=== PATIENT | female | born 1960 | race Caucasian/White ===

== ENCOUNTER 2019-07-10 09:06 | Outpatient (RCR) | payer OTHER, SELFPAY | END 2019-07-15 00:01 | LOC: ONCMED 09:06 | PROVIDERS: Family Provider Family Medicine; Visit Provider Nurse Practitioner | DX: E86.0 Dehydration (principal); R11.0 Nausea; C50.412 Malignant neoplasm of upper-outer quadrant of left female breast; Z17.0 Estrogen receptor positive status [ER+] | CPT/HCPCS: 80053; 85025; 96360; 96361; 96365; J1100; J1642 ×2; J7050 ==

== ENCOUNTER 2019-07-17 06:17 | Outpatient (RCR) | payer OTHER, SELFPAY | END 2019-07-21 12:00 | disposition home or self-care (01) | LOC: ONCMED 06:17 | PROVIDERS: Family Provider Family Medicine; Visit Provider Nurse Practitioner | DX: E86.0 Dehydration (principal); C50.412 Malignant neoplasm of upper-outer quadrant of left female breast; T82.9XXA Unspecified complication of cardiac and vascular prosthetic device, implant and graft, initial encounter; Y82.8 Other medical devices associated with adverse incidents | CPT/HCPCS: 36593; 80053; 85025; 96361; 96374; J1642; J2997 ==

== ENCOUNTER 2019-07-17 15:25 | Outpatient (RCR) | payer OTHER, SELFPAY | END 2019-08-15 00:01 | LOC: SPT 15:25 | PROVIDERS: Family Provider Family Medicine; Visit Provider Nurse Practitioner | DX: R53.83 Other fatigue (principal); T45.1X5A Adverse effect of antineoplastic and immunosuppressive drugs, initial encounter; C50.412 Malignant neoplasm of upper-outer quadrant of left female breast; Z17.0 Estrogen receptor positive status [ER+] | CPT/HCPCS: 97161 ==

== ENCOUNTER 2019-08-14 05:32 | Outpatient (RCR) | payer OTHER, SELFPAY | END 2019-08-15 00:01 | LOC: ONCRAD 05:32 | PROVIDERS: Family Provider Family Medicine; Visit Provider Internal Medicine Medical Oncology | DX: Z51.12 Encounter for antineoplastic immunotherapy (principal); C50.412 Malignant neoplasm of upper-outer quadrant of left female breast; C77.3 Secondary and unspecified malignant neoplasm of axilla and upper limb lymph nodes; N60.19 Diffuse cystic mastopathy of unspecified breast; G43.709 Chronic migraine without aura, not intractable, without status migrainosus; K57.90 Diverticulosis of intestine, part unspecified, without perforation or abscess without bleeding; E55.9 Vitamin D deficiency, unspecified; Z17.0 Estrogen receptor positive status [ER+]; Z79.811 Long term (current) use of aromatase inhibitors; Z78.0 Asymptomatic menopausal state; Z90.13 Acquired absence of bilateral breasts and nipples | CPT/HCPCS: 36415; 80053 ×2; 82306; 85025 ×2; 96375; 96413 ×2; 99214 ×2; J1642 ×2; J2405; J7050 ×4; J9355 ×2 ==

== ENCOUNTER 2019-08-16 06:00 | Outpatient (RCR) | payer OTHER, SELFPAY | END 2019-09-15 23:59 | disposition home or self-care (01) | LOC: SPT 06:00 | PROVIDERS: Family Provider Family Medicine; Visit Provider Internal Medicine Medical Oncology | DX: C50.412 Malignant neoplasm of upper-outer quadrant of left female breast (principal) ==

== ENCOUNTER 2019-08-21 16:06 | Outpatient (CLI) | payer OTHER, SELFPAY ==
--- NOTE | 2019-08-21 16:16 | XR_ITS ---
WS: [id number] SCREENING DEXA SCAN [employer] CLINICAL INFORMATION: ASYMTOMATIC POSTMENOPAUSAL STATE COMPARISON: None. FINDINGS: The L1-L4 bone mineral density measures 1.11. This corresponds to a T score score of -0.6 and Z score of 0.6. Left femoral neck bone mineral density measures 0.873. This corresponds to a T score of -1.1 and Z sc ore of -0.1. Right femoral neck bone mineral density measures 0.862. This corresponds to a T score -1.2 and Z scor e of -0.2. Mean femoral neck bone mineral density measures 0.868. This corresponds to a T score of -1.1 and Z sc ore of -0.2. XR/XR DEXA axial skeleton* 20895 IMPRESSION: Osteopenia Patient's FRAX calculated 10 year probability for major osteoporotic fracture i s 25.0 % and osteoporotic hip fracture is 1.1%.
== END 2019-08-21 16:07 | disposition home or self-care (01) ==
LOC: WPI 16:10
PROVIDERS: Family Provider Family Medicine; PCP Family Medicine; Referring Provider Internal Medicine Medical Oncology; Visit Provider Internal Medicine Medical Oncology
DX: Z78.0 Asymptomatic menopausal state (principal); M85.80 Other specified disorders of bone density and structure, unspecified site
CPT/HCPCS: 77080

== ENCOUNTER 2019-09-05 10:52 | Outpatient (CLI) | payer OTHER, SELFPAY ==
--- NOTE | 2019-09-05 11:00 | USCV_ITS ---
Bertha Briceno Age: 58 Gender: F : 1960 Exam Date: 09/05/2019 11:21 Ordering Phys: Sidney Beltran MD Technologist: Fernanda Juarez Exam Location: [facility] [place] Indication: HIGH RISK MEDS BP: 114 / 58 HR: 65 Rhythm: Sinus Technical Quality: Adequate MEASUREMENTS (Male / Female) Normal Values 2D ECHO LV Diastolic Diameter PLAX 2.9 cm 4.2 - 5.9 / 3.9 - 5.3 cm LV Systolic Diameter PLAX 2.3 cm LV Chamber Size 3.0 cm IVS Diastolic Thickness 0.9 cm 0.6 - 1.0 / 0.6 - 0.9 cm IVS Systolic Thickness 1.3 cm LVPW Diastolic Thickness 1.5 cm 0.6 - 1.0 / 0.6 - 0.9 cm LVPW Systolic Thickness 1.6 cm RV Chamber Size 2.5 cm LVOT Diameter 2.1 cm LV Ejection Fraction 2D Teich 44.2 % LV Ejection Fraction MOD 2C 68.5 % LV Ejection Fraction 2C AL 67.7 % LA Diameter 4.0 cm LA Width 1.8 cm LA Height 3.2 cm RA Width 2.3 cm RA Height 1.8 cm Aorta at Sinotubular Diameter 3.0 cm M-MODE LV Diastolic Diameter MM 4.9 cm 4.2 - 5.9 / 3.9 - 5.3 cm LV Systolic Diameter MM 3.3 cm LV Ejection Fraction MM Teich 59.6 % IVS Diastolic Thickness MM 1.0 cm 0.6 - 1.0 / 0.6 - 0.9 cm IVS Systolic Thickness MM 1.3 cm LVPW Diastolic Thickness MM 1.0 cm 0.6 - 1.0 / 0.6 - 0.9 cm LVPW Systolic Thickness MM 1.1 cm Aortic Annulus Diameter 3.1 cm LA Ao Ratio MM 1.3 MV E Point Septal Separation 0.6 cm FINDINGS Left Ventricle Normal left ventricular size and systolic function, EF 69 %. No regional wall motion abnormalities. Right Ventricle Possibly of normal size and ejection fraction Right Atrium Normal right atrial size. Left Atrium Normal left atrial size. Mitral Valve No gross abnormalities noted Aortic Valve No gross abnormalities noted Tricuspid Valve No gross abnormalities Pulmonic Valve Pulmonic valve not well visualized. Pericardium No pericardial effusion. Aorta Normal aortic annulus size. CONCLUSIONS Normal left ventricular size and systolic function, EF 69 %. No regional wall motion abnormalities. Possibly normal chamber sizes. Technically difficult study because of the poor ultrasonic window. Comparison with the previous study is difficult because of the difference in the technical quality. Dr Charla Gonzalez MD [facility] (Electronically Signed) Final Date: 06 September 2019 09:27 S
== END 2019-09-05 10:53 | disposition home or self-care (01) ==
LOC: RAD 10:55
PROVIDERS: Family Provider Family Medicine; PCP Family Medicine; Visit Provider Internal Medicine Medical Oncology
DX: Z79.899 Other long term (current) drug therapy (principal)
CPT/HCPCS: 93308

== ENCOUNTER 2019-09-12 05:58 | Outpatient (RCR) | payer OTHER, SELFPAY ==
[2019-09-04 10:42] LABS: Basophils % 0.4 %; Eosinophils # 0.2 10^3/uL (0.0-0.8); Eosinophils % 2.2 %; Hematocrit 34.8 % (37.0-47.0); Hemoglobin 10.5 g/dL (11.5-15.3); Lymphocytes # 3.5 10^3/uL (0.8-4.8); Lymphocytes % 45.7 %; Mean Corpuscular HGB Conc 30.2 g/dL (30.0-36.0); Mean Corpuscular Hemoglobin 30.4 pg (28.0-34.0); Mean Corpuscular Volume 100.9 fL (81-99); Mean Platelet Volume 11.4 fL (7.4-10.4); Monocytes # 0.6 10^3/uL (0.2-0.9); Monocytes % 7.6 %; Neutrophils # 3.4 10^3/uL (1.8-7.7); Nucleated Red Blood Cells % 0 %; Platelet Count 352 10^3/cmm (130-400); Red Blood Count 3.45 10^6/uL (4.1-5.3); Red Cell Distribution Width 12.7 % (12.1-15.1); White Blood Count 7.7 10^3/uL (4.0-10.0)
[2019-09-04 10:54] LABS: Alanine Aminotransferase 11 U/L (0-33); Albumin Level 3.8 g/dL (3.5-5.2); Alkaline Phosphatase 105 IU/L (35-105); Anion Gap 15.7 (5-19); Aspartate Amino Transferase 18 U/L (0-32); Blood Urea Nitrogen 22 mg/dL (8-23); Calcium 9.9 mg/Dl (8.8-10.2); Carbon Dioxide 24 mmol/L (22-29); Chloride 101 mmol/L (98-107); Globulin 3.8 g/dL (1.3-4.6); Glomerular Filtration Rate 50.7 mL/min (90-130); Glucose 115 mg/dL (74-106); Potassium 3.7 mmol/L (3.5-5.1); Sodium 137 mmol/L (136-145); Total Bilirubin 0.2 mg/dL (0.15-1.2); Total Protein 7.6 g/dL (6.6-8.7)
[2019-09-07] MEDS: sodium chloride 0.9% 250 ML 75 ML IV (13:26)
--- NOTE | 2019-09-12 | CTR_ITS ---
Radation Therapy Planning CT images; total exam DLP: 407.19 mGy-cm MTDD
== END 2019-09-15 23:59 | disposition home or self-care (01) ==
LOC: ONCMED 05:58
PROVIDERS: Internal Medicine Medical Oncology; Family Provider Family Medicine; PCP Family Medicine; Visit Provider Radiology Radiation Oncology
DX: Z51.12 Encounter for antineoplastic immunotherapy (principal); C50.412 Malignant neoplasm of upper-outer quadrant of left female breast; C77.3 Secondary and unspecified malignant neoplasm of axilla and upper limb lymph nodes; Z17.0 Estrogen receptor positive status [ER+]; G43.709 Chronic migraine without aura, not intractable, without status migrainosus; K57.90 Diverticulosis of intestine, part unspecified, without perforation or abscess without bleeding; G47.00 Insomnia, unspecified; E55.9 Vitamin D deficiency, unspecified; Z79.811 Long term (current) use of aromatase inhibitors; Z79.899 Other long term (current) drug therapy; Z92.21 Personal history of antineoplastic chemotherapy; Z90.13 Acquired absence of bilateral breasts and nipples; Z80.3 Family history of malignant neoplasm of breast
CPT/HCPCS: 36591; 77290; 77334; 80053; 85025; 96413; 96415; 99205; 99214; J7050; J9354

== ENCOUNTER 2019-10-13 05:44 | Outpatient (RCR) | payer OTHER, SELFPAY ==
--- NOTE | 2019-09-27 11:12 | ONCRAD TMN_ITS ---
Radiation Oncology Weekly Treatment Management Patient: Bertha Briceno MR#: [id number] : 1960> Age: 58> Sex: Female Dictated by: Dr. Hubert Blancas Date of Service: 09/27/2019 Referring Physician(s) : Dr. 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 ID: LT ChestWall, Energy: 15X/6X, Dose/Fx (cGy): 200, #Fx: 25, Dose Correction (cGy): 0, Total Dose (cGy): 200, Start Date: 09/27/2019, Elapsed Days: 0 LT ChestWall, Treatment Site: SCLV PAB, Ref. ID: SCLV PAB, Energy: 15X/6X, Dose/Fx (cGy): 200, #Fx: , Dose Correction (cGy): 0, Total Dose (cGy): 200,Start Date: 09/27/2019, Elapsed Days: 0 Current Complaints/Interval History: Constitutional Complains of mild fatigue. Denies lack of appetite, fever and night sweats. Breasts Has tenderness to the left chest wall. Respiratory Complains of dyspnea associated with normal activity. Denies cough and wheezing. Current Medications: Amitriptyline HCl, anastrozole, anastrozole, dexamethasone, dexamethasone Sodium Phosphate, imodium A-D, kadcyla, levoFLOXacin, lORazepam, omeprazole, ondansetron HCl, ondansetron HCl, ondansetron HCl, prochlorperazine Maleate, prochlorperazine Maleate, propranolol HCl, sodium Chloride, vitamin D-[address] Allergies: Aleve and Flagyl. Vital Signs: Performed on 09/27/2019 10:18 AM BMI - 28.606 kg/m2 (high), Height - 62.00 in, Weight - 156.4 lbs, Temperature - 98.7 f, Pulse - 72, Respiration - 18, O2 Sat - 96 %, Pain - 0 and BP - 106/ 70 mm(hg). Physical Exam: Appears stable, no skin erythema or desquamation. Performance Status: 1 - No physically strenuous activity, but ambulatory and able to carry out light or sedentary work (e.g. office work, light house work). (ECOG) Lab: Test performed on 09/04/2019 9:52 AM RBC - 3.45 10^12/l (low), HGB - 10.5 g/dl (low), MCV - 100.9 fl (high), MPV - 11.4 fl (high) and Cr Clearance (Est) - 57.87 ml/min (low). Imaging: No new diagnostic imaging was performed since the last weekly treatment visit. All radiation therapy related imaging (including but not limited to kV generated images) was reviewed. Appropriate changes, if any, were made to assure accurate target localization. Impression/Plan: Started RT today. Continue treatment as planned. Apply aquaphor to treatment area. CPT: 61052 Signed by: Dr. Hubert Blancas>09/27/2019 11:10:49 AM <<Signature on File>>
[2019-09-28] MEDS: alteplase 1 mg/mL SDV 2 mL 2 MG IV (13:00)
[2019-09-28 13:26] LABS: Basophils % 0.4 %; Eosinophils # 0.2 10^3/uL (0.0-0.8); Hematocrit 33.8 % (37.0-47.0); Hemoglobin 10.3 g/dL (11.5-15.3); Lymphocytes # 3.4 10^3/uL (0.8-4.8); Mean Corpuscular HGB Conc 30.5 g/dL (30.0-36.0); Mean Corpuscular Hemoglobin 29.4 pg (28.0-34.0); Mean Corpuscular Volume 96.6 fL (81-99); Mean Platelet Volume 10.3 fL (7.4-10.4); Monocytes # 0.7 10^3/uL (0.2-0.9); Monocytes % 8.7 %; Neutrophils # 3.8 10^3/uL (1.8-7.7); Neutrophils % 46.7 %; Nucleated Red Blood Cells % 0 %; Platelet Count 417 10^3/cmm (130-400); Red Cell Distribution Width 13.1 % (12.1-15.1); White Blood Count 8.2 10^3/uL (4.0-10.0)
[2019-09-28 13:50] LABS: Alanine Aminotransferase 17 U/L (0-33); Albumin Level 3.5 g/dL (3.5-5.2); Alkaline Phosphatase 110 IU/L (35-105); Anion Gap 15.5 (5-19); Aspartate Amino Transferase 22 U/L (0-32); Blood Urea Nitrogen 26 mg/dL (8-23); Carbon Dioxide 26 mmol/L (22-29); Chloride 100 mmol/L (98-107); Globulin 4.1 g/dL (1.3-4.6); Glomerular Filtration Rate 50.7 mL/min (90-130); Glucose 107 mg/dL (65-115); Potassium 4.5 mmol/L (3.5-5.1); Sodium 137 mmol/L (136-145); Total Bilirubin 0.2 mg/dL (0.15-1.2); Total Protein 7.6 g/dL (6.6-8.7)
[2019-09-28] MEDS: sodium chloride 0.9% 250 ML 75 ML IV (14:45)
--- NOTE | 2019-09-28 15:02 | ONC FU_ITS ---
[facility] Patient Note Patient: Bertha Briceno < Unit #: [id number]: 1960 Dictated By: Jason SilvaDate of Visit: Sep 28, 2019 Onc MED Follow-Up/Prog Note Chief Complaint: Breast cancer. 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 She was found to have an abnormal screening mammogram on 12/27/2018. It was BI-RADS 0, incomplete, with findings of increasing spiculated focal asymmetric density in the upper outer quadrant of the left breast. Diagnostic mammogram/ultrasound on 01/11/2019 was BI-RADS 5, highly suggestive of malignancy. The mammogram showed spiculated mass in the upper-outer left breast measuring 3.5 x 1.8 cm. Ultrasound showed a large hypoechoic solid irregular lesion at the 2:00 position measuring 2.8 x 1.6 x 3.1 cm. Also noted were hypoechoic cysts at the 12:00 and 3:00 positions measuring 5 mm and 12 mm respectively. She underwent ultrasound-guided needle biopsy of the left breast mass on 01/20/2019. Pathology showed grade 2 infiltrating ductal carcinoma. The tumor was noted to be ER positive at 94% and [place] positive at 81%, both with strong intensity. HER-2/castro was positive, 3+ by IHC and amplification ratio by FISH of 1.7 with 4.0 HER-2 copies/cell. Staging PET/CT on 02/04/2019 showed an FDG avid lesion in the left breast measuring 1.3 x 1.8 cm, SUV 8.8. A solitary left axillary lymph node measuring 1.3 cm is also FDG avid with SUV 3.8, consistent with local metastatic disease. There were no findings to indicate any distant metastatic disease. Further evaluation with ultrasound of the left breast/axilla on 02/06/2019 showed a superior left axillary lymph node measuring 1.1 x 1.5 x 1.1 cm which appeared to have an intraparenchymal intermediate hyperechoic soft tissue focus, suspicious for metastasis. The remainder of the axillary lymph nodes appeared grossly unremarkable by ultrasound. Ultrasound-guided biopsy of the lymph node on 02/20/2019 showed metastatic adenocarcinoma consistent with the previously diagnosed breast primary. Given those findings, she was recommended to undergo neoadjuvant chemotherapy with TCH-P. She began cycle 1 of TCH-P on 03/06/2019. She experienced very severe GI toxicity, including nausea/vomiting and diarrhea. She required IV hydration, and she also required growth factor support with Neupogen, as she became severely neutropenia at day 8. She recovered uneventfully, and she was able to continue cycle 2 on 03/27/2019 with a reduced dosage of Perjeta. She also was given Neulasta prophylactically, and she was given scheduled IV hydration. She tolerated the treatment well, and she was then able to continue with cycle 3 on 04/18/2019, with cycle 4 on 05/08/2019, and with cycle 5 on 05/29/2019. On 06/03/2019 she was admitted to the hospital with severe nausea/vomiting and diarrhea. Some of this was clearly chemotherapy related, but she also was found to have Clostridium difficile colitis. Her clinical course also was complicated by severe neutropenia and anemia, but she had gradual recovery with appropriate antibiotic therapy. She was then able to continue with cycle 6 of TCH-P on 07/03/2019. On 07/20/2019 she underwent left modified radical mastectomy and right simple prophylactic mastectomy. She tolerated the surgery very well. Pathology on the left breast showed a focus of residual grade 2 invasive ductal carcinoma measuring 1.1 cm in greatest dimension. There was involvement in 1/12 lymph nodes with the metastatic focus measuring 0.5 cm. There was no extranodal extension identified. Final staging was ypT1c, ypN1a. Her medical history includes fibrocystic breast disease, chronic migraine, and diverticulosis. She underwent natural menopause at age 48. She is a nonsmoker. INTERIM HISTORY: She returned on 07/24/2019 and at that time she continued systemic adjuvant therapy with single agent Herceptin at the 3-week dosing interval. As she did have residual disease on the left breast and involvement in 1/12 lymph nodes, it was recommended that her treatment plan change from Herceptin to Kadcyla. She began her first treatment on . She has tolerated it well. She began radiation therapy on 09/27/2019. Ms Briceno is here today for followup. She is doing well. She states she is working 2 nights a week-not consecutive. She is tolerating this well. She remains active around the house. She denies any worsening of her fatigue and states actually is getting better. She denies any nausea or vomiting. She states she is tolerating the Kadcyla much better than her original chemotherapy. She denies any new pain. She has had no diarrhea or constipation. She denies any peripheral neuropathy. She states overall she is eating good and feels good in general. She is little concerned about having increased fatigue with the radiation but so far she says she has done well. Her ECOG is 0. Past Medical History: Chronic migraine Diverticulosis Fibrocystic breast disease Past Surgical History: Bilateral salpingectomy Closed reduction of left wrist fracture Bilateral mastecomy in [address] john in 2018 Ultrasound directed needle biopsy of the left breast in 2018 Breast biopsy for benign disease in 2010 Tubal ligation and D&C in 1983 Appendectomy, adhesion lysis, and D&C in 1981 Allergies: Aleve and Flagyl. Medications: Amitriptyline HCl 2 Tablet (of 25 mg) Oral daily Anastrozole 1 Tablet (of 1 mg) Oral daily Imodium A-D 1 Tablet (of 2 mg) Oral PRN LORazepam 0.5 - 1 Tablet (of 1 mg) Oral t.i.d. PRN Omeprazole 1 Tablet (of 20 mg) Tablet, enteric coated Oral daily Ondansetron HCl 1 Tablet (of 8 mg) Oral t.i.d. PRN Prochlorperazine Maleate 1 Tablet (of 10 mg) Oral q 4 hours PRN Propranolol HCl 1 Tablet (of 40 mg) Oral daily Vitamin D-[address] 1 Tablet (of 5000 Units) Oral daily Family History: Ms. Briceno's mother is alive: breast cancer, and myocardial infarction, and lupus. Ms. Briceno's father at age 54: lung cancer. Ms. Briceno's maternal grandmother is : pancreatic cancer. Her maternal grandfather is : type II diabetes. Ms. Briceno has 2 sisters: 2 alive. Father of lung cancer at age 54. Mother is still living at age 79. She has SLE and coronary artery disease. She has been treated for breast cancer and uterine cancer. A first cousin on her mother's side of breast cancer. Her maternal grandmother had pancreatic cancer. Two sisters are in good health. Her maternal grandfather had diabetes. 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 Ms. Briceno has never smoked. She has no history of drinking. Her diet consists of regular meals. She indicates her activity level as: regular exercise. She is employed as an [employer]. She is a nonsmoker. She does not drink alcohol. Review Of Symptoms: Constitutional Denies fevers, chills, night sweats, excessive fatigue or weight loss. Allergic/Immunologic No reactions. Eyes Denies significant visual changes. No diplopia. No amaurosis. ENMT Denies changes in hearing, sore throat, mouth sores, difficulty or changes in swallowing ability, and/or sinus drainage. Endocrine No diabetes, thyroid disease or hormone replacement. Denies hot flashes or night sweats. Hematologic/Lymphatic Denies easy bruising or bleeding. The patient denies any tender or palpable lymph nodes. Respiratory Denies severe dyspnea on exertion, denies any chest pain, cough or hemoptysis. Denies orthopnea. Cardiovascular Denies anginal chest pain, palpitations or orthopnea. Gastrointestinal Denies any current nausea, vomiting, diarrhea, GI bleeding, or constipation. Genitourinary (F) No hematuria, hesitancy, incontinence, vaginal bleeding, discharge or other problems with urination. Musculoskeletal Denies joint pain, swelling or redness. No decreased range of motion. Integumentary Denies chronic rashes, inflammation, ulcerations or skin changes. Neurologic Denies headache, blurred vision, and no areas of focal weakness or numbness. Normal gait. No sensory problems. Psychiatric Denies insomnia, depression, maribel or mood swings. Vital Signs: Performed on Sep 28, 2019 14:18 Height - 62.00 in Weight - 155.4 lbs (LOW) BSA - 1.72 sq.m BMI - 28.42 Temperature - 97.3 F (LOW) Pulse - 64 /min Respiration - 18 /min BP - 117/65 mm(hg) O2 Sat - 100 % Pain - 0,0 - Fully active, able to carry on all predisease activities without restrictions. (ECOG) Physical Examination: Constitutional Alert, oriented, no acute distress. Skin pink, warm and dry. Head Normocephalic; atraumatic. Eyes Conjunctivae and sclerae are clear and without icterus. Pupils are reactive and equal. Neck Supple without masses or thyromegaly. No jugular venous distension. Hematologic/Lymphatic No petechiae or purpura. Respiratory Lungs are clear to auscultation without rhonchi or wheezing. Cardiovascular Regular rate and rhythm of heart without murmurs,clicks, gallops or rubs. Chest Chest is symmetric without chest wall deformities. Right subclavian venous access device insertion site has healed well. Back/Spine Non-tender to palpation. Extremities No visible deformities, no cyanosis, clubbing or edema. Musculoskeletal No tenderness or swelling, normal range of motion without obvious weakness. Integumentary No rashes or lesions. Neurologic No sensory or motor deficits, normal cerebellar function, normal gait. Psychiatric Alert and oriented times three. Coherent speech. Verbalizes understanding of our discussions today. Laboratory:Test performed on Sep 28, 2019 13:12 Sodium 137 mmol/L Potassium 4.5 mmol/L Chloride 100 mmol/L CO2 26 mmol/L Anion Gap 15.5 BUN 26 mg/dL Creatinine 1.1 mg/dL Cr Clearance (Est) 57.8700 mL/min eGFR 50.7 mL/min Glucose 107 mg/dL Calcium 10.0 mg/dL Protein, Total 7.6 g/dL Albumin 3.5 g/dL Globulin 4.1 g/dL Bilirubin, Total 0.2 mg/dL ALT (SGPT) 17 U/L AST (SGOT) 22 U/L Alkaline Phosphatase 110 IU/L WBC 8.2 10 3/uL RBC 3.50 10 6/uL HGB 10.3 g/dL HCT 33.8 % MCV 96.6 fL MCH 29.4 pg MCHC 30.5 g/dL RDW 13.1 % Platelet Count 417 10 3/cmm MPV 10.3 fL Neutrophils 3.8 10 3/uL Lymphocytes 3.4 10 3/uL Monocytes 0.7 10 3/uL Eosinophils 0.2 10 3/uL Basophils 0.0 10 3/uL Neutrophil % 46.7 % Lymphocyte % 42.0 % Monocyte % 8.7 % Eosinophil % 2.0 % Basophils % 0.4 % Test performed on Sep 04, 2019 09:52 Manual Lymphocytes 45.7 % Manual Monocytes 7.6 % Manual Eosinophils 2.2 % Manual Basophils 0.4 % NRBCs 0.0 /100 WBC Test performed on Aug 14, 2019 12:55 Vitamin D (25-Hydroxy), Total 16 ng/mL Test performed on Jun 22, 2019 13:45 Vitamin B12 1648 pg/mL Test performed on Jun 19, 2019 08:30 Magnesium 1.3 mg/dL Impression: 1. Patient with grade 2 infiltrating ductal carcinoma of the left breast, stage IIB (T2, N1, M0), ER/[place] positive and HER-2/castro positive. 2. She underwent ultrasound-guided biopsy of the left breast on 01/20/2019, and she underwent ultrasound-guided biopsy of a left axillary lymph node on 02/20/2019. 3. She was given neoadjuvant chemotherapy with TCH-P, cycle 1 beginning on 03/06/2019 through 07/03/2019. Her cycle 5 was complicated by severe nausea/vomiting and diarrhea and by C. difficile colitis, but she did recover, and she was able to continue with cycle 6 on 07/03/2019. 4. On 07/20/2019 she underwent left modified radical mastectomy and right simple prophylactic mastectomy. Pathology on the left breast showed a focus of residual grade 2 invasive ductal carcinoma measuring 1.1 cm in greatest dimension. There was involvement in 1/12 lymph nodes with the metastatic focus measuring 0.5 Final staging was ypT1c, ypN1a. Her other medical illnesses include: 5. Chronic migraine. 6. Diverticulosis. 7. She has a significant family history for breast cancer. 8. She has evidence of vitamin D deficiency. As of 07/24/2019 she continued her systemic adjuvant therapy with single agent Herceptin at the 3-week dosing schedule. She continued with cycle 2 of single agent Herceptin on 08/14/2019. At that time she also began adjuvant hormonal therapy with anastrozole 1 mg daily. She tolerated her treatment well, and during this time she has been showing gradual improvement in her performance status. Her treatment plan was changed due to the residual axillary lymph node involvement following neoadjuvant TCH-P. She was eligible to include Kadcyla with her postoperative adjuvant therapy. Her treatment was changed from single agent Herceptin to Kadcyla 3.6 mg/kg by IV infusion every 3 weeks for total of 14 cycles. She began cycle 1 Kadcyla on 09/07/2019. She is tolerating it well thus far and has increase in her performance status. She bgan radiation therapy on 09/27/2019. Plan: 1. Proceed with cycle 214 Kadcyla. 2. Continue anastrozole 1 mg daily. 3. Echocardiogram from 09/05/2019 was reviewed and discussed with ms Briceno and a copy was given to her. Her EF was reported as 69% and no wall motion abnormalities. It is unchanged from previous echo. Plan for repeat in 3-4 months unless otherwise indicated. 4. Bone density dro 08/21/2019 was reviewed and discussed with Ms Briceno and a copy was given to her. The mean BMD of the femoral neck was reported as T score of -1.1. She has osteopenia. She is currently on vitamin D replacement for vitamin D deficiency and she does consume milk products reguarly. Her serum calcium level today was 10.0. She is anastrozole 1 mg daily and will need recheck of the bone density in two years. 5. Today's labs were reivewed in detail and discussed with Ms Briceno and a copy was given to her. WBC 8.2, Hgb 10.3, platelets 417,000. ANC = 3800. CMP unremarkable. 6. She started radiation therapy on 09/27/2019. 7. Plan for followup in 3 weeks with CBC, CMP and cycle 314 Kadcyla. 8. Ms Briceno was instructed to call us in the interim if questions or problems arise. Signed By: Jason Silva-LEONILA HENAO <<Signature on File>>
--- NOTE | 2019-10-03 16:52 | ONCRAD TMN_ITS ---
Radiation Oncology Weekly Treatment Management Patient: Bertha Briceno MR#: [id number] : 1960> Age: 58> Sex: Female Dictated by: Dr. Hubert Blancas Date of Service: 10/03/2019 Referring Physician(s) : Dr. 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 ID: LT ChestWall, Energy: 15X/6X, Dose/Fx (cGy): 200, #Fx: 4 / 25, Dose Correction (cGy): 0, Total Dose (cGy): 800, Start Date: 09/27/2019, Elapsed Days: 6 Treatment Site: SCLV PAB, Ref. ID: SCLV PAB, Energy: 15X/6X, Dose/Fx (cGy): 200, #Fx: 4 / 25, Dose Correction (cGy): 0, Total Dose (cGy): 800, Start Date: 09/27/2019, Elapsed Days: 6 Current Complaints/Interval History: Constitutional Complains of mild fatigue. Denies lack of appetite, fever and night sweats. ENMT Denies sore throat. Integumentary Has no redness to the left chest wall Breasts Has left chest wall tenderness Respiratory Denies cough, dyspnea and wheezing. Current Medications: Amitriptyline HCl, anastrozole, anastrozole, dexamethasone, dexamethasone Sodium Phosphate, imodium A-D, kadcyla, levoFLOXacin, lORazepam, omeprazole, ondansetron HCl, ondansetron HCl, ondansetron HCl, prochlorperazine Maleate, prochlorperazine Maleate, propranolol HCl, sodium Chloride, vitamin D-[address] Allergies: Aleve and Flagyl. Vital Signs: Performed on 10/03/2019 2:36 PM BMI - 28.277 kg/m2 (high), Height - 62.00 in, Weight - 154.6 lbs, Temperature - 97.1 f, Pulse - 74, Respiration - 18, O2 Sat - 97 %, Pain - 0 and BP - 135/ 81 mm(hg). Physical Exam: Appears stable, no skin erythema or desquamation. Performance Status: 1 - No physically strenuous activity, but ambulatory and able to carry out light or sedentary work (e.g. office work, light house work). (ECOG) Lab: Test performed on 09/28/2019 1:12 PM RBC - 3.50 10 6/ul (low), HGB - 10.3 g/dl (low), HCT - 33.8 % (low), Platelet Count - 417 10 3/cmm (high), BUN - 26 mg/dl (high), Creatinine - 1.1 mg/dl (high), Cr Clearance (Est) - 57.8700 ml/min (low), eGFR - 50.7 ml/min (low) and Alkaline Phosphatase - 110 iu/l (high). Imaging: No new diagnostic imaging was performed since the last weekly treatment visit. All radiation therapy related imaging (including but not limited to CBCT generated images) was reviewed. Appropriate changes, if any, were made to assure accurate target localization. Impression/Plan: Tolerating treatment well. Continue treatment as planned. Continue aquaphor CPT: 12979 Signed by: Dr. Hubert Blancas>10/03/2019 4:51:17 PM <<Signature on File>>
--- NOTE | 2019-10-11 14:16 | ONCRAD TMN_ITS ---
Radiation Oncology Weekly Treatment Management Patient: Bertha Briceno MR#: [id number] : 1960> Age: 58> Sex: Female Dictated by: Dr. Hubert Blancas Date of Service: 10/11/2019 Referring Physician(s) : Dr. 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 ID: LT ChestWall, Energy: 15X/6X, Dose/Fx (cGy): 200, #Fx: 10 / 25, Dose Correction (cGy): 0, Total Dose (cGy): 2,000, Start Date: 09/27/2019, Elapsed Days: 14 LT ChestWall, Treatment Site: SCLV PAB, Ref. ID: SCLV PAB, Energy: 15X/6X, Dose/Fx (cGy): 200, #Fx: 10 / 25, Dose Correction (cGy): 0, Total Dose (cGy): 2,000, Start Date: 09/27/2019, Elapsed Days: 14 Current Complaints/Interval History: Constitutional Complains of mild fatigue. Denies lack of appetite, fever and night sweats. ENMT Denies sore throat or dysphagia. Integumentary Slight redness to the left upper chest wall and supraclavicular area Breasts Has tenderness to the upper left chest wall and axilla Respiratory Denies cough, dyspnea and wheezing. Current Medications: Amitriptyline HCl, anastrozole, anastrozole, dexamethasone, dexamethasone Sodium Phosphate, imodium A-D, kadcyla, levoFLOXacin, lORazepam, omeprazole, ondansetron HCl, ondansetron HCl, ondansetron HCl, prochlorperazine Maleate, prochlorperazine Maleate, propranolol HCl, sodium Chloride, vitamin D-[address] Allergies: Aleve and Flagyl. Vital Signs: Performed on 10/11/2019 1:20 PM BMI - 28.716 kg/m2 (high), Height - 62.00 in, Weight - 157.0 lbs, Temperature - 98.2 f, Pulse - 74, Respiration - 18, O2 Sat - 99 % and BP - 137/ 84 mm(hg). Physical Exam: Appears stable, skin erythema w/o desquamation. Performance Status: 1 - No physically strenuous activity, but ambulatory and able to carry out light or sedentary work (e.g. office work, light house work). (ECOG) Lab: Test performed on 09/28/2019 1:12 PM RBC - 3.50 10 6/ul (low), HGB - 10.3 g/dl (low), HCT - 33.8 % (low), Platelet Count - 417 10 3/cmm (high), BUN - 26 mg/dl (high), Creatinine - 1.1 mg/dl (high), Cr Clearance (Est) - 57.8700 ml/min (low), eGFR - 50.7 ml/min (low) and Alkaline Phosphatase - 110 iu/l (high). Imaging: No new diagnostic imaging was performed since the last weekly treatment visit. All radiation therapy related imaging (including but not limited to kV generated images) was reviewed. Appropriate changes, if any, were made to assure accurate target localization. Impression/Plan: Tolerating treatment well with expected side effects. Continue treatment as planned. Apply aquaphor cream to affected skin. CPT: 11751 Signed by: Dr. Hubert Blancas>10/11/2019 2:15:03 PM <<Signature on File>>
== END 2019-10-14 23:59 | disposition home or self-care (01) ==
LOC: ONCMED 05:44
PROVIDERS: Nurse Practitioner; Family Provider Family Medicine; PCP Family Medicine; Visit Provider Radiology Radiation Oncology
DX: Z51.0 Encounter for antineoplastic radiation therapy (principal); Z51.12 Encounter for antineoplastic immunotherapy; C50.412 Malignant neoplasm of upper-outer quadrant of left female breast; C77.3 Secondary and unspecified malignant neoplasm of axilla and upper limb lymph nodes; Z17.0 Estrogen receptor positive status [ER+]; T82.594A Other mechanical complication of infusion catheter, initial encounter; Y80.1 Therapeutic (nonsurgical) and rehabilitative physical medicine devices associated with adverse incidents; E55.9 Vitamin D deficiency, unspecified; G43.709 Chronic migraine without aura, not intractable, without status migrainosus; K57.90 Diverticulosis of intestine, part unspecified, without perforation or abscess without bleeding; Z79.811 Long term (current) use of aromatase inhibitors; Z90.13 Acquired absence of bilateral breasts and nipples
CPT/HCPCS: 36593; 77280; 77295; 77300; 77307; 77334; 77336; 77387; 77412; 77427; 80053; 85025; 96375; 96413; 99214; G6002; J2997; J7050; J9354

== ENCOUNTER 2019-11-09 05:51 | Outpatient (RCR) | payer OTHER, SELFPAY ==
[2019-10-19 12:52] LABS: Basophils % 0.2 %; Eosinophils # 0.2 10^3/uL (0.0-0.8); Eosinophils % 1.9 %; Hematocrit 31.9 % (37.0-47.0); Hemoglobin 9.6 g/dL (11.5-15.3); Lymphocytes % 25.1 %; Mean Corpuscular HGB Conc 30.1 g/dL (30.0-36.0); Mean Corpuscular Hemoglobin 27.6 pg (28.0-34.0); Mean Corpuscular Volume 91.7 fL (81-99); Mean Platelet Volume 10.7 fL (7.4-10.4); Monocytes # 0.9 10^3/uL (0.2-0.9); Monocytes % 10.5 %; Neutrophils % 62.1 %; Nucleated Red Blood Cells % 0 %; Platelet Count 369 10^3/cmm (130-400); Red Blood Count 3.48 10^6/uL (4.1-5.3); Red Cell Distribution Width 14.1 % (12.1-15.1); White Blood Count 8.1 10^3/uL (4.0-10.0)
[2019-10-19 13:15] LABS: Alanine Aminotransferase 18 U/L (0-33); Albumin Level 3.6 g/dL (3.5-5.2); Alkaline Phosphatase 118 IU/L (35-105); Anion Gap 17.8 (5-19); Aspartate Amino Transferase 21 U/L (0-32); Blood Urea Nitrogen 35 mg/dL (8-23); Carbon Dioxide 24 mmol/L (22-29); Chloride 101 mmol/L (98-107); Globulin 4.6 g/dL (1.3-4.6); Glomerular Filtration Rate 41.8 mL/min (90-130); Glucose 119 mg/dL (65-115); Potassium 3.8 mmol/L (3.5-5.1); Sodium 139 mmol/L (136-145); Total Bilirubin 0.2 mg/dL (0.15-1.2); Total Protein 8.2 g/dL (6.6-8.7)
[2019-10-19] MEDS: sodium chloride 0.9% 250 ML 75 ML IV (14:30)
[2019-10-20 07:32] LABS: Ferritin 17 ng/mL (15-150); Iron 33 ug/dL (37-145); Percent Saturation 7.4 % (20-50); Total Iron Binding Capacity 441 mcg/dl; Unsaturated Iron Binding 408 ug/dL (112-347)
--- NOTE | 2019-10-23 20:04 | ONC FU_ITS ---
[facility] Patient Note Patient: Bertha Briceno Unit #: [id number]: 1960 Dictated By: Jason SilvaDate of Visit: Oct 19, 2019 Onc MED Follow-Up/Prog Note Chief Complaint: Breast cancer. 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 She was found to have an abnormal screening mammogram on 12/27/2018. It was BI-RADS 0, incomplete, with findings of increasing spiculated focal asymmetric density in the upper outer quadrant of the left breast. Diagnostic mammogram/ultrasound on 01/11/2019 was BI-RADS 5, highly suggestive of malignancy. The mammogram showed spiculated mass in the upper-outer left breast measuring 3.5 x 1.8 cm. Ultrasound showed a large hypoechoic solid irregular lesion at the 2:00 position measuring 2.8 x 1.6 x 3.1 cm. Also noted were hypoechoic cysts at the 12:00 and 3:00 positions measuring 5 mm and 12 mm respectively. She underwent ultrasound-guided needle biopsy of the left breast mass on 01/20/2019. Pathology showed grade 2 infiltrating ductal carcinoma. The tumor was noted to be ER positive at 94% and PA positive at 81%, both with strong intensity. HER-2/castro was positive, 3+ by IHC and amplification ratio by FISH of 1.7 with 4.0 HER-2 copies/cell. Staging PET/CT on 02/04/2019 showed an FDG avid lesion in the left breast measuring 1.3 x 1.8 cm, SUV 8.8. A solitary left axillary lymph node measuring 1.3 cm is also FDG avid with SUV 3.8, consistent with local metastatic disease. There were no findings to indicate any distant metastatic disease. Further evaluation with ultrasound of the left breast/axilla on 02/06/2019 showed a superior left axillary lymph node measuring 1.1 x 1.5 x 1.1 cm which appeared to have an intraparenchymal intermediate hyperechoic soft tissue focus, suspicious for metastasis. The remainder of the axillary lymph nodes appeared grossly unremarkable by ultrasound. Ultrasound-guided biopsy of the lymph node on 02/20/2019 showed metastatic adenocarcinoma consistent with the previously diagnosed breast primary. Given those findings, she was recommended to undergo neoadjuvant chemotherapy with TCH-P. She began cycle 1 of TCH-P on 03/06/2019. She experienced very severe GI toxicity, including nausea/vomiting and diarrhea. She required IV hydration, and she also required growth factor support with Neupogen, as she became severely neutropenia at day 8. She recovered uneventfully, and she was able to continue cycle 2 on 03/27/2019 with a reduced dosage of Perjeta. She also was given Neulasta prophylactically, and she was given scheduled IV hydration. She tolerated the treatment well, and she was then able to continue with cycle 3 on 04/18/2019, with cycle 4 on 05/08/2019, and with cycle 5 on 05/29/2019. On 06/03/2019 she was admitted to the hospital with severe nausea/vomiting and diarrhea. Some of this was clearly chemotherapy related, but she also was found to have Clostridium difficile colitis. Her clinical course also was complicated by severe neutropenia and anemia, but she had gradual recovery with appropriate antibiotic therapy. She was then able to continue with cycle 6 of TCH-P on 07/03/2019. On 07/20/2019 she underwent left modified radical mastectomy and right simple prophylactic mastectomy. She tolerated the surgery very well. Pathology on the left breast showed a focus of residual grade 2 invasive ductal carcinoma measuring 1.1 cm in greatest dimension. There was involvement in 1/12 lymph nodes with the metastatic focus measuring 0.5 cm. There was no extranodal extension identified. Final staging was ypT1c, ypN1a. Her medical history includes fibrocystic breast disease, chronic migraine, and diverticulosis. She underwent natural menopause at age 48. She is a nonsmoker. INTERIM HISTORY: She returned on 07/24/2019 and at that time she continued systemic adjuvant therapy with single agent Herceptin at the 3-week dosing interval. As she did have residual disease on the left breast and involvement in 1/12 lymph nodes, it was recommended that her treatment plan change from Herceptin to Kadcyla. She began her first treatment on . She has tolerated it well. She began radiation therapy on 09/27/2019. Ms Briceno is here today for followup. She is doing well. She states she is working 2 nights a week-not consecutive. She is tolerating this well. She remains active around the house. She denies any worsening of her fatigue and states actually is getting better. She denies any nausea or vomiting. She states she is tolerating the Kadcyla much better than her original chemotherapy. She denies any new pain. She has had no diarrhea or constipation. She denies any peripheral neuropathy. She states overall she is eating good and feels good in general. She is little concerned about having increased fatigue with the radiation but so far she says she has done well. Her ECOG is 0. Past Medical History: Chronic migraine Diverticulosis Fibrocystic breast disease Past Surgical History: Bilateral salpingectomy Closed reduction of left wrist fracture Bilateral mastecomy in [address] john in 2018 Ultrasound directed needle biopsy of the left breast in 2018 Breast biopsy for benign disease in 2010 Tubal ligation and D&C in 1983 Appendectomy, adhesion lysis, and D&C in 1981 Allergies: Aleve and Flagyl. Medications: Amitriptyline HCl 2 Tablet (of 25 mg) Oral daily Anastrozole 1 Tablet (of 1 mg) Oral daily Imodium A-D 1 Tablet (of 2 mg) Oral PRN LORazepam 0.5 - 1 Tablet (of 1 mg) Oral t.i.d. PRN Omeprazole 1 Tablet (of 20 mg) Tablet, enteric coated Oral daily Ondansetron HCl 1 Tablet (of 8 mg) Oral t.i.d. PRN Prochlorperazine Maleate 1 Tablet (of 10 mg) Oral q 4 hours PRN Propranolol HCl 1 Tablet (of 40 mg) Oral daily Vitamin D-[address] 1 Tablet (of 5000 Units) Oral daily Family History: Ms. Briceno's mother is alive: breast cancer, and myocardial infarction, and lupus. Ms. Briceno's father at age 54: lung cancer. Ms. Briceno's maternal grandmother is : pancreatic cancer. Her maternal grandfather is : type II diabetes. Ms. Briceno has 2 sisters: 2 alive. Father of lung cancer at age 54. Mother is still living at age 79. She has SLE and coronary artery disease. She has been treated for breast cancer and uterine cancer. A first cousin on her mother's side of breast cancer. Her maternal grandmother had pancreatic cancer. Two sisters are in good health. Her maternal grandfather had diabetes. 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 Ms. Brcieno has never smoked. She has no history of drinking. Her diet consists of regular meals. She indicates her activity level as: regular exercise. She is employed as an [employer]. She is a nonsmoker. She does not drink alcohol. Review Of Symptoms: Constitutional Denies fevers, chills, night sweats, excessive fatigue or weight loss. 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 Allergic/Immunologic No reactions. Eyes Denies significant visual changes. No diplopia. No amaurosis. ENMT Denies changes in hearing, sore throat, mouth sores, difficulty or changes in swallowing ability, and/or sinus drainage. Endocrine No diabetes, thyroid disease or hormone replacement. Denies hot flashes or night sweats. Hematologic/Lymphatic Denies easy bruising or bleeding. The patient denies any tender or palpable lymph nodes. Breasts no changes or new concerns. Respiratory Denies severe dyspnea on exertion, denies any chest pain, cough or hemoptysis. Denies orthopnea. Cardiovascular Denies anginal chest pain, palpitations or orthopnea. Gastrointestinal Denies any current nausea, vomiting, diarrhea, GI bleeding, or constipation. Genitourinary (F) No hematuria, hesitancy, incontinence, vaginal bleeding, discharge or other problems with urination. Musculoskeletal Denies joint pain, swelling or redness. No decreased range of motion. Integumentary Denies chronic rashes, inflammation, ulcerations or skin changes. Neurologic Denies headache, blurred vision, and no areas of focal weakness or numbness. Normal gait. No sensory problems. Psychiatric Denies insomnia, depression, maribel or mood swings. Vital Signs: Performed on Oct 19, 2019 15:35 Height - 62.00 in Temperature - 98 F (LOW) Pulse - 77 /min Respiration - 18 /min BP - 121/73 mm(hg) O2 Sat - 99 % Pain - 0 Fatigue - 0 Performed on Oct 19, 2019 13:52 Height - 62.00 in Weight - 154.0 lbs (HIGH) BSA - 1.71 sq.m BMI - 28.17 Temperature - 98.0 F (LOW) Pulse - 74 /min Respiration - 14 /min BP - 127/69 mm(hg) O2 Sat - 100 % Pain - 0 Fatigue - 1,0 - Fully active, able to carry on all predisease activities without restrictions. (ECOG) Physical Examination: Constitutional Alert, oriented, no acute distress. Skin pink, warm and dry. Head Normocephalic; atraumatic. Eyes Conjunctivae and sclerae are clear and without icterus. Pupils are reactive and equal. Neck Supple without masses or thyromegaly. No jugular venous distension. Hematologic/Lymphatic No petechiae or purpura. Respiratory Lungs are clear to auscultation without rhonchi or wheezing. Cardiovascular Regular rate and rhythm of heart without murmurs,clicks, gallops or rubs. Chest Right subclavian venous access device insertion site is unremarkable. Back/Spine Non-tender to palpation. Extremities No visible deformities, no cyanosis, clubbing or edema. Musculoskeletal No tenderness or swelling, normal range of motion without obvious weakness. Integumentary No rashes or lesions. Neurologic No sensory or motor deficits, normal cerebellar function, normal gait. Psychiatric Alert and oriented times three. Coherent speech. Verbalizes understanding of our discussions today. Laboratory:Test performed on Oct 19, 2019 12:30 Ferritin 17 ng/mL Iron 33 ug/dL Sodium 139 mmol/L Iron Binding Capacity (TIBC) 441 mcg/dl Potassium 3.8 mmol/L % Iron Saturation 7.4 % Chloride 101 mmol/L CO2 24 mmol/L UIBC 408 ug/dL Anion Gap 17.8 BUN 35 mg/dL Creatinine 1.3 mg/dL Cr Clearance (Est) 48.9700 mL/min eGFR 41.8 mL/min Glucose 119 mg/dL Calcium 10.0 mg/dL Protein, Total 8.2 g/dL Albumin 3.6 g/dL Globulin 4.6 g/dL Bilirubin, Total 0.2 mg/dL ALT (SGPT) 18 U/L AST (SGOT) 21 U/L Alkaline Phosphatase 118 IU/L WBC 8.1 10 3/uL RBC 3.48 10 6/uL HGB 9.6 g/dL HCT 31.9 % MCV 91.7 fL MCH 27.6 pg MCHC 30.1 g/dL RDW 14.1 % Platelet Count 369 10 3/cmm MPV 10.7 fL Neutrophils 5.0 10 3/uL Lymphocytes 2.0 10 3/uL Monocytes 0.9 10 3/uL Eosinophils 0.2 10 3/uL Basophils 0.0 10 3/uL Neutrophil % 62.1 % Lymphocyte % 25.1 % Monocyte % 10.5 % Eosinophil % 1.9 % Basophils % 0.2 % Test performed on Sep 04, 2019 09:52 Manual Lymphocytes 45.7 % Manual Monocytes 7.6 % Manual Eosinophils 2.2 % Manual Basophils 0.4 % NRBCs 0.0 /100 WBC Test performed on Aug 14, 2019 12:55 Vitamin D (25-Hydroxy), Total 16 ng/mL Test performed on Jun 22, 2019 13:45 Vitamin B12 1648 pg/mL Test performed on Jun 19, 2019 08:30 Magnesium 1.3 mg/dL Impression: 1. Patient with grade 2 infiltrating ductal carcinoma of the left breast, stage IIB (T2, N1, M0), ER/PA positive and HER-2/castro positive. 2. She underwent ultrasound-guided biopsy of the left breast on 01/20/2019, and she underwent ultrasound-guided biopsy of a left axillary lymph node on 02/20/2019. 3. She was given neoadjuvant chemotherapy with TCH-P, cycle 1 beginning on 03/06/2019 through 07/03/2019. Her cycle 5 was complicated by severe nausea/vomiting and diarrhea and by C. difficile colitis, but she did recover, and she was able to continue with cycle 6 on 07/03/2019. 4. On 07/20/2019 she underwent left modified radical mastectomy and right simple prophylactic mastectomy. Pathology on the left breast showed a focus of residual grade 2 invasive ductal carcinoma measuring 1.1 cm in greatest dimension. There was involvement in 1/12 lymph nodes with the metastatic focus measuring 0.5 Final staging was ypT1c, ypN1a. Her other medical illnesses include: 5. Chronic migraine. 6. Diverticulosis. 7. She has a significant family history for breast cancer. 8. She has evidence of vitamin D deficiency. As of 07/24/2019 she continued her systemic adjuvant therapy with single agent Herceptin at the 3-week dosing schedule. She continued with cycle 2 of single agent Herceptin on 08/14/2019. At that time she also began adjuvant hormonal therapy with anastrozole 1 mg daily. She tolerated her treatment well, and during this time she has been showing gradual improvement in her performance status. Her treatment plan was changed due to the residual axillary lymph node involvement following neoadjuvant TCH-P. She was eligible to include Kadcyla with her postoperative adjuvant therapy. Her treatment was changed from single agent Herceptin to Kadcyla 3.6 mg/kg by IV infusion every 3 weeks for total of 14 cycles. She began cycle 1 Kadcyla on 09/07/2019. She is tolerating it well thus far and has increase in her performance status. She bgan radiation therapy on 09/27/2019. Plan: 1. Proceed with cycle 3/14 Kadcyla. She started radiation therapy on 09/27/2019. 2. Continue anastrozole 1 mg daily. 3. Echocardiogram from 09/05/2019 was reviewed and discussed with ms Briceno and a copy was given to her. Her EF was reported as 69% and no wall motion abnormalities. It is unchanged from previous echo. 4. Bone density drom 08/21/2019 was reviewed and discussed with Ms Briceno and a copy was given to her. The mean BMD of the femoral neck was reported as T score of -1.1. She has osteopenia. She is currently on vitamin D replacement for vitamin D deficiency and she does consume milk products reguarly. Her serum calcium level today was 10.0. She is anastrozole 1 mg daily and will need recheck of the bone density in two years. 5. Today's labs were reivewed in detail and discussed with Ms Briceno and a copy was given to her. WBC 8.1, Hgb 9.6, platelets 369,000. ANC = 5000. CMP unremarkable-except creatinine 1.3. She states she worked last night and did not drink alot of fluids and attributes the elevated creatinine to mild dehydration. 6. I did request iron studies to evaluate her anemia. 7. Plan for followup in 3 weeks with CBC, CMP and cycle 11/27 Kadcyla. 8. Ms Briceno was instructed to call us in the interim if questions or problems arise. Signed By: Jason Silva-, [facility] Sidney Beltran MD <<Signature on File>>
--- NOTE | 2019-10-25 14:46 | ONCRAD TMN_ITS ---
Radiation Oncology Weekly Treatment Management Patient: Bertha Briceno MR#: [id number] : 1960> Age: 58> Sex: Female Dictated by: Dr. Forest Baer Date of Service: 10/25/2019 Referring Physician(s) : Dr. 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 ID: LT ChestWall, Energy: 15X/6X, Dose/Fx (cGy): 200, #Fx: 20 / 25, Dose Correction (cGy): 0, Total Dose (cGy): 4,000, Start Date: 09/27/2019, Elapsed Days: 28 Treatment Site: SCLV PAB, Ref. ID: SCLV PAB, Energy: 15X/6X, Dose/Fx (cGy): 200, #Fx: 20 / 25, Dose Correction (cGy): 0, Total Dose (cGy): 4,000, Start Date: 09/27/2019, Elapsed Days: 28 Current Complaints/Interval History: Current Medications: Amitriptyline HCl, anastrozole, anastrozole, dexamethasone, dexamethasone Sodium Phosphate, imodium A-D, kadcyla, levoFLOXacin, lORazepam, omeprazole, ondansetron HCl, ondansetron HCl, ondansetron HCl, prochlorperazine Maleate, prochlorperazine Maleate, propranolol HCl, sodium Chloride, vitamin D-[address] Allergies: Aleve and Flagyl. Vital Signs: Performed on 10/25/2019 1:52 PM Weight - 156.2 lbs, Temperature - 97.8 f, Pulse - 74, Respiration - 16, O2 Sat - 99 %, Pain - 0 and BP - 118/ 77 mm(hg). Physical Exam: Appears stable, no significant skin erythema or desquamation. Performance Status: 0 - Fully active, able to carry on all activities without restrictions. (ECOG) Lab: None pending in Radiation Oncology. Test performed on 06/19/2019 8:30 AM Magnesium - 1.3 mg/dl (low), Test performed on 06/22/2019 1:45 PM Vitamin B12 - 1648 pg/ml (high), Test performed on 08/14/2019 12:55 PM Vitamin D (25-Hydroxy), Total - 16 ng/ml (low), Test performed on 10/19/2019 12:30 PM RBC - 3.48 10 6/ul (low), HGB - 9.6 g/dl (low), HCT - 31.9 % (low), MCH - 27.6 pg (low), MPV - 10.7 fl (high), BUN - 35 mg/dl (high), Creatinine - 1.3 mg/dl (high), Cr Clearance (Est) - 48.9700 ml/min (low), eGFR - 41.8 ml/min (low), Glucose - 119 mg/dl (high), Alkaline Phosphatase - 118 iu/l (high), Iron - 33 ug/dl (low), % Iron Saturation - 7.4 % (low) and UIBC - 408 ug/dl (high). Imaging: No new diagnostic imaging was performed since the last weekly treatment visit. All radiation therapy related imaging (including but not limited to kV, MV, and CBCT generated images) was reviewed. Appropriate changes, if any, were made to assure accurate target localization. Impression/Plan: Tolerating treatment well with expected side effects. Continue treatment as planned. CPT: 06561 Signed by: Dr. Forest Baer>10/25/2019 2:45:13 PM <<Signature on File>>
--- NOTE | 2019-11-01 13:51 | ONCRAD TMN_ITS ---
Radiation Oncology Weekly Treatment Management Patient: Bertha Briceno MR#: [id number] : 1960> Age: 59> Sex: Female Dictated by: Dr. Harsha Sandra Date of Service: 11/01/2019 Referring Physician(s) : Dr. 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 ID: LT ChestWall, Energy: 15X/6X, Dose/Fx (cGy): 200, #Fx: 25 / 25, Dose Correction (cGy): 0, Total Dose (cGy): 5,000, Start Date: 09/27/2019, End Date: 11/01/2019, Elapsed Days: 35 Treatment Site: SCLV PAB, Ref. ID: SCLV PAB, Energy: 15X/6X, Dose/Fx (cGy): 200, #Fx: 25 / 25, Dose Correction (cGy): 0, Total Dose (cGy): 5,000, Start Date: 09/27/2019, End Date: 11/01/2019, Elapsed Days: 35 Current Complaints/Interval History: She completes chest wall radiation today. She has tolerated treatment extremely well thus far. She has moderate soreness of the left chest wall. The skin is in excellent shape. There is mild erythema throughout the treatment area. 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 No problems with her appetite. Her chest wall boost was marked today. The treatment will be delivered with 6 MV electrons with 5 mm bolus pretreatment. She will receive 5 treatments. No questions about the treatment process. Continue as planned. Current Medications: Amitriptyline HCl, anastrozole, anastrozole, dexamethasone, dexamethasone Sodium Phosphate, imodium A-D, kadcyla, levoFLOXacin, lORazepam, omeprazole, ondansetron HCl, ondansetron HCl, ondansetron HCl, prochlorperazine Maleate, prochlorperazine Maleate, propranolol HCl, sodium Chloride, vitamin D-[address] Allergies: Aleve and Flagyl. Vital Signs: Physical Exam: Appears stable, no skin erythema or desquamation. Performance Status: 0 - Fully active, able to carry on all predisease activities without restrictions. (ECOG) Lab: None pending in Radiation Oncology. Test performed on 06/19/2019 8:30 AM Magnesium - 1.3 mg/dl (low), Test performed on 06/22/2019 1:45 PM Vitamin B12 - 1648 pg/ml (high), Test performed on 08/14/2019 12:55 PM Vitamin D (25-Hydroxy), Total - 16 ng/ml (low), Test performed on 10/19/2019 12:30 PM RBC - 3.48 10 6/ul (low), HGB - 9.6 g/dl (low), HCT - 31.9 % (low), MCH - 27.6 pg (low), MPV - 10.7 fl (high), BUN - 35 mg/dl (high), Creatinine - 1.3 mg/dl (high), Cr Clearance (Est) - 48.9700 ml/min (low), eGFR - 41.8 ml/min (low), Glucose - 119 mg/dl (high), Alkaline Phosphatase - 118 iu/l (high), Iron - 33 ug/dl (low), % Iron Saturation - 7.4 % (low) and UIBC - 408 ug/dl (high). Imaging: No new diagnostic imaging was performed since the last weekly treatment visit. All radiation therapy related imaging (including but not limited to kV, MV, and CBCT generated images) was reviewed. Appropriate changes, if any, were made to assure accurate target localization. Impression/Plan: Tolerating treatment well with expected side effects. Continue treatment as planned. CPT: 77562 Signed by: Dr. Harsha Sandra>11/01/2019 1:50:33 PM <<Signature on File>>
[2019-11-09 09:08] LABS: Basophils % 0.5 %; Eosinophils # 0.3 10^3/uL (0.0-0.8); Eosinophils % 4.6 %; Hematocrit 37.6 % (37.0-47.0); Hemoglobin 11.1 g/dL (11.5-15.3); Lymphocytes # 1.7 10^3/uL (0.8-4.8); Lymphocytes % 25.8 %; Mean Corpuscular HGB Conc 29.5 g/dL (30.0-36.0); Mean Corpuscular Hemoglobin 28.2 pg (28.0-34.0); Mean Corpuscular Volume 95.4 fL (81-99); Monocytes # 0.8 10^3/uL (0.2-0.9); Monocytes % 11.8 %; Neutrophils # 3.7 10^3/uL (1.8-7.7); Nucleated Red Blood Cells % 0 %; Platelet Count 343 10^3/cmm (130-400); Red Blood Count 3.94 10^6/uL (4.1-5.3); White Blood Count 6.5 10^3/uL (4.0-10.0)
[2019-11-09 09:17] LABS: Alanine Aminotransferase 20 U/L (0-33); Albumin Level 3.9 g/dL (3.5-5.2); Alkaline Phosphatase 110 IU/L (35-105); Anion Gap 16.9 (5-19); Aspartate Amino Transferase 26 U/L (0-32); Blood Urea Nitrogen 27 mg/dL (8-23); Calcium 10.2 mg/dL (8.5-10.5); Carbon Dioxide 26 mmol/L (22-29); Chloride 100 mmol/L (98-107); Globulin 4.1 g/dL (1.3-4.6); Glomerular Filtration Rate 50.5 mL/min (90-130); Glucose 96 mg/dL (65-115); Osmolality Calculated 285 mOsm/kg (285-295); Potassium 3.9 mmol/L (3.5-5.1); Sodium 139 mmol/L (136-145); Total Bilirubin 0.2 mg/dL (0.15-1.2)
[2019-11-09] MEDS: alteplase 1 mg/mL SDV 2 mL 2 MG INTRACATH (09:40)
[2019-11-09] MEDS: sodium chloride 0.9% 250 ML 75 ML IV (11:50)
--- NOTE | 2019-11-09 18:13 | ONC FU_ITS ---
Dr. Beltran Patient Follow-Up Note Patient: Bertha Briceno < Unit #: [id number]: 1960 Dicatated By: Sidney Beltran M.D.Date of Visit:Nov 09, 2019 Onc Med Follow-up/Prog Note Chief Complaint: Breast cancer. History of Present Illness: This is a 58-year-old woman with grade 2 infiltrating ductal carcinoma of the left breast, stage IIB (T2, N1, M0), ER/[place] positive and HER-2/castro positive. She was found to have an abnormal screening mammogram on 12/27/2018. It was BI-RADS 0, incomplete, with findings of increasing spiculated focal asymmetric density in the upper outer quadrant of the left breast. Diagnostic mammogram/ultrasound on 01/11/2019 was BI-RADS 5, highly suggestive of malignancy. The mammogram showed spiculated mass in the upper-outer left breast measuring 3.5 x 1.8 cm. Ultrasound showed a large hypoechoic solid irregular lesion at the 2:00 position measuring 2.8 x 1.6 x 3.1 cm. Also noted were hypoechoic cysts at the 12:00 and 3:00 positions measuring 5 mm and 12 mm respectively. She underwent ultrasound-guided needle biopsy of the left breast mass on 01/20/2019. Pathology showed grade 2 infiltrating ductal carcinoma. The tumor was noted to be ER positive at 94% and [place] positive at 81%, both with strong intensity. HER-2/castro was positive, 3+ by IHC and amplification ratio by FISH of 1.7 with 4.0 HER-2 copies/cell. Staging PET/CT on 02/04/2019 showed an FDG avid lesion in the left breast measuring 1.3 x 1.8 cm, SUV 8.8. A solitary left axillary lymph node measuring 1.3 cm is also FDG avid with SUV 3.8, consistent with local metastatic disease. There were no findings to indicate any distant metastatic disease. Further evaluation with ultrasound of the left breast/axilla on 02/06/2019 showed a superior left axillary lymph node measuring 1.1 x 1.5 x 1.1 cm which appeared to have an intraparenchymal intermediate hyperechoic soft tissue focus, suspicious for metastasis. The remainder of the axillary lymph nodes appeared grossly unremarkable by ultrasound. Ultrasound-guided biopsy of the lymph node on 02/20/2019 showed metastatic adenocarcinoma consistent with the previously diagnosed breast primary. Given those findings, she was recommended to undergo neoadjuvant chemotherapy with TCH-P. She began cycle 1 of TCH-P on 03/06/2019. She experienced very severe GI toxicity, including nausea/vomiting and diarrhea. She required IV hydration, and she also required growth factor support with Neupogen, as she became severely neutropenia at day 8. She recovered uneventfully, and she was able to continue cycle 2 on 03/27/2019 with a reduced dosage of Perjeta. She also was given Neulasta prophylactically, and she was given scheduled IV hydration. She tolerated the treatment well, and she was then able to continue with cycle 3 on 04/18/2019, with cycle 4 on 05/08/2019, and with cycle 5 on 05/29/2019. On 06/03/2019 she was admitted to the hospital with severe nausea/vomiting and diarrhea. Some of this was clearly chemotherapy related, but she also was found to have Clostridium difficile colitis. Her clinical course also was complicated by severe neutropenia and anemia, but she had gradual recovery with appropriate antibiotic therapy. She was then able to continue with cycle 6 of TCH-P on 07/03/2019. On 07/20/2019 she underwent left modified radical mastectomy and right simple prophylactic mastectomy. She tolerated the surgery very well. Pathology on the left breast showed a focus of residual grade 2 invasive ductal carcinoma measuring 1.1 cm in greatest dimension. There was involvement in 1/12 lymph nodes with the metastatic focus measuring 0.5 cm. There was no extranodal extension identified. Final staging was ypT1c, ypN1a. Her medical history includes fibrocystic breast disease, chronic migraine, and diverticulosis. She underwent natural menopause at age 48. She is a nonsmoker. INTERIM HISTORY: She then continued systemic adjuvant therapy with single agent Herceptin at the 3-week dosing interval, cycle 1 on 07/24/2019 and cycle 2 on 08/14/2019. At that point she also began adjuvant hormonal therapy with anastrozole 1 mg daily. Due to the residual axillary lymph node involvement, her treatment was then changed to Kadcyla 3.6 mg/kg by IV infusion every 21 days. She began cycle 1 on 09/07/2019. She tolerated it well and she continued with cycle 2 on 09/28/2019 and with cycle 3 on 10/19/2019. On 09/27/2019 she began radiation to the left chest wall and supraclavicular region. She completed treatment to the supraclavicular area on 11/01/2019 to a total dose of 5000 cGy. She completed treatment to the left chest wall on 11/08/2019 to a total dose of 6000 cGy. She is seen for a follow-up visit. She has been feeling good generally. She has had some skin reaction with the radiation, but tolerable. Her energy is good now. She is working and she has normal activity. ECOG score is 0. She says her taste has been off a little, but she still has good appetite. She has not had fever or night sweats. She occasionally has hot flashes. She has had no mouth sores. She has no shortness of breath, cough, or chest pain. She has had some nausea and constipation, at least some complement of that she thinks may be related to the iron supplement. She has no complaints. She has no significant joint or bone pain. She does not complain of headache or dizziness. She has had burning and tingling in her feet, mainly at night. It has worsened since her last treatment. Medications: Amitriptyline HCl 2 Tablet (of 25 mg) Tablet Oral daily, Anastrozole 1 Tablet (of 1 mg) Oral daily, Imodium A-D 1 Tablet (of 2 mg) Oral PRN, Iron 1 (325 (65 Fe) mg) Tablet Oral b.i.d., LORazepam 0.5 - 1 Tablet (of 1 mg) Oral t.i.d. PRN, Omeprazole 1 Tablet (of 20 mg) Tablet, enteric coated Oral daily, Ondansetron HCl 1 Tablet (of 8 mg) Oral t.i.d. PRN, Prochlorperazine Maleate 1 Tablet (of 10 mg) Oral q 4 hours PRN, Propranolol HCl 1 Tablet (of 40 mg) Oral daily, Vitamin D-[address] 1 Tablet (of 5000 Units) Oral daily Allergies: Aleve and Flagyl. Review of Systems: Constitutional - Her energy level is good. She has been able to continue working and do all her normal activities. Her appetite is good and weight is stable. No fever or chills. She has occasional hot flashes. No night sweats. ECOG score is 0, ENMT - No sinus congestion/drainage. No mouth sores. No sore throat or difficulty swallowing, Hematologic/Lymphatic - No abnormal bruising or bleeding, Respiratory - No shortness of breath. No cough. No pleuritic pain or hemoptysis, Cardiovascular - No angina pain. No palpitations, Gastrointestinal - She has been having some nausea, but no vomiting. She has occasional heartburn that is adequately controlled with Prilosec. No diarrhea. She is having constipation for which she is taking Senna-Lax. No blood in the stool or black stools, Genitourinary (F) - No dysuria or hematuria. No urinary frequency. No urgency or incontinence, Musculoskeletal - No joint or bone pain, Integumentary - No skin complications, Neurologic - No headache or dizziness. She is having numbness and tingling to the bottoms of her feet, mostly at night. It has worsened with last treatment, Psychiatric - No anxiety or depression. No insomnia. Vital Signs: Performed on Nov 09, 2019 12:00 Height - 68.00 in Temperature - 97 F (LOW) Pulse - 70 /min Respiration - 18 /min BP - 135/84 mm(hg) O2 Sat - 100 % Pain - 0 Fatigue - 0 Performed on Nov 09, 2019 10:06 Height - 68.00 in Weight - 156.2 lbs (HIGH) BSA - 1.84 sq.m BMI - 23.75 Temperature - 97.5 F (LOW) Pulse - 72 /min Respiration - 18 /min BP - 99/69 mm(hg) O2 Sat - 99 % Pain - 0 Physical Examination: Constitutional - She looks good generally, Eyes - Sclerae nonicteric. Conjunctivae clear, ENMT - No lesions noted in the oral cavity, Hematologic/Lymphatic - No cervical or clavicular, Respiratory - Lungs are clear with good air movement bilaterally, Cardiovascular - Heart rhythm is regular. There is no murmur, gallop, or rub noted, Breasts - There is erythema over the left chest wall. There is no skin ulceration. There is tenderness in the left axilla. There is no axillary adenopathy, Abdomen - Soft. Liver and spleen are not enlarged. There is no abdominal mass or ascites noted and there is no inguinal adenopathy, Extremities - No edema, Neurologic - No focal neurologic deficits noted. Lab/Imaging: Test performed on Nov 09, 2019 08:38 Sodium 139 mmol/L Potassium 3.9 mmol/L Chloride 100 mmol/L CO2 26 mmol/L Anion Gap 16.9 BUN 27 mg/dL Creatinine 1.1 mg/dL Cr Clearance (Est) 60.07 mL/min eGFR 50.5 mL/min Glucose 96 mg/dL Calcium 10.2 mg/dL Protein, Total 8.0 g/dL Albumin 3.9 g/dL Globulin 4.1 g/dL Bilirubin, Total 0.2 mg/dL ALT (SGPT) 20 U/L AST (SGOT) 26 U/L Alkaline Phosphatase 110 IU/L WBC 6.5 10 3/uL RBC 3.94 10 6/uL HGB 11.1 g/dL HCT 37.6 % MCV 95.4 fL MCH 28.2 pg MCHC 29.5 g/dL RDW 16.0 % Platelet Count 343 10 3/cmm MPV 11.0 fL Neutrophils 3.7 10 3/uL Lymphocytes 1.7 10 3/uL Monocytes 0.8 10 3/uL Eosinophils 0.3 10 3/uL Basophils 0.0 10 3/uL Neutrophil % 57.0 % Lymphocyte % 25.8 % Monocyte % 11.8 % Eosinophil % 4.6 % Basophils % 0.5 % Impression: 1. Patient with grade 2 infiltrating ductal carcinoma of the left breast, stage IIB (T2, N1, M0), ER/TX positive and HER-2/castro positive. 2. She underwent ultrasound-guided biopsy of the left breast on 01/20/2019, and she underwent ultrasound-guided biopsy of a left axillary lymph node on 02/20/2019. 3. She was given neoadjuvant chemotherapy with TCH-P, cycle 1 beginning on 03/06/2019 through 07/03/2019. Her cycle 5 was complicated by severe nausea/vomiting and diarrhea and by C. difficile colitis, but she did recover, and she was able to continue with cycle 6 on 07/03/2019. 4. On 07/20/2019 she underwent left modified radical mastectomy and right simple prophylactic mastectomy. Pathology on the left breast showed a focus of residual grade 2 invasive ductal carcinoma measuring 1.1 cm in greatest dimension. There was involvement in 1/12 lymph nodes with the metastatic focus measuring 0.5 Final staging was ypT1c, ypN1a. 5. She continued systemic adjuvant therapy with single agent Herceptin, cycle 1 on 07/24/2019 and cycle 2 on 08/14/2019. Her treatment was then changed to Kadcyla. 6. She began adjuvant hormonal therapy with anastrozole 1 mg daily on 08/14/2019. 7. On 09/27/2019 she began radiation to the left chest wall and supraclavicular region. She completed treatment to the supraclavicular area on 11/01/2019 to a total dose of 5000 cGy. She completed treatment to the left chest wall on 11/08/2019 to a total dose of 6000 cGy. Her other medical illnesses include: 8. Chronic migraine. 9. Diverticulosis. 10. She has a significant family history for breast cancer. 11. She had evidence of vitamin D deficiency. Due to the residual axillary lymph node involvement following neoadjuvant TCH-P her treatment was changed from single agent Herceptin to Kadcyla 3.6 mg/kg by IV infusion every 3 weeks for total of 14 cycles. She began cycle 1 Kadcyla on 09/07/2019. She tolerated it well. She continued with cycle 2 on 09/28/2019 and with cycle 3 on 10/19/2019. Overall she has been tolerating treatment well. She has been having some nausea and constipation, which may be due to the iron supplement. She has been having more neuropathy in her feet, which is a significant concern. Plan: She will proceed with cycle 4 of Kadcyla at 3.6 mg/kg by IV infusion. She returns in 3 weeks. If her neuropathy continues to worsen, her treatment will need to be adjusted. In the meantime, she will stop her iron supplement. Signed By: Sidney Beltran M.D. <<Signature on File>>
== END 2019-11-14 23:59 | disposition home or self-care (01) ==
LOC: ONCMED 05:51
PROVIDERS: Nurse Practitioner; Family Provider Family Medicine; PCP Family Medicine; Visit Provider Internal Medicine Medical Oncology
DX: Z51.12 Encounter for antineoplastic immunotherapy (principal); Z51.0 Encounter for antineoplastic radiation therapy; C50.412 Malignant neoplasm of upper-outer quadrant of left female breast; C77.3 Secondary and unspecified malignant neoplasm of axilla and upper limb lymph nodes; Z17.0 Estrogen receptor positive status [ER+]; T82.594A Other mechanical complication of infusion catheter, initial encounter; Y80.1 Therapeutic (nonsurgical) and rehabilitative physical medicine devices associated with adverse incidents; K59.00 Constipation, unspecified; G43.709 Chronic migraine without aura, not intractable, without status migrainosus; K57.90 Diverticulosis of intestine, part unspecified, without perforation or abscess without bleeding; E55.9 Vitamin D deficiency, unspecified; M85.869 Other specified disorders of bone density and structure, unspecified lower leg; D64.9 Anemia, unspecified; G62.0 Drug-induced polyneuropathy; T45.1X5A Adverse effect of antineoplastic and immunosuppressive drugs, initial encounter; Z78.0 Asymptomatic menopausal state; Z79.899 Other long term (current) drug therapy; Z79.811 Long term (current) use of aromatase inhibitors; Z92.21 Personal history of antineoplastic chemotherapy; Z90.13 Acquired absence of bilateral breasts and nipples; Z80.3 Family history of malignant neoplasm of breast
CPT/HCPCS: 36593; 77280; 77290; 77300; 77321; 77331; 77334; 77336; 77387; 77412; 77427; 80053; 82728; 83540; 83550; 85025; 96375; 96413; 99214; G6002; J2997; J7050; J9354

== ENCOUNTER 2019-11-28 11:59 | Outpatient (CLI) | payer OTHER, SELFPAY ==
[2019-11-28 12:22] LABS: Basophils % 0.5 %; Eosinophils # 0.2 10^3/uL (0.0-0.8); Eosinophils % 4.3 %; Hematocrit 36.8 % (37.0-47.0); Hemoglobin 11.1 g/dL (11.5-15.3); Lymphocytes # 1.7 10^3/uL (0.8-4.8); Lymphocytes % 30.1 %; Mean Corpuscular HGB Conc 30.2 g/dL (30.0-36.0); Mean Corpuscular Hemoglobin 27.9 pg (28.0-34.0); Mean Corpuscular Volume 92.5 fL (81-99); Monocytes # 0.5 10^3/uL (0.2-0.9); Monocytes % 9.6 %; Neutrophils # 3.1 10^3/uL (1.8-7.7); Neutrophils % 55.1 %; Nucleated Red Blood Cells % 0 %; Platelet Count 346 10^3/cmm (130-400); Red Blood Count 3.98 10^6/uL (4.1-5.3); Red Cell Distribution Width 16.4 % (12.1-15.1); White Blood Count 5.6 10^3/uL (4.0-10.0)
[2019-11-28 12:50] LABS: Alanine Aminotransferase 25 U/L (0-33); Albumin Level 4.1 g/dL (3.5-5.2); Alkaline Phosphatase 141 IU/L (35-105); Anion Gap 17.6 (5-19); Aspartate Amino Transferase 25 U/L (0-32); Blood Urea Nitrogen 31 mg/dL (8-23); Calcium 10.5 mg/dL (8.5-10.5); Carbon Dioxide 24 mmol/L (22-29); Chloride 99 mmol/L (98-107); Globulin 4.4 g/dL (1.3-4.6); Glomerular Filtration Rate 50.5 mL/min (90-130); Glucose 108 mg/dL (65-115); Iron 75 ug/dL (37-145); Osmolality Calculated 282 mOsm/kg (285-295); Percent Saturation 17.9 % (20-50); Potassium 3.6 mmol/L (3.5-5.1); Sodium 137 mmol/L (136-145); Total Bilirubin 0.2 mg/dL (0.15-1.2); Total Iron Binding Capacity 418 mcg/dl; Total Protein 8.5 g/dL (6.6-8.7); Unsaturated Iron Binding 343 ug/dL (112-347)
[2019-11-28] MEDS: sodium chloride 0.9% 250 ML 75 ML IV (13:55)
--- NOTE | 2019-11-29 12:22 | ONC FU_ITS ---
Dr. Beltran Patient Follow-Up Note Patient: Bertha Briceno Unit #: [id number]: [id number] Dicatated By: Sidney Beltran M.D.Date of Visit:Nov 28, 2019 Onc Med Follow-up/Prog Note Chief Complaint: Breast cancer. History of Present Illness: This is a 59 year-old woman with grade 2 infiltrating ductal carcinoma of the left breast, stage IIB (T2, N1, M0), ER/[place] positive and HER-2/castro positive. She was found to have an abnormal screening mammogram on 12/27/2018. It was BI-RADS 0, incomplete, with findings of increasing spiculated focal asymmetric density in the upper outer quadrant of the left breast. Diagnostic mammogram/ultrasound on 01/11/2019 was BI-RADS 5, highly suggestive of malignancy. The mammogram showed spiculated mass in the upper-outer left breast measuring 3.5 x 1.8 cm. Ultrasound showed a large hypoechoic solid irregular lesion at the 2:00 position measuring 2.8 x 1.6 x 3.1 cm. Also noted were hypoechoic cysts at the 12:00 and 3:00 positions measuring 5 mm and 12 mm respectively. She underwent ultrasound-guided needle biopsy of the left breast mass on 01/20/2019. Pathology showed grade 2 infiltrating ductal carcinoma. The tumor was noted to be ER positive at 94% and [place] positive at 81%, both with strong intensity. HER-2/castro was positive, 3+ by IHC and amplification ratio by FISH of 1.7 with 4.0 HER-2 copies/cell. Staging PET/CT on 02/04/2019 showed an FDG avid lesion in the left breast measuring 1.3 x 1.8 cm, SUV 8.8. A solitary left axillary lymph node measuring 1.3 cm is also FDG avid with SUV 3.8, consistent with local metastatic disease. There were no findings to indicate any distant metastatic disease. Further evaluation with ultrasound of the left breast/axilla on 02/06/2019 showed a superior left axillary lymph node measuring 1.1 x 1.5 x 1.1 cm which appeared to have an intraparenchymal intermediate hyperechoic soft tissue focus, suspicious for metastasis. The remainder of the axillary lymph nodes appeared grossly unremarkable by ultrasound. Ultrasound-guided biopsy of the lymph node on 02/20/2019 showed metastatic adenocarcinoma consistent with the previously diagnosed breast primary. Given those findings, she was recommended to undergo neoadjuvant chemotherapy with TCH-P. She began cycle 1 of TCH-P on 03/06/2019. She experienced very severe GI toxicity, including nausea/vomiting and diarrhea. She required IV hydration, and she also required growth factor support with Neupogen, as she became severely neutropenia at day 8. She recovered uneventfully, and she was able to continue cycle 2 on 03/27/2019 with a reduced dosage of Perjeta. She also was given Neulasta prophylactically, and she was given scheduled IV hydration. She tolerated the treatment well, and she was then able to continue with cycle 3 on 04/18/2019, with cycle 4 on 05/08/2019, and with cycle 5 on 05/29/2019. On 06/03/2019 she was admitted to the hospital with severe nausea/vomiting and diarrhea. Some of this was clearly chemotherapy related, but she also was found to have Clostridium difficile colitis. Her clinical course also was complicated by severe neutropenia and anemia, but she had gradual recovery with appropriate antibiotic therapy. She was then able to continue with cycle 6 of TCH-P on 07/03/2019. On 07/20/2019 she underwent left modified radical mastectomy and right simple prophylactic mastectomy. She tolerated the surgery very well. Pathology on the left breast showed a focus of residual grade 2 invasive ductal carcinoma measuring 1.1 cm in greatest dimension. There was involvement in 1/12 lymph nodes with the metastatic focus measuring 0.5 cm. There was no extranodal extension identified. Final staging was ypT1c, ypN1a. Her medical history includes fibrocystic breast disease, chronic migraine, and diverticulosis. She underwent natural menopause at age 48. She is a nonsmoker. INTERIM HISTORY: She then continued systemic adjuvant therapy with single agent Herceptin at the 3-week dosing interval, cycle 1 on 07/24/2019 and cycle 2 on 08/14/2019. At that point she also began adjuvant hormonal therapy with anastrozole 1 mg daily. Due to the residual axillary lymph node involvement, her treatment was then changed to Kadcyla 3.6 mg/kg by IV infusion every 21 days. She began cycle 1 on 09/07/2019. She tolerated it well and she continued with cycle 2 on 09/28/2019, with cycle 3 on 10/19/2019, and with cycle 4 on 11/09/2019. On 09/27/2019 she had started on radiation to the left chest wall and supraclavicular region. She completed treatment to the supraclavicular area on 11/01/2019 to a total dose of 5000 cGy. She completed treatment to the left chest wall on 11/08/2019 to a total dose of 6000 cGy. She is seen for a follow-up visit. She has been feeling good generally. She has good energy and activity tolerance. Her ECOG score is 0. Her appetite is good. She has not had fever. She now has just occasional hot flashes. She has no shortness of breath, cough, or chest pain. She has not been having nausea since she stopped her oral iron supplement. Bowel function has been adequate with a stool softener. She has no complaints. She still has some soreness and tenderness in the left chest wall/axillary area. She has no other joint or bone pain. She has just occasional headache. She has a little bit of residual numbness/tingling in her feet, mainly at night. Medications: Amitriptyline HCl 2 Tablet (of 25 mg) Tablet Oral daily, Anastrozole 1 Tablet (of 1 mg) Oral daily, Imodium A-D 1 Tablet (of 2 mg) Oral PRN, LORazepam 0.5 - 1 Tablet (of 1 mg) Oral t.i.d. PRN, Omeprazole 1 Tablet (of 20 mg) Tablet, enteric coated Oral daily, Ondansetron HCl 1 Tablet (of 8 mg) Oral t.i.d. PRN, Prochlorperazine Maleate 1 Tablet (of 10 mg) Oral q 4 hours PRN, Propranolol HCl 1 Tablet (of 40 mg) Oral daily, Vitamin D-[address] 1 Tablet (of 5000 Units) Oral daily Allergies: Aleve and Flagyl. Review of Systems: Constitutional - She has been feeling good generally. She has good energy and activity tolerance. Appetite also is good. She has not had fever. She now has just occasional hot flashes. ECOG score 0, ENMT - No sinus congestion/drainage. No mouth sores. No sore throat or difficulty swallowing, Hematologic/Lymphatic - No abnormal bruising or bleeding, Respiratory - No shortness of breath. No cough. No pleuritic pain or hemoptysis, Cardiovascular - No angina pain. No palpitations, Gastrointestinal - She has not been having nausea since he stopped the iron supplement. No heartburn or acid reflux. Her constipation is managed adequately with a stool softener. No blood in the stool or black stools, Genitourinary (F) - No dysuria or hematuria. No urinary frequency. No urgency or incontinence, Musculoskeletal - Since the radiation she has been having some tenderness in the left chest wall/axillary area. She has no other joint or bone pain, Integumentary - No skin complications, Neurologic - No headache or dizziness. She continues to have the numbness and tingling in her feet at night, Psychiatric - No anxiety or depression. No insomnia. Vital Signs: Performed on Nov 28, 2019 14:30 Height - 68.00 in Temperature - 98.2 F (LOW) Pulse - 67 /min Respiration - 18 /min BP - 119/71 mm(hg) O2 Sat - 99 % Pain - 0 Fatigue - 0 Performed on Nov 28, 2019 12:54 Height - 68.00 in Weight - 157.4 lbs (HIGH) BSA - 1.85 sq.m BMI - 23.93 Temperature - 98.3 F (LOW) Pulse - 73 /min Respiration - 18 /min BP - 116/71 mm(hg) O2 Sat - 100 % Pain - 0 Physical Examination: Constitutional - She looks good generally, Eyes - Sclerae nonicteric. Conjunctivae clear, ENMT - No lesions noted in the oral cavity, Hematologic/Lymphatic - No cervical or clavicular adenopathy, Respiratory - Lungs are clear with good air movement bilaterally, Cardiovascular - Heart rhythm is regular. There is no murmur, gallop, or rub noted, Breasts - There is some residual hyperpigmentation over the left chest wall. There is no skin ulceration. There is tenderness in the lateral chest wall and in the left axillary area. There are no chest wall lesions noted and there is no axillary adenopathy, Abdomen - Soft. Liver and spleen are not enlarged. There is no abdominal mass or ascites noted and there is no inguinal adenopathy, Extremities - Trace pedal edema. Dorsalis pedis pulses are palpable bilaterally, Neurologic - No focal neurologic deficits noted. Lab/Imaging: Test performed on Nov 28, 2019 12:10 Iron 75 mcg/dL Sodium 137 mmol/L Iron Binding Capacity (TIBC) 418 mcg/dl Potassium 3.6 mmol/L % Iron Saturation 17.9 % Chloride 99 mmol/L CO2 24 mmol/L UIBC 343 mcg/dL Anion Gap 17.6 BUN 31 mg/dL Creatinine 1.1 mg/dL Cr Clearance (Est) 60.0700 mL/min eGFR 50.5 mL/min Glucose 108 mg/dL Calcium 10.5 mg/dL Protein, Total 8.5 g/dL Albumin 4.1 g/dL Globulin 4.4 g/dL Bilirubin, Total 0.2 mg/dL ALT (SGPT) 25 U/L AST (SGOT) 25 U/L Alkaline Phosphatase 141 IU/L WBC 5.6 10 3/uL RBC 3.98 10 6/uL HGB 11.1 g/dL HCT 36.8 % MCV 92.5 fL MCH 27.9 pg MCHC 30.2 g/dL RDW 16.4 % Platelet Count 346 10 3/cmm MPV 11.0 fL Neutrophils 3.1 10 3/uL Lymphocytes 1.7 10 3/uL Monocytes 0.5 10 3/uL Eosinophils 0.2 10 3/uL Basophils 0.0 10 3/uL Neutrophil % 55.1 % Lymphocyte % 30.1 % Monocyte % 9.6 % Eosinophil % 4.3 % Basophils % 0.5 % Impression: 1. Patient with grade 2 infiltrating ductal carcinoma of the left breast, stage IIB (T2, N1, M0), ER/[place] positive and HER-2/castro positive. 2. She underwent ultrasound-guided biopsy of the left breast on 01/20/2019, and she underwent ultrasound-guided biopsy of a left axillary lymph node on 02/20/2019. 3. She was given neoadjuvant chemotherapy with TCH-P, cycle 1 beginning on 03/06/2019 through 07/03/2019. Her cycle 5 was complicated by severe nausea/vomiting and diarrhea and by C. difficile colitis, but she did recover, and she was able to continue with cycle 6 on 07/03/2019. 4. On 07/20/2019 she underwent left modified radical mastectomy and right simple prophylactic mastectomy. Pathology on the left breast showed a focus of residual grade 2 invasive ductal carcinoma measuring 1.1 cm in greatest dimension. There was involvement in 1/12 lymph nodes with the metastatic focus measuring 0.5 Final staging was ypT1c, ypN1a. 5. She continued systemic adjuvant therapy with single agent Herceptin, cycle 1 on 07/24/2019 and cycle 2 on 08/14/2019. Her treatment was then changed to Kadcyla. 6. She began adjuvant hormonal therapy with anastrozole 1 mg daily on 08/14/2019. 7. On 09/27/2019 she began radiation to the left chest wall and supraclavicular region. She completed treatment to the supraclavicular area on 11/01/2019 to a total dose of 5000 cGy. She completed treatment to the left chest wall on 11/08/2019 to a total dose of 6000 cGy. Her other medical illnesses include: 8. Chronic migraine. 9. Diverticulosis. 10. She has a significant family history for breast cancer. 11. She had evidence of vitamin D deficiency. Due to the residual axillary lymph node involvement following neoadjuvant TCH-P her treatment was changed from single agent Herceptin to Kadcyla 3.6 mg/kg by IV infusion every 3 weeks for total of 14 cycles. She began cycle 1 Kadcyla on 09/07/2019. She tolerated it with no adverse effects. She has since then continued the Kadcyla at 3-week intervals. She has now completed 4 cycles treatment with Kadcyla. She has continued to tolerate it well. She also appears to be having no adverse effects with the anastrozole. She is having some soreness/tenderness in the left chest wall, but that is most likely due secondary to the radiation. The only concern is that her alkaline phosphatase is now slightly elevated. Plan: She will proceed with cycle 5 of Kadcyla at 3.6 mg/kg by IV infusion. She returns for treatment in 3 weeks and for a followup visit in 6 weeks. Signed By: Sidney Beltran M.D. <<Signature on File>>
== END 2019-11-28 12:00 | disposition home or self-care (01) ==
LOC: ONCMED 11:59
PROVIDERS: Family Provider Family Medicine; PCP Family Medicine; Visit Provider Internal Medicine Medical Oncology
DX: Z51.12 Encounter for antineoplastic immunotherapy (principal); C50.412 Malignant neoplasm of upper-outer quadrant of left female breast; C77.3 Secondary and unspecified malignant neoplasm of axilla and upper limb lymph nodes; Z17.0 Estrogen receptor positive status [ER+]; Z90.13 Acquired absence of bilateral breasts and nipples; G43.709 Chronic migraine without aura, not intractable, without status migrainosus; K57.90 Diverticulosis of intestine, part unspecified, without perforation or abscess without bleeding; E55.9 Vitamin D deficiency, unspecified; Z80.3 Family history of malignant neoplasm of breast; Z79.899 Other long term (current) drug therapy; Z92.3 Personal history of irradiation
CPT/HCPCS: 80053; 83540; 83550; 85025; 96413; 99214; J7050; J9354

== ENCOUNTER 2019-12-19 12:43 | Outpatient (CLI) | payer OTHER, SELFPAY ==
[2019-12-19] MEDS: alteplase 1 mg/mL SDV 2 mL 2 MG IV (12:50)
[2019-12-19 13:11] LABS: Basophils % 0.3 %; Eosinophils # 0.2 10^3/uL (0.0-0.8); Eosinophils % 3.5 %; Hematocrit 37.7 % (37.0-47.0); Hemoglobin 11.5 g/dL (11.5-15.3); Lymphocytes # 1.5 10^3/uL (0.8-4.8); Lymphocytes % 22.5 %; Mean Corpuscular HGB Conc 30.5 g/dL (30.0-36.0); Mean Corpuscular Hemoglobin 28.6 pg (28.0-34.0); Mean Corpuscular Volume 93.8 fL (81-99); Mean Platelet Volume 10.6 fL (7.4-10.4); Monocytes # 0.6 10^3/uL (0.2-0.9); Monocytes % 8.9 %; Neutrophils # 4.3 10^3/uL (1.8-7.7); Neutrophils % 64.5 %; Nucleated Red Blood Cells % 0 %; Platelet Count 386 10^3/cmm (130-400); Red Blood Count 4.02 10^6/uL (4.1-5.3); Red Cell Distribution Width 17.3 % (12.1-15.1); White Blood Count 6.6 10^3/uL (4.0-10.0)
[2019-12-19 13:22] LABS: Alanine Aminotransferase 19 U/L (0-33); Albumin Level 4.1 g/dL (3.5-5.2); Alkaline Phosphatase 135 IU/L (35-105); Anion Gap 15.9 (5-19); Aspartate Amino Transferase 26 U/L (0-32); Blood Urea Nitrogen 27 mg/dL (8-23); Calcium 9.7 mg/dL (8.5-10.5); Carbon Dioxide 26 mmol/L (22-29); Chloride 99 mmol/L (98-107); Globulin 4.6 g/dL (1.3-4.6); Glomerular Filtration Rate 50.5 mL/min (90-130); Glucose 110 mg/dL (65-115); Osmolality Calculated 282 mOsm/kg (285-295); Potassium 3.9 mmol/L (3.5-5.1); Sodium 137 mmol/L (136-145); Total Bilirubin 0.2 mg/dL (0.15-1.2); Total Protein 8.7 g/dL (6.6-8.7)
[2019-12-19] MEDS: sodium chloride 0.9% (100 ml) 100 ML 35 ML (14:20)
== END 2019-12-19 12:44 | disposition home or self-care (01) ==
LOC: ONCMED 12:44
PROVIDERS: Family Provider Family Medicine; PCP Family Medicine; Visit Provider Internal Medicine Medical Oncology
DX: Z51.11 Encounter for antineoplastic chemotherapy (principal); C50.412 Malignant neoplasm of upper-outer quadrant of left female breast; Z17.0 Estrogen receptor positive status [ER+]; D70.1 Agranulocytosis secondary to cancer chemotherapy
CPT/HCPCS: 36415; 36593; 80053; 85025; 96375; 96413; J2997; J7050; J9354

== ENCOUNTER 2020-01-09 12:28 | Outpatient (CLI) | payer OTHER, SELFPAY ==
[2020-01-09 13:25] LABS: Alanine Aminotransferase 20 U/L (0-33); Albumin Level 3.9 g/dL (3.5-5.2); Alkaline Phosphatase 154 IU/L (35-105); Anion Gap 15.8 (5-19); Aspartate Amino Transferase 24 U/L (0-32); Blood Urea Nitrogen 27 mg/dL (8-23); Calcium 10.3 mg/dL (8.5-10.5); Carbon Dioxide 24 mmol/L (22-29); Chloride 101 mmol/L (98-107); Globulin 4.3 g/dL (1.3-4.6); Glomerular Filtration Rate 56.4 mL/min (90-130); Glucose 125 mg/dL (65-115); Osmolality Calculated 282 mOsm/kg (285-295); Potassium 3.8 mmol/L (3.5-5.1); Sodium 137 mmol/L (136-145); Total Bilirubin 0.2 mg/dL (0.15-1.2); Total Protein 8.2 g/dL (6.6-8.7)
[2020-01-09 13:36] LABS: Basophils % 0.6 %; Eosinophils # 0.3 10^3/uL (0.0-0.8); Eosinophils % 3.8 %; Hematocrit 33.8 % (37.0-47.0); Hemoglobin 10.2 g/dL (11.5-15.3); Lymphocytes # 2.1 10^3/uL (0.8-4.8); Mean Corpuscular HGB Conc 30.2 g/dL (30.0-36.0); Mean Corpuscular Hemoglobin 27.9 pg (28.0-34.0); Mean Corpuscular Volume 92.3 fL (81-99); Mean Platelet Volume 11.3 fL (7.4-10.4); Monocytes # 0.7 10^3/uL (0.2-0.9); Monocytes % 10.6 %; Neutrophils # 3.7 10^3/uL (1.8-7.7); Neutrophils % 53.7 %; Nucleated Red Blood Cells % 0 %; Platelet Count 346 10^3/cmm (130-400); Red Blood Count 3.66 10^6/uL (4.1-5.3); White Blood Count 6.9 10^3/uL (4.0-10.0)
[2020-01-09] MEDS: sodium chloride 0.9% 250 ML 75 ML IV (14:30)
--- NOTE | 2020-01-14 19:09 | ONC FU_ITS ---
[facility] Patient Note Patient: Bertha Briceno Unit #: [id number]: 1960 Dictated By: Jason SilvaDate of Visit: January 09, 2020 Onc MED Follow-Up/Prog Note Chief Complaint: Breast cancer. History of Present Illness: Ms Briceno is a 59 year-old woman with grade 2 infiltrating ductal carcinoma of the left breast, stage IIB (T2, N1, M0), ER/CA positive and HER-2/castro positive. She was found to have an abnormal screening mammogram on 12/27/2018. It was BI-RADS 0, incomplete, with findings of increasing spiculated focal asymmetric density in the upper outer quadrant of the left breast. Diagnostic mammogram/ultrasound on 01/11/2019 was BI-RADS 5, highly suggestive of malignancy. The mammogram showed spiculated mass in the upper-outer left breast measuring 3.5 x 1.8 cm. Ultrasound showed a large hypoechoic solid irregular lesion at the 2:00 position measuring 2.8 x 1.6 x 3.1 cm. Also noted were hypoechoic cysts at the 12:00 and 3:00 positions measuring 5 mm and 12 mm respectively. She underwent ultrasound-guided needle biopsy of the left breast mass on 01/20/2019. Pathology showed grade 2 infiltrating ductal carcinoma. The tumor was noted to be ER positive at 94% and CA positive at 81%, both with strong intensity. HER-2/castro was positive, 3+ by IHC and amplification ratio by FISH of 1.7 with 4.0 HER-2 copies/cell. Staging PET/CT on 02/04/2019 showed an FDG avid lesion in the left breast measuring 1.3 x 1.8 cm, SUV 8.8. A solitary left axillary lymph node measuring 1.3 cm is also FDG avid with SUV 3.8, consistent with local metastatic disease. There were no findings to indicate any distant metastatic disease. Further evaluation with ultrasound of the left breast/axilla on 02/06/2019 showed a superior left axillary lymph node measuring 1.1 x 1.5 x 1.1 cm which appeared to have an intraparenchymal intermediate hyperechoic soft tissue focus, suspicious for metastasis. The remainder of the axillary lymph nodes appeared grossly unremarkable by ultrasound. Ultrasound-guided biopsy of the lymph node on 02/20/2019 showed metastatic adenocarcinoma consistent with the previously diagnosed breast primary. Given those findings, she was recommended to undergo neoadjuvant chemotherapy with TCH-P. She began cycle 1 of TCH-P on 03/06/2019. She experienced very severe GI toxicity, including nausea/vomiting and diarrhea. She required IV hydration, and she also required growth factor support with Neupogen, as she became severely neutropenia at day 8. She recovered uneventfully, and she was able to continue cycle 2 on 03/27/2019 with a reduced dosage of Perjeta. She also was given Neulasta prophylactically, and she was given scheduled IV hydration. She tolerated the treatment well, and she was then able to continue with cycle 3 on 04/18/2019, with cycle 4 on 05/08/2019, and with cycle 5 on 05/29/2019. On 06/03/2019 she was admitted to the hospital with severe nausea/vomiting and diarrhea. Some of this was clearly chemotherapy related, but she also was found to have Clostridium difficile colitis. Her clinical course also was complicated by severe neutropenia and anemia, but she had gradual recovery with appropriate antibiotic therapy. She was then able to continue with cycle 6 of TCH-P on 07/03/2019. On 07/20/2019 she underwent left modified radical mastectomy and right simple prophylactic mastectomy. She tolerated the surgery very well. Pathology on the left breast showed a focus of residual grade 2 invasive ductal carcinoma measuring 1.1 cm in greatest dimension. There was involvement in 1/12 lymph nodes with the metastatic focus measuring 0.5 cm. There was no extranodal extension identified. Final staging was ypT1c, ypN1a. Her medical history includes fibrocystic breast disease, chronic migraine, and diverticulosis. She underwent natural menopause at age 48. She is a nonsmoker. INTERIM HISTORY: She then continued systemic adjuvant therapy with single agent Herceptin at the 3-week dosing interval, cycle 1 on 07/24/2019 and cycle 2 on 08/14/2019. At that point she also began adjuvant hormonal therapy with anastrozole 1 mg daily. Due to the residual axillary lymph node involvement, her treatment was then changed to Kadcyla 3.6 mg/kg by IV infusion every 21 days. She began cycle 1 on 09/07/2019. She tolerated it well and she continued with cycle 2 on 09/28/2019, with cycle 3 on 10/19/2019, and with cycle 4 on 11/09/2019. On 09/27/2019 she had started on radiation to the left chest wall and supraclavicular region. She completed treatment to the supraclavicular area on 11/01/2019 to a total dose of 5000 cGy. She completed treatment to the left chest wall on 11/08/2019 to a total dose of 6000 cGy. Ms. Cedeño is here today for follow-up. She is due for cycle 7 Kadcyla. She states overall she is doing well. She states she has been out mowing yard. She is been doing some hiking with her son and tolerated that well. She states she has no short short of breath. 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 She denies any orthopnea. She is had no lower extremity edema. She denies any nausea or vomiting. She states her bowels are normal for her. She states she is had some intermittent joint and muscle aches but no worse than what is normal for her. She states that she is eating good for her. She has no new concerns today. Her ECOG is 0. Past Medical History: Chronic migraine Diverticulosis Fibrocystic breast disease Past Surgical History: Bilateral salpingectomy Closed reduction of left wrist fracture Bilateral mastecomy in [address] john in 2018 Ultrasound directed needle biopsy of the left breast in 2018 Breast biopsy for benign disease in 2010 Tubal ligation and D&C in 1983 Appendectomy, adhesion lysis, and D&C in 1981 Allergies: Aleve and Flagyl. Medications: Amitriptyline HCl 2 Tablet (of 25 mg) Tablet Oral daily Anastrozole 1 Tablet (of 1 mg) Oral daily Imodium A-D 1 Tablet (of 2 mg) Oral PRN LORazepam 0.5 - 1 Tablet (of 1 mg) Oral t.i.d. PRN Omeprazole 1 Tablet (of 20 mg) Tablet, enteric coated Oral daily Ondansetron HCl 1 Tablet (of 8 mg) Oral t.i.d. PRN Prochlorperazine Maleate 1 Tablet (of 10 mg) Oral q 4 hours PRN Propranolol HCl 1 Tablet (of 40 mg) Oral daily Vitamin D-[address] 1 Tablet (of 5000 Units) Oral daily Family History: Ms. Briceno's mother is alive: breast cancer, and myocardial infarction, and lupus. Ms. Briceno's father at age 54: lung cancer. Ms. Briceno's maternal grandmother is : pancreatic cancer. Her maternal grandfather is : type II diabetes. Ms. Briceno has 2 sisters: 2 alive. Father of lung cancer at age 54. Mother is still living at age 79. She has SLE and coronary artery disease. She has been treated for breast cancer and uterine cancer. A first cousin on her mother's side of breast cancer. Her maternal grandmother had pancreatic cancer. Two sisters are in good health. Her maternal grandfather had diabetes. 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 Ms. Briceno has never smoked. She has no history of drinking. Her diet consists of regular meals. She indicates her activity level as: regular exercise. She is employed as an [employer]. She is a nonsmoker. She does not drink alcohol. Review Of Symptoms: Constitutional Denies fevers, chills, night sweats, excessive fatigue or weight loss. Some fatigue overall feels pretty good . Allergic/Immunologic No reactions. Eyes Denies significant visual changes. No diplopia. No amaurosis. ENMT Denies changes in hearing, sore throat, mouth sores, difficulty or changes in swallowing ability, and/or sinus drainage. Hematologic/Lymphatic Denies easy bruising or bleeding. The patient denies any tender or palpable lymph nodes. Breasts no changes or new concerns. Respiratory Denies severe dyspnea on exertion, denies any chest pain, cough or hemoptysis. Denies orthopnea. Cardiovascular Denies anginal chest pain, palpitations or orthopnea. Gastrointestinal Denies any current nausea, vomiting, diarrhea, GI bleeding, or constipation. Genitourinary (F) No hematuria, hesitancy, incontinence, vaginal bleeding, discharge or other problems with urination. Musculoskeletal Denies severe joint pain, swelling or redness. No decreased range of motion. Integumentary Denies chronic rashes, inflammation, ulcerations or skin changes. Neurologic Denies headache, blurred vision, and no areas of focal weakness or numbness. Normal gait. No sensory problems. Psychiatric Denies insomnia, depression, maribel or mood swings. Vital Signs: Performed on January 09, 2020 13:43 Height - 62.00 in Weight - 161.0 lbs (HIGH) BSA - 1.74 sq.m BMI - 29.45 Temperature - 97.0 F (LOW) Pulse - 74 /min Respiration - 20 /min BP - 116/73 mm(hg) O2 Sat - 100 % Pain - 0,0 - Fully active, able to carry on all predisease activities without restrictions. (ECOG) Physical Examination: Constitutional Alert, oriented, no acute distress. Skin pink, warm and dry. Head Normocephalic; atraumatic. Eyes Conjunctivae and sclerae are clear and without icterus. Pupils are reactive and equal. ENMT No oral exudates, ulcers, masses, thrush or mucositis. Oropharynx clear. Tongue normal. Neck Supple without masses or thyromegaly. No jugular venous distension. Hematologic/Lymphatic No petechiae or purpura. No tender or palpable lymph nodes in the cervical or supraclavicular areas. Respiratory Lungs are clear to auscultation without rhonchi or wheezing. Cardiovascular Regular rate and rhythm of heart without murmurs,clicks, gallops or rubs. Chest Right subclavian venous access device unremarkable. Abdomen Non-tender, non-distended, no masses or ascites. No guarding or rebound tenderness. No pulsatile masses. Back/Spine Non-tender to palpation. Extremities No visible deformities, no cyanosis, clubbing or edema. Musculoskeletal No tenderness or swelling, normal range of motion without obvious weakness. Integumentary No rashes or lesions. Neurologic No sensory or motor deficits, normal cerebellar function, normal gait. Psychiatric Alert and oriented times three. Coherent speech. Verbalizes understanding of our discussions today. Laboratory:Test performed on January 09, 2020 12:38 Sodium 137 mmol/L Potassium 3.8 mmol/L Chloride 101 mmol/L CO2 24 mmol/L Anion Gap 15.8 BUN 27 mg/dL Creatinine 1.0 mg/dL Cr Clearance (Est) 67.1000 mL/min eGFR 56.4 mL/min Glucose 125 mg/dL Calcium 10.3 mg/dL Protein, Total 8.2 g/dL Albumin 3.9 g/dL Globulin 4.3 g/dL Bilirubin, Total 0.2 mg/dL ALT (SGPT) 20 U/L AST (SGOT) 24 U/L Alkaline Phosphatase 154 IU/L WBC 6.9 10 3/uL RBC 3.66 10 6/uL HGB 10.2 g/dL HCT 33.8 % MCV 92.3 fL MCH 27.9 pg MCHC 30.2 g/dL RDW 17.0 % Platelet Count 346 10 3/cmm MPV 11.3 fL Neutrophils 3.7 10 3/uL Lymphocytes 2.1 10 3/uL Monocytes 0.7 10 3/uL Eosinophils 0.3 10 3/uL Basophils 0.0 10 3/uL Neutrophil % 53.7 % Lymphocyte % 31.0 % Monocyte % 10.6 % Eosinophil % 3.8 % Basophils % 0.6 % Impression: 1. Patient with grade 2 infiltrating ductal carcinoma of the left breast, stage IIB (T2, N1, M0), ER/CA positive and HER-2/castro positive. 2. She underwent ultrasound-guided biopsy of the left breast on 01/20/2019, and she underwent ultrasound-guided biopsy of a left axillary lymph node on 02/20/2019. 3. She was given neoadjuvant chemotherapy with TCH-P, cycle 1 beginning on 03/06/2019 through 07/03/2019. Her cycle 5 was complicated by severe nausea/vomiting and diarrhea and by C. difficile colitis, but she did recover, and she was able to continue with cycle 6 on 07/03/2019. 4. On 07/20/2019 she underwent left modified radical mastectomy and right simple prophylactic mastectomy. Pathology on the left breast showed a focus of residual grade 2 invasive ductal carcinoma measuring 1.1 cm in greatest dimension. There was involvement in 1/12 lymph nodes with the metastatic focus measuring 0.5 Final staging was ypT1c, ypN1a. 5. She continued systemic adjuvant therapy with single agent Herceptin, cycle 1 on 07/24/2019 and cycle 2 on 08/14/2019. Her treatment was then changed to Kadcyla. 6. She began adjuvant hormonal therapy with anastrozole 1 mg daily on 08/14/2019. 7. On 09/27/2019 she began radiation to the left chest wall and supraclavicular region. She completed treatment to the supraclavicular area on 11/01/2019 to a total dose of 5000 cGy. She completed treatment to the left chest wall on 11/08/2019 to a total dose of 6000 cGy. Her other medical illnesses include: 8. Chronic migraine. 9. Diverticulosis. 10. She has a significant family history for breast cancer. 11. She had evidence of vitamin D deficiency. Due to the residual axillary lymph node involvement following neoadjuvant TCH-P her treatment was changed from single agent Herceptin to Kadcyla 3.6 mg/kg by IV infusion every 3 weeks for total of 14 cycles. She began cycle 1 Kadcyla on 09/07/2019. She tolerated it with no adverse effects. She has since then continued the Kadcyla at 3-week intervals. She has now completed 6 cycles treatment with Kadcyla. She has continued to tolerate it well. She also appears to be having no adverse effects with the anastrozole. She is having some soreness/tenderness in the left chest wall, but that is most likely due secondary to the radiation. Plan: 1. Proceed with cycle 7 of Kadcyla at 3.6 mg/kg by IV infusion. 2. She continues anastrozole as well. She has had some myalgias/joint/muscle pain/aches. She states it is nothing co severe at this time. 3. Today's labs reviewed in detail and discussed with Ms. Briceno and a copy was given to her. WBC 6.9, hemoglobin 10.2, platelets 3 and 46,000 ANC is 3700. Calcium 3.8 creatinine 1.0 LFTs are normal and her alk phos is 154. 4. We will plan to see her back in 3 weeks with CBC, CMP and vitamin D for myalgia/hx of vitamin D deficiency. She will be due for cycle 8 Kadcyla at that time. 5. Mrs. Briceno was instructed to contact us in the interim should questions or problems arise. 6. Her last echocardiogram in our chart was from September 05, 2019 and reported a normal LVEF, with an EF of 69% and no regional wall motion abnormalities. Signed By: Jason Silva-, [facility] Sidney Beltran MD <<Signature on File>>
== END 2020-01-09 12:29 | disposition home or self-care (01) ==
LOC: ONCMED 12:31
PROVIDERS: PCP Family Medicine; Visit Provider Nurse Practitioner
DX: Z51.11 Encounter for antineoplastic chemotherapy (principal); C50.412 Malignant neoplasm of upper-outer quadrant of left female breast; Z17.0 Estrogen receptor positive status [ER+]; D70.1 Agranulocytosis secondary to cancer chemotherapy; T45.1X5A Adverse effect of antineoplastic and immunosuppressive drugs, initial encounter; K57.90 Diverticulosis of intestine, part unspecified, without perforation or abscess without bleeding; G43.919 Migraine, unspecified, intractable, without status migrainosus; Z79.899 Other long term (current) drug therapy
CPT/HCPCS: 80053; 85025; 96413; 99214; J7050; J9354

== ENCOUNTER 2020-01-31 13:20 | Outpatient (CLI) | payer OTHER, SELFPAY ==
[2020-01-31] MEDS: sodium chloride 0.9% 250 ML 75 ML IV (13:50)
== END 2020-01-31 13:21 | disposition home or self-care (01) ==
LOC: ONCMED 13:22
PROVIDERS: PCP Family Medicine; Visit Provider Nurse Practitioner
DX: C50.412 Malignant neoplasm of upper-outer quadrant of left female breast (principal); Z17.0 Estrogen receptor positive status [ER+]; D70.1 Agranulocytosis secondary to cancer chemotherapy; G43.909 Migraine, unspecified, not intractable, without status migrainosus; K57.90 Diverticulosis of intestine, part unspecified, without perforation or abscess without bleeding
CPT/HCPCS: 96413; J7050; J9354

== ENCOUNTER 2020-02-20 12:23 | Outpatient (CLI) | payer OTHER, SELFPAY ==
[2020-02-20 13:14] LABS: Basophils % 0.4 %; Eosinophils # 0.2 10^3/uL (0.0-0.8); Eosinophils % 2.5 %; Hematocrit 33.1 % (37.0-47.0); Hemoglobin 9.8 g/dL (11.5-15.3); Lymphocytes % 28.3 %; Mean Corpuscular HGB Conc 29.6 g/dL (30.0-36.0); Mean Corpuscular Hemoglobin 27.8 pg (28.0-34.0); Mean Platelet Volume 10.6 fL (7.4-10.4); Monocytes # 0.7 10^3/uL (0.2-0.9); Monocytes % 9.3 %; Neutrophils # 4.2 10^3/uL (1.8-7.7); Neutrophils % 59.2 %; Nucleated Red Blood Cells % 0 %; Platelet Count 320 10^3/cmm (130-400); Red Blood Count 3.52 10^6/uL (4.1-5.3); Red Cell Distribution Width 15.4 % (12.1-15.1); White Blood Count 7.1 10^3/uL (4.0-10.0)
[2020-02-20 13:46] LABS: 25 Hydroxy Vitamin D 58 ng/mL (30-100); Alanine Aminotransferase 20 U/L (0-33); Albumin Level 3.6 g/dL (3.5-5.2); Alkaline Phosphatase 137 IU/L (35-105); Anion Gap 14.9 (5-19); Aspartate Amino Transferase 27 U/L (0-32); Blood Urea Nitrogen 24 mg/dL (8-23); Calcium 9.7 mg/dL (8.5-10.5); Carbon Dioxide 24 mmol/L (22-29); Chloride 102 mmol/L (98-107); Globulin 4.4 g/dL (1.3-4.6); Glomerular Filtration Rate 63.7 mL/min (90-130); Glucose 105 mg/dL (65-115); Osmolality Calculated 281 mOsm/kg (285-295); Potassium 3.9 mmol/L (3.5-5.1); Sodium 137 mmol/L (136-145); Total Bilirubin 0.2 mg/dL (0.15-1.2)
[2020-02-20] MEDS: sodium chloride 0.9% 250 ML 75 ML IV (15:00)
[2020-02-20] MEDS: diphenhydrAMINE 25 mg Capsule PO (15:00)
[2020-02-20] MEDS: acetaminophen 325 mg Tablet 650 MG PO (15:00)
[2020-02-20 17:07] LABS: Ferritin 24 ng/mL (15-150); Iron 56 ug/dL (37-145); Percent Saturation 13.1 % (20-50); Total Iron Binding Capacity 425 mcg/dl; Unsaturated Iron Binding 369 ug/dL (112-347)
--- NOTE | 2020-02-27 08:44 | ONC FU_ITS ---
[facility] Patient Note Patient: Bertha Briceno Unit #: [id number]: 1960 Dictated By: Jason SilvaDate of Visit: Feb 20, 2020 Onc MED Follow-Up/Prog Note Chief Complaint: Breast cancer. History of Present Illness: Ms Briceno is a 59 year-old woman with grade 2 infiltrating ductal carcinoma of the left breast, stage IIB (T2, N1, M0), ER/CO positive and HER-2/castro positive. She was found to have an abnormal screening mammogram on 12/27/2018. It was BI-RADS 0, incomplete, with findings of increasing spiculated focal asymmetric density in the upper outer quadrant of the left breast. Diagnostic mammogram/ultrasound on 01/11/2019 was BI-RADS 5, highly suggestive of malignancy. The mammogram showed spiculated mass in the upper-outer left breast measuring 3.5 x 1.8 cm. Ultrasound showed a large hypoechoic solid irregular lesion at the 2:00 position measuring 2.8 x 1.6 x 3.1 cm. Also noted were hypoechoic cysts at the 12:00 and 3:00 positions measuring 5 mm and 12 mm respectively. She underwent ultrasound-guided needle biopsy of the left breast mass on 01/20/2019. Pathology showed grade 2 infiltrating ductal carcinoma. The tumor was noted to be ER positive at 94% and CO positive at 81%, both with strong intensity. HER-2/castro was positive, 3+ by IHC and amplification ratio by FISH of 1.7 with 4.0 HER-2 copies/cell. Staging PET/CT on 02/04/2019 showed an FDG avid lesion in the left breast measuring 1.3 x 1.8 cm, SUV 8.8. A solitary left axillary lymph node measuring 1.3 cm is also FDG avid with SUV 3.8, consistent with local metastatic disease. There were no findings to indicate any distant metastatic disease. Further evaluation with ultrasound of the left breast/axilla on 02/06/2019 showed a superior left axillary lymph node measuring 1.1 x 1.5 x 1.1 cm which appeared to have an intraparenchymal intermediate hyperechoic soft tissue focus, suspicious for metastasis. The remainder of the axillary lymph nodes appeared grossly unremarkable by ultrasound. Ultrasound-guided biopsy of the lymph node on 02/20/2019 showed metastatic adenocarcinoma consistent with the previously diagnosed breast primary. Given those findings, she was recommended to undergo neoadjuvant chemotherapy with TCH-P. She began cycle 1 of TCH-P on 03/06/2019. She experienced very severe GI toxicity, including nausea/vomiting and diarrhea. She required IV hydration, and she also required growth factor support with Neupogen, as she became severely neutropenia at day 8. She recovered uneventfully, and she was able to continue cycle 2 on 03/27/2019 with a reduced dosage of Perjeta. She also was given Neulasta prophylactically, and she was given scheduled IV hydration. She tolerated the treatment well, and she was then able to continue with cycle 3 on 04/18/2019, with cycle 4 on 05/08/2019, and with cycle 5 on 05/29/2019. On 06/03/2019 she was admitted to the hospital with severe nausea/vomiting and diarrhea. Some of this was clearly chemotherapy related, but she also was found to have Clostridium difficile colitis. Her clinical course also was complicated by severe neutropenia and anemia, but she had gradual recovery with appropriate antibiotic therapy. She was then able to continue with cycle 6 of TCH-P on 07/03/2019. On 07/20/2019 she underwent left modified radical mastectomy and right simple prophylactic mastectomy. She tolerated the surgery very well. Pathology on the left breast showed a focus of residual grade 2 invasive ductal carcinoma measuring 1.1 cm in greatest dimension. There was involvement in 1/12 lymph nodes with the metastatic focus measuring 0.5 cm. There was no extranodal extension identified. Final staging was ypT1c, ypN1a. Her medical history includes fibrocystic breast disease, chronic migraine, and diverticulosis. She underwent natural menopause at age 48. She is a nonsmoker. INTERIM HISTORY: She then continued systemic adjuvant therapy with single agent Herceptin at the 3-week dosing interval, cycle 1 on 07/24/2019 and cycle 2 on 08/14/2019. At that point she also began adjuvant hormonal therapy with anastrozole 1 mg daily. Due to the residual axillary lymph node involvement, her treatment was then changed to Kadcyla 3.6 mg/kg by IV infusion every 21 days. She began cycle 1 on 09/07/2019. She tolerated it well and she continued with cycle 2 on 09/28/2019, with cycle 3 on 10/19/2019, and with cycle 4 on 11/09/2019. On 09/27/2019 she had started on radiation to the left chest wall and supraclavicular region. She completed treatment to the supraclavicular area on 11/01/2019 to a total dose of 5000 cGy. She completed treatment to the left chest wall on 11/08/2019 to a total dose of 6000 cGy. Ms. Cedeño is here today for follow-up. She is due for cycle 9 Kadcyla.She states overall she feels pretty good but states she is been a bit more draggy than normal. She has had a little bit more shortness of breath. She continues to work full-time and has been very active. She denies any fever or chills. She is had no new pain. She denies any nausea or vomiting. She denies any orthopnea. She denies chest pain or lower extremity edema. Her bowels have been normal for her. She has no bladder complaints. She denies any new neuropathy symptoms and states that what she has had has seem to be better overall. She denies any lymphedema. Her ECOG is 0. Past Medical History: Chronic migraine Diverticulosis Fibrocystic breast disease Past Surgical History: Bilateral salpingectomy Closed reduction of left wrist fracture Bilateral mastecomy in [address] john in 2019 Ultrasound directed needle biopsy of the left breast in 2018 Breast biopsy for benign disease in 2010 Tubal ligation and D&C in 1983 Appendectomy, adhesion lysis, and D&C in 1981 Allergies: Aleve and Flagyl. Medications: Amitriptyline HCl 2 Tablet (of 25 mg) Tablet Oral daily Anastrozole 1 Tablet (of 1 mg) Oral daily Imodium A-D 1 Tablet (of 2 mg) Oral PRN LORazepam 0.5 - 1 Tablet (of 1 mg) Oral t.i.d. PRN Omeprazole 1 Tablet (of 20 mg) Tablet, enteric coated Oral daily Ondansetron HCl 1 Tablet (of 8 mg) Oral t.i.d. PRN Prochlorperazine Maleate 1 Tablet (of 10 mg) Oral q 4 hours PRN Propranolol HCl 1 Tablet (of 40 mg) Oral daily Vitamin D-[address] 1 Tablet (of 5000 Units) Oral daily Family History: Ms. Briceno's mother is alive: breast cancer, and myocardial infarction, and lupus. Ms. Briceno's father at age 54: lung cancer. Ms. Briceno's maternal grandmother is : pancreatic cancer. Her maternal grandfather is : type II diabetes. Ms. Briceno has 2 sisters: 2 alive. Father of lung cancer at age 54. Mother is still living at age 79. She has SLE and coronary artery disease. She has been treated for breast cancer and uterine cancer. A first cousin on her mother's side of breast cancer. Her maternal grandmother had pancreatic cancer. Two sisters are in good health. Her maternal grandfather had diabetes. 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 Ms. Briceno has never smoked. She has no history of drinking. Her diet consists of regular meals. She indicates her activity level as: regular exercise. She is employed as an [employer]. She is a nonsmoker. She does not drink alcohol. Review Of Symptoms: Constitutional Denies fevers, chills, night sweats, excessive fatigue or weight loss. Some fatigue overall feels pretty good . Allergic/Immunologic No reactions. Eyes Denies significant visual changes. No diplopia. No amaurosis. ENMT Denies changes in hearing, sore throat, mouth sores, difficulty or changes in swallowing ability, and/or sinus drainage. Endocrine No diabetes, thyroid disease or hormone replacement. Denies hot flashes or night sweats. Hematologic/Lymphatic Denies easy bruising or bleeding. The patient denies any tender or palpable lymph nodes. Breasts no changes or new concerns. Respiratory Denies severe dyspnea on exertion, denies any chest pain, cough or hemoptysis. Denies orthopnea. Cardiovascular Denies anginal chest pain, palpitations or orthopnea. Gastrointestinal Denies any current nausea, vomiting, diarrhea, GI bleeding, or constipation. Genitourinary (F) No hematuria, hesitancy, incontinence, vaginal bleeding, discharge or other problems with urination. Musculoskeletal Denies joint pain, swelling or redness. No decreased range of motion. Integumentary Denies chronic rashes, inflammation, ulcerations or skin changes. Neurologic Denies headache, blurred vision, and no areas of focal weakness or numbness. Normal gait. No sensory problems. Psychiatric Denies insomnia, depression, maribel or mood swings. Vital Signs: Performed on Feb 20, 2020 14:08 Height - 62.00 in Weight - 160.2 lbs (LOW) BSA - 1.74 sq.m BMI - 29.30 Temperature - 98.0 F (LOW) Pulse - 63 /min Respiration - 20 /min BP - 140/75 mm(hg) O2 Sat - 99 % Pain - 0,0 - Fully active, able to carry on all predisease activities without restrictions. (ECOG) Physical Examination: Constitutional Alert, oriented, no acute distress. Skin pink, warm and dry. Head Normocephalic; atraumatic. Eyes Conjunctivae and sclerae are clear and without icterus. Pupils are reactive and equal. ENMT No oral exudates, ulcers, masses, thrush or mucositis. Oropharynx clear. Tongue normal. Neck Supple without masses or thyromegaly. No jugular venous distension. Hematologic/Lymphatic No petechiae or purpura. No tender or palpable lymph nodes in the cervical or supraclavicular areas. Respiratory Lungs are clear to auscultation without rhonchi or wheezing. Cardiovascular Regular rate and rhythm of heart without murmurs,clicks, gallops or rubs. Chest Right subclavian venous access device unremarkable. Abdomen Non-tender, non-distended, no masses or ascites. No guarding or rebound tenderness. No pulsatile masses. Back/Spine Non-tender to palpation. Extremities No visible deformities, no cyanosis, clubbing or edema. Musculoskeletal No tenderness or swelling, normal range of motion without obvious weakness. Integumentary No rashes or lesions. Neurologic No sensory or motor deficits, normal cerebellar function, normal gait. Psychiatric Alert and oriented times three. Coherent speech. Verbalizes understanding of our discussions today. Laboratory:Test performed on Feb 20, 2020 12:53 Ferritin 24 ng/mL Iron 56 mcg/dL Sodium 137 mmol/L Vitamin D (25-Hydroxy), Total 58 ng/mL Iron Binding Capacity (TIBC) 425 mcg/dl Potassium 3.9 mmol/L % Iron Saturation 13.1 % Chloride 102 mmol/L CO2 24 mmol/L UIBC 369 mcg/dL Anion Gap 14.9 BUN 24 mg/dL Creatinine 0.9 mg/dL Cr Clearance (Est) 75.30 mL/min eGFR 63.7 mL/min Glucose 105 mg/dL Calcium 9.7 mg/dL Protein, Total 8.0 g/dL Albumin 3.6 g/dL Globulin 4.4 g/dL Bilirubin, Total 0.2 mg/dL ALT (SGPT) 20 U/L AST (SGOT) 27 U/L Alkaline Phosphatase 137 IU/L WBC 7.1 10 3/uL RBC 3.52 10 6/uL HGB 9.8 g/dL HCT 33.1 % MCV 94.0 fL MCH 27.8 pg MCHC 29.6 g/dL RDW 15.4 % Platelet Count 320 10 3/cmm MPV 10.6 fL Neutrophils 4.2 10 3/uL Lymphocytes 2.0 10 3/uL Monocytes 0.7 10 3/uL Eosinophils 0.2 10 3/uL Basophils 0.0 10 3/uL Neutrophil % 59.2 % Lymphocyte % 28.3 % Monocyte % 9.3 % Eosinophil % 2.5 % Basophils % 0.4 % NRBC % 0 % Test performed on Sep 04, 2019 09:52 Manual Lymphocytes 45.7 % Manual Monocytes 7.6 % Manual Eosinophils 2.2 % Manual Basophils 0.4 % NRBCs 0.0 /100 WBC Impression: . Patient with grade 2 infiltrating ductal carcinoma of the left breast, stage IIB (T2, N1, M0), ER/CO positive and HER-2/castro positive. 2. She underwent ultrasound-guided biopsy of the left breast on 01/20/2019, and she underwent ultrasound-guided biopsy of a left axillary lymph node on 02/20/2019. 3. She was given neoadjuvant chemotherapy with TCH-P, cycle 1 beginning on 03/06/2019 through 07/03/2019. Her cycle 5 was complicated by severe nausea/vomiting and diarrhea and by C. difficile colitis, but she did recover, and she was able to continue with cycle 6 on 07/03/2019. 4. On 07/20/2019 she underwent left modified radical mastectomy and right simple prophylactic mastectomy. Pathology on the left breast showed a focus of residual grade 2 invasive ductal carcinoma measuring 1.1 cm in greatest dimension. There was involvement in 1/12 lymph nodes with the metastatic focus measuring 0.5 Final staging was ypT1c, ypN1a. 5. She continued systemic adjuvant therapy with single agent Herceptin, cycle 1 on 07/24/2019 and cycle 2 on 08/14/2019. Her treatment was then changed to Kadcyla. 6. She began adjuvant hormonal therapy with anastrozole 1 mg daily on 08/14/2019. 7. On 09/27/2019 she began radiation to the left chest wall and supraclavicular region. She completed treatment to the supraclavicular area on 11/01/2019 to a total dose of 5000 cGy. She completed treatment to the left chest wall on 11/08/2019 to a total dose of 6000 cGy. Her other medical illnesses include: 8. Chronic migraine. 9. Diverticulosis. 10. She has a significant family history for breast cancer. 11. She had evidence of vitamin D deficiency. Due to the residual axillary lymph node involvement following neoadjuvant TCH-P her treatment was changed from single agent Herceptin to Kadcyla 3.6 mg/kg by IV infusion every 3 weeks for total of 14 cycles. She began cycle 1 Kadcyla on 09/07/2019. She tolerated it with no adverse effects. She has since then continued the Kadcyla at 3-week intervals. She has now completed 6 cycles treatment with Kadcyla. She has continued to tolerate it well. She also appears to be having no adverse effects with the anastrozole. She is having some soreness/tenderness in the left chest wall, but that is most likely due secondary to the radiation. Plan: 1. Proceed with cycle 9 of Kadcyla at 3.6 mg/kg by IV infusion. 2. She continues anastrozole as well. 3. Today's labs reviewed in detail and discussed with Ms. Briceno and a copy was given to her. WBC 7.1 , hemoglobin 9.8, platelets 320,000 ANC is 4200. creatinine 0.9 LFTs are normal and her alk phos is 137. Vitamin D level was 58. I did request iron studies given that she is anemic and her MCH was slightly low. She has had trouble with iron in the past she states. We will call her with results of that and any medication adjustments if needed. 4. We will plan to see her back in 3 weeks with CBC, CMP. She will be due for cycle 10 Kadcyla at that time. 5. Mrs. Briceno was instructed to contact us in the interim should questions or problems arise. Signed By: Jason Silva-, [facility] Sidney Beltran MD <<Signature on File>>
== END 2020-02-20 12:24 | disposition home or self-care (01) ==
PROVIDERS: PCP Family Medicine; Visit Provider Nurse Practitioner
DX: Z51.12 Encounter for antineoplastic immunotherapy (principal); C50.412 Malignant neoplasm of upper-outer quadrant of left female breast; C77.3 Secondary and unspecified malignant neoplasm of axilla and upper limb lymph nodes; Z17.0 Estrogen receptor positive status [ER+]; G43.709 Chronic migraine without aura, not intractable, without status migrainosus; K57.90 Diverticulosis of intestine, part unspecified, without perforation or abscess without bleeding; E55.9 Vitamin D deficiency, unspecified; Z79.811 Long term (current) use of aromatase inhibitors; Z92.3 Personal history of irradiation; Z92.21 Personal history of antineoplastic chemotherapy; Z90.13 Acquired absence of bilateral breasts and nipples; Z80.3 Family history of malignant neoplasm of breast
CPT/HCPCS: 36415; 80053; 82306; 82728; 83540; 83550; 85025; 96413; 99214; J7050; J9354

== ENCOUNTER 2020-03-08 08:04 | Outpatient (CLI) | payer OTHER, SELFPAY ==
[2020-03-08] MEDS: ferric carboxy (PYXIS) 750 mg/15 mL INJ (08:30)
[2020-03-08] MEDS: sodium chloride 0.9% (100 ml) 100 ML 400 ML ×2 (08:30)
== END 2020-03-08 08:05 | disposition home or self-care (01) ==
LOC: ONCMED 08:06
PROVIDERS: PCP Family Medicine; Visit Provider Nurse Practitioner
DX: D50.9 Iron deficiency anemia, unspecified (principal)
CPT/HCPCS: 96365; J1439

== ENCOUNTER 2020-03-12 12:17 | Outpatient (CLI) | payer OTHER, SELFPAY ==
[2020-03-12 13:08] LABS: Alanine Aminotransferase 23 U/L (0-33); Alkaline Phosphatase 143 IU/L (35-105); Aspartate Amino Transferase 33 U/L (0-32); Blood Urea Nitrogen 27 mg/dL (8-23); Carbon Dioxide 27 mmol/L (22-29); Chloride 101 mmol/L (98-107); Globulin 4.3 g/dL (1.3-4.6); Glomerular Filtration Rate 56.4 mL/min (90-130); Glucose 108 mg/dL (65-115); Osmolality Calculated 282 mOsm/kg (285-295); Sodium 137 mmol/L (136-145); Total Bilirubin 0.2 mg/dL (0.15-1.2); Total Protein 8.3 g/dL (6.6-8.7)
[2020-03-12 13:13] LABS: Basophils % 0.6 %; Eosinophils # 0.2 10^3/uL (0.0-0.8); Eosinophils % 3.1 %; Hematocrit 35.7 % (37.0-47.0); Hemoglobin 10.4 g/dL (11.5-15.3); Lymphocytes # 2.3 10^3/uL (0.8-4.8); Lymphocytes % 34.9 %; Mean Corpuscular HGB Conc 29.1 g/dL (30.0-36.0); Mean Corpuscular Hemoglobin 26.8 pg (28.0-34.0); Mean Platelet Volume 11.5 fL (7.4-10.4); Monocytes # 0.7 10^3/uL (0.2-0.9); Neutrophils # 3.41 10^3/uL (1.8-7.7); Neutrophils % 51.1 %; Nucleated Red Blood Cells % 0 %; Platelet Count 282 10^3/cmm (130-400); Red Blood Count 3.88 10^6/uL (4.1-5.3); Red Cell Distribution Width 15.9 % (12.1-15.1); White Blood Count 6.7 10^3/uL (4.0-10.0)
[2020-03-12] MEDS: sodium chloride 0.9% 250 ML 75 ML IV (15:40)
[2020-03-12] MEDS: diphenhydrAMINE 25 mg Capsule PO (15:40)
[2020-03-12] MEDS: acetaminophen 325 mg Tablet 650 MG PO (15:40)
--- NOTE | 2020-03-16 16:26 | ONC FU_ITS ---
[facility] Patient Note Patient: Bertha Briceno Unit #: [id number]: [id number] Dictated By: Jason SilvaDate of Visit: Mar 12, 2020 Onc MED Follow-Up/Prog Note Chief Complaint: Breast cancer. History of Present Illness: Ms Briceno is a 59 year-old woman with grade 2 infiltrating ductal carcinoma of the left breast, stage IIB (T2, N1, M0), ER/OR positive and HER-2/castro positive. She was found to have an abnormal screening mammogram on 12/27/2018. It was BI-RADS 0, incomplete, with findings of increasing spiculated focal asymmetric density in the upper outer quadrant of the left breast. Diagnostic mammogram/ultrasound on 01/11/2019 was BI-RADS 5, highly suggestive of malignancy. The mammogram showed spiculated mass in the upper-outer left breast measuring 3.5 x 1.8 cm. Ultrasound showed a large hypoechoic solid irregular lesion at the 2:00 position measuring 2.8 x 1.6 x 3.1 cm. Also noted were hypoechoic cysts at the 12:00 and 3:00 positions measuring 5 mm and 12 mm respectively. She underwent ultrasound-guided needle biopsy of the left breast mass on 01/20/2019. Pathology showed grade 2 infiltrating ductal carcinoma. The tumor was noted to be ER positive at 94% and OR positive at 81%, both with strong intensity. HER-2/castro was positive, 3+ by IHC and amplification ratio by FISH of 1.7 with 4.0 HER-2 copies/cell. Staging PET/CT on 02/04/2019 showed an FDG avid lesion in the left breast measuring 1.3 x 1.8 cm, SUV 8.8. A solitary left axillary lymph node measuring 1.3 cm is also FDG avid with SUV 3.8, consistent with local metastatic disease. There were no findings to indicate any distant metastatic disease. Further evaluation with ultrasound of the left breast/axilla on 02/06/2019 showed a superior left axillary lymph node measuring 1.1 x 1.5 x 1.1 cm which appeared to have an intraparenchymal intermediate hyperechoic soft tissue focus, suspicious for metastasis. The remainder of the axillary lymph nodes appeared grossly unremarkable by ultrasound. Ultrasound-guided biopsy of the lymph node on 02/20/2019 showed metastatic adenocarcinoma consistent with the previously diagnosed breast primary. Given those findings, she was recommended to undergo neoadjuvant chemotherapy with TCH-P. She began cycle 1 of TCH-P on 03/06/2019. She experienced very severe GI toxicity, including nausea/vomiting and diarrhea. She required IV hydration, and she also required growth factor support with Neupogen, as she became severely neutropenia at day 8. She recovered uneventfully, and she was able to continue cycle 2 on 03/27/2019 with a reduced dosage of Perjeta. She also was given Neulasta prophylactically, and she was given scheduled IV hydration. She tolerated the treatment well, and she was then able to continue with cycle 3 on 04/18/2019, with cycle 4 on 05/08/2019, and with cycle 5 on 05/29/2019. On 06/03/2019 she was admitted to the hospital with severe nausea/vomiting and diarrhea. Some of this was clearly chemotherapy related, but she also was found to have Clostridium difficile colitis. Her clinical course also was complicated by severe neutropenia and anemia, but she had gradual recovery with appropriate antibiotic therapy. She was then able to continue with cycle 6 of TCH-P on 07/03/2019. On 07/20/2019 she underwent left modified radical mastectomy and right simple prophylactic mastectomy. She tolerated the surgery very well. Pathology on the left breast showed a focus of residual grade 2 invasive ductal carcinoma measuring 1.1 cm in greatest dimension. There was involvement in 1/12 lymph nodes with the metastatic focus measuring 0.5 cm. There was no extranodal extension identified. Final staging was ypT1c, ypN1a. Her medical history includes fibrocystic breast disease, chronic migraine, and diverticulosis. She underwent natural menopause at age 48. She is a nonsmoker. INTERIM HISTORY: She then continued systemic adjuvant therapy with single agent Herceptin at the 3-week dosing interval, cycle 1 on 07/24/2019 and cycle 2 on 08/14/2019. At that point she also began adjuvant hormonal therapy with anastrozole 1 mg daily. Due to the residual axillary lymph node involvement, her treatment was then changed to Kadcyla 3.6 mg/kg by IV infusion every 21 days. She began cycle 1 on 09/07/2019. She tolerated it well and she continued with cycle 2 on 09/28/2019, with cycle 3 on 10/19/2019, and with cycle 4 on 11/09/2019. On 09/27/2019 she had started on radiation to the left chest wall and supraclavicular region. She completed treatment to the supraclavicular area on 11/01/2019 to a total dose of 5000 cGy. She completed treatment to the left chest wall on 11/08/2019 to a total dose of 6000 cGy. Ms. Cedeño is here today for follow-up. She is due for cycle 10 Kadcyla.She states overall she feels pretty good. She continues to work full-time and has been very active. She states she tires with a lot of exertion. She has shortness of breath with exertion she states is not new and it is no worse than what it has been. She states overall she thinks she is doing well. She denies any fever or chills. She denies any new pain. She denies any nausea or vomiting. She denies any orthopnea. She denies chest pain or lower extremity edema. Her bowels have been normal for her. She has no bladder complaints. She denies any new neuropathy symptoms and states that what she has had has seem to be better overall. She denies any lymphedema. Her ECOG is 0. Past Medical History: Chronic migraine Diverticulosis Fibrocystic breast disease Past Surgical History: Bilateral salpingectomy Closed reduction of left wrist fracture Bilateral mastecomy in [address] john in 2018 Ultrasound directed needle biopsy of the left breast in 2018 Breast biopsy for benign disease in 2010 Tubal ligation and D&C in 1983 Appendectomy, adhesion lysis, and D&C in 1981 Allergies: Aleve and Flagyl. Medications: Amitriptyline HCl 2 Tablet (of 25 mg) Tablet Oral daily Anastrozole 1 Tablet (of 1 mg) Oral daily Imodium A-D 1 Tablet (of 2 mg) Oral PRN LORazepam 0.5 - 1 Tablet (of 1 mg) Oral t.i.d. PRN Omeprazole 1 Tablet (of 20 mg) Tablet, enteric coated Oral daily Ondansetron HCl 1 Tablet (of 8 mg) Oral t.i.d. PRN Prochlorperazine Maleate 1 Tablet (of 10 mg) Oral q 4 hours PRN Propranolol HCl 1 Tablet (of 40 mg) Oral daily Vitamin D-[address] 1 Tablet (of 5000 Units) Oral daily Family History: Ms. Briceno's mother is alive: breast cancer, and myocardial infarction, and lupus. Ms. Briceno's father at age 54: lung cancer. Ms. Briceno's maternal grandmother is : pancreatic cancer. Her maternal grandfather is : type II diabetes. Ms. Briceno has 2 sisters: 2 alive. Father of lung cancer at age 54. Mother is still living at age 79. She has SLE and coronary artery disease. She has been treated for breast cancer and uterine cancer. A first cousin on her mother's side of breast cancer. Her maternal grandmother had pancreatic cancer. Two sisters are in good health. Her maternal grandfather had diabetes. 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 Ms. Briceno has never smoked. She has no history of drinking. Her diet consists of regular meals. She indicates her activity level as: regular exercise. Review Of Symptoms: Constitutional Denies fevers, chills, night sweats, excessive fatigue or weight loss. Some fatigue overall feels pretty good . Allergic/Immunologic No reactions. Eyes Denies significant visual changes. No diplopia. No amaurosis. ENMT Denies changes in hearing, sore throat, mouth sores, difficulty or changes in swallowing ability, and/or sinus drainage. Hematologic/Lymphatic Denies easy bruising or bleeding. The patient denies any tender or palpable lymph nodes. Breasts no changes or new concerns. Respiratory Denies severe dyspnea on exertion, denies any chest pain, cough or hemoptysis. Denies orthopnea. Cardiovascular Denies anginal chest pain, palpitations or orthopnea. Gastrointestinal Denies any current nausea, vomiting, diarrhea, GI bleeding, or constipation. Genitourinary (F) No hematuria, hesitancy, incontinence, vaginal bleeding, discharge or other problems with urination. Musculoskeletal Denies joint pain, swelling or redness. No decreased range of motion. Integumentary Denies chronic rashes, inflammation, ulcerations or skin changes. Neurologic Denies headache, blurred vision, and no areas of focal weakness or numbness. Normal gait. No sensory problems. Psychiatric Denies insomnia, depression, maribel or mood swings. Vital Signs: Performed on Mar 12, 2020 14:43 Height - 62.00 in Weight - 157.8 lbs (LOW) BSA - 1.73 sq.m BMI - 28.86 Temperature - 96.5 F (LOW) Pulse - 74 /min Respiration - 18 /min BP - 121/70 mm(hg) O2 Sat - 97 % Pain - 0,0 - Fully active, able to carry on all predisease activities without restrictions. (ECOG) Physical Examination: Constitutional Alert, oriented, no acute distress. Skin pink, warm and dry. Head Normocephalic; atraumatic. Eyes Conjunctivae and sclerae are clear and without icterus. Pupils are reactive and equal. Neck Supple without masses or thyromegaly. No jugular venous distension. Hematologic/Lymphatic No petechiae or purpura. No tender or palpable lymph nodes in the cervical or supraclavicular areas. Respiratory Lungs are clear to auscultation without rhonchi or wheezing. Cardiovascular Regular rate and rhythm of heart without murmurs,clicks, gallops or rubs. Chest Right subclavian venous access device unremarkable. Abdomen Non-tender, non-distended, no masses or ascites. No guarding or rebound tenderness. No pulsatile masses. Back/Spine Non-tender to palpation. Extremities No visible deformities, no cyanosis, clubbing or edema. Musculoskeletal No tenderness or swelling, normal range of motion without obvious weakness. Integumentary No rashes or lesions. Neurologic No sensory or motor deficits, normal cerebellar function, normal gait. Psychiatric Alert and oriented times three. Coherent speech. Verbalizes understanding of our discussions today. Laboratory:Test performed on Mar 12, 2020 12:30 Sodium 137 mmol/L Potassium 4.0 mmol/L Chloride 101 mmol/L CO2 27 mmol/L Anion Gap 13.0 BUN 27 mg/dL Creatinine 1.0 mg/dL Cr Clearance (Est) 67.7700 mL/min eGFR 56.4 mL/min Glucose 108 mg/dL Calcium 10.0 mg/dL Protein, Total 8.3 g/dL Albumin 4.0 g/dL Globulin 4.3 g/dL Bilirubin, Total 0.2 mg/dL ALT (SGPT) 23 U/L AST (SGOT) 33 U/L Alkaline Phosphatase 143 IU/L WBC 6.7 10 3/uL RBC 3.88 10 6/uL HGB 10.4 g/dL HCT 35.7 % MCV 92.0 fL MCH 26.8 pg MCHC 29.1 g/dL RDW 15.9 % Platelet Count 282 10 3/cmm MPV 11.5 fL Neutrophils 3.41 10 3/uL Lymphocytes 2.3 10 3/uL Monocytes 0.7 10 3/uL Eosinophils 0.2 10 3/uL Basophils 0.0 10 3/uL Neutrophil % 51.1 % Lymphocyte % 34.9 % Monocyte % 10.0 % Eosinophil % 3.1 % Basophils % 0.6 % NRBC % 0 % Test performed on Feb 20, 2020 12:53 Ferritin 24 ng/mL Iron 56 mcg/dL Vitamin D (25-Hydroxy), Total 58 ng/mL Iron Binding Capacity (TIBC) 425 mcg/dl % Iron Saturation 13.1 % UIBC 369 mcg/dL Impression: . Patient with grade 2 infiltrating ductal carcinoma of the left breast, stage IIB (T2, N1, M0), ER/OR positive and HER-2/castro positive. 2. She underwent ultrasound-guided biopsy of the left breast on 01/20/2019, and she underwent ultrasound-guided biopsy of a left axillary lymph node on 02/20/2019. 3. She was given neoadjuvant chemotherapy with TCH-P, cycle 1 beginning on 03/06/2019 through 07/03/2019. Her cycle 5 was complicated by severe nausea/vomiting and diarrhea and by C. difficile colitis, but she did recover, and she was able to continue with cycle 6 on 07/03/2019. 4. On 07/20/2019 she underwent left modified radical mastectomy and right simple prophylactic mastectomy. Pathology on the left breast showed a focus of residual grade 2 invasive ductal carcinoma measuring 1.1 cm in greatest dimension. There was involvement in 1/12 lymph nodes with the metastatic focus measuring 0.5 Final staging was ypT1c, ypN1a. 5. She continued systemic adjuvant therapy with single agent Herceptin, cycle 1 on 07/24/2019 and cycle 2 on 08/14/2019. Her treatment was then changed to Kadcyla. 6. She began adjuvant hormonal therapy with anastrozole 1 mg daily on 08/14/2019. 7. On 09/27/2019 she began radiation to the left chest wall and supraclavicular region. She completed treatment to the supraclavicular area on 11/01/2019 to a total dose of 5000 cGy. She completed treatment to the left chest wall on 11/08/2019 to a total dose of 6000 cGy. Her other medical illnesses include: 8. Chronic migraine. 9. Diverticulosis. 10. She has a significant family history for breast cancer. 11. She had evidence of vitamin D deficiency. Due to the residual axillary lymph node involvement following neoadjuvant TCH-P her treatment was changed from single agent Herceptin to Kadcyla 3.6 mg/kg by IV infusion every 3 weeks for total of 14 cycles. She began cycle 1 Kadcyla on 09/07/2019. She tolerated it with no adverse effects. She has since then continued the Kadcyla at 3-week intervals. She has now completed 9 cycles treatment with Kadcyla. She has continued to tolerate it well. She also appears to be having no adverse effects with the anastrozole. She is having some intermittent soreness/tenderness in the left chest wall, but that is most likely due secondary to the radiation. Plan: 1. Proceed with cycle 10 of Kadcyla at 3.6 mg/kg by IV infusion. 2. She continues anastrozole as well. 3. Today's labs reviewed in detail and discussed with Ms. Briceno and a copy was given to her. WBC 6.7 , hemoglobin 10.4, platelets 282,000 ANC is 3400. creatinine 1.0 LFTs are normal and her alk phos is 143. Vitamin D level was 58. iron from 02/20/2020 was 56 and sat was 13.1%. She states she will take her iron more consistently. 4. We will plan to see her back in 3 weeks with CBC, CMP. She will be due for cycle 11 Kadcyla at that time. 5. Mrs. Briceno was instructed to contact us in the interim should questions or problems arise. 6. She states she is scheduled for her echocardiogram later this week. She had moved at a time or 2 due to her work schedule. She states she will be able to make this appointment with no problem as far she knows at this point. This is just to compare with September 05, 2019 echocardiogram for Kadcyla monitoring. Signed By: Jason Silva-, AOCNP Sidney Beltran MD <<Signature on File>>
== END 2020-03-12 12:18 | disposition home or self-care (01) ==
LOC: ONCMED 12:19
PROVIDERS: PCP Family Medicine; Visit Provider Nurse Practitioner
DX: Z51.12 Encounter for antineoplastic immunotherapy (principal); C50.412 Malignant neoplasm of upper-outer quadrant of left female breast; C77.3 Secondary and unspecified malignant neoplasm of axilla and upper limb lymph nodes; Z17.0 Estrogen receptor positive status [ER+]; G43.709 Chronic migraine without aura, not intractable, without status migrainosus; E55.9 Vitamin D deficiency, unspecified; Z79.899 Other long term (current) drug therapy; K57.90 Diverticulosis of intestine, part unspecified, without perforation or abscess without bleeding; Z80.3 Family history of malignant neoplasm of breast; Z79.811 Long term (current) use of aromatase inhibitors
CPT/HCPCS: 80053; 85025; 96413; 99214; J7050; J9354

== ENCOUNTER 2020-03-13 14:28 | Outpatient (CLI) | payer OTHER, SELFPAY ==
--- NOTE | 2020-03-13 14:33 | USCV_ITS ---
Bertha Briceno Age: 59 Gender: F : 1960 Exam Date: 03/13/2020 14:47 Ordering Phys: Suzie Jackson NP Technologist: Bella Machuca Exam Location: [facility] – [place] Indication: HIGH RISK MEDICATION AND NOW VERY SOB BP: 124 / 70 HR: 70 Rhythm: Sinus Technical Quality: Adequate MEASUREMENTS (Male / Female) Normal Values 2D ECHO LV Diastolic Diameter PLAX 3.5 cm 4.2 - 5.9 / 3.9 - 5.3 cm LV Systolic Diameter PLAX 3.0 cm LV Chamber Size 3.9 cm IVS Diastolic Thickness 1.2 cm 0.6 - 1.0 / 0.6 - 0.9 cm IVS Systolic Thickness 1.6 cm LVPW Diastolic Thickness 1.2 cm 0.6 - 1.0 / 0.6 - 0.9 cm LVPW Systolic Thickness 1.3 cm RV Chamber Size 3.7 cm LVOT Diameter 2.0 cm LV Ejection Fraction 2D Teich 30.4 % LV Ejection Fraction MOD 2C 74.1 % LV Ejection Fraction 2C AL 75.1 % LA Diameter 2.3 cm LA Width 2.2 cm LA Height 3.1 cm RA Width 3.4 cm RA Height 3.3 cm M-MODE LV Diastolic Diameter MM 4.9 cm 4.2 - 5.9 / 3.9 - 5.3 cm LV Systolic Diameter MM 3.4 cm LV Ejection Fraction MM Teich 57.2 % IVS Diastolic Thickness MM 0.9 cm 0.6 - 1.0 / 0.6 - 0.9 cm IVS Systolic Thickness MM 1.0 cm LVPW Diastolic Thickness MM 1.1 cm 0.6 - 1.0 / 0.6 - 0.9 cm LVPW Systolic Thickness MM 1.6 cm RV Diastolic Diameter MM 1.0 cm Aortic Annulus Diameter 2.9 cm LA Ao Ratio MM 0.8 MV E Point Septal Separation 0.2 cm DOPPLER TR Peak Velocity 197.4 cm/s TR Peak Gradient 15.6 mmHg TR Mean Velocity 147.0 cm/s TR Mean Gradient 9.4 mmHg TR Velocity Time Integral 64.3 cm PV Peak Velocity 44.0 cm/s RV Acceleration Time 0.1 s RV Ejection Time 0.3 s RV AcT/ET 0.4 FINDINGS Left Ventricle This is a limited two-dimensional exam. Normal left ventricular size and function. Ejection fraction 60 to 65%. No wall motion disturbances. Right Ventricle Normal right ventricular size and systolic function. Right Atrium The right atrium is normal in size. Left Atrium The left atrium is normal in size. Mitral Valve Structurally normal mitral valve. Aortic Valve Structurally normal trileaflet aortic valve. Tricuspid Valve Structurally normal tricuspid valve. Pulmonic Valve Pulmonic valve not well visualized. Pericardium Normal pericardium without effusion. Aorta Normal ascending aorta dimension. CONCLUSIONS This is a limited two-dimensional exam. Normal left ventricular size and function. Ejection fraction 60 to 65%. No wall motion disturbances. No change from 09/05/2019 Dr. Jaleel García MD (Electronically Signed) Final Date: 13 March 2020 17:59 S
== END 2020-03-13 14:29 | disposition home or self-care (01) ==
LOC: US 14:31
PROVIDERS: PCP Family Medicine; Visit Provider Internal Medicine Medical Oncology
DX: Z79.899 Other long term (current) drug therapy (principal); R06.02 Shortness of breath
CPT/HCPCS: 93308

== ENCOUNTER 2020-04-01 15:04 | Outpatient (CLI) | payer OTHER, SELFPAY ==
[2020-04-01 15:50] LABS: Basophils # 0.1 10^3/uL (0.0-0.1); Basophils % 0.7 %; Eosinophils # 0.2 10^3/uL (0.0-0.8); Eosinophils % 2.8 %; Hematocrit 37.8 % (37.0-47.0); Hemoglobin 11.4 g/dL (11.5-15.3); Lymphocytes # 2.5 10^3/uL (0.8-4.8); Lymphocytes % 37.9 %; Mean Corpuscular HGB Conc 30.2 g/dL (30.0-36.0); Mean Corpuscular Hemoglobin 28.9 pg (28.0-34.0); Mean Corpuscular Volume 95.7 fL (81-99); Mean Platelet Volume 11.8 fL (7.4-10.4); Monocytes # 0.9 10^3/uL (0.2-0.9); Monocytes % 13.4 %; Neutrophils # 3.01 10^3/uL (1.8-7.7); Neutrophils % 45.1 %; Nucleated Red Blood Cells % 0 %; Platelet Count 229 10^3/cmm (130-400); Red Blood Count 3.95 10^6/uL (4.1-5.3); Red Cell Distribution Width 20.5 % (12.1-15.1); White Blood Count 6.7 10^3/uL (4.0-10.0)
[2020-04-01 16:09] LABS: Alanine Aminotransferase 30 U/L (0-33); Alkaline Phosphatase 180 IU/L (35-105); Anion Gap 15.9 (5-19); Aspartate Amino Transferase 44 U/L (0-32); Blood Urea Nitrogen 42 mg/dL (8-23); Calcium 9.8 mg/dL (8.5-10.5); Carbon Dioxide 23 mmol/L (22-29); Chloride 103 mmol/L (98-107); Globulin 4.5 g/dL (1.3-4.6); Glomerular Filtration Rate 50.5 mL/min (90-130); Glucose 105 mg/dL (65-115); Osmolality Calculated 284 mOsm/kg (285-295); Potassium 3.9 mmol/L (3.5-5.1); Sodium 138 mmol/L (136-145); Total Bilirubin 0.2 mg/dL (0.15-1.2); Total Protein 8.5 g/dL (6.6-8.7)
--- NOTE | 2020-04-05 18:17 | ONC FU_ITS ---
Dr. Beltran Patient Follow-Up Note Patient: Bertha Briceno Unit #: [id number]: [id number] Dicatated By: Sidney Beltran M.D.Date of Visit:Apr 01, 2020 Onc Med Follow-up/Prog Note Chief Complaint: Breast cancer. History of Present Illness: This is a 59 year-old woman with grade 2 infiltrating ductal carcinoma of the left breast, stage IIB (T2, N1, M0), ER/KY positive and HER-2/castro positive. She was found to have an abnormal screening mammogram on 12/27/2018. It was BI-RADS 0, incomplete, with findings of increasing spiculated focal asymmetric density in the upper outer quadrant of the left breast. Diagnostic mammogram/ultrasound on 01/11/2019 was BI-RADS 5, highly suggestive of malignancy. The mammogram showed spiculated mass in the upper-outer left breast measuring 3.5 x 1.8 cm. Ultrasound showed a large hypoechoic solid irregular lesion at the 2:00 position measuring 2.8 x 1.6 x 3.1 cm. Also noted were hypoechoic cysts at the 12:00 and 3:00 positions measuring 5 mm and 12 mm respectively. She underwent ultrasound-guided needle biopsy of the left breast mass on 01/20/2019. Pathology showed grade 2 infiltrating ductal carcinoma. The tumor was noted to be ER positive at 94% and KY positive at 81%, both with strong intensity. HER-2/castro was positive, 3+ by IHC and amplification ratio by FISH of 1.7 with 4.0 HER-2 copies/cell. Staging PET/CT on 02/04/2019 showed an FDG avid lesion in the left breast measuring 1.3 x 1.8 cm, SUV 8.8. A solitary left axillary lymph node measuring 1.3 cm is also FDG avid with SUV 3.8, consistent with local metastatic disease. There were no findings to indicate any distant metastatic disease. Further evaluation with ultrasound of the left breast/axilla on 02/06/2019 showed a superior left axillary lymph node measuring 1.1 x 1.5 x 1.1 cm which appeared to have an intraparenchymal intermediate hyperechoic soft tissue focus, suspicious for metastasis. The remainder of the axillary lymph nodes appeared grossly unremarkable by ultrasound. Ultrasound-guided biopsy of the lymph node on 02/20/2019 showed metastatic adenocarcinoma consistent with the previously diagnosed breast primary. Given those findings, she was recommended to undergo neoadjuvant chemotherapy with TCH-P. She began cycle 1 of TCH-P on 03/06/2019. She experienced very severe GI toxicity, including nausea/vomiting and diarrhea. She required IV hydration, and she also required growth factor support with Neupogen, as she became severely neutropenia at day 8. She recovered uneventfully, and she was able to continue cycle 2 on 03/27/2019 with a reduced dosage of Perjeta. She also was given Neulasta prophylactically, and she was given scheduled IV hydration. She tolerated the treatment well, and she was then able to continue with cycle 3 on 04/18/2019, with cycle 4 on 05/08/2019, and with cycle 5 on 05/29/2019. On 06/03/2019 she was admitted to the hospital with severe nausea/vomiting and diarrhea. Some of this was clearly chemotherapy related, but she also was found to have Clostridium difficile colitis. Her clinical course also was complicated by severe neutropenia and anemia, but she had gradual recovery with appropriate antibiotic therapy. She was then able to continue with cycle 6 of TCH-P on 07/03/2019. On 07/20/2019 she underwent left modified radical mastectomy and right simple prophylactic mastectomy. She tolerated the surgery very well. Pathology on the left breast showed a focus of residual grade 2 invasive ductal carcinoma measuring 1.1 cm in greatest dimension. There was involvement in 1/12 lymph nodes with the metastatic focus measuring 0.5 cm. There was no extranodal extension identified. Final staging was ypT1c, ypN1a. Her medical history includes fibrocystic breast disease, chronic migraine, and diverticulosis. She underwent natural menopause at age 48. She is a nonsmoker. INTERIM HISTORY: She then continued systemic adjuvant therapy with single agent Herceptin at the 3-week dosing interval, cycle 1 on 07/24/2019 and cycle 2 on 08/14/2019. At that point she also began adjuvant hormonal therapy with anastrozole 1 mg daily. Due to the residual axillary lymph node involvement, her treatment was then changed to Kadcyla 3.6 mg/kg by IV infusion every 21 days. She began cycle 1 on 09/07/2019. She tolerated it well and she continued with cycle 2 on 09/28/2019. On 09/27/2019 she had started on radiation to the left chest wall and supraclavicular region. She completed treatment to the supraclavicular area on 11/01/2019 to a total dose of 5000 cGy. She completed treatment to the left chest wall on 11/08/2019 to a total dose of 6000 cGy. She then continued treatment with Kadcyla at 3-week intervals. As of 02/20/2020 she completed her 9th cycle of treatment. She is seen for a follow-up visit. She has been feeling good generally. She has good energy and she has normal activity. ECOG score is 0. Her appetite is good. She has no fever, night sweats, or hot flashes. She still has some mild shortness of breath, but overall her breathing is better. She does not complain of cough, and she has not been having chest pain. She has a little bit of nausea after her Kadcyla. She continues to have mild constipation, which she manages adequately with senna. She has no complaints. She has a little bit of leg pain. She has no other joint or bone pain. She has mild headache for couple days after treatment. She still has some numbness/tingling in the fingertips of the right hand and in her toes. Medications: Amitriptyline HCl 2 Tablet (of 25 mg) Tablet Oral daily, Anastrozole 1 Tablet (of 1 mg) Oral daily, Imodium A-D 1 Tablet (of 2 mg) Oral PRN, LORazepam 0.5 - 1 Tablet (of 1 mg) Oral t.i.d. PRN, Omeprazole 1 Tablet (of 20 mg) Tablet, enteric coated Oral daily, Ondansetron HCl 1 Tablet (of 8 mg) Oral t.i.d. PRN, Prochlorperazine Maleate 1 Tablet (of 10 mg) Oral q 4 hours PRN, Propranolol HCl 1 Tablet (of 40 mg) Oral daily, Vitamin D-[address] 1 Tablet (of 5000 Units) Oral daily Allergies: Aleve and Flagyl. Review of Systems: Constitutional - She has been feeling good generally. Her energy is good now, and she has normal activity. Appetite is good. She has no fever, night sweats, or hot flashes. ECOG score 0, ENMT - No sinus congestion/drainage. No mouth sores. No sore throat or difficulty swallowing, Hematologic/Lymphatic - No abnormal bruising or bleeding, Respiratory - She has just mild shortness of breath. No cough. No pleuritic pain or hemoptysis, Cardiovascular - No angina pain. No palpitations, Gastrointestinal - She has a little nausea with the Kadcyla. No heartburn or acid reflux. Her constipation is managed adequately with senna. No blood in the stool or black stools, Genitourinary (F) - No dysuria or hematuria. No urinary frequency. No urgency or incontinence, Musculoskeletal - She has a little pain in her legs. No other joint or bone pain, Integumentary - No skin complications, Neurologic - She has mild headache for a couple of days after treatment. No dizziness. She has numbness/tingling in her right hand and in her feet, Psychiatric - No anxiety or depression. No insomnia. Vital Signs: Performed on Apr 01, 2020 16:12 Height - 62.00 in Weight - 157.6 lbs (LOW) BSA - 1.73 sq.m BMI - 28.83 Temperature - 97.9 F (LOW) Pulse - 65 /min Respiration - 20 /min BP - 112/65 mm(hg) O2 Sat - 100 % Pain - 0 Physical Examination: Constitutional - She looks good generally, Eyes - Sclerae nonicteric. Conjunctivae clear, ENMT - No lesions noted in the oral cavity, Hematologic/Lymphatic - No cervical, clavicular, or axillary adenopathy, Respiratory - Lungs are clear with good air movement bilaterally, Cardiovascular - Heart rhythm is regular. There is no murmur, gallop, or rub noted, Abdomen - Soft. Liver and spleen are not enlarged. There is no abdominal mass or ascites noted and there is no inguinal adenopathy, Extremities - No edema. Dorsalis pedis pulses are palpable bilaterally, Neurologic - No focal neurologic deficits noted. Lab/Imaging: Test performed on Apr 01, 2020 15:18 Sodium 138 mmol/L Potassium 3.9 mmol/L Chloride 103 mmol/L CO2 23 mmol/L Anion Gap 15.9 BUN 42 mg/dL Creatinine 1.1 mg/dL Cr Clearance (Est) 61.6100 mL/min eGFR 50.5 mL/min Glucose 105 mg/dL Calcium 9.8 mg/dL Protein, Total 8.5 g/dL Albumin 4.0 g/dL Globulin 4.5 g/dL Bilirubin, Total 0.2 mg/dL ALT (SGPT) 30 U/L AST (SGOT) 44 U/L Alkaline Phosphatase 180 IU/L WBC 6.7 10 3/uL RBC 3.95 10 6/uL HGB 11.4 g/dL HCT 37.8 % MCV 95.7 fL MCH 28.9 pg MCHC 30.2 g/dL RDW 20.5 % Platelet Count 229 10 3/cmm MPV 11.8 fL Neutrophils 3.01 10 3/uL Lymphocytes 2.5 10 3/uL Monocytes 0.9 10 3/uL Eosinophils 0.2 10 3/uL Basophils 0.1 10 3/uL Neutrophil % 45.1 % Lymphocyte % 37.9 % Monocyte % 13.4 % Eosinophil % 2.8 % Basophils % 0.7 % NRBC % 0 % Impression: 1. Patient with grade 2 infiltrating ductal carcinoma of the left breast, stage IIB (T2, N1, M0), ER/KY positive and HER-2/castro positive. 2. She underwent ultrasound-guided biopsy of the left breast on 01/20/2019, and she underwent ultrasound-guided biopsy of a left axillary lymph node on 02/20/2019. 3. She was given neoadjuvant chemotherapy with TCH-P, cycle 1 beginning on 03/06/2019 through 07/03/2019. Her cycle 5 was complicated by severe nausea/vomiting and diarrhea and by C. difficile colitis, but she did recover, and she was able to continue with cycle 6 on 07/03/2019. 4. On 07/20/2019 she underwent left modified radical mastectomy and right simple prophylactic mastectomy. Pathology on the left breast showed a focus of residual grade 2 invasive ductal carcinoma measuring 1.1 cm in greatest dimension. There was involvement in 1/12 lymph nodes with the metastatic focus measuring 0.5 Final staging was ypT1c, ypN1a. 5. She continued systemic adjuvant therapy with single agent Herceptin, cycle 1 on 07/24/2019 and cycle 2 on 08/14/2019. Her treatment was then changed to Kadcyla. 6. She began adjuvant hormonal therapy with anastrozole 1 mg daily on 08/14/2019. 7. On 09/27/2019 she began radiation to the left chest wall and supraclavicular region. She completed treatment to the supraclavicular area on 11/01/2019 to a total dose of 5000 cGy. She completed treatment to the left chest wall on 11/08/2019 to a total dose of 6000 cGy. Her other medical illnesses include: 8. Chronic migraine. 9. Diverticulosis. 10. She has a significant family history for breast cancer. 11. She had evidence of vitamin D deficiency. Due to the residual axillary lymph node involvement following neoadjuvant TCH-P her treatment was changed from single agent Herceptin to Kadcyla 3.6 mg/kg by IV infusion every 3 weeks for total of 14 cycles. She began cycle 1 Kadcyla on 09/07/2019. She tolerated it with no adverse effects. She then continued the Kadcyla at 3-week intervals. She has now completed 9 cycles treatment with Kadcyla. She has continued to tolerate it well. She also appears to be having no adverse effects with the anastrozole. Overall, she appears now to be doing very well clinically. Plan: She will proceed with cycle 10 of Kadcyla at 3.6 mg/kg by IV infusion. She returns for treatment in 3 weeks and for a followup visit in 6 weeks. Signed By: Sidney Beltran M.D. <<Signature on File>>
== END 2020-04-01 15:05 | disposition home or self-care (01) ==
LOC: ONCMED 15:08
PROVIDERS: PCP Family Medicine; Visit Provider Internal Medicine Medical Oncology
DX: C50.412 Malignant neoplasm of upper-outer quadrant of left female breast (principal); C77.3 Secondary and unspecified malignant neoplasm of axilla and upper limb lymph nodes; Z17.0 Estrogen receptor positive status [ER+]; N60.19 Diffuse cystic mastopathy of unspecified breast; Z90.13 Acquired absence of bilateral breasts and nipples; Z92.3 Personal history of irradiation; G43.709 Chronic migraine without aura, not intractable, without status migrainosus; K57.90 Diverticulosis of intestine, part unspecified, without perforation or abscess without bleeding; E55.9 Vitamin D deficiency, unspecified; Z79.811 Long term (current) use of aromatase inhibitors; Z79.899 Other long term (current) drug therapy
CPT/HCPCS: 36591; 80053; 85025; 99214

== ENCOUNTER 2020-04-02 08:19 | Outpatient (CLI) | payer OTHER, SELFPAY | END 2020-04-02 08:20 | disposition home or self-care (01) | LOC: ONCMED 08:21 | PROVIDERS: PCP Family Medicine; Visit Provider Internal Medicine Medical Oncology | DX: Z51.11 Encounter for antineoplastic chemotherapy (principal); C50.412 Malignant neoplasm of upper-outer quadrant of left female breast; Z17.0 Estrogen receptor positive status [ER+]; D70.1 Agranulocytosis secondary to cancer chemotherapy; T45.1X5A Adverse effect of antineoplastic and immunosuppressive drugs, initial encounter | CPT/HCPCS: 96413; J7050; J9354 ==

== ENCOUNTER 2020-04-23 08:46 | Outpatient (CLI) | payer OTHER, SELFPAY ==
[2020-04-23] MEDS: sodium chloride 0.9% 250 ML 75 ML IV (12:59)
== END 2020-04-23 08:47 | disposition home or self-care (01) ==
PROVIDERS: PCP Family Medicine; Visit Provider Internal Medicine Medical Oncology
DX: Z51.11 Encounter for antineoplastic chemotherapy (principal); C50.412 Malignant neoplasm of upper-outer quadrant of left female breast; Z17.0 Estrogen receptor positive status [ER+]; D70.1 Agranulocytosis secondary to cancer chemotherapy; T45.1X5A Adverse effect of antineoplastic and immunosuppressive drugs, initial encounter; G43.909 Migraine, unspecified, not intractable, without status migrainosus; K57.90 Diverticulosis of intestine, part unspecified, without perforation or abscess without bleeding
CPT/HCPCS: 96413; J7050; J9354

== ENCOUNTER 2020-05-14 05:48 | Outpatient (CLI) | payer OTHER, SELFPAY ==
[2020-05-14 11:56] LABS: Basophils # 0.1 10^3/uL (0.0-0.1); Basophils % 0.5 %; Eosinophils # 0.3 10^3/uL (0.0-0.8); Eosinophils % 2.7 %; Hematocrit 38.1 % (37.0-47.0); Hemoglobin 11.9 g/dL (11.5-15.3); Lymphocytes # 2.5 10^3/uL (0.8-4.8); Lymphocytes % 25.2 %; Mean Corpuscular HGB Conc 31.2 g/dL (30.0-36.0); Mean Corpuscular Hemoglobin 30.8 pg (28.0-34.0); Mean Corpuscular Volume 98.7 fL (81-99); Mean Platelet Volume 11.2 fL (7.4-10.4); Monocytes # 1.2 10^3/uL (0.2-0.9); Monocytes % 12.2 %; Neutrophils # 5.93 10^3/uL (1.8-7.7); Neutrophils % 59.1 %; Nucleated Red Blood Cells % 0 %; Platelet Count 204 10^3/cmm (130-400); Red Blood Count 3.86 10^6/uL (4.1-5.3); Red Cell Distribution Width 17.9 % (12.1-15.1)
[2020-05-14 12:21] LABS: Alanine Aminotransferase 38 U/L (0-33); Albumin Level 4.1 g/dL (3.5-5.2); Alkaline Phosphatase 179 IU/L (35-105); Aspartate Amino Transferase 49 U/L (0-32); Blood Urea Nitrogen 32 mg/dL (8-23); Calcium 9.9 mg/dL (8.5-10.5); Carbon Dioxide 26 mmol/L (22-29); Chloride 102 mmol/L (98-107); Globulin 4.1 g/dL (1.3-4.6); Glomerular Filtration Rate 56.4 mL/min (90-130); Glucose 125 mg/dL (65-115); Osmolality Calculated 294 mOsm/kg (285-295); Sodium 138 mmol/L (136-145); Total Bilirubin 0.2 mg/dL (0.15-1.2); Total Protein 8.2 g/dL (6.6-8.7)
[2020-05-14] MEDS: sodium chloride 0.9% 250 ML 75 ML IV (14:20)
--- NOTE | 2020-05-20 00:13 | ONC FU_ITS ---
[facility] Patient Note Patient: Bertha Briceno Unit #: [id number]: [id number] Dictated By: Jason SilvaDate of Visit: May 14, 2020 Onc MED Follow-Up/Prog Note Chief Complaint: Breast cancer. History of Present Illness: Ms Briceno is a 59 year-old woman with grade 2 infiltrating ductal carcinoma of the left breast, stage IIB (T2, N1, M0), ER/DE positive and HER-2/castro positive. She was found to have an abnormal screening mammogram on 12/27/2018. It was BI-RADS 0, incomplete, with findings of increasing spiculated focal asymmetric density in the upper outer quadrant of the left breast. Diagnostic mammogram/ultrasound on 01/11/2019 was BI-RADS 5, highly suggestive of malignancy. The mammogram showed spiculated mass in the upper-outer left breast measuring 3.5 x 1.8 cm. Ultrasound showed a large hypoechoic solid irregular lesion at the 2:00 position measuring 2.8 x 1.6 x 3.1 cm. Also noted were hypoechoic cysts at the 12:00 and 3:00 positions measuring 5 mm and 12 mm respectively. She underwent ultrasound-guided needle biopsy of the left breast mass on 01/20/2019. Pathology showed grade 2 infiltrating ductal carcinoma. The tumor was noted to be ER positive at 94% and DE positive at 81%, both with strong intensity. HER-2/castro was positive, 3+ by IHC and amplification ratio by FISH of 1.7 with 4.0 HER-2 copies/cell. Staging PET/CT on 02/04/2019 showed an FDG avid lesion in the left breast measuring 1.3 x 1.8 cm, SUV 8.8. A solitary left axillary lymph node measuring 1.3 cm is also FDG avid with SUV 3.8, consistent with local metastatic disease. There were no findings to indicate any distant metastatic disease. Further evaluation with ultrasound of the left breast/axilla on 02/06/2019 showed a superior left axillary lymph node measuring 1.1 x 1.5 x 1.1 cm which appeared to have an intraparenchymal intermediate hyperechoic soft tissue focus, suspicious for metastasis. The remainder of the axillary lymph nodes appeared grossly unremarkable by ultrasound. Ultrasound-guided biopsy of the lymph node on 02/20/2019 showed metastatic adenocarcinoma consistent with the previously diagnosed breast primary. Given those findings, she was recommended to undergo neoadjuvant chemotherapy with TCH-P. She began cycle 1 of TCH-P on 03/06/2019. She experienced very severe GI toxicity, including nausea/vomiting and diarrhea. She required IV hydration, and she also required growth factor support with Neupogen, as she became severely neutropenia at day 8. She recovered uneventfully, and she was able to continue cycle 2 on 03/27/2019 with a reduced dosage of Perjeta. She also was given Neulasta prophylactically, and she was given scheduled IV hydration. She tolerated the treatment well, and she was then able to continue with cycle 3 on 04/18/2019, with cycle 4 on 05/08/2019, and with cycle 5 on 05/29/2019. On 06/03/2019 she was admitted to the hospital with severe nausea/vomiting and diarrhea. Some of this was clearly chemotherapy related, but she also was found to have Clostridium difficile colitis. Her clinical course also was complicated by severe neutropenia and anemia, but she had gradual recovery with appropriate antibiotic therapy. She was then able to continue with cycle 6 of TCH-P on 07/03/2019. On 07/20/2019 she underwent left modified radical mastectomy and right simple prophylactic mastectomy. She tolerated the surgery very well. Pathology on the left breast showed a focus of residual grade 2 invasive ductal carcinoma measuring 1.1 cm in greatest dimension. There was involvement in 1/12 lymph nodes with the metastatic focus measuring 0.5 cm. There was no extranodal extension identified. Final staging was ypT1c, ypN1a. Her medical history includes fibrocystic breast disease, chronic migraine, and diverticulosis. She underwent natural menopause at age 48. She is a nonsmoker. INTERIM HISTORY: She then continued systemic adjuvant therapy with single agent Herceptin at the 3-week dosing interval, cycle 1 on 07/24/2019 and cycle 2 on 08/14/2019. At that point she also began adjuvant hormonal therapy with anastrozole 1 mg daily. Due to the residual axillary lymph node involvement, her treatment was then changed to Kadcyla 3.6 mg/kg by IV infusion every 21 days. She began cycle 1 on 09/07/2019. She tolerated it well and she continued with cycle 2 on 09/28/2019. On 09/27/2019 she had started on radiation to the left chest wall and supraclavicular region. She completed treatment to the supraclavicular area on 11/01/2019 to a total dose of 5000 cGy. She completed treatment to the left chest wall on 11/08/2019 to a total dose of 6000 cGy. She then continued treatment with Kadcyla at 3-week intervals. As of 04/23/2020 she completed her 12th cycle of treatment. Ms. Briceno is here today for follow-up. Overall she states she is doing well. She continues to work full-time and tolerating this well. She just returned from a family vacation where she had a wonderful time . She actually did some parasailing. She tolerated this well. She denies any new concerns. She denies any fever or chills. She is had no signs or symptoms of infection for at least the last 72 hours. She denies any known COVID exposure, symptoms or personal testing. She states that she is tolerating the Kadcyla well. She has had no diarrhea or constipation. She denies any new pain. She denies any new shortness of breath orthopnea. She states she cannot walk as far she used to but did well on vacation and has had no concerns. She denies any hemoptysis. She denies any hematuria. She states her bowel and bladder are normal for her. She denies any neuropathy. She has had no hearing changes. Her appetite is good. Her ECOG is 0. Past Medical History: Chronic migraine Diverticulosis Fibrocystic breast disease Past Surgical History: Bilateral salpingectomy Closed reduction of left wrist fracture Bilateral mastecomy in [address] john in 2019 Ultrasound directed needle biopsy of the left breast in 2019 Breast biopsy for benign disease in 2010 Tubal ligation and D&C in 1983 Appendectomy, adhesion lysis, and D&C in 1981 Allergies: Aleve and Flagyl. Medications: Amitriptyline HCl 2 Tablet (of 25 mg) Tablet Oral daily Anastrozole 1 Tablet (of 1 mg) Oral daily Imodium A-D 1 Tablet (of 2 mg) Oral PRN LORazepam 0.5 - 1 Tablet (of 1 mg) Oral t.i.d. PRN Omeprazole 1 Tablet (of 20 mg) Tablet, enteric coated Oral daily Ondansetron HCl 1 Tablet (of 8 mg) Oral t.i.d. PRN Prochlorperazine Maleate 1 Tablet (of 10 mg) Oral q 4 hours PRN Propranolol HCl 1 Tablet (of 40 mg) Oral daily Vitamin D-[address] 1 Tablet (of 5000 Units) Oral daily Family History: Ms. Whiteheads mother is alive: breast cancer, and myocardial infarction, and lupus. Ms. Whiteheads father at age 54: lung cancer. Ms. Briceno's maternal grandmother is : pancreatic cancer. Her maternal grandfather is : type II diabetes. Ms. Briceno has 2 sisters: 2 alive. Father of lung cancer at age 54. Mother is still living at age 79. She has SLE and coronary artery disease. She has been treated for breast cancer and uterine cancer. A first cousin on her mother's side of breast cancer. Her maternal grandmother had pancreatic cancer. Two sisters are in good health. Her maternal grandfather had diabetes. 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 Ms. Briceno has never smoked. She has no history of drinking. Her diet consists of regular meals. She indicates her activity level as: regular exercise. Review Of Symptoms: Constitutional Denies fevers, chills, night sweats, excessive fatigue or weight loss. Feels pretty good . Allergic/Immunologic No reactions. Eyes Denies significant visual changes. No diplopia. No amaurosis. ENMT Denies changes in hearing, sore throat, mouth sores, difficulty or changes in swallowing ability, and/or sinus drainage. Endocrine No diabetes, thyroid disease or hormone replacement. Denies hot flashes or night sweats. Hematologic/Lymphatic Denies easy bruising or bleeding. The patient denies any tender or palpable lymph nodes. Respiratory Denies severe dyspnea on exertion, denies any chest pain, cough or hemoptysis. Denies orthopnea. Cardiovascular Denies anginal chest pain, palpitations or orthopnea. Gastrointestinal Denies any current nausea, vomiting, diarrhea, GI bleeding, or constipation. Genitourinary (F) No hematuria, hesitancy, incontinence, vaginal bleeding, discharge or other problems with urination. Musculoskeletal Denies joint pain, swelling or redness. No decreased range of motion. Integumentary Denies chronic rashes, inflammation, ulcerations or skin changes. Neurologic Denies headache, blurred vision, and no areas of focal weakness or numbness. Normal gait. No sensory problems. Psychiatric Denies insomnia, depression, maribel or mood swings. Vital Signs: Performed on May 14, 2020 13:06 Height - 62.00 in Weight - 160.8 lbs (HIGH) BSA - 1.74 sq.m BMI - 29.41 Temperature - 97.8 F (LOW) Pulse - 72 /min Respiration - 18 /min BP - 121/72 mm(hg) O2 Sat - 99 % Pain - 0,0 - Fully active, able to carry on all predisease activities without restrictions. (ECOG) Physical Examination: Constitutional Alert, oriented, no acute distress. Skin pink, warm and dry. Head Normocephalic; atraumatic. Eyes Conjunctivae and sclerae are clear and without icterus. Pupils are reactive and equal. Neck Supple without masses or thyromegaly. No jugular venous distension. Hematologic/Lymphatic No petechiae or purpura. No tender or palpable lymph nodes in the cervical or supraclavicular areas. Respiratory Lungs are clear to auscultation without rhonchi or wheezing. Cardiovascular Regular rate and rhythm of heart without murmurs,clicks, gallops or rubs. Chest Right subclavian venous access device unremarkable. Abdomen Non-tender, non-distended, no masses or ascites. No guarding or rebound tenderness. No pulsatile masses. Back/Spine Non-tender to palpation. Extremities No visible deformities, no cyanosis, clubbing or edema. Musculoskeletal No tenderness or swelling, normal range of motion without obvious weakness. Integumentary No rashes or lesions. Neurologic No sensory or motor deficits, normal cerebellar function, normal gait. Psychiatric Alert and oriented times three. Coherent speech. Verbalizes understanding of our discussions today. Laboratory:Test performed on May 14, 2020 11:35 Sodium 138 mmol/L Potassium 4.0 mmol/L Chloride 102 mmol/L CO2 26 mmol/L Anion Gap 14.0 BUN 32 mg/dL Creatinine 1.0 mg/dL Cr Clearance (Est) 67.7700 mL/min eGFR 56.4 mL/min Glucose 125 mg/dL Osmolality - Calculated 294 mOsm/kg Calcium 9.9 mg/dL Protein, Total 8.2 g/dL Albumin 4.1 g/dL Globulin 4.1 g/dL Bilirubin, Total 0.2 mg/dL ALT (SGPT) 38 U/L AST (SGOT) 49 U/L Alkaline Phosphatase 179 IU/L WBC 10.0 10 3/uL RBC 3.86 10 6/uL HGB 11.9 g/dL HCT 38.1 % MCV 98.7 fL MCH 30.8 pg MCHC 31.2 g/dL RDW 17.9 % Platelet Count 204 10 3/cmm MPV 11.2 fL Neutrophils 5.93 10 3/uL Lymphocytes 2.5 10 3/uL Monocytes 1.2 10 3/uL Eosinophils 0.3 10 3/uL Basophils 0.1 10 3/uL Neutrophil % 59.1 % Lymphocyte % 25.2 % Monocyte % 12.2 % Eosinophil % 2.7 % Basophils % 0.5 % NRBC % 0 % Test performed on Feb 20, 2020 12:53 Ferritin 24 ng/mL Iron 56 mcg/dL Vitamin D (25-Hydroxy), Total 58 ng/mL Iron Binding Capacity (TIBC) 425 mcg/dl % Iron Saturation 13.1 % UIBC 369 mcg/dL Impression: . Patient with grade 2 infiltrating ductal carcinoma of the left breast, stage IIB (T2, N1, M0), ER/DE positive and HER-2/castro positive. 2. She underwent ultrasound-guided biopsy of the left breast on 01/20/2019, and she underwent ultrasound-guided biopsy of a left axillary lymph node on 02/20/2019. 3. She was given neoadjuvant chemotherapy with TCH-P, cycle 1 beginning on 03/06/2019 through 07/03/2019. Her cycle 5 was complicated by severe nausea/vomiting and diarrhea and by C. difficile colitis, but she did recover, and she was able to continue with cycle 6 on 07/03/2019. 4. On 07/20/2019 she underwent left modified radical mastectomy and right simple prophylactic mastectomy. Pathology on the left breast showed a focus of residual grade 2 invasive ductal carcinoma measuring 1.1 cm in greatest dimension. There was involvement in 1/12 lymph nodes with the metastatic focus measuring 0.5 Final staging was ypT1c, ypN1a. 5. She continued systemic adjuvant therapy with single agent Herceptin, cycle 1 on 07/24/2019 and cycle 2 on 08/14/2019. Her treatment was then changed to Kadcyla. 6. She began adjuvant hormonal therapy with anastrozole 1 mg daily on 08/14/2019. 7. On 09/27/2019 she began radiation to the left chest wall and supraclavicular region. She completed treatment to the supraclavicular area on 11/01/2019 to a total dose of 5000 cGy. She completed treatment to the left chest wall on 11/08/2019 to a total dose of 6000 cGy. Her other medical illnesses include: 8. Chronic migraine. 9. Diverticulosis. 10. She has a significant family history for breast cancer. 11. She had evidence of vitamin D deficiency. Due to the residual axillary lymph node involvement following neoadjuvant TCH-P her treatment was changed from single agent Herceptin to Kadcyla 3.6 mg/kg by IV infusion every 3 weeks for total of 14 cycles. She began cycle 1 Kadcyla on 09/07/2019. She tolerated it with no adverse effects. She has since then continued the Kadcyla at 3-week intervals. She has now completed 9 cycles treatment with Kadcyla. She has continued to tolerate it well. She also appears to be having no adverse effects with the anastrozole. She is having some intermittent soreness/tenderness in the left chest wall, but that is most likely due secondary to the radiation. Plan: 1. Proceed with cycle 13 of Kadcyla at 3.6 mg/kg by IV infusion. 2. She continues anastrozole as well. 3. Today's labs reviewed in detail and discussed with Ms. Briceno and a copy was given to her. WBC 10.0 , hemoglobin 11.9, platelets 204,000 ANC is 5900. creatinine 1.0 LFTs areShe is slightly elevated with an ALT of 38 (0-33) and AST is 49 (0???32) alk phos is stable at 179. Her hemoglobin continues to improve since she has resumed oral iron supplements. 4. We will plan to see her back in 6 weeks with CBC, CMP. She will be due for cycle 15 Kadcyla at that time. Continue Kadcycla every 3 weeks. 5. Ms. Briceno was instructed to contact us in the interim should questions or problems arise. Signed By: Jason Silva-, [facility] Sidney Beltran MD <<Signature on File>>
== END 2020-05-14 05:49 | disposition home or self-care (01) ==
PROVIDERS: PCP Family Medicine; Visit Provider Nurse Practitioner
DX: Z51.11 Encounter for antineoplastic chemotherapy (principal); C50.412 Malignant neoplasm of upper-outer quadrant of left female breast; Z17.0 Estrogen receptor positive status [ER+]; D70.1 Agranulocytosis secondary to cancer chemotherapy; T45.1X5A Adverse effect of antineoplastic and immunosuppressive drugs, initial encounter; G43.909 Migraine, unspecified, not intractable, without status migrainosus; K57.92 Diverticulitis of intestine, part unspecified, without perforation or abscess without bleeding; E55.9 Vitamin D deficiency, unspecified; Z80.3 Family history of malignant neoplasm of breast
CPT/HCPCS: 80053; 85025; 96413; 99214; J7050; J9354

== ENCOUNTER 2020-06-04 06:13 | Outpatient (CLI) | payer OTHER, SELFPAY ==
[2020-06-04] MEDS: sodium chloride 0.9% 250 ML 75 ML IV (13:20)
== END 2020-06-04 06:14 | disposition home or self-care (01) ==
LOC: ONCMED 06:14
PROVIDERS: PCP Family Medicine; Visit Provider Nurse Practitioner
DX: Z51.12 Encounter for antineoplastic immunotherapy (principal); C50.412 Malignant neoplasm of upper-outer quadrant of left female breast; Z17.0 Estrogen receptor positive status [ER+]; D70.1 Agranulocytosis secondary to cancer chemotherapy; T45.1X5A Adverse effect of antineoplastic and immunosuppressive drugs, initial encounter
CPT/HCPCS: 96413; J7050; J9354

== ENCOUNTER 2020-06-25 06:08 | Outpatient (CLI) | payer OTHER, SELFPAY ==
[2020-06-25 11:44] LABS: Basophils % 0.6 %; Eosinophils # 0.2 10^3/uL (0.0-0.8); Eosinophils % 3.2 %; Hematocrit 39.1 % (37.0-47.0); Hemoglobin 12.2 g/dL (11.5-15.3); Lymphocytes # 3.2 10^3/uL (0.8-4.8); Lymphocytes % 46.6 %; Mean Corpuscular HGB Conc 31.2 g/dL (30.0-36.0); Mean Corpuscular Hemoglobin 30.7 pg (28.0-34.0); Mean Corpuscular Volume 98.5 fL (81-99); Mean Platelet Volume 11.2 fL (7.4-10.4); Monocytes # 0.6 10^3/uL (0.2-0.9); Monocytes % 9.2 %; Neutrophils # 2.81 10^3/uL (1.8-7.7); Neutrophils % 40.3 %; Nucleated Red Blood Cells % 0 %; Platelet Count 140 10^3/cmm (130-400); Red Blood Count 3.97 10^6/uL (4.1-5.3); Red Cell Distribution Width 15.4 % (12.1-15.1)
[2020-06-25 12:00] LABS: Alanine Aminotransferase 39 U/L (0-33); Albumin Level 3.7 g/dL (3.5-5.2); Alkaline Phosphatase 216 IU/L (35-105); Anion Gap 15.9 (5-19); Aspartate Amino Transferase 55 U/L (0-32); Blood Urea Nitrogen 28 mg/dL (8-23); Carbon Dioxide 26 mmol/L (22-29); Chloride 102 mmol/L (98-107); Globulin 4.9 g/dL (1.3-4.6); Glomerular Filtration Rate 45.7 mL/min (90-130); Glucose 108 mg/dL (65-115); Osmolality Calculated 296 mOsm/kg (285-295); Potassium 3.9 mmol/L (3.5-5.1); Sodium 140 mmol/L (136-145); Total Bilirubin 0.3 mg/dL (0.15-1.2); Total Protein 8.6 g/dL (6.6-8.7)
[2020-06-25 14:46] LABS: Slide Review Slide Review Perform
--- NOTE | 2020-06-25 16:45 | ONC FU_ITS ---
Dr. Beltran Patient Follow-Up Note Patient: Bertha Briceno Unit #: [id number]: 1960 Dicatated By: Sidney Beltran M.D.Date of Visit:Jun 25, 2020 Onc Med Follow-up/Prog Note Chief Complaint: Breast cancer. History of Present Illness: This is a 59 year-old woman with grade 2 infiltrating ductal carcinoma of the left breast, stage IIB (T2, N1, M0), ER/PA positive and HER-2/castro positive. She was found to have an abnormal screening mammogram on 12/27/2018. It was BI-RADS 0, incomplete, with findings of increasing spiculated focal asymmetric density in the upper outer quadrant of the left breast. Diagnostic mammogram/ultrasound on 01/11/2019 was BI-RADS 5, highly suggestive of malignancy. The mammogram showed spiculated mass in the upper-outer left breast measuring 3.5 x 1.8 cm. Ultrasound showed a large hypoechoic solid irregular lesion at the 2:00 position measuring 2.8 x 1.6 x 3.1 cm. Also noted were hypoechoic cysts at the 12:00 and 3:00 positions measuring 5 mm and 12 mm respectively. She underwent ultrasound-guided needle biopsy of the left breast mass on 01/20/2019. Pathology showed grade 2 infiltrating ductal carcinoma. The tumor was noted to be ER positive at 94% and PA positive at 81%, both with strong intensity. HER-2/castro was positive, 3+ by IHC and amplification ratio by FISH of 1.7 with 4.0 HER-2 copies/cell. Staging PET/CT on 02/04/2019 showed an FDG avid lesion in the left breast measuring 1.3 x 1.8 cm, SUV 8.8. A solitary left axillary lymph node measuring 1.3 cm is also FDG avid with SUV 3.8, consistent with local metastatic disease. There were no findings to indicate any distant metastatic disease. Further evaluation with ultrasound of the left breast/axilla on 02/06/2019 showed a superior left axillary lymph node measuring 1.1 x 1.5 x 1.1 cm which appeared to have an intraparenchymal intermediate hyperechoic soft tissue focus, suspicious for metastasis. The remainder of the axillary lymph nodes appeared grossly unremarkable by ultrasound. Ultrasound-guided biopsy of the lymph node on 02/20/2019 showed metastatic adenocarcinoma consistent with the previously diagnosed breast primary. Given those findings, she was recommended to undergo neoadjuvant chemotherapy with TCH-P. She began cycle 1 of TCH-P on 03/06/2019. She experienced very severe GI toxicity, including nausea/vomiting and diarrhea. She required IV hydration, and she also required growth factor support with Neupogen, as she became severely neutropenia at day 8. She recovered uneventfully, and she was able to continue cycle 2 on 03/27/2019 with a reduced dosage of Perjeta. She also was given Neulasta prophylactically, and she was given scheduled IV hydration. She tolerated the treatment well, and she was then able to continue with cycle 3 on 04/18/2019, with cycle 4 on 05/08/2019, and with cycle 5 on 05/29/2019. On 06/03/2019 she was admitted to the hospital with severe nausea/vomiting and diarrhea. Some of this was clearly chemotherapy related, but she also was found to have Clostridium difficile colitis. Her clinical course also was complicated by severe neutropenia and anemia, but she had gradual recovery with appropriate antibiotic therapy. She was then able to continue with cycle 6 of TCH-P on 07/03/2019. On 07/20/2019 she underwent left modified radical mastectomy and right simple prophylactic mastectomy. She tolerated the surgery very well. Pathology on the left breast showed a focus of residual grade 2 invasive ductal carcinoma measuring 1.1 cm in greatest dimension. There was involvement in 1/12 lymph nodes with the metastatic focus measuring 0.5 cm. There was no extranodal extension identified. Final staging was ypT1c, ypN1a. Her medical history includes fibrocystic breast disease, chronic migraine, and diverticulosis. She underwent natural menopause at age 48. She is a nonsmoker. INTERIM HISTORY: She then continued systemic adjuvant therapy with single agent Herceptin at the 3-week dosing interval, cycle 1 on 07/24/2019 and cycle 2 on 08/14/2019. At that point she also began adjuvant hormonal therapy with anastrozole 1 mg daily. Due to the residual axillary lymph node involvement, her treatment was then changed to Kadcyla 3.6 mg/kg by IV infusion every 21 days. She began cycle 1 on 09/07/2019. She tolerated it well and she continued with cycle 2 on 09/28/2019. On 09/27/2019 she had started on radiation to the left chest wall and supraclavicular region. She completed treatment to the supraclavicular area on 11/01/2019 to a total dose of 5000 cGy. She completed treatment to the left chest wall on 11/08/2019 to a total dose of 6000 cGy. She then continued treatment with Kadcyla at 3-week intervals. As of 06/04/2020 she completed her 14th and final cycle of treatment. She is seen for a follow-up visit. She indicates she was recently diagnosed with shingles involving her upper left arm. She is taking Famvir. She has been feeling really tired with the shingles and she has had headache. She also had been feeling queasy/sick, but that is better now. Prior to this her energy was very good, and she had normal activity. Her ECOG score is 0. Appetite is good. She has no fever, night sweats, or hot flashes. She has no shortness of breath, cough, or chest pain. She has no other GI or complaints. She has a little achiness in her knees. She has no other joint or bone pain. She is having a little tingling in her arm with the shingles. She still occasionally has numbness in her feet at night. Medications: Amitriptyline HCl 2 Tablet (of 25 mg) Tablet Oral daily, Anastrozole 1 Tablet (of 1 mg) Oral daily, Famciclovir 1 Tablet (of 500 mg) Oral t.i.d., Imodium A-D 1 Tablet (of 2 mg) Oral PRN, LORazepam 0.5 - 1 Tablet (of 1 mg) Oral t.i.d. PRN, Omeprazole 1 Tablet (of 20 mg) Tablet, enteric coated Oral daily, Ondansetron HCl 1 Tablet (of 8 mg) Oral t.i.d. PRN, Prochlorperazine Maleate 1 Tablet (of 10 mg) Oral q 4 hours PRN, Propranolol HCl 1 Tablet (of 40 mg) Oral daily, Vitamin D-[address] 1 Tablet (of 5000 Units) Oral daily Allergies: Aleve and Flagyl. Review of Systems: Constitutional - Her energy has declined with the shingles, but prior to that it had been good. Appetite is OK. Her weight is stable. No fever, night sweats, or hot flashes. ECOG score is 0, ENMT - No sinus congestion/drainage. No mouth sores. No sore throat or difficulty swallowing, Hematologic/Lymphatic - No abnormal bruising or bleeding, Respiratory - No shortness of breath. No cough. No pleuritic pain or hemoptysis, Cardiovascular - No angina pain. No palpitations, Gastrointestinal - She has felt queasy and sick with the shingles, but it is getting better. No heartburn or acid reflux. No diarrhea or constipation. No blood in the stool or black stools, Genitourinary (F) - No dysuria or hematuria. No urinary frequency. No urgency or incontinence, Musculoskeletal - She feels a little achy in the knees. No other joint or bone pain, Integumentary - She is on treatment for shingles in the upper left arm, Neurologic - She recently has had headache. No dizziness. She occasinally has a little numbness in her feet at night. No other focal neurologic symptoms, Psychiatric - No anxiety or depression. Sleep is described as fair. Vital Signs: Performed on Jun 25, 2020 12:49 Height - 62.00 in Weight - 156.4 lbs (LOW) BSA - 1.72 sq.m BMI - 28.61 Temperature - 97.4 F (LOW) Pulse - 67 /min Respiration - 18 /min BP - 108/71 mm(hg) O2 Sat - 99 % Pain - 0 Physical Examination: Constitutional - She looks good generally, Eyes - Sclerae nonicteric. Conjunctivae clear, ENMT - No lesions noted in the oral cavity, Hematologic/Lymphatic - No cervical, clavicular, or axillary adenopathy, Respiratory - Lungs are clear with good air movement bilaterally, Cardiovascular - Heart rhythm is regular. There is no murmur, gallop, or rub noted, Abdomen - Soft. Liver and spleen are not enlarged. There is no abdominal mass or ascites noted and there is no inguinal adenopathy, Extremities - No edema, Integumentary - There is a localized herpes zoster eruption involving the undersurface of the upper left arm, Neurologic - No focal neurologic deficits noted. Lab/Imaging: Test performed on Jun 25, 2020 11:08 Sodium 140 mmol/L Potassium 3.9 mmol/L Chloride 102 mmol/L CO2 26 mmol/L Anion Gap 15.9 BUN 28 mg/dL Creatinine 1.2 mg/dL Cr Clearance (Est) 56.4800 mL/min eGFR 45.7 mL/min Glucose 108 mg/dL Osmolality - Calculated 296 mOsm/kg Calcium 10.0 mg/dL Protein, Total 8.6 g/dL Albumin 3.7 g/dL Globulin 4.9 g/dL Bilirubin, Total 0.3 mg/dL ALT (SGPT) 39 U/L AST (SGOT) 55 U/L Alkaline Phosphatase 216 IU/L WBC 7.0 10 3/uL RBC 3.97 10 6/uL HGB 12.2 g/dL HCT 39.1 % MCV 98.5 fL MCH 30.7 pg MCHC 31.2 g/dL RDW 15.4 % Platelet Count 140 10 3/cmm MPV 11.2 fL Neutrophils 2.81 10 3/uL Lymphocytes 3.2 10 3/uL Monocytes 0.6 10 3/uL Eosinophils 0.2 10 3/uL Basophils 0.0 10 3/uL Neutrophil % 40.3 % Lymphocyte % 46.6 % Monocyte % 9.2 % Eosinophil % 3.2 % Basophils % 0.6 % NRBC % 0 % CBC Slide Review Slide Review Perform Impression: 1. Patient with grade 2 infiltrating ductal carcinoma of the left breast, stage IIB (T2, N1, M0), ER/PA positive and HER-2/castro positive. 2. She underwent ultrasound-guided biopsy of the left breast on 01/20/2019, and she underwent ultrasound-guided biopsy of a left axillary lymph node on 02/20/2019. 3. She was given neoadjuvant chemotherapy with TCH-P, cycle 1 beginning on 03/06/2019 through 07/03/2019. Her cycle 5 was complicated by severe nausea/vomiting and diarrhea and by C. difficile colitis, but she did recover, and she was able to continue with cycle 6 on 07/03/2019. 4. On 07/20/2019 she underwent left modified radical mastectomy and right simple prophylactic mastectomy. Pathology on the left breast showed a focus of residual grade 2 invasive ductal carcinoma measuring 1.1 cm in greatest dimension. There was involvement in 1/12 lymph nodes with the metastatic focus measuring 0.5 Final staging was ypT1c, ypN1a. 5. She continued systemic adjuvant therapy with single agent Herceptin, cycle 1 on 07/24/2019 and cycle 2 on 08/14/2019. Her treatment was then changed to Kadcyla. 6. She began adjuvant hormonal therapy with anastrozole 1 mg daily on 08/14/2019. 7. On 09/27/2019 she began radiation to the left chest wall and supraclavicular region. She completed treatment to the supraclavicular area on 11/01/2019 to a total dose of 5000 cGy. She completed treatment to the left chest wall on 11/08/2019 to a total dose of 6000 cGy. Her other medical illnesses include: 8. Chronic migraine. 9. Diverticulosis. 10. She has a significant family history for breast cancer. 11. She had evidence of vitamin D deficiency. Due to the residual axillary lymph node involvement following neoadjuvant TCH-P her treatment was changed from single agent Herceptin to Kadcyla 3.6 mg/kg by IV infusion every 3 weeks for total of 14 cycles. She began cycle 1 Kadcyla on 09/07/2019. She tolerated it with no adverse effects. She then continued the Kadcyla at 3-week intervals. As of 06/04/2020 she completed her 14th and final cycle of Kadcyla. Overall, she tolerated the treatment very well. She comes in now with recent onset of a localized herpes zoster eruption in the upper left arm. She is on treatment with Famvir. She otherwise appears to be doing well clinically. Thus far she is tolerating the anastrozole with no significant adverse effects. Plan: She continues adjuvant hormonal therapy with anastrozole 1 mg daily. She will be given a prescription for gabapentin 300 mg 3 times daily for the shingles pain. I also will put 1 refill on the Famvir in case she needs it. She will return for monthly port flush and lab. She will be scheduled for a follow-up visit in 3 months. Signed By: Sidney Beltran M.D. <<Signature on File>>
== END 2020-06-25 06:09 | disposition home or self-care (01) ==
LOC: ONCMED 06:09
PROVIDERS: PCP Family Medicine; Visit Provider Internal Medicine Medical Oncology
DX: C50.412 Malignant neoplasm of upper-outer quadrant of left female breast (principal); Z17.0 Estrogen receptor positive status [ER+]; D70.1 Agranulocytosis secondary to cancer chemotherapy; T45.1X5A Adverse effect of antineoplastic and immunosuppressive drugs, initial encounter; G43.909 Migraine, unspecified, not intractable, without status migrainosus; K57.90 Diverticulosis of intestine, part unspecified, without perforation or abscess without bleeding; Z80.3 Family history of malignant neoplasm of breast; E55.9 Vitamin D deficiency, unspecified; B02.9 Zoster without complications; Z79.818 Long term (current) use of other agents affecting estrogen receptors and estrogen levels
CPT/HCPCS: 36591; 80053; 85025; 99214

== ENCOUNTER 2020-07-23 13:42 | Outpatient (CLI) | payer OTHER, SELFPAY ==
--- NOTE | 2020-07-23 13:55 | USCV_ITS ---
Bertha Briceno Age: 59 Gender: F : 1960 Exam Date: 07/23/2020 14:25 Ordering Phys: Suzie Jackson NP Technologist: Bella Machuca Exam Location: [facility] [place] Indication: ENDING CHEMO TREATMENT BP: / HR: 62 Rhythm: Sinus Technical Quality: Adequate MEASUREMENTS (Male / Female) Normal Values 2D ECHO LV Diastolic Diameter PLAX 4.0 cm 4.2 - 5.9 / 3.9 - 5.3 cm LV Systolic Diameter PLAX 2.3 cm LV Chamber Size 3.5 cm IVS Diastolic Thickness 1.2 cm 0.6 - 1.0 / 0.6 - 0.9 cm IVS Systolic Thickness 1.7 cm LVPW Diastolic Thickness 0.9 cm 0.6 - 1.0 / 0.6 - 0.9 cm LVPW Systolic Thickness 1.2 cm RV Chamber Size 3.6 cm LVOT Diameter 2.0 cm LV Ejection Fraction 2D Teich 74.3 % LV Ejection Fraction MOD 2C 47.2 % LV Ejection Fraction 2C AL 50.9 % LA Diameter 2.6 cm LA Width 1.9 cm LA Height 2.8 cm RA Width 2.9 cm RA Height 2.1 cm Aorta at Sinotubular Diameter 3.4 cm M-MODE LV Diastolic Diameter MM 4.1 cm 4.2 - 5.9 / 3.9 - 5.3 cm LV Systolic Diameter MM 2.0 cm LV Ejection Fraction MM Teich 81.6 % IVS Diastolic Thickness MM 1.2 cm 0.6 - 1.0 / 0.6 - 0.9 cm IVS Systolic Thickness MM 1.3 cm LVPW Diastolic Thickness MM 1.0 cm 0.6 - 1.0 / 0.6 - 0.9 cm LVPW Systolic Thickness MM 1.5 cm RV Diastolic Diameter MM 1.8 cm Aortic Annulus Diameter 3.1 cm LA Ao Ratio MM 0.9 MV E Point Septal Separation 0.2 cm FINDINGS Left Ventricle Normal left ventricular size and systolic function, EF 66 %. No regional wall motion abnormalities. Right Ventricle The right ventricle is normal in size and function. Right Atrium The right atrium is normal in size. Left Atrium The left atrium is normal in size. Mitral Valve No gross abnormalities noted Aortic Valve No gross abnormalities noted Tricuspid Valve No gross abnormalities noted Pulmonic Valve No gross abnormalities noted Pericardium Normal pericardium without effusion. Aorta Normal ascending aorta dimension. CONCLUSIONS Normal left ventricular size and systolic function, EF 66 %. No regional wall motion abnormalities. Normal cardiac chamber sizes. No significant stenotic or regurgitant lesions. There is no pericardial effusion. There are no intracardiac masses. Compared to the previous study from 03/13/2020, there may not be a significant change Dr Charla Gonzalez MD FACC (Electronically Signed) Final Date: 24 July 2020 01:43 S
== END 2020-07-23 13:43 | disposition home or self-care (01) ==
LOC: RAD 13:47
PROVIDERS: PCP Family Medicine; Visit Provider Nurse Practitioner
DX: C50.412 Malignant neoplasm of upper-outer quadrant of left female breast (principal)
CPT/HCPCS: 93308

== ENCOUNTER 2020-07-26 08:50 | Outpatient (CLI) | payer OTHER, SELFPAY ==
[2020-07-26 09:17] LABS: Basophils % 0.3 %; Eosinophils # 0.3 10^3/uL (0.0-0.8); Eosinophils % 5.9 %; Hematocrit 36.3 % (37.0-47.0); Hemoglobin 11.7 g/dL (11.5-15.3); Lymphocytes # 1.6 10^3/uL (0.8-4.8); Mean Corpuscular HGB Conc 32.2 g/dL (30.0-36.0); Mean Corpuscular Hemoglobin 31.6 pg (28.0-34.0); Mean Corpuscular Volume 98.1 fL (81-99); Mean Platelet Volume 11.1 fL (7.4-10.4); Monocytes # 0.5 10^3/uL (0.2-0.9); Monocytes % 9.3 %; Neutrophils # 3.31 10^3/uL (1.8-7.7); Neutrophils % 57.3 %; Nucleated Red Blood Cells % 0 %; Platelet Count 176 10^3/cmm (130-400); Red Cell Distribution Width 14.3 % (12.1-15.1); White Blood Count 5.8 10^3/uL (4.0-10.0)
[2020-07-26 09:33] LABS: Albumin Level 3.9 g/dL (3.5-5.2); Alkaline Phosphatase 170 IU/L (35-105); Chloride 101 mmol/L (98-107); Potassium 3.6 mmol/L (3.5-5.1); Sodium 137 mmol/L (136-145)
[2020-07-26 09:47] LABS: Alanine Aminotransferase 25 U/L (0-33); Anion Gap 14.6 (5-19); Aspartate Amino Transferase 33 U/L (0-32); Blood Urea Nitrogen 25 mg/dL (8-23); Calcium 9.5 mg/dL (8.5-10.5); Carbon Dioxide 25 mmol/L (22-29); Globulin 4.4 g/dL (1.3-4.6); Glomerular Filtration Rate 63.7 mL/min (90-130); Glucose 138 mg/dL (65-115); Osmolality Calculated 291 mOsm/kg (285-295); Total Bilirubin 0.3 mg/dL (0.15-1.2); Total Protein 8.3 g/dL (6.6-8.7)
== END 2020-07-26 08:51 | disposition home or self-care (01) ==
LOC: ONCMED 08:51
PROVIDERS: PCP Family Medicine; Visit Provider Internal Medicine Medical Oncology
DX: C50.412 Malignant neoplasm of upper-outer quadrant of left female breast (principal); Z17.0 Estrogen receptor positive status [ER+]
CPT/HCPCS: 36591; 80053; 85025

== ENCOUNTER 2020-08-30 10:31 | Outpatient (CLI) | payer OTHER, SELFPAY | END 2020-08-30 10:32 | disposition home or self-care (01) | PROVIDERS: PCP Family Medicine; Visit Provider Internal Medicine Medical Oncology | DX: Z45.2 Encounter for adjustment and management of vascular access device (principal) | CPT/HCPCS: 96523 ==

== ENCOUNTER 2020-09-28 12:38 | Emergency (ER) | payer OTHER, SELFPAY ==
[2020-09-28 12:49] VITALS: BP 141/96; PULSE 110; RESP 16; O2SAT 98; BMI 28.3
--- NOTE | 2020-09-28 12:52 | XRR_ITS ---
PROCEDURE INFORMATION: Exam: XR Right Ankle Exam date and time: 09/28/2020 12:53 PM Age: 59 years old Clinical indication: Fall with trauma/closed bimalleolar fracture. TECHNIQUE: Imaging protocol: XR Right ankle. Views: 3 or more views. COMPARISON: No relevant prior studies available. FINDINGS: There is a transverse, mildly displaced fracture involving the medial malleolus. There is an oblique, mildly displaced fracture involving the distal fibular metadiaphysis. Possible subtle fracture involving the posterior malleolus. There is mild posterior subluxation of the talus relative to the tibia. There is soft tissue swelling about the ankle. The ankle mortise remains largely symmetric. No osteochondral lesion is seen. Small posterior calcaneal spur. XR/XR ankle RT min 3V* [id number] IMPRESSION: 1. Transverse, mildly displaced fracture involving the medial malleolus. 2. Oblique, mildly displaced fracture involving the distal fibular metadiaphysis. 3. Possible subtle fracture involving the posterior malleolus. 4. Mild posterior subluxation of the talus relative to the tibia. 5. Soft tissue swelling about the ankle.
--- NOTE | 2020-09-28 13:06 | ED_ITS ---
HPI - Extremity Problem General: Chief complaint: Extremity Injury, Lower Stated complaint: believes to have broken right ankle Time Seen by Provider: 09/28/20 12:51 PFSH ED PFSH: Medical History (Updated 09/28/20 @ 13:59 by Natalio Morrison MD) History of breast cancer Social History (Updated 09/07/19 @ 10:26 by Supriya Schuster LPN) Smoking and tobacco status: never smoked Alcohol intake: never Physical Exam Const: COMMON NORMALS: no acute distress, average body habitus, patient oriented x3, no limitations and alert Neck/C-Spine: COMMON NORMALS: no JVD Chest: COMMONS NORMALS: normal inspection of the chest and normal palpation of entire chest wall Resp: COMMON NORMALS: normal respiratory effort, No retractions and No use of accessory muscles Cardio: COMMON NORMALS: no JVD, regular rate and regular rhythm PALPATION: normal PMI RATE: regular rate RHYTHM: regular rhythm Extremity: RIGHT LOWER EXTREMITY: Yes foot & digits (Swelling and appears to have some deformity concerning for underlying fract) Right ankle: Yes inspection (Swelling to the ankle joint.), Yes ROM (Unable to have range of motion due to pain.) and Yes neurovascular exam (Appears to be neurovascularly intact.) EXTREMITY IMAGE (FRONT): 1. Neuro: COMMON NORMALS: patient oriented x3 SENSORIUM/ORIENTATION: Yes alert Course Reevaluation(s): Reevaluation #1: Patient doing well with no complaints. Time: 13:57 Consultations: Consultation #1: I discussed with Dr. Martinez. He wishes the patient be placed in a stirrup discharged home follow-up in 2 days. Time: 13:57 Vital Signs: Vital signs: Vital Signs Pulse Rate 110 H 09/28/20 12:49 Respiratory Rate 16 09/28/20 12:49 Blood Pressure 141/96 09/28/20 12:49 Pulse Oximetry 98 09/28/20 12:49 MDM - Extremity (Nontraumatic) Imaging Data^: Xray Ortho: My impression: Bimalleolar fracture left ankle Discharge Plan Discharge Patient Disposition: Home Clinical Impression: Bimalleolar ankle fracture Condition: Stable Prescriptions: New hydrocodone-acetaminophen 5-325 mg tablet 1 tab PO Q6H PRN (Reason: pain) Qty: 7 RF: 0 No Action propranolol [Inderal LA] 60 mg capsule,extended release 24 hr 40 mg PO ONCE RF: 0 anastrozole 1 mg tablet 1 mg PO QDAY RF: 0 omeprazole 20 mg capsule,delayed release(DR/EC) 20 mg PO QDAY RF: 0 ondansetron HCl [Zofran] 4 mg tablet 4 mg PO Q8H RF: 0 prochlorperazine maleate [Compazine] 10 mg tablet 25 mg PO ONCE PRNRF: 0 lorazepam 0.5 mg tablet 0.5 mg PO QDAY PRNRF: 0 Discharge Orders: Discharge ED (Routine); Ordered 09/28/20 Ordered By: Natalio Morrison Referrals: Rory Rico MD [Primary Care Provider] - Discharge Diet: Advance as tolerated Discharge Activity: Use walker/crutches as instructed Patient Instructions: Opioid Safety Activity Restrictions/Additional Instructions: Rest, ice, elevation, nonweightbearing. Follow-up with Dr. Martinez in the clinic in 2 days. Call accuracy expert Wednesday for appointment. Coding Level of Care Code ED Rehabilitation Caseworker for Moriahg Fwd Exam Detailed
[2020-09-28] MEDS: HYDROcodone-acetaminophen 5-325 mg Tablet 1 TAB PO (14:25)
--- NOTE | 2020-09-28 14:34 | PM.HP ---
Providers/Chief Complaint Primary Care Provider: Rory Rico MD Chief Complaint: believes to have broken right ankle History of Present Illness Bertha Briceno is a 59 year old female who slipped on ice outside her house with resulting pain and inability to bear weight on her right ankle. She was able to crawl into the house and is brought here by her [id number] complaining of ankle pain. Radiographs here have revealed a bimalleolar right ankle fracture Medications/Allergies Home Medications Medication Instructions Recorded Confirmed Last Taken Type anastrozole 1 mg tablet 1 mg PO QDAY 09/07/19 09/07/19 Unknown History lorazepam 0.5 mg tablet 0.5 mg PO QDAY PRN 09/07/19 09/07/19 Unknown History omeprazole 20 mg capsule,delayed 20 mg PO QDAY 09/07/19 09/07/19 Unknown History release ondansetron HCl 4 mg tablet 4 mg PO Q8H 09/07/19 09/07/19 Unknown History prochlorperazine maleate 10 mg 25 mg PO ONCE PRN tab 09/07/19 09/07/19 Unknown History tablet propranolol 60 mg capsule,24 40 mg PO ONCE cap 09/07/19 09/07/19 Unknown History hr,extended release hydrocodone-acetaminophen 1 tab PO Q6H PRN #7 tab 09/28/20 Unknown Rx Allergies Allergy/AdvReac Type Severity Reaction Status Date / Time metronidazole [From Flagyl] Allergy dizzy Verified 09/07/19 10:15 naproxen [From Aleve] Allergy anaphylaxis Verified 09/07/19 10:15 PFSH Acute PFSH: Medical History (Updated 09/28/20 @ 14:38 by Ricardo Martinez MD) History of breast cancer Social History (Updated 09/07/19 @ 10:26 by Supriya Schuster LPN) Smoking and tobacco status: never smoked Alcohol intake: never Vitals/I&O/Wt Last Vital Signs Pulse 110 H 09/28/20 12:49 Resp 16 09/28/20 12:49 BP 141/96 09/28/20 12:49 Pulse Ox 98 09/28/20 12:49 Weight last 48 hrs Weight 155 lb Physical Exam Narrative: EXAM NARRATIVE: Patient is a pleasant healthy female in no obvious distress. HEAD: Normocephalic/atraumatic. NECK: Soft supple nontender. HEART: Normal heart sounds, regular rhythm. CHEST: Clear to auscultation. ABDOMEN: Soft nontender nondistended. The patient has obvious swelling but no visible visible deformity of the right ankle. She has a palpable dorsalis pedis pulse. She will flex and extend her toes but will not move her ankle due to pain. Data Xray Ortho: I personally reviewed and interpreted this imaging study as follows: (3 views of the right ankle) My impression: The patient has a trimalleolar right ankle fracture with slight lateral displacement of the talus in the mortise A&P Assessment and plan (1) Trimalleolar fracture of right ankle: The patient has unstable trimalleolar ankle fracture. This certainly will require surgical stabilization. I explained to her that the biggest risk would be problems with healing of wound compromise. This can be helped substantially if we get the soft tissue envelope time to stabilize. She will be put in a molded splint to correct her deformity. I will see her back in clinic early next week and will proceed with open reduction and internal fixation of the ankle if her skin envelope looks good. Status: Acute Attestations Medical Necessity Statement*: Patient will be discharged and admitted as an outpatient next week for surgical stabilization of ankle. Coding Level of Care Code Acute Contract Agent for Layo Hebert Diagnoses Trimalleolar fracture of right ankle S82.851A
[2020-09-28 14:39] VITALS: BP 147/94; PULSE 98; RESP 20; O2SAT 98
[2020-09-30 15:31] LABS: Quest SARS-CoV-2 RNA NOT DETECTED (NOT DETECTED)
--- NOTE | 2020-09-30 16:36 | PC.NURSE ---
Pt called and notified of negative COVID test.
== END 2020-09-28 15:14 | disposition home or self-care (01) ==
PROVIDERS: Emergency Provider Emergency Medicine; PCP Family Medicine
DX: S99.911A Unspecified injury of right ankle, initial encounter (principal); S82.842A Displaced bimalleolar fracture of left lower leg, initial encounter for closed fracture; X58.XXXA Exposure to other specified factors, initial encounter; Z85.3 Personal history of malignant neoplasm of breast
CPT/HCPCS: 73610; 87635; 99283

== ENCOUNTER 2020-10-01 11:25 | Outpatient (CLI) | payer OTHER, SELFPAY | END 2020-10-01 11:26 | disposition home or self-care (01) | LOC: SPT 11:25 | PROVIDERS: PCP Family Medicine; Visit Provider Orthopaedic Surgery | DX: Z46.89 Encounter for fitting and adjustment of other specified devices (principal); S82.851D Displaced trimalleolar fracture of right lower leg, subsequent encounter for closed fracture with routine healing; X58.XXXD Exposure to other specified factors, subsequent encounter | CPT/HCPCS: L4361 ==

== ENCOUNTER 2020-10-02 10:08 | Day surgery (SDC) | payer OTHER, SELFPAY ==
[2020-10-01 14:56] VITALS: BMI 28.3
[2020-10-02] VITALS (10 sets, daily range): BP systolic 104–142; BP diastolic 67–92; PULSE 67–78; RESP 11–18; TEMP 36.1–36.9; O2SAT 97–100
--- NOTE | 2020-10-02 | XR_ITS ---
WS: [id number] C-ARM RADIOGRAPHS RIGHT ANKLE; 7 IMAGES HISTORY: OR PICS COMPARISON: 09/28/2020 Intraoperative imaging during ORIF medial and lateral malleolus. Orthopedic hardware is been placed s tabilizing fractures in the medial and lateral malleolus. No displacement. XR/XR ankle RT min 3V* [id number] IMPRESSION: Intraoperative imaging during bimalleolar ORIF.
--- NOTE | 2020-10-02 | SCC_ITS ---
Procedure Done: Open reduction internal fixation right medial and lateral malleolus 38.4 seconds of fluoroscopic guidance, for a cumulative dose of 0.92 mGy, was provided to Dr. Martinez by the radiology department. C-arm images of the RIGHT ankle were saved for the patient's permanent record. [facility]
[2020-10-02] MEDS: sodium chloride 0.9% 1,000 ML 30 ML IV (11:04)
--- NOTE | 2020-10-02 11:26 | ANES.PREANE2 ---
Pre-Anesthetic Assessment Pre-Anesthetic Assessment: Height/Weight: Height 1.57 m Weight 70.307 kg Temp Pulse Resp BP Pulse Ox 97 F L 67 16 104/76 97 10/02/20 10:30 10/02/20 10:30 10/02/20 10:30 10/02/20 10:30 10/02/20 10:30 Preop Diagnosis: Fracture right trimalleolar ankle Proposed Procedure: Operation Date: 10/02/20 12:00 Proposed Procedures p ORIF Ankle, trimalleolar fracture 63170 S82.851A(Right) - Ricardo Martinez MD Familial anesthetic complications: None Was Beta Acosta taken within 24 hours: Yes Last intake: Intake Last Liquid Date 10/01/20 Last Liquid Time 19:00 Last Solid Date 10/01/20 Last Solid Time 19:00 Social: Social History: No alcohol and No tobacco Exam: Pre-Anes Outpt Exam: alert, oriented x 3, clear to auscultation bilaterally and regular rate & rhythm Airway: Cervical ROM: WNL MP: 3 Dentition: Chipped Additional comments: teeth weak after chemotherapy Anesthetic Plan: ASA status: 2 Anesthesia: General and Regional (specify below) (prn) Risk of > 500 ml blood loss (7ml/kg in children): No Meds/Allergies Current Medications: Current Medications Generic Name Dose Route Start Last Admin Trade Name Freq PRN Reason Stop Dose Admin Sodium Chloride 1,000 mls @ 30 ml s/hr 10/02/20 10:30 10/02/20 11:04 Sodium Chloride 0.9% IV 10/03/20 10:29 30 mls/hr .Q24H VISHNU Administration PFSH Anesthesia PFSH: Medical History History of breast cancer Social History Smoking and tobacco status: never smoked Alcohol intake: never Data Anesthesia Cardiac Studies: No Data to Display
--- NOTE | 2020-10-02 12:46 | W.PM.OPSUD ---
Surgery/Procedure H&P Update DATE OF PROCEDURE: October 02, 2020 DATE H&P PERFORMED: 10/01/20 PREOP DIAGNOSIS: Fracture right trimalleolar ankle PLANNED PROCEDURE: Operation Date: 10/02/20 12:00 Proposed Procedures p ORIF Ankle, trimalleolar fracture 54612 S82.851A(Right) - Ricardo Martinez MD
--- NOTE | 2020-10-02 14:27 | P.OP_ITS ---
Operative Report Date of procedure: October 02, 2020 Pre-op Diagnosis: Fracture right trimalleolar ankle Post-op diagnosis: same Post-op Findings: Same Procedure Done: Open reduction internal fixation right medial and lateral malleolus Implants: Magnolia Variax lateral malleolar plate, Yaritza Fixos 4.0mm screws x 2 Pathology: none sent Surgeon: Ricardo Martinez Anesthesia: General Estimated blood loss (mL): 25 Tourniquet time (min): 59 Complications: None Findings: The patient had a spiral fracture of the lateral malleolus at the level of the mortise. She had a transverse fracture of the medial malleolus at the level of the mortise. She has a small posterior malleolar avulsion fragment Condition: stable Disposition: PACU Procedure: The patient was taken to the operating room and given a general anesthesia. She was given 2 g of Ancef. She is prepped and draped in the supine position with a tourniquet on the right thigh. The tourniquet was inflated 250 mmHg. Initially a 4 cm long incision was made over the medial m alleolus. Dissection was carried down full-thickness to the medial malleolar fragment. Utilizing a towel clamp the small fragment was reduced. It was fixed with 2 4.0 mm Fixos screws both with reasonable purchase. There was some comminution anteriorly and minimal compression was applied across the most anterior screw. Next a 6 cm long incision was made beginning at the tip of the lateral malleolus extending approximately. Dissection was carried down full-thickness to the fibular fracture. Periosteum was elevated laterally. Hematoma was removed from the fracture site. A lobster claw clamp was used to maintain reduction of the fracture. It was fixed with a 3.5 millimeter screw countersunk from posterior anterior for provisional reduction. Next the Variax plate was placed laterally. It was fixed proximally and distally with a nonlocking screw securing the plate to the bone. One additional nonlocking and one locking screw were placed proximally and 4 locking screws distally securing the construct. Intraoperative images showed anatomic alignment of the talus in the mortise and satisfactory position of hardware. The ankle was irrigated with saline. Deep tissues were closed with 2-0 Vicryl and the skin with skin riddhi. Incisions are covered with Xeroflo gauze 4 x 4's. The foot was wrapped in web roll and Griffin wrap. She was placed in a postop boot, extubated, and taken to recovery in stable condition.
[2020-10-02] MEDS: HYDROcodone-acetaminophen 7.5-325 mg Tablet 1 TAB PO (15:38)
--- NOTE | 2020-10-02 20:00 | ANE.PACU2 ---
Inpatient post-anesthesia follow up: Airway intact: Yes Vital signs: Temperature 98.2 F Pulse Rate 71 Respiratory Rate 18 Blood Pressure 142/77 Pulse Oximetry 99 Oxygen Delivery Me thod Room Air Oxygen Flow Rate Fraction of Inspir ed Oxygen Hydration adequate: Yes Nausea and vomiting: No Pain level: 4 Mental status: Baseline
== END 2020-10-02 16:00 | disposition home or self-care (01) ==
LOC: OR 10:10
PROVIDERS: PCP Family Medicine; Visit Provider Orthopaedic Surgery
PROC: (CPT 27822; principal; 2020-10-02 12:00)
DX: S82.851A Displaced trimalleolar fracture of right lower leg, initial encounter for closed fracture (principal); X58.XXXA Exposure to other specified factors, initial encounter; Z85.3 Personal history of malignant neoplasm of breast
CPT/HCPCS: 27822; 73610; 76000; C1713; J0690; J1100; J3010; J3490; J7030; T1015-U1

== ENCOUNTER 2020-11-04 09:18 | Outpatient (CLI) | payer OTHER, SELFPAY ==
[2020-11-04 10:17] LABS: Basophils % 0.6 %; Eosinophils # 0.3 10^3/uL (0.0-0.8); Eosinophils % 4.1 %; Hematocrit 40.8 % (37.0-47.0); Hemoglobin 12.9 g/dL (11.5-15.3); Lymphocytes # 2.4 10^3/uL (0.8-4.8); Lymphocytes % 33.9 %; Mean Corpuscular HGB Conc 31.6 g/dL (30.0-36.0); Mean Corpuscular Hemoglobin 30.9 pg (28.0-34.0); Mean Corpuscular Volume 97.6 fL (81-99); Monocytes # 0.6 10^3/uL (0.2-0.9); Monocytes % 8.8 %; Neutrophils # 3.69 10^3/uL (1.8-7.7); Neutrophils % 52.3 %; Nucleated Red Blood Cells % 0 %; Platelet Count 245 10^3/cmm (130-400); Red Blood Count 4.18 10^6/uL (4.1-5.3); Red Cell Distribution Width 13.8 % (12.1-15.1); White Blood Count 7.1 10^3/uL (4.0-10.0)
[2020-11-04 10:35] LABS: Alanine Aminotransferase 23 U/L (0-33); Albumin Level 3.9 g/dL (3.5-5.2); Alkaline Phosphatase 158 IU/L (35-105); Anion Gap 14.1 (5-19); Aspartate Amino Transferase 30 U/L (0-32); Blood Urea Nitrogen 26 mg/dL (8-23); Calcium 9.7 mg/dL (8.5-10.5); Carbon Dioxide 25 mmol/L (22-29); Chloride 99 mmol/L (98-107); Globulin 4.3 g/dL (1.3-4.6); Glomerular Filtration Rate 50.3 mL/min (90-130); Glucose 105 mg/dL (65-115); Osmolality Calculated 283 mOsm/kg (285-295); Potassium 4.1 mmol/L (3.5-5.1); Sodium 134 mmol/L (136-145); Total Bilirubin 0.5 mg/dL (0.15-1.2); Total Protein 8.2 g/dL (6.6-8.7)
--- NOTE | 2020-11-04 11:47 | ONC FU_ITS ---
[facility] Patient Note Patient: Bertha Briceno Unit #: [id number]: [id number] Dictated By: Jason SilvaDate of Visit: Nov 04, 2020 Onc MED Follow-Up/Prog Note Chief Complaint: Breast cancer. History of Present Illness: Ms Briceno is a 60 year-old woman with grade 2 infiltrating ductal carcinoma of the left breast, stage IIB (T2, N1, M0), ER/CO positive and HER-2/castro positive. She was found to have an abnormal screening mammogram on 12/27/2018. It was BI-RADS 0, incomplete, with findings of increasing spiculated focal asymmetric density in the upper outer quadrant of the left breast. Diagnostic mammogram/ultrasound on 01/11/2019 was BI-RADS 5, highly suggestive of malignancy. The mammogram showed spiculated mass in the upper-outer left breast measuring 3.5 x 1.8 cm. Ultrasound showed a large hypoechoic solid irregular lesion at the 2:00 position measuring 2.8 x 1.6 x 3.1 cm. Also noted were hypoechoic cysts at the 12:00 and 3:00 positions measuring 5 mm and 12 mm respectively. She underwent ultrasound-guided needle biopsy of the left breast mass on 01/20/2019. Pathology showed grade 2 infiltrating ductal carcinoma. The tumor was noted to be ER positive at 94% and CO positive at 81%, both with strong intensity. HER-2/castro was positive, 3+ by IHC and amplification ratio by FISH of 1.7 with 4.0 HER-2 copies/cell. Staging PET/CT on 02/04/2019 showed an FDG avid lesion in the left breast measuring 1.3 x 1.8 cm, SUV 8.8. A solitary left axillary lymph node measuring 1.3 cm is also FDG avid with SUV 3.8, consistent with local metastatic disease. There were no findings to indicate any distant metastatic disease. Further evaluation with ultrasound of the left breast/axilla on 02/06/2019 showed a superior left axillary lymph node measuring 1.1 x 1.5 x 1.1 cm which appeared to have an intraparenchymal intermediate hyperechoic soft tissue focus, suspicious for metastasis. The remainder of the axillary lymph nodes appeared grossly unremarkable by ultrasound. Ultrasound-guided biopsy of the lymph node on 02/20/2019 showed metastatic adenocarcinoma consistent with the previously diagnosed breast primary. Given those findings, she was recommended to undergo neoadjuvant chemotherapy with TCH-P. She began cycle 1 of TCH-P on 03/06/2019. She experienced very severe GI toxicity, including nausea/vomiting and diarrhea. She required IV hydration, and she also required growth factor support with Neupogen, as she became severely neutropenia at day 8. She recovered uneventfully, and she was able to continue cycle 2 on 03/27/2019 with a reduced dosage of Perjeta. She also was given Neulasta prophylactically, and she was given scheduled IV hydration. She tolerated the treatment well, and she was then able to continue with cycle 3 on 04/18/2019, with cycle 4 on 05/08/2019, and with cycle 5 on 05/29/2019. On 06/03/2019 she was admitted to the hospital with severe nausea/vomiting and diarrhea. Some of this was clearly chemotherapy related, but she also was found to have Clostridium difficile colitis. Her clinical course also was complicated by severe neutropenia and anemia, but she had gradual recovery with appropriate antibiotic therapy. She was then able to continue with cycle 6 of TCH-P on 07/03/2019. On 07/20/2019 she underwent left modified radical mastectomy and right simple prophylactic mastectomy. She tolerated the surgery very well. Pathology on the left breast showed a focus of residual grade 2 invasive ductal carcinoma measuring 1.1 cm in greatest dimension. There was involvement in 1/12 lymph nodes with the metastatic focus measuring 0.5 cm. There was no extranodal extension identified. Final staging was ypT1c, ypN1a. Her medical history includes fibrocystic breast disease, chronic migraine, and diverticulosis. She underwent natural menopause at age 48. She is a nonsmoker. INTERIM HISTORY: She then continued systemic adjuvant therapy with single agent Herceptin at the 3-week dosing interval, cycle 1 on 07/24/2019 and cycle 2 on 08/14/2019. At that point she also began adjuvant hormonal therapy with anastrozole 1 mg daily. Due to the residual axillary lymph node involvement, her treatment was then changed to Kadcyla 3.6 mg/kg by IV infusion every 21 days. She began cycle 1 on 09/07/2019. She tolerated it well and she continued with cycle 2 on 09/28/2019. On 09/27/2019 she had started on radiation to the left chest wall and supraclavicular region. She completed treatment to the supraclavicular area on 11/01/2019 to a total dose of 5000 cGy. She completed treatment to the left chest wall on 11/08/2019 to a total dose of 6000 cGy. She then continued treatment with Kadcyla at 3-week intervals. As of 06/04/2020 she completed her 14th and final cycle of treatment. She remains on the anastrozole 1 mg daily. Ms. Briceno reports that on September 28, 2020 she had a traumatic fall on the ice resulting in fracture of her right ankle. She underwent open reduction internal fixation right medial and lateral malleolus with later malleolar plate and screws x2 per Dr. Martinez on October 02, 2020. She is non weight bearing and utilizing a knee scooter at present. Gala is here today for her 3-month follow-up. She states other than her ankle she is doing well. She has some fatigue but states it is no worse and actually some better. She was able to stop the gabapentin after 1 prescription which she states lasted for 90 days because she only took it once a day. She states the neuropathy has resolved and she is does not feel that she needs the gabapentin at all. She had resolution of the shingles without any lasting effects that she is aware of at this point. She does have some left axillary tenderness but states that is no worse. There has been no swelling labs redness or any signs of abnormalities other than the tenderness. She states she has a poking sensation in the left mastectomy site occasionally when she turns a certain way. There has been no swelling redness or warmth there either. She denies any other concerns. She is taking vitamin D. She states she is eating good. She is trying to return back to work some light duty. She denies any bowel or bladder problems. She denies any hematuria. She denies any vaginal bleeding. She states she does have some hot flashes off and on but they are not severe at all. Her ECOG is 1 related to the ankle injury. Past Medical History: Chronic migraine Diverticulosis Fibrocystic breast disease Past Surgical History: Bilateral salpingectomy Closed reduction of left wrist fracture Bilateral mastecomy in [address] john in 2018 Ultrasound directed needle biopsy of the left breast in 2018 Breast biopsy for benign disease in 2010 Tubal ligation and D&C in 1983 Appendectomy, adhesion lysis, and D&C in 1981 Allergies: Aleve and Flagyl. Medications: Amitriptyline HCl 2 Tablet (of 25 mg) Tablet Oral daily Anastrozole 1 Tablet (of 1 mg) Oral daily Famciclovir 1 Tablet (of 500 mg) Oral t.i.d. HYDROcodone-Acetaminophen 1 Tablet (of 7.5-325 mg) Oral 8x/d Imodium A-D 1 Tablet (of 2 mg) Oral PRN LORazepam 0.5 - 1 Tablet (of 1 mg) Oral t.i.d. PRN Omeprazole 1 Tablet (of 20 mg) Tablet, enteric coated Oral daily Ondansetron HCl 1 Tablet (of 8 mg) Oral t.i.d. PRN Prochlorperazine Maleate 1 Tablet (of 10 mg) Oral q 4 hours PRN Propranolol HCl 1 Tablet (of 40 mg) Oral daily Vitamin D-[address] 1 Tablet (of 5000 Units) Oral daily Family History: Ms. Briceno's mother is alive: breast cancer, and myocardial infarction, and lupus. Ms. Briceno's father at age 54: lung cancer. Ms. Briceno's maternal grandmother is : pancreatic cancer. Her maternal grandfather is : type II diabetes. Ms. Briceno has 2 sisters: 2 alive. Father of lung cancer at age 54. Mother is still living at age 79. She has SLE and coronary artery disease. She has been treated for breast cancer and uterine cancer. A first cousin on her mother's side of breast cancer. Her maternal grandmother had pancreatic cancer. Two sisters are in good health. Her maternal grandfather had diabetes. 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 Ms. Briceno has never smoked. She has no history of drinking. Her diet consists of regular meals. She indicates her activity level as: regular exercise. Review Of Symptoms: Constitutional Denies fevers, chills, night sweats, excessive fatigue or weight loss. Feels pretty good . Allergic/Immunologic No reactions. Eyes Denies significant visual changes. No diplopia. No amaurosis. ENMT Denies changes in hearing, sore throat, mouth sores, difficulty or changes in swallowing ability, and/or sinus drainage. Endocrine No diabetes, thyroid disease or hormone replacement. Denies severe hot flashes or night sweats. Hematologic/Lymphatic Denies easy bruising or bleeding. The patient denies any tender or palpable lymph nodes. Breasts no changes or new concerns. Respiratory Denies severe dyspnea on exertion, denies any chest pain, cough or hemoptysis. Denies orthopnea. Cardiovascular Denies anginal chest pain, palpitations or orthopnea. Gastrointestinal Denies any current nausea, vomiting, diarrhea, GI bleeding, or constipation. Genitourinary (F) No hematuria, hesitancy, incontinence, vaginal bleeding, discharge or other problems with urination. Musculoskeletal Denies joint pain, swelling or redness. No decreased range of motion. Integumentary Denies chronic rashes, inflammation, ulcerations or skin changes. Neurologic Denies headache, blurred vision, and no areas of focal weakness or numbness. Normal gait. No sensory problems. Psychiatric Denies insomnia, depression, maribel or mood swings. Vital Signs: Performed on Nov 04, 2020 10:45 Height - 62.00 in Temperature - 98 F (LOW) Pulse - 68 /min Respiration - 18 /min BP - 107/69 mm(hg) O2 Sat - 97 % Pain - 0 Fatigue - 0,1 - No physically strenuous activity, but ambulatory and able to carry out light or sedentary work (e.g. office work, light house work). (ECOG) Physical Examination: Constitutional Alert, oriented, no acute distress. Skin pink, warm and dry. Head Normocephalic; atraumatic. Eyes Conjunctivae and sclerae are clear and without icterus. Pupils are reactive and equal. Neck Supple without masses or thyromegaly. No jugular venous distension. Hematologic/Lymphatic No petechiae or purpura. No tender or palpable lymph nodes in the cervical or supraclavicular areas. Respiratory Lungs are clear to auscultation without rhonchi or wheezing. Cardiovascular Regular rate and rhythm of heart without murmurs,clicks, gallops or rubs. Chest Right subclavian venous access device unremarkable. Breasts left axillary mass not appreciated. NO abnormal findings on limited left breast exam. Abdomen Non-tender, non-distended, no masses or ascites. No guarding or rebound tenderness. No pulsatile masses. Back/Spine Non-tender to palpation. Extremities No visible deformities, no cyanosis, clubbing or edema. Musculoskeletal No tenderness or swelling, normal range of motion without obvious weakness. Integumentary No rashes or lesions. Neurologic No sensory or motor deficits, normal cerebellar function, normal gait. Psychiatric Alert and oriented times three. Coherent speech. Verbalizes understanding of our discussions today. Laboratory:Test performed on Nov 04, 2020 09:40 Sodium 134 mmol/L Potassium 4.1 mmol/L Chloride 99 mmol/L CO2 25 mmol/L Anion Gap 14.1 BUN 26 mg/dL Creatinine 1.1 mg/dL Cr Clearance (Est) 60.8300 mL/min eGFR 50.3 mL/min Glucose 105 mg/dL Osmolality - Calculated 283 mOsm/kg Calcium 9.7 mg/dL Protein, Total 8.2 g/dL Albumin 3.9 g/dL Globulin 4.3 g/dL Bilirubin, Total 0.5 mg/dL ALT (SGPT) 23 U/L AST (SGOT) 30 U/L Alkaline Phosphatase 158 IU/L WBC 7.1 10 3/uL RBC 4.18 10 6/uL HGB 12.9 g/dL HCT 40.8 % MCV 97.6 fL MCH 30.9 pg MCHC 31.6 g/dL RDW 13.8 % Platelet Count 245 10 3/cmm MPV 11.0 fL Neutrophils 3.69 10 3/uL Lymphocytes 2.4 10 3/uL Monocytes 0.6 10 3/uL Eosinophils 0.3 10 3/uL Basophils 0.0 10 3/uL Neutrophil % 52.3 % Lymphocyte % 33.9 % Monocyte % 8.8 % Eosinophil % 4.1 % Basophils % 0.6 % NRBC % 0 % Test performed on Jun 25, 2020 11:08 CBC Slide Review Slide Review Perform Impression: 1. Patient with grade 2 infiltrating ductal carcinoma of the left breast, stage IIB (T2, N1, M0), ER/CO positive and HER-2/castro positive. 2. Her other medical illnesses include: 8. Chronic migraine. 9. Diverticulosis. 10. She has a significant family history for breast cancer. 11. She had evidence of vitamin D deficiency. Due to the residual axillary lymph node involvement following neoadjuvant TCH-P her treatment was changed from single agent Herceptin to Kadcyla 3.6 mg/kg by IV infusion every 3 weeks for total of 14 cycles. She began cycle 1 Kadcyla on 09/07/2019. She tolerated it with no adverse effects. She then continued the Kadcyla at 3-week intervals. As of 06/04/2020 she completed her 14th and final cycle of Kadcyla. Overall, she tolerated the treatment very well. In June 2020, she presented with a recent onset of a localized herpes zoster eruption in the upper left arm. She was on treatment with Famvir. She otherwise appears to be doing well clinically. Thus far she is tolerating the anastrozole with no significant adverse effects. Plan: PROBLEMS ADDRESSED TODAY 1. Grade 2 infiltrating ductal carcinoma of the left breast stage IIb, ER/CO positive and HER-2/castro positive. She underwent ultrasound-guided biopsy of the left breast on 01/20/2019, and she underwent ultrasound-guided biopsy of a left axillary lymph node on 02/20/2019. She was given neoadjuvant chemotherapy with TCH-P, cycle 1 beginning on 03/06/2019 through 07/03/2019. Her cycle 5 was complicated by severe nausea/vomiting and diarrhea and by C. difficile colitis, but she did recover, and she was able to continue with cycle 6 on 07/03/2019. On 07/20/2019 she underwent left modified radical mastectomy and right simple prophylactic mastectomy. Pathology on the left breast showed a focus of residual grade 2 invasive ductal carcinoma measuring 1.1 cm in greatest dimension. There was involvement in 1/12 lymph nodes with the metastatic focus measuring 0.5 Final staging was ypT1c, ypN1a. She continued systemic adjuvant therapy with single agent Herceptin, cycle 1 on 07/24/2019 and cycle 2 on 08/14/2019. Her treatment was then changed to Kadcyla. She began adjuvant hormonal therapy with anastrozole 1 mg daily on 08/14/2019. On 09/27/2019 she began radiation to the left chest wall and supraclavicular region. She completed treatment to the supraclavicular area on 11/01/2019 to a total dose of 5000 cGy. She completed treatment to the left chest wall on 11/08/2019 to a total dose of 6000 cGy. A. Continue with anastrozole 1 mg daily. B. Her last DEXA scan was on August 21, 2019 at which time she did have a mean femoral neck bone mineral density measuring -1.1 on the T score. She is currently on vitamin D supplementation. She will be due for repeat DEXA on August 21, 2021. C. Today's labs reviewed in detail and discussed with Ms. Briceno and a copy was given to her. WBC 7.1, hemoglobin 12.9, platelets 245,000, ANC is 3700. Potassium 4.1 random glucose 105, creatinine 1.1 calcium normal at 9.7 LFTs are normal. D. She has had bilateral mastectomy and therefore obviously not a candidate date for mammogram monitoring 2. Chronic neuropathy pain chemo related A. She reports resolution of the neuropathy pain at present. She did not have any residual neuropathy pain from her shingles in June 2020. B. She states she is not requiring the gabapentin and has not refilled it. C. We did discuss that she could try [id number] Lidoderm patch or Voltaren gel to the axillary discomfort if she feels she needs it. 3. Follow-up plan A. We will plan to see her back in 3 months with CBC CMP. B. Mrs. Norris was instructed to contact us in the interim should questions or problems arise. Signed By: Jason Silva-, [facility] Sidney Beltran MD <<Signature on File>>
== END 2020-11-04 09:19 | disposition home or self-care (01) ==
LOC: ONCMED 09:20
PROVIDERS: PCP Family Medicine; Visit Provider Nurse Practitioner
DX: C50.412 Malignant neoplasm of upper-outer quadrant of left female breast (principal); C77.3 Secondary and unspecified malignant neoplasm of axilla and upper limb lymph nodes; Z17.0 Estrogen receptor positive status [ER+]; E55.9 Vitamin D deficiency, unspecified; G62.0 Drug-induced polyneuropathy; T45.1X5D Adverse effect of antineoplastic and immunosuppressive drugs, subsequent encounter; Z79.811 Long term (current) use of aromatase inhibitors; Z79.899 Other long term (current) drug therapy; Z90.13 Acquired absence of bilateral breasts and nipples; Z92.3 Personal history of irradiation
CPT/HCPCS: 36591; 80053; 85025; 99214

== ENCOUNTER → 2020-11-13 10:52 | Outpatient (BNVA) | payer OTHER, SELFPAY | PROVIDERS: PCP Family Medicine; Visit Provider Orthopaedic Surgery | DX: S82.851A Displaced trimalleolar fracture of right lower leg, initial encounter for closed fracture (principal); Z98.890 Other specified postprocedural states; X58.XXXA Exposure to other specified factors, initial encounter | CPT/HCPCS: 73610 ==

== ENCOUNTER 2021-02-04 08:00 | Outpatient (CLI) | payer OTHER, SELFPAY ==
[2021-02-04 08:40] LABS: Basophils # 0.1 10^3/uL (0.0-0.1); Basophils % 0.6 %; Eosinophils # 0.2 10^3/uL (0.0-0.8); Eosinophils % 2.4 %; Hematocrit 38.1 % (37.0-47.0); Hemoglobin 12.4 g/dL (11.5-15.3); Lymphocytes # 3.5 10^3/uL (0.8-4.8); Lymphocytes % 40.6 %; Mean Corpuscular HGB Conc 32.5 g/dL (30.0-36.0); Mean Corpuscular Hemoglobin 31.8 pg (28.0-34.0); Mean Corpuscular Volume 97.7 fL (81-99); Mean Platelet Volume 11.1 fL (7.4-10.4); Monocytes # 0.8 10^3/uL (0.2-0.9); Monocytes % 8.8 %; Neutrophils # 4.09 10^3/uL (1.8-7.7); Neutrophils % 47.3 %; Nucleated Red Blood Cells % 0 %; Platelet Count 269 10^3/cmm (130-400); Red Cell Distribution Width 13.2 % (12.1-15.1); White Blood Count 8.7 10^3/uL (4.0-10.0)
[2021-02-04 09:10] LABS: Alanine Aminotransferase 25 U/L (0-33); Albumin Level 4.3 g/dL (3.5-5.2); Alkaline Phosphatase 251 IU/L (35-105); Anion Gap 17.7 (5-19); Aspartate Amino Transferase 29 U/L (0-32); Blood Urea Nitrogen 25 mg/dL (8-23); Carbon Dioxide 23 mmol/L (22-29); Chloride 100 mmol/L (98-107); Globulin 3.6 g/dL (1.3-4.6); Glomerular Filtration Rate 63.4 mL/min (90-130); Glucose 113 mg/dL (65-115); Osmolality Calculated 289 mOsm/kg (285-295); Potassium 3.7 mmol/L (3.5-5.1); Sodium 137 mmol/L (136-145); Total Bilirubin 0.3 mg/dL (0.15-1.2); Total Protein 7.9 g/dL (6.6-8.7)
--- NOTE | 2021-02-08 09:09 | ONC FU_ITS ---
Dr. Beltran Patient Follow-Up Note Patient: Bertha Briceno Unit #: [id number]: 1960 Dicatated By: Sidney Beltran M.D.Date of Visit:Feb 04, 2021 Onc Med Follow-up/Prog Note Chief Complaint: Breast cancer. History of Present Illness: This is a 59 year-old woman with grade 2 infiltrating ductal carcinoma of the left breast, stage IIB (T2, N1, M0), ER/MD positive and HER-2/castro positive. She was found to have an abnormal screening mammogram on 12/27/2018. It was BI-RADS 0, incomplete, with findings of increasing spiculated focal asymmetric density in the upper outer quadrant of the left breast. Diagnostic mammogram/ultrasound on 01/11/2019 was BI-RADS 5, highly suggestive of malignancy. The mammogram showed spiculated mass in the upper-outer left breast measuring 3.5 x 1.8 cm. Ultrasound showed a large hypoechoic solid irregular lesion at the 2:00 position measuring 2.8 x 1.6 x 3.1 cm. Also noted were hypoechoic cysts at the 12:00 and 3:00 positions measuring 5 mm and 12 mm respectively. She underwent ultrasound-guided needle biopsy of the left breast mass on 01/20/2019. Pathology showed grade 2 infiltrating ductal carcinoma. The tumor was noted to be ER positive at 94% and MD positive at 81%, both with strong intensity. HER-2/castro was positive, 3+ by IHC and amplification ratio by FISH of 1.7 with 4.0 HER-2 copies/cell. Staging PET/CT on 02/04/2019 showed an FDG avid lesion in the left breast measuring 1.3 x 1.8 cm, SUV 8.8. A solitary left axillary lymph node measuring 1.3 cm is also FDG avid with SUV 3.8, consistent with local metastatic disease. There were no findings to indicate any distant metastatic disease. Further evaluation with ultrasound of the left breast/axilla on 02/06/2019 showed a superior left axillary lymph node measuring 1.1 x 1.5 x 1.1 cm which appeared to have an intraparenchymal intermediate hyperechoic soft tissue focus, suspicious for metastasis. The remainder of the axillary lymph nodes appeared grossly unremarkable by ultrasound. Ultrasound-guided biopsy of the lymph node on 02/20/2019 showed metastatic adenocarcinoma consistent with the previously diagnosed breast primary. Given those findings, she was recommended to undergo neoadjuvant chemotherapy with TCH-P. She began cycle 1 of TCH-P on 03/06/2019. She experienced very severe GI toxicity, including nausea/vomiting and diarrhea. She required IV hydration, and she also required growth factor support with Neupogen, as she became severely neutropenia at day 8. She recovered uneventfully, and she was able to continue cycle 2 on 03/27/2019 with a reduced dosage of Perjeta. She also was given Neulasta prophylactically, and she was given scheduled IV hydration. She tolerated the treatment well, and she was then able to continue with cycle 3 on 04/18/2019, with cycle 4 on 05/08/2019, and with cycle 5 on 05/29/2019. On 06/03/2019 she was admitted to the hospital with severe nausea/vomiting and diarrhea. Some of this was clearly chemotherapy related, but she also was found to have Clostridium difficile colitis. Her clinical course also was complicated by severe neutropenia and anemia, but she had gradual recovery with appropriate antibiotic therapy. She was then able to continue with cycle 6 of TCH-P on 07/03/2019. On 07/20/2019 she underwent left modified radical mastectomy and right simple prophylactic mastectomy. She tolerated the surgery very well. Pathology on the left breast showed a focus of residual grade 2 invasive ductal carcinoma measuring 1.1 cm in greatest dimension. There was involvement in 1/12 lymph nodes with the metastatic focus measuring 0.5 cm. There was no extranodal extension identified. Final staging was ypT1c, ypN1a. She then continued systemic adjuvant therapy with single agent Herceptin at the 3-week dosing interval, cycle 1 on 07/24/2019 and cycle 2 on 08/14/2019. At that point she also began adjuvant hormonal therapy with anastrozole 1 mg daily. Due to the residual axillary lymph node involvement, her treatment was then changed to Kadcyla 3.6 mg/kg by IV infusion every 21 days. She began cycle 1 on 09/07/2019. She tolerated it well and she continued with cycle 2 on 09/28/2019. On 09/27/2019 she had started on radiation to the left chest wall and supraclavicular region. She completed treatment to the supraclavicular area on 11/01/2019 to a total dose of 5000 cGy. She completed treatment to the left chest wall on 11/08/2019 to a total dose of 6000 cGy. She then continued treatment with Kadcyla at 3-week intervals and she also continued adjuvant hormonal therapy with anastrozole. As of 06/04/2020 she completed her 14th and final cycle of Kadcyla. Her medical history includes fibrocystic breast disease, chronic migraine, and diverticulosis. She underwent natural menopause at age 48. She is a nonsmoker. INTERIM HISTORY: In September 2020 she sustained a traumatic trimalleolar fracture of the right ankle. She underwent ORIF on 10/02/2020. She is seen for a follow-up visit. She has been feeling good generally. She is still having some fatigue following her chemotherapy, but she has normal activity. Appetite is good. She has not had fever. She has just occasional hot flashes. She is a little short of breath with activity. She does not have cough. She still has some soreness in the left chest wall/axillary area. She otherwise is not having chest pain. She has no GI or complaints. She has some joint pain and stiffness, mainly in the lower extremities, but it is tolerable. She does not complain of headache. She has occasional orthostatic lightheadedness. She has a little residual numbness/tingling in her feet. Her neuropathy symptoms have otherwise resolved. Medications: Amitriptyline HCl 2 Tablet (of 25 mg) Tablet Oral daily, Anastrozole 1 Tablet (of 1 mg) Oral daily, Famciclovir 1 Tablet (of 500 mg) Oral t.i.d., HYDROcodone-Acetaminophen 1 Tablet (of 7.5-325 mg) Oral 8x/d, Imodium A-D 1 Tablet (of 2 mg) Oral PRN, LORazepam 0.5 - 1 Tablet (of 1 mg) Oral t.i.d. PRN, Omeprazole 1 Tablet (of 20 mg) Tablet, enteric coated Oral daily, Ondansetron HCl 1 Tablet (of 8 mg) Oral t.i.d. PRN, Prochlorperazine Maleate 1 Tablet (of 10 mg) Oral q 4 hours PRN, Propranolol HCl 1 Tablet (of 40 mg) Oral daily, Vitamin D-[address] 1 Tablet (of 5000 Units) Oral daily Allergies: Aleve and Flagyl. Vital Signs: Performed on Feb 04, 2021 10:24 Height - 62.00 in Weight - 162.4 lbs (HIGH) BSA - 1.75 sq.m BMI - 29.70 Temperature - 96.9 F (LOW) Pulse - 88 /min Respiration - 18 /min BP - 154/88 mm(hg) (HIGH) O2 Sat - 100 % Pain - 0 Fatigue - 0 Physical Examination: Constitutional - She looks good generally, Eyes - Sclerae nonicteric. Conjunctivae clear, ENMT - No lesions noted in the oral cavity, Hematologic/Lymphatic - No cervical or clavicular adenopathy, Respiratory - Lungs are clear with good air movement bilaterally, Cardiovascular - Heart rhythm is regular. There is no murmur, gallop, or rub noted, Breasts - There is no chest wall lesions noted. There is no axillary adenopathy, Abdomen - Soft. Liver and spleen are not enlarged. There is no abdominal mass or ascites noted and there is no inguinal adenopathy, Extremities - No edema, Neurologic - No focal neurologic deficits noted. Lab/Imaging: Test performed on Feb 04, 2021 08:10 Sodium 137 mmol/L Potassium 3.7 mmol/L Chloride 100 mmol/L CO2 23 mmol/L Anion Gap 17.7 BUN 25 mg/dL Creatinine 0.9 mg/dL Cr Clearance (Est) 74.3500 mL/min eGFR 63.4 mL/min Glucose 113 mg/dL Osmolality - Calculated 289 mOsm/kg Calcium 10.0 mg/dL Protein, Total 7.9 g/dL Albumin 4.3 g/dL Globulin 3.6 g/dL Bilirubin, Total 0.3 mg/dL ALT (SGPT) 25 U/L AST (SGOT) 29 U/L Alkaline Phosphatase 251 IU/L WBC 8.7 10 3/uL RBC 3.90 10 6/uL HGB 12.4 g/dL HCT 38.1 % MCV 97.7 fL MCH 31.8 pg MCHC 32.5 g/dL RDW 13.2 % Platelet Count 269 10 3/cmm MPV 11.1 fL Neutrophils 4.09 10 3/uL Lymphocytes 3.5 10 3/uL Monocytes 0.8 10 3/uL Eosinophils 0.2 10 3/uL Basophils 0.1 10 3/uL Neutrophil % 47.3 % Lymphocyte % 40.6 % Monocyte % 8.8 % Eosinophil % 2.4 % Basophils % 0.6 % NRBC % 0 % Problem List: 1. Grade 2 infiltrating ductal carcinoma of the left breast, stage IIB (T2, N1, M0), ER/MD positive and HER-2/castro positive. 2. Chronic migraine. 3. Diverticulosis. 4. She has a significant family history for breast cancer. 5. She had evidence of vitamin D deficiency. Problems Addressed with this Encounter and Plan: Patient with grade 2 infiltrating ductal carcinoma of the left breast, stage IIB (T2, N1, M0), ER/MD positive and HER-2/castro positive. She underwent ultrasound-guided biopsy of the left breast on 01/20/2019, and she underwent ultrasound-guided biopsy of a left axillary lymph node on 02/20/2019. She was given neoadjuvant chemotherapy with TCH-P, cycle 1 beginning on 03/06/2019 through 07/03/2019. Her cycle 5 was complicated by severe nausea/vomiting and diarrhea and by C. difficile colitis, but she did recover, and she was able to continue with cycle 6 on 07/03/2019. On 07/20/2019 she underwent left modified radical mastectomy and right simple prophylactic mastectomy. Pathology on the left breast showed a focus of residual grade 2 invasive ductal carcinoma measuring 1.1 cm in greatest dimension. There was involvement in 1/12 lymph nodes with the metastatic focus measuring 0.5 Final staging was ypT1c, ypN1a. She continued systemic adjuvant therapy with single agent Herceptin, cycle 1 on 07/24/2019 and cycle 2 on 08/14/2019. She began adjuvant hormonal therapy with anastrozole 1 mg daily on 08/14/2019. Due to the residual axillary lymph node involvement following neoadjuvant TCH-P, her treatment was changed from single agent Herceptin to Kadcyla 3.6 mg/kg by IV infusion every 3 weeks for total of 14 cycles. She began cycle 1 Kadcyla on 09/07/2019. On 09/27/2019 she began radiation to the left chest wall and supraclavicular region. She completed treatment to the supraclavicular area on 11/01/2019 to a total dose of 5000 cGy. She completed treatment to the left chest wall on 11/08/2019 to a total dose of 6000 cGy. She then continued the Kadcyla at 3-week intervals and she continued adjuvant hormonal therapy with anastrozole. As of 06/04/2020 she completed her 14th and final cycle of Kadcyla. Overall, she tolerated the treatment very well. In September 2020 when she suffered a traumatic trimalleolar fracture of the right ankle, requiring ORIF. She has otherwise been doing very well clinically. She has been tolerating the anastrozole with acceptable toxicity. There has been no evidence of recurrence of the breast cancer, but she has had a persistently elevated alkaline phosphatase level, which is of some concern. For now she continues adjuvant hormonal therapy with anastrozole 1 mg daily. As a precaution, I am going to recheck her lab studies monthly with her port flushes. She will be scheduled for a follow-up visit in 3 months. Signed By: Sidney Beltran M.D. <<Signature on File>>
== END 2021-02-04 08:01 | disposition home or self-care (01) ==
LOC: ONCMED 08:01
PROVIDERS: PCP Family Medicine; Visit Provider Internal Medicine Medical Oncology
DX: C50.812 Malignant neoplasm of overlapping sites of left female breast (principal); Z17.0 Estrogen receptor positive status [ER+]; G43.709 Chronic migraine without aura, not intractable, without status migrainosus; K57.90 Diverticulosis of intestine, part unspecified, without perforation or abscess without bleeding; Z80.3 Family history of malignant neoplasm of breast; Z92.21 Personal history of antineoplastic chemotherapy; Z90.13 Acquired absence of bilateral breasts and nipples; Z92.3 Personal history of irradiation; Z79.811 Long term (current) use of aromatase inhibitors
CPT/HCPCS: 36591; 80053; 85025; 99214

== ENCOUNTER 2021-03-11 07:52 | Outpatient (CLI) | payer OTHER, SELFPAY ==
[2021-03-11 08:57] LABS: Alkaline Phosphatase 322 IU/L (35-105)
== END 2021-03-11 07:53 | disposition home or self-care (01) ==
PROVIDERS: PCP Family Medicine; Visit Provider Internal Medicine Medical Oncology
DX: C50.812 Malignant neoplasm of overlapping sites of left female breast (principal); Z17.0 Estrogen receptor positive status [ER+]; Z79.899 Other long term (current) drug therapy
CPT/HCPCS: 36591; 84075; 84080

== ENCOUNTER 2021-04-11 10:19 | Outpatient (CLI) | payer OTHER, SELFPAY ==
[2021-04-11 11:30] LABS: Alanine Aminotransferase 17 U/L (0-33); Albumin Level 3.7 g/dL (3.5-5.2); Alkaline Phosphatase 146 IU/L (35-105); Anion Gap 12.9 (5-19); Aspartate Amino Transferase 18 U/L (0-32); Blood Urea Nitrogen 20 mg/dL (8-23); Calcium 9.1 mg/dL (8.5-10.5); Carbon Dioxide 27 mmol/L (22-29); Chloride 103 mmol/L (98-107); Glomerular Filtration Rate 63.4 mL/min (90-130); Glucose 82 mg/dL (65-115); Osmolality Calculated 290 mOsm/kg (285-295); Potassium 3.9 mmol/L (3.5-5.1); Sodium 139 mmol/L (136-145); Total Bilirubin 0.2 mg/dL (0.15-1.2); Total Protein 7.7 g/dL (6.6-8.7)
--- NOTE | 2021-04-11 12:01 | CT_ITS ---
WS: [id number] CT CHEST, ABDOMEN AND PELVIS WITH CONTRAST HISTORY: BREAST CA-ELEVATED ALK PHOS TECHNIQUE: Contiguous 5 mm axial imaging performed through the chest, abdomen and pelvis with IV cont rast, oral contrast has been provided. Coronal and sagittal reformats chest. Coronal and sagittal ref ormats through the abdomen and pelvis. All CT scans at [facility] use at least one of the se dose optimization techniques: automated exposure control; mA and/or kV adjustment per patient size (includes targeted exams where dose is matched to clinical indication); or iterative reconstruction. CONTRAST: Omnipaque 300; 95 mL IV. DLP: 1253.26 mGy.cm COMPARISON: 06/15/2019 and 06/03/2019. Chest CT: Fibrosis and scarring at the LEFT lung apex mild pleural thickening anteriorly in the LEFT upper lobe. No pulmonary nodules or masses are identified. No pericardial or pleural effusions. No me diastinal or hilar adenopathy. Mediport is noted introduced through the RIGHT subclavian vein. Mild a therosclerosis of the aorta. Normal size pulmonary artery. Mild thickening of the distal esophagus. I ncrease in thoracic kyphosis with S-shaped scoliosis of the thoracic and lumbar spines. Bilateral mas tectomies. Abnormal density within the lateral LEFT seventh and eighth ribs. Suspect pathological fra ctures. Abdomen CT: No metastatic disease within the liver. 3 mm low-attenuation nodule in the far lateral RI GHT lobe of the liver is similar to the prior study. Spleen is normal size. Gallbladder is normal. Mi ld atrophy of the pancreas. No bile duct dilatation. No adrenal mass. Both kidneys are normal size. N o ascites or adenopathy. Large amount of fecal retention in the RIGHT colon. Cecum is deep within the RIGHT pelvis. There are additional numerous diverticula throughout the distal colon. Mild circumferential wall thickening. Ve ntral abdominal wall hernia contains fat only. Pelvic CT: No free fluid or adenopathy. Minimally distended urinary bladder. Uterus is anteverted and normal size for age. No osteoblastic or osteolytic bone disease. CT/CT chest abd pel w con* IMPRESSION: 1. Status post bilateral mastectomies. 2. No metastatic disease to the lungs, liver or adrenal glands. 3. Abnormal density involving the LEFT seventh and eighth ribs. May be patholo gical fractures. Recommend bone scan imaging. 4. New scarring at the LEFT lung apex. May be postradiation treatment. 5. Distal colon diverticulosis without acute diverticulitis.
[2021-04-11] MEDS: iohexol 300 mg/mL 100 mL Btl IV (13:58)
[2021-04-11] MEDS: iohexol 300 mg/mL 50 mL Btl IV (13:59)
== END 2021-04-11 10:20 | disposition home or self-care (01) ==
PROVIDERS: PCP Family Medicine; Visit Provider Internal Medicine Medical Oncology
DX: C50.412 Malignant neoplasm of upper-outer quadrant of left female breast (principal); Z17.0 Estrogen receptor positive status [ER+]; Z90.13 Acquired absence of bilateral breasts and nipples; R93.89 Abnormal findings on diagnostic imaging of other specified body structures; K57.90 Diverticulosis of intestine, part unspecified, without perforation or abscess without bleeding
CPT/HCPCS: 36415; 71260; 74177; 80053; 96523; Q9967

== ENCOUNTER 2021-04-23 07:57 | Outpatient (CLI) | payer OTHER, SELFPAY ==
--- NOTE | 2021-04-23 08:16 | NM_ITS ---
WS: [id number] NUCLEAR MEDICINE BONE SCAN Radiopharmaceutical: 25.9 Tc-99m MDP mCi IV Injection site: Antecubital Postinjection imaging delay: 1 hr CLINICAL INFORMATION: BREAST CANCER COMPARISON: CT April 11, 2021 FINDINGS: Bone lesions: There are no osseous lesions suspicious for metastatic disease. No abnormal rib uptake. Soft tissue contours: Normal. Kidneys: Normal. Other findings: Mild thoracolumbar curve with degenerative uptake. Degenerative type uptake involving the right AC joint, both knees, and right ankle. NM/NM bone scan whole body* [id number] IMPRESSION: No evidence of osseous metastatic disease.
== END 2021-04-23 07:58 | disposition home or self-care (01) ==
LOC: RAD 08:13
PROVIDERS: PCP Family Medicine; Visit Provider Internal Medicine Medical Oncology
DX: C50.412 Malignant neoplasm of upper-outer quadrant of left female breast (principal)
CPT/HCPCS: 78306; A9561

== ENCOUNTER 2021-05-13 12:48 | Outpatient (CLI) | payer OTHER, SELFPAY ==
[2021-05-13 13:30] LABS: Basophils % 0.4 %; Eosinophils # 0.2 10^3/uL (0.0-0.8); Eosinophils % 2.9 %; Hematocrit 37.3 % (37.0-47.0); Lymphocytes # 2.9 10^3/uL (0.8-4.8); Lymphocytes % 35.9 %; Mean Corpuscular HGB Conc 32.2 g/dL (30.0-36.0); Mean Corpuscular Hemoglobin 30.8 pg (28.0-34.0); Mean Corpuscular Volume 95.9 fl (81-99); Mean Platelet Volume 11.3 fL (7.4-10.4); Monocytes # 0.8 10^3/uL (0.2-0.9); Monocytes % 10.4 %; Neutrophils # 4.05 10^3/uL (1.8-7.7); Neutrophils % 50.2 %; Nucleated Red Blood Cells % 0 %; Platelet Count 238 10^3/cmm (130-400); Red Blood Count 3.89 10^6/uL (4.1-5.3); Red Cell Distribution Width 13.2 % (12.1-15.1); White Blood Count 8.1 10^3/uL (4.0-10.0)
[2021-05-13 14:03] LABS: Alanine Aminotransferase 20 U/L (0-33); Albumin Level 3.7 g/dL (3.5-5.2); Alkaline Phosphatase 133 IU/L (35-105); Anion Gap 13.1 (5-19); Aspartate Amino Transferase 22 U/L (0-32); Blood Urea Nitrogen 29 mg/dL (8-23); Calcium 9.1 mg/dL (8.5-10.5); Carbon Dioxide 26 mmol/L (22-29); Chloride 103 mmol/L (98-107); Globulin 3.3 g/dL (1.3-4.6); Glomerular Filtration Rate 50.3 mL/min (90-130); Glucose 93 mg/dL (65-115); Osmolality Calculated 292 mOsm/kg (285-295); Potassium 4.1 mmol/L (3.5-5.1); Sodium 138 mmol/L (136-145); Total Bilirubin 0.2 mg/dL (0.15-1.2)
--- NOTE | 2021-05-13 17:13 | ONC FU_ITS ---
Dr. Beltran Patient Follow-Up Note Patient: Bertha Briceno Unit #: [id number]: [id number] Dicatated By: Sidney Beltran M.D.Date of Visit:May 13, 2021 Onc Med Follow-up/Prog Note Chief Complaint: Breast cancer. History of Present Illness: This is a 60 year-old woman with grade 2 infiltrating ductal carcinoma of the left breast, stage IIB (T2, N1, M0), ER/AZ positive and HER-2/castro positive. She was found to have an abnormal screening mammogram on 12/27/2018. It was BI-RADS 0, incomplete, with findings of increasing spiculated focal asymmetric density in the upper outer quadrant of the left breast. Diagnostic mammogram/ultrasound on 01/11/2019 was BI-RADS 5, highly suggestive of malignancy. The mammogram showed spiculated mass in the upper-outer left breast measuring 3.5 x 1.8 cm. Ultrasound showed a large hypoechoic solid irregular lesion at the 2:00 position measuring 2.8 x 1.6 x 3.1 cm. Also noted were hypoechoic cysts at the 12:00 and 3:00 positions measuring 5 mm and 12 mm respectively. She underwent ultrasound-guided needle biopsy of the left breast mass on 01/20/2019. Pathology showed grade 2 infiltrating ductal carcinoma. The tumor was noted to be ER positive at 94% and AZ positive at 81%, both with strong intensity. HER-2/castro was positive, 3+ by IHC and amplification ratio by FISH of 1.7 with 4.0 HER-2 copies/cell. Staging PET/CT on 02/04/2019 showed an FDG avid lesion in the left breast measuring 1.3 x 1.8 cm, SUV 8.8. A solitary left axillary lymph node measuring 1.3 cm is also FDG avid with SUV 3.8, consistent with local metastatic disease. There were no findings to indicate any distant metastatic disease. Further evaluation with ultrasound of the left breast/axilla on 02/06/2019 showed a superior left axillary lymph node measuring 1.1 x 1.5 x 1.1 cm which appeared to have an intraparenchymal intermediate hyperechoic soft tissue focus, suspicious for metastasis. The remainder of the axillary lymph nodes appeared grossly unremarkable by ultrasound. Ultrasound-guided biopsy of the lymph node on 02/20/2019 showed metastatic adenocarcinoma consistent with the previously diagnosed breast primary. Given those findings, she was recommended to undergo neoadjuvant chemotherapy with TCH-P. She began cycle 1 of TCH-P on 03/06/2019. She experienced very severe GI toxicity, including nausea/vomiting and diarrhea. She required IV hydration, and she also required growth factor support with Neupogen, as she became severely neutropenia at day 8. She recovered uneventfully, and she was able to continue cycle 2 on 03/27/2019 with a reduced dosage of Perjeta. She also was given Neulasta prophylactically, and she was given scheduled IV hydration. She tolerated the treatment well, and she was then able to continue with cycle 3 on 04/18/2019, with cycle 4 on 05/08/2019, and with cycle 5 on 05/29/2019. On 06/03/2019 she was admitted to the hospital with severe nausea/vomiting and diarrhea. Some of this was clearly chemotherapy related, but she also was found to have Clostridium difficile colitis. Her clinical course also was complicated by severe neutropenia and anemia, but she had gradual recovery with appropriate antibiotic therapy. She was then able to continue with cycle 6 of TCH-P on 07/03/2019. On 07/20/2019 she underwent left modified radical mastectomy and right simple prophylactic mastectomy. She tolerated the surgery very well. Pathology on the left breast showed a focus of residual grade 2 invasive ductal carcinoma measuring 1.1 cm in greatest dimension. There was involvement in 1/12 lymph nodes with the metastatic focus measuring 0.5 cm. There was no extranodal extension identified. Final staging was ypT1c, ypN1a. She then continued systemic adjuvant therapy with single agent Herceptin at the 3-week dosing interval, cycle 1 on 07/24/2019 and cycle 2 on 08/14/2019. At that point she also began adjuvant hormonal therapy with anastrozole 1 mg daily. Due to the residual axillary lymph node involvement, her treatment was then changed to Kadcyla 3.6 mg/kg by IV infusion every 21 days. She began cycle 1 on 09/07/2019. She tolerated it well and she continued with cycle 2 on 09/28/2019. On 09/27/2019 she had started on radiation to the left chest wall and supraclavicular region. She completed treatment to the supraclavicular area on 11/01/2019 to a total dose of 5000 cGy. She completed treatment to the left chest wall on 11/08/2019 to a total dose of 6000 cGy. She then continued treatment with Kadcyla at 3-week intervals and she also continued adjuvant hormonal therapy with anastrozole. As of 06/04/2020 she completed her 14th and final cycle of Kadcyla. She continued her adjuvant hormonal therapy with anastrozole 1 mg daily. Her medical history includes fibrocystic breast disease, chronic migraine, and diverticulosis. She underwent natural menopause at age 48. She is a nonsmoker. INTERIM HISTORY: In September 2020 she sustained a traumatic trimalleolar fracture of the right ankle. She underwent ORIF on 10/02/2020. As of her follow-up visit in January 2021 her alkaline phosphatase had gotten up to 251 IU/mL, and has of 03/11/2021 he had further increase to 322 IU/mL. Her restaging CT scans of the chest, abdomen, pelvis on 04/11/2021 showed no evidence of metastatic disease, there was abnormal density involving the left seventh and eighth ribs, possibly due to pathologic fractures. A subsequent bone scan on 04/23/2021 showed no osseous lesions which were suspicious for metastatic disease. There was degenerative type uptake involving the right AC joint, both knees, and right ankle. She is seen for a follow-up visit. She says that her younger sister is now undergoing treatment for triple negative breast cancer. She has been feeling good generally. She still has some fatigue, but she has normal activity. ECOG score is 0. Her appetite has been good. She has not had fever or night sweats. She has just occasional hot flashes. She has some shortness of breath with activity. She does not complain of cough and she has not been having chest pain. She currently has no GI or complaints. She has no significant joint or bone pain. She has just occasional headache. She also has occasional orthostatic lightheadedness. Her neuropathy symptoms have largely resolved. She has just occasional numbness/tingling in her feet. Medications: Amitriptyline HCl 2 Tablet (of 25 mg) Tablet Oral daily, Anastrozole 1 Tablet (of 1 mg) Oral daily, Famciclovir 1 Tablet (of 500 mg) Oral t.i.d., HYDROcodone-Acetaminophen 1 Tablet (of 7.5-325 mg) Oral 8x/d, Imodium A-D 1 Tablet (of 2 mg) Oral PRN, LORazepam 0.5 - 1 Tablet (of 1 mg) Oral t.i.d. PRN, Omeprazole 1 Tablet (of 20 mg) Tablet, enteric coated Oral daily, Ondansetron HCl 1 Tablet (of 8 mg) Oral t.i.d. PRN, Prochlorperazine Maleate 1 Tablet (of 10 mg) Oral q 4 hours PRN, Propranolol HCl 1 Tablet (of 40 mg) Oral daily, Vitamin D-[address] 1 Tablet (of 5000 Units) Oral daily Allergies: Aleve and Flagyl. Vital Signs: Performed on May 13, 2021 17:10 Height - 62.00 in Weight - 165.4 lbs (HIGH) BSA - 1.76 sq.m BMI - 30.25 (HIGH) Temperature - 97.5 F (LOW) Pulse - 63 /min Respiration - 18 /min BP - 120/75 mm(hg) O2 Sat - 97 % Pain - 0 Fatigue - 0 Physical Examination: Constitutional - She looks good generally, Eyes - Sclerae nonicteric. Conjunctivae clear, ENMT - No lesions noted in the oral cavity, Hematologic/Lymphatic - No cervical, clavicular, or axillary adenopathy, Respiratory - Lungs are clear with good air movement bilaterally, Cardiovascular - Heart rhythm is regular. There is no murmur, gallop, or rub noted, Abdomen - Soft. Liver and spleen are not enlarged. There is no abdominal mass or ascites noted and there is no inguinal adenopathy, Extremities - No edema, Neurologic - No focal neurologic deficits noted. Lab/Imaging: Test performed on May 13, 2021 13:10 Sodium 138 mmol/L Potassium 4.1 mmol/L Chloride 103 mmol/L CO2 26 mmol/L Anion Gap 13.1 BUN 29 mg/dL Creatinine 1.1 mg/dL Cr Clearance (Est) 60.8300 mL/min eGFR 50.3 mL/min Glucose 93 mg/dL Osmolality - Calculated 292 mOsm/kg Calcium 9.1 mg/dL Protein, Total 7.0 g/dL Albumin 3.7 g/dL Globulin 3.3 g/dL Bilirubin, Total 0.2 mg/dL ALT (SGPT) 20 U/L AST (SGOT) 22 U/L Alkaline Phosphatase 133 IU/L Problem List: 1. Grade 2 infiltrating ductal carcinoma of the left breast, stage IIB (T2, N1, M0), ER/AZ positive and HER-2/castro positive. 2. Chronic migraine. 3. Diverticulosis. 4. She has a significant family history for breast cancer. 5. She had evidence of vitamin D deficiency. Problems Addressed with this Encounter and Plan: Patient with grade 2 infiltrating ductal carcinoma of the left breast, stage IIB (T2, N1, M0), ER/AZ positive and HER-2/castro positive. She underwent ultrasound-guided biopsy of the left breast on 01/20/2019, and she underwent ultrasound-guided biopsy of a left axillary lymph node on 02/20/2019. She was given neoadjuvant chemotherapy with TCH-P, cycle 1 beginning on 03/06/2019 through 07/03/2019. Her cycle 5 was complicated by severe nausea/vomiting and diarrhea and by C. difficile colitis, but she did recover, and she was able to continue with cycle 6 on 07/03/2019. On 07/20/2019 she underwent left modified radical mastectomy and right simple prophylactic mastectomy. Pathology on the left breast showed a focus of residual grade 2 invasive ductal carcinoma measuring 1.1 cm in greatest dimension. There was involvement in 1/12 lymph nodes with the metastatic focus measuring 0.5 Final staging was ypT1c, ypN1a. She continued systemic adjuvant therapy with single agent Herceptin, cycle 1 on 07/24/2019 and cycle 2 on 08/14/2019. She began adjuvant hormonal therapy with anastrozole 1 mg daily on 08/14/2019. Due to the residual axillary lymph node involvement following neoadjuvant TCH-P, her treatment was changed from single agent Herceptin to Kadcyla 3.6 mg/kg by IV infusion every 3 weeks for total of 14 cycles. She began cycle 1 Kadcyla on 09/07/2019. On 09/27/2019 she began radiation to the left chest wall and supraclavicular region. She completed treatment to the supraclavicular area on 11/01/2019 to a total dose of 5000 cGy. She completed treatment to the left chest wall on 11/08/2019 to a total dose of 6000 cGy. She then continued the Kadcyla at 3-week intervals and she continued adjuvant hormonal therapy with anastrozole. As of 06/04/2020 she completed her 14th and final cycle of Kadcyla. Overall, she tolerated the treatment very well. In September 2020 when she suffered a traumatic trimalleolar fracture of the right ankle, requiring ORIF. She recovered uneventfully. She continued adjuvant hormonal therapy with anastrozole. As of February 2021 there was a significant increase in her alkaline phosphatase level. Her restaging with CT scans of the chest, abdomen, and pelvis and with bone scan showed no evidence of metastatic disease. Overall, she appears to be doing well clinically. She has been tolerating the anastrozole with no significant adverse effects, and thus far there has been no evidence of recurrence of the breast cancer. She continues hormonal therapy with anastrozole 1 mg daily. She will be scheduled for a follow-up visit in 3 months. Signed By: Sidney Beltran M.D. <<Signature on File>>
== END 2021-05-13 12:49 | disposition home or self-care (01) ==
LOC: ONCMED 12:49
PROVIDERS: PCP Family Medicine; Visit Provider Internal Medicine Medical Oncology
DX: C50.412 Malignant neoplasm of upper-outer quadrant of left female breast (principal); Z17.0 Estrogen receptor positive status [ER+]; K57.90 Diverticulosis of intestine, part unspecified, without perforation or abscess without bleeding; E55.9 Vitamin D deficiency, unspecified; Z80.3 Family history of malignant neoplasm of breast; Z79.811 Long term (current) use of aromatase inhibitors; Z90.13 Acquired absence of bilateral breasts and nipples; Z79.899 Other long term (current) drug therapy; Z79.891 Long term (current) use of opiate analgesic
CPT/HCPCS: 36591; 80053; 85025; 99214

== ENCOUNTER 2021-06-13 11:21 | Outpatient (CLI) | payer OTHER, SELFPAY | END 2021-06-13 11:22 | disposition home or self-care (01) | LOC: ONCMED 11:24 | PROVIDERS: PCP Family Medicine; Visit Provider Internal Medicine Medical Oncology | DX: Z45.2 Encounter for adjustment and management of vascular access device (principal) | CPT/HCPCS: 96523 ==

== ENCOUNTER 2021-06-21 07:24 | Emergency (ER) | payer OTHER, SELFPAY ==
[2021-06-21] VITALS (8 sets, daily range): BP systolic 116–136; BP diastolic 72–91; PULSE 97–119; RESP 14–20; TEMP 37.8; O2SAT 95–99; BMI 29.2
--- NOTE | 2021-06-21 07:41 | CTR_ITS ---
PROCEDURE INFORMATION: Exam: CT Abdomen And Pelvis With Contrast Exam date and time: 06/21/2021 7:41 AM Age: 60 years old Clinical indication: Abdominal pain; Prior surgery; Surgery type: Appy, tubal; Additional info: Llq abdominal pain and nausea, history of bowel abscess and micro perforations TECHNIQUE: Imaging protocol: Computed tomography of the abdomen and pelvis with contrast. Total images: 225 Radiation optimization: All CT scans at this facility use at least one of these dose optimization techniques: automated exposure control; mA and/or kV adjustment per patient size (includes targeted exams where dose is matched to clinical indication); or iterative reconstruction. Contrast material: VISI 320; Contrast volume: 95 ml; Contrast route: INTRAVENOUS (IV); COMPARISON: CT chest abd pel w con* 04/11/2021 1:53 PM RADIATION DOSE METRICS: Total DLP (mGy-cm): 1370.32 FINDINGS: Diaphragm: A small hiatal hernia is present. Liver: Normal. No mass. Gallbladder and bile ducts: Common bile duct diameter is 12 mm. Pancreas: Normal. No ductal dilation. Spleen: Normal. No splenomegaly. Adrenal glands: Normal. No mass. Kidneys and ureters: Normal. No hydronephrosis. Stomach and bowel: Sigmoid colon demonstrates mild acute diverticulitis. Appendix: No evidence of appendicitis. Intraperitoneal space: Small amount of free fluid noted within the pelvis but no loculated fluid collection to suggest an abscess. Vasculature: Incidental phleboliths noted. Lymph nodes: Unremarkable. No enlarged lymph nodes. Urinary bladder: Unremarkable as visualized. Reproductive: Unremarkable as visualized. Bones/joints: Facet joint degenerative changes are present. Spinal degenerative changes are evident. Soft tissues: Unremarkable. CT/CT abdomen pelvis w con* [id number] IMPRESSION: 1. Sigmoid colon demonstrates mild acute diverticulitis. No perforation. No abscess. 2. Small amount of free fluid noted within the pelvis but no loculated fluid collection to suggest an abscess. 3. Common bile duct diameter is 12 mm. If there is clinical or laboratory evidence of biliary obstructive process, ERCP or MRCP could further define. Radiation Dose CTDIVOL = (mGy): DLP = 1370.32 (mGy-cm)
--- NOTE | 2021-06-21 07:44 | ED_ITS ---
HPI - Abdominal Pain General: Chief Complaint: Abdominal Pain Stated Complaint: abd cramping x 2 days Time Seen by Provider: 06/21/21 07:32 History of Present Illness: HPI narrative: Patient is a 60-year-old female comes to the ED with abdominal pain. Symptoms started approximately 2 days ago. Patient has a history of breast cancer and bowel abscess. Patient's abdominal pain she rates currently a 7 out of 10 and its constant cramping pain with episodes of more severe pain that she rates a 10 out of 10. She also endorses having some nausea with a couple episodes of dry heaves. She feels like she has to have a bowel movement but has been unable to have one. Denies any diarrhea, fevers, chills, dysuria or hematuria. Associated Symptoms: Reports constipation, nausea and vomiting; Denies chills, diarrhea, dysuria, fever(s), hematochezia and hematuria Review of Systems Const: Denies: fever(s), chills or fatigue Eyes: Denies: change in vision or eye discomfort ENMT: Denies: throat pain, odynophagia, nasal discharge or nasal congestion Card: Denies: chest pain, palpitations, edema, swelling of feet/ankles, dyspnea on exertion or orthopnea Resp: Denies: dyspnea, productive cough or non-productive cough GI: Reports: abdominal pain, nausea, vomiting and constipation; Denies: diarrhea or hematochezia : Denies: flank pain, dysuria or hematuria Musc: Denies: neck pain, back pain or extremity swelling Skin/Breast: Denies: rash or new lesions Neuro: Denies: headache(s), numbness in extremities or weakness in extremities [facility] ED PFSH: Medical History History of breast cancer Social History Smoking and tobacco status: never smoked Alcohol intake: never Physical Exam Const: COMMON NORMALS: no acute distress, patient oriented x3 and alert GENERAL APPEARANCE: cooperative and comfortable HENMT: COMMON NORMALS: normocephalic HEAD & SCALP: normocephalic MOUTH: Normal oral and palatal mucosa present THROAT: posterior oropharynx normal and uvula midline Eye: COMMON NORMALS: Equal, round and reactive pupils present PUPIL: Yes Equal, round and reactive pupils present Neck/C-Spine: COMMON NORMALS: supple GENERAL: Yes normal visual inspection Resp: COMMON NORMALS: normal respiratory effort, No retractions, No use of accessory muscles and clear to auscultation bilaterally AUSCULTATION: clear to auscultation bilaterally Cardio: COMMON NORMALS: regular rate, regular rhythm, S1 normal heart sound present, S2 normal heart sound present, No gallops present (Cardio), No clicks present (Cardio), No murmurs present (Cardio) and Peripheral pulses 2+ throughout RATE: regular rate RHYTHM: regular rhythm HEART SOUNDS: S1 normal heart sound present and S2 normal heart sound present PERIPHERAL PULSES: Peripheral pulses 2+ throughout GI: COMMON NORMALS: Normal to inspection, nondistended, normoactive bowel sounds present, Soft to palpation and no masses PALPATION: Yes Soft to palpation and Yes Tenderness to palpation present (GI) Details: LLQ : COMMON NORMALS: Yes no CVA tenderness BLADDER/KIDNEY EXAM: Yes no CVA tenderness Back/Pelvis: COMMON NORMALS: no CVA tenderness Extremity: COMMON NORMALS: normal to inspection Neuro: COMMON NORMALS: patient oriented x3 SENSORIUM/ORIENTATION: Yes alert GAIT: Yes Normal gait present Skin: GENERAL SKIN EXAM: dry skin Course Vital Signs: Vital signs: Vital Signs Temperature 100.0 F H 06/21/21 07:32 Pulse Rate 97 06/21/21 12:42 Respiratory Rate 16 06/21/21 12:42 Blood Pressure 116/73 06/21/21 12:42 Pulse Oximetry 99 06/21/21 12:42 MDM - Abdominal Pain MDM Narrative: Medical decision making narrative: Patient is a 60-year-old female comes to the ED with abdominal pain in the left lower quadrant. She has a history of a bowel abscess in the past. Denies any fever, chills bloody diarrhea or emesis. Patient does endorse some nausea. Patient was a little tacky to 1 upon arrival but pulse went back to normal after she received some pain meds. Exam was remarkable for some left lower quadrant abdominal tenderness. Patient had no other palpable abdominal tenderness throughout her abdomen. White blood cell count 11.7 the rest of the labs were unremarkable. Lactic was normal at 0.8. Lipase 15. All patient's liver function tests were normal total bili 0.4. CT of abdomen pelvis showed diverticulitis with no perforation or abscess seen. CT also noted patient had common bile duct diameter of 12 mm. Ultrasound of the gallbladder was performed and it did show cholelithiasis with gallbladder wall around 3 mm and no periCholecystic fluid. Common bile duct was measured around 7 to 9 mm but they said if there is any clinical or laboratory evidence of biliary obstructive process an ERCP or MRCP could further define. Patient clinically does not appear to be having any right upper quadrant complaints. She has no right upper quadrant tenderness and all her liver function tests and total bili were normal. I placed an order with case management for referral to general surgery for them to follow-up with her on her gallbladder findings on the ultrasound and potentially do further evaluation if needed. I thought they could also follow-up with her on her diverticulitis. I placed an order with case management for patient be referred to general surgery. Patient was given a dose of IV antibiotics while here in the ED along with 1 L of IV fluids and some Zofran for nausea. Patient was discharged home with a prescription for Cipro, Flagyl, Zofran and a written prescription for hydrocodone for pain. I told her protective services case worker will contact her in the next several days set up an appointment with general surgery. Return to ED precautions given. Patient understood and agreed with plan. Lab Data: Attestation: I reviewed the patient's lab results. Labs: Lab Results 06/21/21 06/21/21 06/21/21 07:44 08:29 08:29 WBC 11.7 10^3/uL H 10 ^3/uL (4.0-10.0) RBC 4.23 10^6/uL 10^6 /uL (4.1-5.3) Hgb 12.8 g/dL g/dL (11.5-15.3) Hct 39.2 % % (37.0-47.0) MCV 92.7 fl fl (81-99) MCH 30.3 pg pg (28.0-34.0) MCHC 32.7 g/dL g/dL (30.0-36.0) RDW 13.5 % % (12.1-15.1) Plt Count 262 10^3/cmm 10^3 /cmm (130-400) MPV 10.6 fL H fL (7.4-10.4) Neut % (Auto) 81.2 % % Lymph % (Auto) 12.7 % % Tyler % (Auto) 5.4 % % Eos % (Auto) 0.1 % % Baso % (Auto) 0.3 % % Neut # (Auto) 9.54 10^3/uL H 10 ^3/uL (1.8-7.7) Lymph # (Auto) 1.5 10^3/uL 10^3/ uL (0.8-4.8) Tyler # (Auto) 0.6 10^3/uL 10^3/ uL (0.2-0.9) Eos # (Auto) 0.0 10^3/uL 10^3/ uL (0.0-0.8) Baso # (Auto) 0.0 10^3/uL 10^3/ uL (0.0-0.1) Nucleated RBC % (a uto) 0 % % Nucleated RBCs # 0.0 /100WBC /100W BC Sodium 134 mmol/L L mmol /L (136-145) Potassium 3.7 mmol/L mmol/L (3.5-5.1) Chloride 96 mmol/L L mmol/ L (98-107) Carbon Dioxide 25 mmol/L mmol/L (22-29) Anion Gap 16.7 (5-19) BUN 24 mg/dL H mg/dL (8-23) Creatinine 0.7 mg/dL mg/dL (0.5-0.9) GFR Calculation 84.8 mL/min L mL/ min (90-130) Glucose 146 mg/dL H mg/dL (65-115) Calculated Osmolal ity 285 mOsm/kg mOsm/ kg (285-295) Lactic Acid Calcium 9.3 mg/dL mg/dL (8.5-10.5) Total Bilirubin 0.4 mg/dL mg/dL (0.15-1.2) AST 18 U/L U/L (0-32) ALT 16 U/L U/L (0-33) Alkaline Phosphata se 139 IU/L H IU/L (35-105) Total Protein 7.8 g/dL g/dL (6.6-8.7) Albumin 3.8 g/dL g/dL (3.5-5.2) Globulin 4.0 g/dL g/dL (1.3-4.6) Lipase 15 U/L U/L (13-60) Urine Color Dark yellow (Yellow) Urine Appearance Sl hazy (CLEAR) Urine pH 5 (5-7) Ur Specific Gravit y 1.025 (1.005-1.030) Urine Protein 1+ H (Negative) Urine Glucose (UA) Norm (Normal) Urine Ketones 1+ H (Negative) Urine Blood 3+ H (Negative) Urine Nitrate Negative (Negative) Urine Bilirubin 1+ H (Negative) Urine Urobilinogen 4 mg/dL H mg/dL (Negative) Ur Leukocyte Gloria ase Trace H (Negative) Urine RBC 5-10 /hpf H /hpf (0-2) Urine WBC 10-15 /hpf H /hpf (0-5) Ur Squamous Epith Cells 5-10 /hpf H /hpf (0-5) Amorphous Sediment Not Reportable Urine Bacteria 2+ /hpf H /hpf (NONE) Urine Mucus 2+ /hpf /hpf 06/21/21 08:29 WBC RBC Hgb Hct MCV MCH MCHC RDW Plt Count MPV Neut % (Auto) Lymph % (Auto) Tyler % (Auto) Eos % (Auto) Baso % (Auto) Neut # (Auto) Lymph # (Auto) Tyler # (Auto) Eos # (Auto) Baso # (Auto) Nucleated RBC % (a uto) Nucleated RBCs # Sodium Potassium Chloride Carbon Dioxide Anion Gap BUN Creatinine GFR Calculation Glucose Calculated Osmolal ity Lactic Acid 0.8 mmol/L mmol/L (0.5-2.2) Calcium Total Bilirubin AST ALT Alkaline Phosphata se Total Protein Albumin Globulin Lipase Urine Color Urine Appearance Urine pH Ur Specific Gravit y Urine Protein Urine Glucose (UA) Urine Ketones Urine Blood Urine Nitrate Urine Bilirubin Urine Urobilinogen Ur Leukocyte Gloria ase Urine RBC Urine WBC Ur Squamous Epith Cells Amorphous Sediment Urine Bacteria Urine Mucus Imaging Data ^: CT Abd/Pel: Attestation: I personally reviewed and interpreted this imaging study as follows: Radiologist's impression: [facility] [address] [address] [address] Scan Report Signed Patient: Bertha Briceno Unit #: [id number] : [id number] Age/Sex: 60 / F ADM Date: 06/21/21 Loc: ER Room/Bed: Attending Dr: Ordering Provider/Ordering MD: Dale Burden Date of Service: 06/21/21 Procedure(s): CT abdomen pelvis w con* [id number] Accession Number(s): [id number] Report Number: [id number] PROCEDURE INFORMATION: Exam: CT Abdomen And Pelvis With Contrast Exam date and time: 06/21/2021 7:41 AM Age: 60 years old Clinical indication: Abdominal pain; Prior surgery; Surgery type: Appy, tubal; Additional info: Llq abdominal pain and nausea, history of bowel abscess and micro perforations TECHNIQUE: Imaging protocol: Computed tomography of the abdomen and pelvis with contrast. Total images: 225 Radiation optimization: All CT scans at this facility use at least one of these dose optimization techniques: automated exposure control; mA and/or kV adjustment per patient size (includes targeted exams where dose is matched to clinical indication); or iterative reconstruction. Contrast material: VISI 320; Contrast volume: 95 ml; Contrast route: INTRAVENOUS (IV); COMPARISON: CT chest abd pel w con* 04/11/2021 1:53 PM RADIATION DOSE METRICS: Total DLP (mGy-cm): 1370.32 FINDINGS: Diaphragm: A small hiatal hernia is present. Liver: Normal. No mass. Gallbladder and bile ducts: Common bile duct diameter is 12 mm. Pancreas: Normal. No ductal dilation. Spleen: Normal. No splenomegaly. Adrenal glands: Normal. No mass. Kidneys and ureters: Normal. No hydronephrosis. Stomach and bowel: Sigmoid colon demonstrates mild acute diverticulitis. Appendix: No evidence of appendicitis. Intraperitoneal space: Small amount of free fluid noted within the pelvis but no loculated fluid collection to suggest an abscess. Vasculature: Incidental phleboliths noted. Lymph nodes: Unremarkable. No enlarged lymph nodes. Urinary bladder: Unremarkable as visualized. Reproductive: Unremarkable as visualized. Bones/joints: Facet joint degenerative changes are present. Spinal degenerative changes are evident. Soft tissues: Unremarkable. CT/CT abdomen pelvis w con* [id number] IMPRESSION: 1. Sigmoid colon demonstrates mild acute diverticulitis. No perforation. No abscess. 2. Small amount of free fluid noted within the pelvis but no loculated fluid collection to suggest an abscess. 3. Common bile duct diameter is 12 mm. If there is clinical or laboratory evidence of biliary obstructive process, ERCP or MRCP could further define. Radiation Dose CTDIVOL = (mGy): DLP = 1370.32 (mGy-cm) Dictated By: Avery Byrd MD Signed By: Avery Byrd MD Signed Date/Time: 06/21/21957 DD/ 0 US: Attestation: I personally reviewed and interpreted this imaging study as follows: Radiologist's impression: [id number] [place], [place] [id number] ReportSigned Patient: Smita Briceno #: [id number]: 1960cct#:[id number]/Sex: 60 / FADM Date: 06/21/21Loc: ERRoom/ Bed:Attending Dr: Ordering Provider/Ordering MD: Dale Burden Date of Service: 06/21/21 Procedure(s): US gall bladder 10816 Accession Number(s): [id number] Report Number: [id number] PROCEDURE INFORMATION: Exam: US Abdomen, Limited; Right Upper Quadrant Exam date and time: 06/21/2021 10:18 AM Age: 60 years old Clinical indication: Abdominal pain; Additional info: Ruq tenderness and CT finding of dilated cbc TECHNIQUE: Imaging protocol: US abdomen. Real time ultrasound with image documentation. Limited exam focused on the right upper quadrant. Total images: 72 COMPARISON: CT abdomen pelvis w con* [id number] 06/21/2021 9:39 AM FINDINGS: Liver: 10.9 cm Liver length. The liver is normal in echogenicity and configuration. No masses are detected. There is no intrahepatic biliary dilatation. Gallbladder: Cholelithiasis is present with gallbladder wall at upper range of normal at 3 mm in thickness. No pericholecystic fluid. Common bile duct: Common bile duct diameter is 7-9 mm. Pancreas: The pancreas is partially visualized due to overlying bowel gas. No gross pathology is detected. Right kidney: 9.0 cm length of right kidney. Right kidney with normal echogenicity and no hydronephrosis, calculi, solid masses, nor perinephric fluid collection. Aorta: Aorta unremarkable. Portal venous: Spectral sonography demonstrates patent portal vein with hepatopedal blood flow. Normal respiratory phasicity on spectral waveform, indicating preserved compliance of the liver. No portal venous abnormality identified. Other findings: Study limited due to bowel gas. US/US gall bladder [id number] IMPRESSION: 1. Cholelithiasis is present with gallbladder wall at upper range of normal at 3 mm in thickness. No pericholecystic fluid. 2. Common bile duct diameter is 7-9 mm. If there is clinical or laboratory evidence of biliary obstructive process, ERCP or MRCP could further define. Radiation Dose CTDIVOL = (mGy): DLP = (mGy-cm) Dictated By:Avery Byrd MDSigned By:Avery Byrd MDSigned Date/Time:06/21/21 1148DD/ 1018 Discharge Plan Discharge Patient Disposition: Home Clinical Impression: Diverticulitis Cholelithiasis Qualifiers: Cholelithiasis location: gallbladder Cholecystitis presence: without cholecystitis Biliary obstruction: without biliary obstruction Qualified Code(s): K80.20 - Calculus of gallbladder without cholecystitis without obstruction Condition: Stable Prescriptions: New Cipro 500 mg tablet 500 mg PO BID 7 Days Qty: 14 RF: 0 Flagyl 500 mg tablet 500 mg PO Q8H 7 Days Qty: 21 RF: 0 ondansetron 4 mg tablet,disintegrating 4 mg PO Q8H PRN (Reason: nausea and vomiting) Qty: 20 RF: 0 No Action propranolol [Inderal LA] 60 mg capsule,extended release 24 hr 40 mg PO ONCE RF: 0 anastrozole 1 mg tablet 1 mg PO QDAY RF: 0 cholecalciferol (vitamin D3) 350 mcg (14,000 unit) capsule 350 mcg PO DAILY RF: 0 amitriptyline 25 mg tablet 50 mg PO BEDTIME RF: 0 Discharge Orders: Discharge ED (Routine); Ordered 06/21/21 Ordered By: Dale Burden Referrals: Rory Rico MD [Primary Care Provider] - Discharge Diet: Advance as tolerated and Clear Liquid Discharge Activity: Increase activity as tolerated Patient Instructions: Diverticulitis (ED), Clear Liquid Diet (ED), Diverticulitis Diet (ED), Opioid Safety Activity Restrictions/Additional Instructions: Follow-up with medical provider as directed. Take medications as prescribed. Return to the ER or your medical provider if condition worsens. Please read and understand discharge instructions. Thank you for choosing [facility] for your healthcare needs today. Please realize this is an emergency room and that we are providing you with a medical screening exam and this may not be complete and all inclusive of all the testing and or work up that you may need to determine your ailment or severity of your illness. It is very important that you follow up as instructed or that you return to the Emergency Department should you have concerns or if your condition changes or worsens in any way. Coding Level of Care Code ED Pickling Drum Operator for Layo Fwd Exam Comprehensive
--- NOTE | 2021-06-21 08:04 | PC.NURSE ---
Lab called to obtain blood on room 12.
--- NOTE | 2021-06-21 08:05 | PC.NURSE ---
Pt's port accessed by BRET Dhillon. No blood return but normal saline able to flush through. Pt tolerated procedure well.
[2021-06-21 08:11] LABS: Add Urine Microscopic? YES; Bilirubin Urine 1+ (Negative); Blood Urine 3+ (Negative); Glucose Urine UA Norm (Normal); Ketones Urine 1+ (Negative); Leukocyte Esterase Urine Trace (Negative); Nitrate Urine Negative (Negative); Protein Urine 1+ (Negative); Specific Gravity, Urine 1.025 (1.005-1.030); Urine Appearance SL Hazy (CLEAR); Urine Color Dark Yellow (Yellow); Urobilinogen Urine 4 mg/dL (Negative); pH Urine 5 (5-7)
[2021-06-21] MEDS: sodium chloride 0.9% 1,000 ML 999 ML IV (08:13)
[2021-06-21 08:14] LABS: Add Urine Culture? Yes; Bacteria Urine 2+ /hpf; Mucus Urine 2+ /hpf
[2021-06-21] MEDS: ondansetron 2 mg/ML SDV 2 mL 4 MG IVP ×2 (08:17→12:12)
[2021-06-21] MEDS: morphine 4 mg/mL SDV 1 mL IVP (08:21)
[2021-06-21 08:37] LABS: Basophils % 0.3 %; Eosinophils % 0.1 %; Hematocrit 39.2 % (37.0-47.0); Hemoglobin 12.8 g/dL (11.5-15.3); Lymphocytes # 1.5 10^3/uL (0.8-4.8); Lymphocytes % 12.7 %; Mean Corpuscular HGB Conc 32.7 g/dL (30.0-36.0); Mean Corpuscular Hemoglobin 30.3 pg (28.0-34.0); Mean Corpuscular Volume 92.7 fl (81-99); Mean Platelet Volume 10.6 fL (7.4-10.4); Monocytes # 0.6 10^3/uL (0.2-0.9); Monocytes % 5.4 %; Neutrophils # 9.54 10^3/uL (1.8-7.7); Neutrophils % 81.2 %; Nucleated Red Blood Cells % 0 %; Platelet Count 262 10^3/cmm (130-400); Red Blood Count 4.23 10^6/uL (4.1-5.3); Red Cell Distribution Width 13.5 % (12.1-15.1); White Blood Count 11.7 10^3/uL (4.0-10.0)
[2021-06-21 08:51] LABS: Lactic Sepsis W/Reflex 0.8 mmol/L (0.5-2.2)
[2021-06-21 08:52] LABS: Alanine Aminotransferase 16 U/L (0-33); Albumin Level 3.8 g/dL (3.5-5.2); Alkaline Phosphatase 139 IU/L (35-105); Anion Gap 16.7 (5-19); Aspartate Amino Transferase 18 U/L (0-32); Blood Urea Nitrogen 24 mg/dL (8-23); Calcium 9.3 mg/dL (8.5-10.5); Carbon Dioxide 25 mmol/L (22-29); Chloride 96 mmol/L (98-107); Glomerular Filtration Rate 84.8 mL/min (90-130); Glucose 146 mg/dL (65-115); Lipase 15 U/L (13-60); Osmolality Calculated 285 mOsm/kg (285-295); Potassium 3.7 mmol/L (3.5-5.1); Sodium 134 mmol/L (136-145); Total Bilirubin 0.4 mg/dL (0.15-1.2); Total Protein 7.8 g/dL (6.6-8.7)
[2021-06-21] MEDS: iodixanol 320 mg/mL 100mL Btl IV (09:46)
--- NOTE | 2021-06-21 10:18 | USR_ITS ---
PROCEDURE INFORMATION: Exam: US Abdomen, Limited; Right Upper Quadrant Exam date and time: 06/21/2021 10:18 AM Age: 60 years old Clinical indication: Abdominal pain; Additional info: Ruq tenderness and CT finding of dilated cbc TECHNIQUE: Imaging protocol: US abdomen. Real time ultrasound with image documentation. Limited exam focused on the right upper quadrant. Total images: 72 COMPARISON: CT abdomen pelvis w con* [id number] 06/21/2021 9:39 AM FINDINGS: Liver: 10.9 cm Liver length. The liver is normal in echogenicity and configuration. No masses are detected. There is no intrahepatic biliary dilatation. Gallbladder: Cholelithiasis is present with gallbladder wall at upper range of normal at 3 mm in thickness. No pericholecystic fluid. Common bile duct: Common bile duct diameter is 7-9 mm. Pancreas: The pancreas is partially visualized due to overlying bowel gas. No gross pathology is detected. Right kidney: 9.0 cm length of right kidney. Right kidney with normal echogenicity and no hydronephrosis, calculi, solid masses, nor perinephric fluid collection. Aorta: Aorta unremarkable. Portal venous: Spectral sonography demonstrates patent portal vein with hepatopedal blood flow. Normal respiratory phasicity on spectral waveform, indicating preserved compliance of the liver. No portal venous abnormality identified. Other findings: Study limited due to bowel gas. US/US gall bladder [id number] IMPRESSION: 1. Cholelithiasis is present with gallbladder wall at upper range of normal at 3 mm in thickness. No pericholecystic fluid. 2. Common bile duct diameter is 7-9 mm. If there is clinical or laboratory evidence of biliary obstructive process, ERCP or MRCP could further define. Radiation Dose CTDIVOL = (mGy): DLP = (mGy-cm)
[2021-06-21] MEDS: morphine 4 mg/mL SDV 1 mL 2 MG IVP (10:48)
[2021-06-21] MEDS: ciprofloxacin 400 MG/200 ML PREMIX 200 MG IV (10:48)
[2021-06-21] MEDS: metroNIDAZOLE IV 500 MG/100 ML PREMIX 100 MG IV (10:48)
--- NOTE | 2021-06-21 12:28 | PC.NURSE ---
Port access removed, pt tolerated well.
--- NOTE | 2021-06-23 14:31 | DCPLANNER ---
manager custom had message to schedule a follow up appointment for patient with general surgery. manager custom emailed patients information to Danny at [facility] General Surgery / ENT clinic. Patients information will be printed and reviewed. Clinic will call patient with appointment information.
--- NOTE | 2021-06-24 07:49 | DCPLANNER ---
Patient has a follow up appointment scheduled for , July 03, 2021 at 8:[address] Martinez at [facility] General Surgery. Clinic will call patient with appointment information.
--- NOTE | 2021-09-07 16:31 | DCPLANNER ---
Patient had a follow up appointment scheduled with general surgery - appointment cancelled.
== END 2021-06-21 12:37 | disposition home or self-care (01) ==
PROVIDERS: Emergency Provider Physician Assistant; PCP Family Medicine
DX: K80.20 Calculus of gallbladder without cholecystitis without obstruction (principal); K57.92 Diverticulitis of intestine, part unspecified, without perforation or abscess without bleeding; Z85.3 Personal history of malignant neoplasm of breast
CPT/HCPCS: 74177; 76705; 80053; 81001; 83605; 83690; 85025; 87040; 87086; 96365; 96367; 96375; 96376; 99284; J0744; J2270; J2405; J7030; Q9967; S0030

== ENCOUNTER 2021-08-12 14:22 | Outpatient (CLI) | payer OTHER, SELFPAY ==
[2021-08-12 14:51] LABS: Basophils % 0.5 %; Eosinophils # 0.4 10^3/uL (0.0-0.8); Eosinophils % 5.3 %; Hematocrit 36.1 % (37.0-47.0); Hemoglobin 11.8 g/dL (11.5-15.3); Lymphocytes # 2.7 10^3/uL (0.8-4.8); Lymphocytes % 32.9 %; Mean Corpuscular HGB Conc 32.7 g/dL (30.0-36.0); Mean Corpuscular Hemoglobin 31.1 pg (28.0-34.0); Mean Platelet Volume 10.7 fL (7.4-10.4); Monocytes # 0.8 10^3/uL (0.2-0.9); Monocytes % 9.2 %; Neutrophils # 4.21 10^3/uL (1.8-7.7); Neutrophils % 51.7 %; Nucleated Red Blood Cells % 0 %; Platelet Count 285 10^3/cmm (130-400); Red Cell Distribution Width 13.5 % (12.1-15.1); White Blood Count 8.1 10^3/uL (4.0-10.0)
[2021-08-12 15:15] LABS: Alanine Aminotransferase 16 U/L (0-33); Albumin Level 3.8 g/dL (3.5-5.2); Alkaline Phosphatase 131 IU/L (35-105); Aspartate Amino Transferase 24 U/L (0-32); Blood Urea Nitrogen 24 mg/dL (8-23); Calcium 8.7 mg/dL (8.5-10.5); Carbon Dioxide 22 mmol/L (22-29); Chloride 103 mmol/L (98-107); Globulin 3.5 g/dL (1.3-4.6); Glomerular Filtration Rate 63.4 mL/min (90-130); Glucose 111 mg/dL (65-115); Osmolality Calculated 291 mOsm/kg (285-295); Sodium 138 mmol/L (136-145); Total Bilirubin 0.2 mg/dL (0.15-1.2); Total Protein 7.3 g/dL (6.6-8.7)
== END 2021-08-12 14:23 | disposition home or self-care (01) ==
LOC: ONCMED 14:24
PROVIDERS: PCP Family Medicine; Visit Provider Internal Medicine Medical Oncology
DX: C50.412 Malignant neoplasm of upper-outer quadrant of left female breast (principal); Z17.0 Estrogen receptor positive status [ER+]; D70.1 Agranulocytosis secondary to cancer chemotherapy; T45.1X5A Adverse effect of antineoplastic and immunosuppressive drugs, initial encounter
CPT/HCPCS: 36591; 80053; 85025

== ENCOUNTER 2021-08-14 06:29 | Outpatient (CLI) | payer OTHER, SELFPAY ==
--- NOTE | 2021-08-16 12:56 | ONC FU_ITS ---
Dr. Beltran Patient Follow-Up Note Patient: Bertha Briceno Unit #: [id number]: [id number] Dicatated By: Sidney Beltran M.D.Date of Visit:Aug 14, 2021 Onc Med Follow-up/Prog Note Chief Complaint: Breast cancer. History of Present Illness: This is a 60 year-old woman with grade 2 infiltrating ductal carcinoma of the left breast, stage IIB (T2, N1, M0), ER/IN positive and HER-2/castro positive. She was found to have an abnormal screening mammogram on 12/27/2018. It was BI-RADS 0, incomplete, with findings of increasing spiculated focal asymmetric density in the upper outer quadrant of the left breast. Diagnostic mammogram/ultrasound on 01/11/2019 was BI-RADS 5, highly suggestive of malignancy. The mammogram showed spiculated mass in the upper-outer left breast measuring 3.5 x 1.8 cm. Ultrasound showed a large hypoechoic solid irregular lesion at the 2:00 position measuring 2.8 x 1.6 x 3.1 cm. Also noted were hypoechoic cysts at the 12:00 and 3:00 positions measuring 5 mm and 12 mm respectively. She underwent ultrasound-guided needle biopsy of the left breast mass on 01/20/2019. Pathology showed grade 2 infiltrating ductal carcinoma. The tumor was noted to be ER positive at 94% and IN positive at 81%, both with strong intensity. HER-2/castro was positive, 3+ by IHC and amplification ratio by FISH of 1.7 with 4.0 HER-2 copies/cell. Staging PET/CT on 02/04/2019 showed an FDG avid lesion in the left breast measuring 1.3 x 1.8 cm, SUV 8.8. A solitary left axillary lymph node measuring 1.3 cm is also FDG avid with SUV 3.8, consistent with local metastatic disease. There were no findings to indicate any distant metastatic disease. Further evaluation with ultrasound of the left breast/axilla on 02/06/2019 showed a superior left axillary lymph node measuring 1.1 x 1.5 x 1.1 cm which appeared to have an intraparenchymal intermediate hyperechoic soft tissue focus, suspicious for metastasis. The remainder of the axillary lymph nodes appeared grossly unremarkable by ultrasound. Ultrasound-guided biopsy of the lymph node on 02/20/2019 showed metastatic adenocarcinoma consistent with the previously diagnosed breast primary. Given those findings, she was recommended to undergo neoadjuvant chemotherapy with TCH-P. She began cycle 1 of TCH-P on 03/06/2019. She experienced very severe GI toxicity, including nausea/vomiting and diarrhea. She required IV hydration, and she also required growth factor support with Neupogen, as she became severely neutropenia at day 8. She recovered uneventfully, and she was able to continue cycle 2 on 03/27/2019 with a reduced dosage of Perjeta. She also was given Neulasta prophylactically, and she was given scheduled IV hydration. She tolerated the treatment well, and she was then able to continue with cycle 3 on 04/18/2019, with cycle 4 on 05/08/2019, and with cycle 5 on 05/29/2019. On 06/03/2019 she was admitted to the hospital with severe nausea/vomiting and diarrhea. Some of this was clearly chemotherapy related, but she also was found to have Clostridium difficile colitis. Her clinical course also was complicated by severe neutropenia and anemia, but she had gradual recovery with appropriate antibiotic therapy. She was then able to continue with cycle 6 of TCH-P on 07/03/2019. On 07/20/2019 she underwent left modified radical mastectomy and right simple prophylactic mastectomy. She tolerated the surgery very well. Pathology on the left breast showed a focus of residual grade 2 invasive ductal carcinoma measuring 1.1 cm in greatest dimension. There was involvement in 1/12 lymph nodes with the metastatic focus measuring 0.5 cm. There was no extranodal extension identified. Final staging was ypT1c, ypN1a. She then continued systemic adjuvant therapy with single agent Herceptin at the 3-week dosing interval, cycle 1 on 07/24/2019 and cycle 2 on 08/14/2019. At that point she also began adjuvant hormonal therapy with anastrozole 1 mg daily. Due to the residual axillary lymph node involvement, her treatment was then changed to Kadcyla 3.6 mg/kg by IV infusion every 21 days. She began cycle 1 on 09/07/2019. She tolerated it well and she continued with cycle 2 on 09/28/2019. On 09/27/2019 she began radiation to the left chest wall and supraclavicular region. She completed treatment to the supraclavicular area on 11/01/2019 to a total dose of 5000 cGy. She completed treatment to the left chest wall on 11/08/2019 to a total dose of 6000 cGy. She continued treatment with Kadcyla at 3-week intervals. As of 06/04/2020 she completed her 14th and final cycle of Kadcyla. She then continued her adjuvant hormonal therapy with anastrozole 1 mg daily. Her medical history includes fibrocystic breast disease, chronic migraine, and diverticulosis. She underwent natural menopause at age 48. She is a nonsmoker. INTERIM HISTORY: In September 2020 she sustained a traumatic trimalleolar fracture of the right ankle. She underwent ORIF on 10/02/2020. As of her follow-up visit in January 2021 her alkaline phosphatase had gotten up to 251 IU/mL, and as of 03/11/2021 it had further increase to 322 IU/mL. Her restaging CT scans of the chest, abdomen, pelvis on 04/11/2021 showed no evidence of metastatic disease, though abnormal density involving the left seventh and eighth ribs was thought to possibly be due to pathologic fractures. A subsequent bone scan on 04/23/2021 showed no osseous lesions which were suspicious for metastatic disease. There was degenerative type uptake involving the right AC joint, both knees, and right ankle. With those findings she continued adjuvant hormonal therapy with anastrozole 1 mg daily. She has been feeling pretty good generally. On 06/21/2021 she was seen in the emergency room with abdominal pain. There were no acute findings reported on her CT abdomen/pelvis. She was given antibiotic therapy presumptively for diverticulitis, and she did get better. She does have some fatigue, but her energy is pretty good. She is working and she has normal activity. ECOG score 0. Her appetite is good. She has no fever, night sweats, or hot flashes. She has some mild exertional dyspnea. She does not have resting dyspnea, cough, or chest pain. She currently has no GI or complaints. She has some pain in her knees and legs, but it is pretty mild and tolerable. She does not complain of headache. She has occasional orthostatic lightheadedness. Her neuropathy symptoms have pretty much resolved. Medications: Amitriptyline HCl 2 Tablet (of 25 mg) Tablet Oral daily, Anastrozole 1 Tablet (of 1 mg) Oral daily, Famciclovir 1 Tablet (of 500 mg) Oral t.i.d., HYDROcodone-Acetaminophen 1 Tablet (of 7.5-325 mg) Oral 8x/d, Imodium A-D 1 Tablet (of 2 mg) Oral PRN, LORazepam 0.5 - 1 Tablet (of 1 mg) Oral t.i.d. PRN, Omeprazole 1 Tablet (of 20 mg) Tablet, enteric coated Oral daily, Ondansetron HCl 1 Tablet (of 8 mg) Oral t.i.d. PRN, Prochlorperazine Maleate 1 Tablet (of 10 mg) Oral q 4 hours PRN, Propranolol HCl 1 Tablet (of 40 mg) Oral daily, Vitamin D-[address] 1 Tablet (of 5000 Units) Oral daily Allergies: Aleve and Flagyl. Vital Signs: Performed on Aug 14, 2021 13:13 Height - 62.00 in Weight - 165 lbs (LOW) BSA - 1.76 sq.m BMI - 30.18 (HIGH) Temperature - 97.5 F (LOW) Pulse - 69 /min Respiration - 16 /min BP - 116/75 mm(hg) O2 Sat - 97 % Pain - 0 Fatigue - 0 Physical Examination: Constitutional - She looks good generally, Eyes - Sclerae nonicteric. Conjunctivae clear, ENMT - No lesions noted in the oral cavity, Hematologic/Lymphatic - No cervical, clavicular, or axillary adenopathy, Respiratory - Lungs are clear with good air movement bilaterally, Cardiovascular - Heart rhythm is regular. There is no murmur, gallop, or rub noted, Abdomen - Soft. Liver and spleen are not enlarged. There is no abdominal mass or ascites noted and there is no inguinal adenopathy, Extremities - No edema, Neurologic - No focal neurologic deficits noted. Lab/Imaging: CBC shows hemoglobin 11.8 g, white blood cell count 8100, and platelet count 285,000. Comprehensive metabolic profile shows alkaline phosphatase still slightly elevated at 131/105 IU/L. Problem List: 1. Grade 2 infiltrating ductal carcinoma of the left breast, stage IIB (T2, N1, M0), ER/IN positive and HER-2/castro positive. 2. Chronic migraine. 3. Diverticulosis. 4. She has a significant family history for breast cancer. 5. She had evidence of vitamin D deficiency. Problems Addressed with this Encounter and Plan: Patient with grade 2 infiltrating ductal carcinoma of the left breast, stage IIB (T2, N1, M0), ER/IN positive and HER-2/castro positive. She underwent ultrasound-guided biopsy of the left breast on 01/20/2019, and she underwent ultrasound-guided biopsy of a left axillary lymph node on 02/20/2019. She was given neoadjuvant chemotherapy with TCH-P, cycle 1 beginning on 03/06/2019 through 07/03/2019. Her cycle 5 was complicated by severe nausea/vomiting and diarrhea and by C. difficile colitis, but she did recover, and she was able to continue with cycle 6 on 07/03/2019. On 07/20/2019 she underwent left modified radical mastectomy and right simple prophylactic mastectomy. Pathology on the left breast showed a focus of residual grade 2 invasive ductal carcinoma measuring 1.1 cm in greatest dimension. There was involvement in 1/12 lymph nodes with the metastatic focus measuring 0.5 Final staging was ypT1c, ypN1a. She continued systemic adjuvant therapy with single agent Herceptin, cycle 1 on 07/24/2019 and cycle 2 on 08/14/2019. She began adjuvant hormonal therapy with anastrozole 1 mg daily on 08/14/2019. Due to the residual axillary lymph node involvement following neoadjuvant TCH-P, her treatment was changed from single agent Herceptin to Kadcyla 3.6 mg/kg by IV infusion every 3 weeks for total of 14 cycles. She began cycle 1 Kadcyla on 09/07/2019. On 09/27/2019 she began radiation to the left chest wall and supraclavicular region. She completed treatment to the supraclavicular area on 11/01/2019 to a total dose of 5000 cGy. She completed treatment to the left chest wall on 11/08/2019 to a total dose of 6000 cGy. She then continued the Kadcyla at 3-week intervals and she continued adjuvant hormonal therapy with anastrozole. As of 06/04/2020 she completed her 14th and final cycle of Kadcyla. Overall, she tolerated the treatment very well. In September 2020 when she suffered a traumatic trimalleolar fracture of the right ankle, requiring ORIF. She recovered uneventfully. As of February 2021 there was a significant increase in her alkaline phosphatase level. Her restaging with CT scans of the chest, abdomen, and pelvis and with bone scan showed no evidence of metastatic disease. She then continued adjuvant hormonal therapy with anastrozole. During follow-up she has had mild fatigue and some mild musculoskeletal pain. Overall, she is tolerated it well, thus far with no evidence of recurrence of the breast cancer. She continues anastrozole 1 mg daily. I will see her again in 6 months. Signed By: Sidney Beltran M.D. <<Signature on File>>
== END 2021-08-14 06:30 | disposition home or self-care (01) ==
LOC: ONCMED 06:30
PROVIDERS: PCP Family Medicine; Visit Provider Internal Medicine Medical Oncology
DX: C50.912 Malignant neoplasm of unspecified site of left female breast (principal); Z17.0 Estrogen receptor positive status [ER+]; G43.719 Chronic migraine without aura, intractable, without status migrainosus; K57.92 Diverticulitis of intestine, part unspecified, without perforation or abscess without bleeding; Z80.3 Family history of malignant neoplasm of breast; E55.9 Vitamin D deficiency, unspecified; Z79.811 Long term (current) use of aromatase inhibitors
CPT/HCPCS: 99214

== ENCOUNTER 2021-12-05 06:11 | Day surgery (SDC) | payer OTHER, SELFPAY ==
[2021-12-02 10:30] VITALS: BMI 28.3
[2021-12-05 06:25] VITALS: BP 119/88; RESP 185; TEMP 36.1; O2SAT 98
[2021-12-05] MEDS: sodium chloride 0.9% 1,000 ML 30 ML IV (06:27)
--- NOTE | 2021-12-05 06:51 | ANES.PREANE2 ---
Pre-Anesthetic Assessment Height/Weight: Height 1.57 m Weight 70.307 kg Temp Resp BP Pulse Ox 97.0 F L 185 H 119/88 98 12/05/21 06:25 12/05/21 06:25 12/05/21 06:25 12/05/21 06:25 Preop Diagnosis: diagnostic Operation Date: 12/05/21 07:30 Proposed Procedures p Colonoscopy 34807 Z12.11(Not Applicable) - Ayan Varela MD Familial anesthetic complications: none Last intake: Intake Last Liquid Date 12/04/21 Last Liquid Time 22:00 Last Solid Date 12/03/21 Last Solid Time 18:00 Social No alcohol and No tobacco Airway Submandibular: within normal limits Cervical ROM: within normal limits Mallampati: Class III Dentition: false Pulmonary None reported CV/HEM None reported None reported Hepatic None reported GI Gastroesophageal Reflux Disease Metabolic None reported Musc/skel None reported Neuropsych None reported Anesthetic Plan ASA status: 2 Anesthesia: MAC Medications/Allergies Home Medications Medication Instructions Recorded Confirmed Last Taken Type anastrozole 1 mg tablet 1 mg PO QDAY 09/07/19 12/05/21 12/05/21 06:00 History propranolol 60 mg capsule,24 40 mg PO ONCE cap 09/07/19 12/05/21 12/05/21 History hr,extended release (Inderal LA) amitriptyline 25 mg tablet 50 mg PO BEDTIME 10/01/20 12/05/21 12/04/21 History cholecalciferol (vitamin D3) 350 350 mcg PO DAILY 10/01/20 12/05/21 12/05/21 History mcg (14,000 unit) capsule Allergies Allergy/AdvReac Type Severity Reaction Status Date / Time naproxen [From Aleve] Allergy anaphylaxis Verified 12/05/21 06:29 Current Medications Generic Name Dose Route Start Last Admin Trade Name Freq PRN Reason Stop Dose Admin Sodium Chloride 1,000 mls @ 30 mls/hr 12/05/21 06:30 12/05/21 06:27 Sodium Chloride 0.9% IV 12/06/21 06:29 30 mls/hr .Q24H VISHNU Administration PFSH Anesthesia Medical History (Updated 08/26/21 @ 08:38 by Ayan Varela MD) Breast cancer, left breast Diverticulitis Hx of reduction of closed fracture right wrist Migraine Surgical History (Updated 08/26/21 @ 08:38 by Ayan Varela MD) H/O bilateral salpingectomy H/O left mastectomy History of appendectomy History of open reduction and internal fixation (ORIF) procedure right ankle Status post colonoscopy Social History Smoking and tobacco status: never smoked Alcohol intake: never Data Anesthesia Cardiac Studies: Echocardiogram Limited Views 07/23/20
--- NOTE | 2021-12-05 07:23 | P.HP_ITS ---
Same Day Surgery H&P Indication for Procedure/HPI DATE OF PROCEDURE: December 05, 2021 CHIEF COMPLAINT/INDICATIONFOR SURGICAL PROCEDURE: Screening colonoscopy PREOP DIAGNOSIS: diagnostic PLANNED PROCEDURE: Operation Date: 12/05/21 07:30 Proposed Procedures p Colonoscopy 81361 Z12.11(Not Applicable) - Ayan Varela MD Medications/Allergies* Home Medications Medication Instructions Recorded Confirmed Type anastrozole 1 mg tablet 1 mg PO QDAY 09/07/19 12/05/21 History propranolol 60 mg capsule,24 40 mg PO ONCE cap 09/07/19 12/05/21 History hr,extended release (Inderal LA) amitriptyline 25 mg tablet 50 mg PO BEDTIME 10/01/20 12/05/21 History cholecalciferol (vitamin D3) 350 350 mcg PO DAILY 10/01/20 12/05/21 History mcg (14,000 unit) capsule Allergies/Adverse Reactions Allergy/AdvReac Type Severity Reaction Status Date / Time naproxen [From Aleve] Allergy anaphylaxis Verified 12/05/21 06:29 Current Medications: Generic Name Dose Route Start Last Admin Trade Name Freq PRN Reason Stop Dose Admin Sodium Chloride 1,000 mls @ 30 mls/hr 12/05/21 06:30 12/05/21 06:27 Sodium Chloride 0.9% IV 12/06/21 06:29 30 mls/hr .Q24H VISHNU Administration Pertinent History/Comorbid Conditions* Medical History (Updated 08/26/21 @ 08:38 by Ayan Varela MD) Breast cancer, left breast Diverticulitis Hx of reduction of closed fracture right wrist Migraine Surgical History (Updated 08/26/21 @ 08:38 by Ayan Varela MD) H/O bilateral salpingectomy H/O left mastectomy History of appendectomy History of open reduction and internal fixation (ORIF) procedure right ankle Status post colonoscopy Social History Smoking and tobacco status: never smoked Alcohol intake: never Pertinent Exam Findings alert, oriented x 3 and regular rate & rhythm Recommendations Surgery/Procedure today Coding Level of Care Code Acute 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
[2021-12-05 07:53] VITALS: BP 78/42; PULSE 53; RESP 53; TEMP 36.4; O2SAT 98
[2021-12-05 08:01] VITALS: BP 92/54
[2021-12-05 08:20] VITALS: BP 90/53; PULSE 55; RESP 18; O2SAT 100
--- NOTE | 2021-12-05 13:00 | ANE.PACU2 ---
Inpatient post-anesthesia follow up: Airway intact: Yes Vital signs: Temperature 97.6 F Pulse Rate 55 Respiratory Rate 18 Blood Pressure 90/53 Pulse Oximetry 100 Oxygen Delivery Me thod Room Air Oxygen Flow Rate Fraction of Inspir ed Oxygen Hydration adequate: Yes Nausea and vomiting: No Pain level: 1 Mental status: Baseline
== END 2021-12-05 08:37 | disposition home or self-care (01) ==
PROVIDERS: PCP Family Medicine; Visit Provider Surgery
PROC: 0DJD8ZZ Inspection of Lower Intestinal Tract, Via Natural or Artificial Opening Endoscopic (ICD-10-PCS; CPT 45378; principal; 2021-12-05 07:30)
DX: Z12.11 Encounter for screening for malignant neoplasm of colon (principal); K57.30 Diverticulosis of large intestine without perforation or abscess without bleeding; Z85.3 Personal history of malignant neoplasm of breast; K21.9 Gastro-esophageal reflux disease without esophagitis
CPT/HCPCS: 45378; J2704; J7030

== ENCOUNTER 2022-02-11 10:44 | Oncology outpatient (recurring) (ONCR) | payer OTHER, SELFPAY ==
[2022-02-11 11:12] LABS: Basophils % 0.7 %; Eosinophils # 0.2 10^3/uL (0.0-0.8); Eosinophils % 3.2 %; Hematocrit 36.8 % (37.0-47.0); Hemoglobin 11.9 g/dL (11.5-15.3); Lymphocytes # 1.9 10^3/uL (0.8-4.8); Lymphocytes % 31.9 %; Mean Corpuscular HGB Conc 32.3 g/dL (30.0-36.0); Mean Corpuscular Hemoglobin 29.8 pg (28.0-34.0); Mean Platelet Volume 10.9 fL (7.4-10.4); Monocytes # 0.6 10^3/uL (0.2-0.9); Monocytes % 9.3 %; Neutrophils % 54.7 %; Nucleated Red Blood Cells % 0 %; Platelet Count 300 10^3/cmm (130-400)
[2022-02-11 11:28] LABS: Alanine Aminotransferase 25 U/L (0-33); Albumin Level 3.9 g/dL (3.5-5.2); Alkaline Phosphatase 341 IU/L (35-105); Anion Gap 13.4 (5-19); Aspartate Amino Transferase 29 U/L (0-32); Blood Urea Nitrogen 27 mg/dL (8-23); Calcium 8.9 mg/dL (8.5-10.5); Carbon Dioxide 27 mmol/L (22-29); Chloride 99 mmol/L (98-107); Globulin 3.9 g/dL (1.3-4.6); Glomerular Filtration Rate 63.2 mL/min (90-130); Glucose 108 mg/dL (65-115); Osmolality Calculated 286 mOsm/kg (285-295); Potassium 4.4 mmol/L (3.5-5.1); Sodium 135 mmol/L (136-145); Total Bilirubin 0.3 mg/dL (0.15-1.2); Total Protein 7.8 g/dL (6.6-8.7)
== END 2022-02-12 23:59 | disposition home or self-care (01) ==
LOC: ONCMED 10:44
PROVIDERS: Internal Medicine Medical Oncology; PCP Family Medicine; Visit Provider Nurse Practitioner Family
DX: C50.412 Malignant neoplasm of upper-outer quadrant of left female breast (principal); D70.1 Agranulocytosis secondary to cancer chemotherapy; T45.1X5A Adverse effect of antineoplastic and immunosuppressive drugs, initial encounter
CPT/HCPCS: 36591; 80053; 85025

== ENCOUNTER 2022-08-24 11:53 | Oncology outpatient (recurring) (ONCR) | payer OTHER, SELFPAY ==
[2022-08-24 12:33] LABS: Basophils # 0.1 10^3/uL (0.0-0.1); Basophils % 0.9 %; Eosinophils # 0.3 10^3/uL (0.0-0.8); Eosinophils % 4.8 %; Hematocrit 38.8 % (37.0-47.0); Hemoglobin 12.3 g/dL (11.5-15.3); Lymphocytes # 1.9 10^3/uL (0.8-4.8); Mean Corpuscular HGB Conc 31.7 g/dL (30.0-36.0); Mean Corpuscular Hemoglobin 30.2 pg (28.0-34.0); Mean Corpuscular Volume 95.3 fl (81-99); Monocytes # 0.5 10^3/uL (0.2-0.9); Monocytes % 8.5 %; Neutrophils # 3.04 10^3/uL (1.8-7.7); Neutrophils % 52.5 %; Nucleated Red Blood Cells % 0 %; Platelet Count 305 10^3/cmm (130-400); Red Blood Count 4.07 10^6/uL (4.1-5.3); Red Cell Distribution Width 13.4 % (12.1-15.1); White Blood Count 5.8 10^3/uL (4.0-10.0)
[2022-08-24 12:50] LABS: Alanine Aminotransferase 15 U/L (0-33); Albumin Level 3.9 g/dL (3.5-5.2); Alkaline Phosphatase 200 U/L (35-105); Anion Gap 15.1 (5-19); Aspartate Amino Transferase 17 U/L (0-32); Blood Urea Nitrogen 29 mg/dL (8-23); Carbon Dioxide 25 mmol/L (22-29); Chloride 101 mmol/L (98-107); Globulin 3.8 g/dL (1.3-4.6); Glomerular Filtration Rate 72.4 mL/min (90-130); Glucose 103 mg/dL (65-115); Osmolality Calculated 290 mOsm/kg (285-295); Potassium 4.1 mmol/L (3.5-5.1); Sodium 137 mmol/L (136-145); Total Bilirubin 0.2 mg/dL (0.15-1.2); Total Protein 7.7 g/dL (6.6-8.7)
== END 2022-09-15 23:59 | disposition home or self-care (01) ==
PROVIDERS: Internal Medicine Medical Oncology; PCP Family Medicine; Visit Provider Nurse Practitioner Family
DX: Z85.3 Personal history of malignant neoplasm of breast (principal)
CPT/HCPCS: 36591; 80053; 85025

== ENCOUNTER 2022-10-05 04:19 | Inpatient (IN) | payer OTHER, SELFPAY ==
[2022-10-05] VITALS (36 sets, daily range): BP systolic 98–151; BP diastolic 51–87; PULSE 73–108; RESP 12–20; TEMP 36.1–36.9; O2SAT 86–100; BMI 27.4
--- NOTE | 2022-10-05 04:26 | USR_ITS ---
PROCEDURE INFORMATION: Exam: US Abdomen, Limited; Right Upper Quadrant Exam date and time: 10/05/2022 4:39 AM Age: 61 years old Clinical indication: Abdominal pain; Generalized; Additional info: Ruq pain TECHNIQUE: Imaging protocol: Real time ultrasound of the abdomen with image documentation. Limited exam focused on the right upper quadrant. COMPARISON: US gall bladder [id number] 06/21/2021 11:11 AM FINDINGS: Liver: Normal. No masses. Gallbladder: There are multiple hyperechoic intraluminal foci present exhibiting acoustic shadowing compatible with multiple gallstones.. There is mild gallbladder wall thickening measuring 3 mm. These findings could represent mild gallstone cholecystitis although a negative sonographic Ford sign is elicited. Biliary ducts: Normal. No stones. No dilation. Pancreas: Visualized pancreas is unremarkable. Right kidney: Normal. No mass. No hydronephrosis. US/US gall bladder [id number] IMPRESSION: Multiple gallstones and mild gallbladder wall thickening could represent mild gallstone cholecystitis. However, there is a negative sonographic Ford sign elicited.
--- NOTE | 2022-10-05 04:27 | ED_ITS ---
HPI - Abdominal Pain General: Chief Complaint: Abdominal Pain Stated Complaint: Pain on Rt Side Time Seen by Provider: 10/05/22 04:21 Source: patient Mode of arrival: ambulatory Limitations: no limitations History of Present Illness: 61-year-old female who states she has had a history of gallstones in the past she states that she has been having right upper quadrant pain over the last 3 days she states that the pain seems worse with movement improved with rest denies any worsening with food she had some nausea no vomiting she rates her pain currently a 3 out of 10. Associated Symptoms: Denies chills, dysuria and fever(s) Review of Systems Const: Denies: fever(s), chills, body aches or change in appetite Eyes: Denies: blurry vision or eye discomfort ENMT: Denies: throat pain or dental pain Card: Denies: chest pain Resp: Denies: dyspnea GI: Reports: abdominal pain : Denies: dysuria Musc: Denies: neck pain or back pain Skin/Breast: Denies: rash Neuro: Denies: headache(s) Psych: Denies: depression Don/Lymph: Denies: easy bruising All/Imm: Denies: urticaria PFSH ED PFSH: Medical History Breast cancer, left breast Chronic migraine Diverticulitis Surgical History H/O bilateral salpingectomy History of appendectomy (1981) Appendectomy, adhesion lysis, and D&C History of bilateral mastectomy (07/20/19) Left modified radical mastectomy and prophylactic right simple mastectomy History of open reduction and internal fixation (ORIF) procedure right ankle History of tubal ligation (1983) Tubal ligation and D&C Hx of reduction of closed fracture right wrist Status post colonoscopy (12/05/21) diverticulosis Family History Other Cancer Diabetes Hyperlipidemia Hypertension Denies family history of CAD (coronary artery disease) Clotting disorder Dementia Psychiatric illness Chronic kidney disease (CKD) Suicide Anesthesia complication Bleeding disorder Lung disease Stroke Social History Smoking and tobacco status: never smoked Alcohol intake: never Physical Exam Const: COMMON NORMALS: no acute distress, patient oriented x3 and healthy appearing HENMT: COMMON NORMALS: normocephalic and atraumatic HEAD & SCALP: normocephalic and atraumatic Eye: COMMON NORMALS: Equal, round and reactive pupils present and EOMs intact bilaterally PUPIL: Yes Equal, round and reactive pupils present Neck/C-Spine: COMMON NORMALS: full ROM and supple Chest: COMMONS NORMALS: normal inspection of the chest and normal palpation of entire chest wall Resp: COMMON NORMALS: normal respiratory effort, No retractions, No use of accessory muscles and clear to auscultation bilaterally AUSCULTATION: clear to auscultation bilaterally Cardio: COMMON NORMALS: regular rate, regular rhythm and No murmurs present (Cardio) RATE: regular rate RHYTHM: regular rhythm GI: COMMON NORMALS: Normal to inspection, nondistended, normoactive bowel sounds present, Soft to palpation and no masses PALPATION: Yes Soft to palpation and Yes Tenderness to palpation present (GI) Details: RUQ Extremity: COMMON NORMALS: normal to inspection and full ROM Neuro: COMMON NORMALS: patient oriented x3, moves all extremities and no focal motor deficits Psych: COMMON NORMALS: mental status grossly normal, Normal thought process present and cooperative THOUGHT PROCESS: Normal thought process present Skin: COMMON NORMALS: no rashes or lesions noted and no wounds GENERAL SKIN EXAM: no rashes or lesions noted Course Vital Signs: Vital signs: Vital Signs Temperature 97.9 F 10/05/22 04:29 Pulse Rate 81 10/05/22 05:45 Respiratory Rate 18 10/05/22 05:45 Blood Pressure 120/70 10/05/22 05:45 Pulse Oximetry 98 10/05/22 05:45 Oxygen Delivery Me thod 10/05/22 05:45 MDM - Abdominal Pain Medical Decision Making Patient presents here with abdominal pain CT scan shows free air in the abdomen likely a perforated diverticulum I spoke to Dr. Giang who is going to come and see the patient at this time. Lab Data 10/05/22 04:35 10/05/22 04:35 Labs/Radiology: Radiology Impressions Gallbladder Ultrasound 10/05/22 04:26 IMPRESSION: Multiple gallstones and mild gallbladder wall thickening could represent mild gallstone cholecystitis. However, there is a negative sonographic Ford sign elicited. Abdomen/Pelvis CT 10/05/22 05:14 IMPRESSION: 1. There is free intra-abdominal air present. The source of the free air is likely a perforated diverticulum. Diverticula are present on the descending and sigmoid colon. There is bowel wall thickening and inflammatory changes seen adjacent to the sigmoid colon and some intermediate attenuation fluid is seen within the pelvis adjacent to the sigmoid colon, findings compatible with diverticulitis. 2. There is some bowel wall thickening seen within the adjacent cecum likely representing reactive typhlitis. 3. There are 2 nonobstructing left renal calculi, the largest measuring 2.5 mm. 4. There are multiple gallstones present. Laboratory Results WBC 13.5 10^3/uL (4.0-10.0) H 10/05/22 04:35 RBC 4.04 10^6/uL (4.1-5.3) L 10/05/22 04:35 Hgb 12.0 g/dL (11.5-15.3) 10/05/22 04:35 Hct 37.6 % (37.0-47.0) 10/05/22 04:35 MCV 93.1 fl (81-99) 10/05/22 04:35 MCH 29.7 pg (28.0-34.0) 10/05/22 04:35 MCHC 31.9 g/dL (30.0-36.0) 10/05/22 04:35 RDW 13.9 % (12.1-15.1) 10/05/22 04:35 Plt Count 277 10^3/cmm (130-400) 10/05/22 04:35 MPV 11.4 fL (7.4-10.4) H 10/05/22 04:35 Neut % (Auto) 64.6 % 10/05/22 04:35 Lymph % (Auto) 24.7 % 10/05/22 04:35 [place] % (Auto) 9.0 % 10/05/22 04:35 Eos % (Auto) 1.2 % 10/05/22 04:35 Baso % (Auto) 0.1 % 10/05/22 04:35 Neut # (Auto) 8.69 10^3/uL (1.8-7.7) H 10/05/22 04:35 Lymph # (Auto) 3.3 10^3/uL (0.8-4.8) 10/05/22 04:35 [place] # (Auto) 1.2 10^3/uL (0.2-0.9) H 10/05/22 04:35 Eos # (Auto) 0.2 10^3/uL (0.0-0.8) 10/05/22 04:35 Baso # (Auto) 0.0 10^3/uL (0.0-0.1) 10/05/22 04:35 Nucleated RBC % (auto) 0 % 10/05/22 04:35 Nucleated RBCs # 0.0 /100WBC 10/05/22 04:35 Sodium 136 mmol/L (136-145) 10/05/22 04:35 Potassium 3.5 mmol/L (3.5-5.1) 10/05/22 04:35 Chloride 97 mmol/L (98-107) L 10/05/22 04:35 Carbon Dioxide 21 mmol/L (22-29) L 10/05/22 04:35 Anion Gap 21.5 (5-19) H 10/05/22 04:35 BUN 25 mg/dL (8-23) H 10/05/22 04:35 Creatinine 2.4 mg/dL (0.5-0.9) H 10/05/22 04:35 GFR Calculation 20.4 mL/min (90-130) L 10/05/22 04:35 Glucose 101 mg/dL (65-115) 10/05/22 04:35 Calculated Osmolality 287 mOsm/kg (285-295) 10/05/22 04:35 Calcium 8.9 mg/dL (8.5-10.5) 10/05/22 04:35 Total Bilirubin 0.3 mg/dL (0.15-1.2) 10/05/22 04:35 AST 16 U/L (0-32) 10/05/22 04:35 ALT 18 U/L (0-33) 10/05/22 04:35 Alkaline Phosphatase 201 U/L (35-105) H 10/05/22 04:35 Total Protein 7.5 g/dL (6.6-8.7) 10/05/22 04:35 Albumin 3.9 g/dL (3.5-5.2) 10/05/22 04:35 Globulin 3.6 g/dL (1.3-4.6) 10/05/22 04:35 Lipase 26 U/L (13-60) 10/05/22 04:35 Critical Care Time Critical Care Time: Critical Care Time: Yes Total Critical Care Time: 40 Attestation: The high probability of a clinically significant, sudden or life threatening deterioration of the patient's gi system(s) required my full and direct attention, intervention and personal management. The critical care time is as shown. This time is in addition to time spent performing any reported procedures but includes the following: [x] Data and vital sign review and interpretation [x] Patient assessment, examination and intervention [x] Documentation [x] Medication orders and management Discharge Plan Discharge Patient Disposition: Admitted As Inpatient Clinical Impression: Perforated diverticulum, Diverticulitis Condition: Stable Prescriptions: No Action cholecalciferol (vitamin D3) 350 mcg (14,000 unit) capsule 350 mcg PO DAILY amitriptyline 50 mg tablet 50 mg PO BEDTIME Qty: 90 11RF propranolol 40 mg tablet See Rx Instructions .ROUTE .COMPLEX Qty: 90 3RF Dose Instruction: TAKE 1 TABLET BY MOUTH EVERY DAY Rx Instructions: TAKE 1 TABLET BY MOUTH EVERY DAY anastrozole 1 mg tablet 1 mg PO QDAY Qty: 90 3RF Referrals: Rory Rico MD [Primary Care Provider] - Coding Level of Care Code ED Molecular Biology Director for [facility]
[2022-10-05 04:50] LABS: Basophils % 0.1 %; Eosinophils # 0.2 10^3/uL (0.0-0.8); Eosinophils % 1.2 %; Hematocrit 37.6 % (37.0-47.0); Lymphocytes # 3.3 10^3/uL (0.8-4.8); Lymphocytes % 24.7 %; Mean Corpuscular HGB Conc 31.9 g/dL (30.0-36.0); Mean Corpuscular Hemoglobin 29.7 pg (28.0-34.0); Mean Corpuscular Volume 93.1 fl (81-99); Mean Platelet Volume 11.4 fL (7.4-10.4); Monocytes # 1.2 10^3/uL (0.2-0.9); Neutrophils # 8.69 10^3/uL (1.8-7.7); Neutrophils % 64.6 %; Nucleated Red Blood Cells % 0 %; Platelet Count 277 10^3/cmm (130-400); Red Blood Count 4.04 10^6/uL (4.1-5.3); Red Cell Distribution Width 13.9 % (12.1-15.1); White Blood Count 13.5 10^3/uL (4.0-10.0)
[2022-10-05 05:10] LABS: Alanine Aminotransferase 18 U/L (0-33); Albumin Level 3.9 g/dL (3.5-5.2); Alkaline Phosphatase 201 U/L (35-105); Anion Gap 21.5 (5-19); Aspartate Amino Transferase 16 U/L (0-32); Blood Urea Nitrogen 25 mg/dL (8-23); Calcium 8.9 mg/dL (8.5-10.5); Carbon Dioxide 21 mmol/L (22-29); Chloride 97 mmol/L (98-107); Globulin 3.6 g/dL (1.3-4.6); Glomerular Filtration Rate 20.4 mL/min (90-130); Glucose 101 mg/dL (65-115); Lipase 26 U/L (13-60); Osmolality Calculated 287 mOsm/kg (285-295); Potassium 3.5 mmol/L (3.5-5.1); Sodium 136 mmol/L (136-145); Total Bilirubin 0.3 mg/dL (0.15-1.2); Total Protein 7.5 g/dL (6.6-8.7)
--- NOTE | 2022-10-05 05:14 | CTR_ITS ---
PROCEDURE INFORMATION: Exam: CT Abdomen And Pelvis Without Contrast Exam date and time: 10/05/2022 5:21 AM Age: 61 years old Clinical indication: Abdominal pain; Localized; Right upper quadrant (ruq); Prior surgery; Surgery date: 6+ months; Surgery type: HX appendectomy, b/l salpingectomy, b/l mastectomy for breast CA; Additional info: Abd pain TECHNIQUE: Imaging protocol: Computed tomography of the abdomen and pelvis without contrast. Radiation optimization: All CT scans at this facility use at least one of these dose optimization techniques: automated exposure control; mA and/or kV adjustment per patient size (includes targeted exams where dose is matched to clinical indication); or iterative reconstruction. Other protocol: This patient has received 0 known CTs and 0 known cardiac nuclear medicine studies in the 12 months prior to the current study. COMPARISON: CT abdomen pelvis w con* [id number] 06/21/2021 9:39 AM RADIATION DOSE METRICS: Total DLP (mGy-cm): 550.09 FINDINGS: Liver: Normal. No mass. Gallbladder and bile ducts: There are multiple gallstones present. Pancreas: Normal. No ductal dilation. Spleen: Normal. No splenomegaly. Adrenal glands: Normal. No mass. Kidneys and ureters: There are 2 nonobstructing renal calculi seen within the left kidney, the largest is seen in the upper pole measuring 2.5 mm. Stomach and bowel: Diverticula are present on the descending and sigmoid colon. There are hazy in strandy opacity seen in the sigmoid mesentery and there is bowel wall thickening seen within the sigmoid colon, findings compatible with inflammatory changes and diverticulitis. The source of the free intra-abdominal air is likely a perforated diverticulum. Some intermediate attenuation fluid is seen adjacent to the sigmoid colon. The cecum is seen within the pelvis extending across the midline to the left. There is mild bowel wall thickening of the cecum overlying the sigmoid colon possibly representing mild reactive typhlitis. Appendix: The patient is status post appendectomy. Intraperitoneal space: There is free intra-abdominal air present. Vasculature: Unremarkable. No abdominal aortic aneurysm. Lymph nodes: Unremarkable. No enlarged lymph nodes. Urinary bladder: Unremarkable as visualized. Reproductive: Unremarkable as visualized. Bones/joints: Unremarkable. No acute fracture. Soft tissues: Unremarkable. CT/CT abdomen pelvis wo con [id number] IMPRESSION: 1. There is free intra-abdominal air present. The source of the free air is likely a perforated diverticulum. Diverticula are present on the descending and sigmoid colon. There is bowel wall thickening and inflammatory changes seen adjacent to the sigmoid colon and some intermediate attenuation fluid is seen within the pelvis adjacent to the sigmoid colon, findings compatible with diverticulitis. 2. There is some bowel wall thickening seen within the adjacent cecum likely representing reactive typhlitis. 3. There are 2 nonobstructing left renal calculi, the largest measuring 2.5 mm. 4. There are multiple gallstones present.
[2022-10-05] MEDS: sodium chloride 0.9% 1,000 ML 999 ML IV ×2 (05:32→06:12)
[2022-10-05] MEDS: piperacillin-tazobactam 3.375 GM in sodium chloride 0.9% (plus) 50 ML IV ×3 (05:40→21:47)
[2022-10-05 05:56] LABS: Add Urine Microscopic? YES; Bilirubin Urine 1+ (Negative); Blood Urine 3+ (Negative); Glucose Urine UA Norm (Normal); Ketones Urine Negative (Negative); Leukocyte Esterase Urine 1+ (Negative); Nitrate Urine Negative (Negative); Protein Urine 1+ (Negative); Urine Appearance Hazy (CLEAR); Urine Color Yellow (Yellow); Urobilinogen Urine Neg (Negative); pH Urine 5 (5-7)
[2022-10-05 06:00] LABS: RBC Urine 25-40 /hpf (0-2)
[2022-10-05 06:19] LABS: Amorphous Sediment Urine 2+ /hpf; Bacteria Urine 1+ /hpf; Hyaline Casts Urine 0-4 /lpf
[2022-10-05 06:20] LABS: Squamous Epithelial Cell Urine 0-4 /hpf (0-5)
[2022-10-05 06:27] LABS: Add Urine Culture? Yes
--- NOTE | 2022-10-05 06:43 | PM.CONSULT ---
Providers/Reason For Consult Consulting Physician/Specialty*: Dr. Thai Giang DO/General surgery Reason for Consult*: Perforated diverticulitis Primary Care Provider: Rory Rico MD History of Present Illness History of Present Illness Bertha Briceno is a 61 year old female who presents to the hospital with a 4-day history of abdominal pain. She reports that the pain has been much worse over the last 24 hours. The pain is diffuse in her abdomen but mostly in the right lower quadrant. Pain is sharp and constant. Palpation makes pain worse. Nothing makes pain better. Denies any nausea or vomiting. Denies any diarrhea or constipation. Pain does not radiate. She has a history of breast cancer with bilateral mastectomies and chemotherapy in 2019. At that time she had diverticulitis with microperforations that was managed conservatively. Review of Systems General: Reports: 10 or more systems reviewed and unremarkable except in HPI and below Medications/Allergies Home Medications Medication Instructions Recorded Confirmed Last Taken Type cholecalciferol (vitamin D3) 350 350 mcg PO DAILY 10/01/20 08/24/22 12/05/21 History mcg (14,000 unit) capsule anastrozole 1 mg tablet 1 mg PO QDAY #90 tabs 02/18/22 08/24/22 Unknown Rx amitriptyline 50 mg tablet 50 mg PO BEDTIME #90 tabs 08/20/22 08/24/22 Unknown Rx propranolol 40 mg tablet See Rx Instructions .Route 08/20/22 08/24/22 Unknown Rx .COMPLEX #90 tabs Allergies Allergy/AdvReac Type Severity Reaction Status Date / Time naproxen [From Aleve] Allergy anaphylaxis Verified 08/24/22 13:09 Current Medications Generic Name Dose Route Start Last Admin Trade Name Freq PRN Reason Stop Dose Admin Sodium Chloride 1,000 mls @ 999 mls/hr 10/05/22 05:50 10/05/22 06:12 Sodium Chloride 0.9% IV 10/05/22 06:50 999 mls/hr .Q1H1M ONE Administration PFSH Acute PFSH: Medical History Breast cancer, left breast Chronic migraine Diverticulitis Surgical History H/O bilateral salpingectomy History of appendectomy (1981) Appendectomy, adhesion lysis, and D&C History of bilateral mastectomy (07/20/19) Left modified radical mastectomy and prophylactic right simple mastectomy History of open reduction and internal fixation (ORIF) procedure right ankle History of tubal ligation (1983) Tubal ligation and D&C Hx of reduction of closed fracture right wrist Status post colonoscopy (12/05/21) diverticulosis Family History Other Cancer Diabetes Hyperlipidemia Hypertension Denies family history of CAD (coronary artery disease) Clotting disorder Dementia Psychiatric illness Chronic kidney disease (CKD) Suicide Anesthesia complication Bleeding disorder Lung disease Stroke Social History Smoking and tobacco status: never smoked Alcohol intake: never Vitals/I&O/Wt Last Vital Signs Temp 97.9 F 10/05/22 04:29 Pulse 90 10/05/22 06:10 Resp 18 10/05/22 05:45 BP 141/79 10/05/22 06:10 Pulse Ox 94 10/05/22 06:10 O2 Del Method 10/05/22 06:10 10/04/22 10/04/22 10/05/22 14:59 22:59 06:59 Intake Total 50 / 50 Balance 50 / 50 Weight last 48 hrs Weight 160 lb Physical Exam Narrative: General : Patient is well developed , no acute distress, oriented x3 Head : Normal cephalic, a-traumatic. Ears : Pinnae and external canal are normal. Hearing is normal. Eyes : PERRLA, Sclera and injection are normal. No conjunctival discharge. Nose : Mucous membranes are without erythema. Throat : buccal mucosa is normal, gums are without significant recession or hypertrophy. Lungs : Equal chest rise bilaterally, no use of accessory muscles, trachea is midline. Cor : Rate and rhythm are normal. Abdomen : Soft, distended, diffusely tender but mostly in the right lower quadrant, no guarding or rebound Extremities : No edema, no cyanosis or clubbing, dorsalis pedis pulses are present bilaterally, non-tender to palpation of calves. Upper extremities are normal bilaterally. Back : non-tender to palpation, no CVA tenderness. Neuro : CN II - XII intact, Upper and lower extremities have equal and full strength Data 10/05/22 04:35 10/05/22 04:35 A&P Assessment and plan (1) Diverticulitis of large intestine with complication: (2) Severe sepsis: (3) Acute kidney injury: Plan To operating room for exploratory laparotomy with (Escobedo's procedure) Colostomy formation Boluse a third liter of normal saline and then run at at least 150 cc/h Zosyn N.p.o. Admit to medicine The risks and benefits of procedure, including but not limited to bleeding, infection, damage to surrounding structures, scar, numbness, pain, malfunction of the colostomy, were explained to the patient. She is understanding of the risks and wishes to proceed. Coding Level of Care Code Acute Code for [facility] Diagnoses Diverticulitis of large intestine with complication K57.32 Severe sepsis A41.9; R65.20 Acute kidney injury N17.9
--- NOTE | 2022-10-05 06:57 | P.HP_ITS ---
Providers/Chief Complaint Admitting Physician: Collin Woodall MD Primary Care Provider: Rory Rico MD Chief Complaint: Pain on Rt Side History of Present Illness Bertha Briceno is a 61 year old female with past history of breast cancer who presented to the hospital with 4 to 5 days of abdominal pain, intermittent vomiting. She still had an occasional stool. She has had pain in her abdomen mainly in the right side, that has been unremitting but significantly worse amy or to her presentation to the ER. No fevers, blood in stool, black or tarry stool, hematemesis. In the emergency department she was found to have diverticulitis, with perforation. She is being prepped for surgery. Patient reports no problems with surgery in the past. She normally can walk a fair amount of distance, up several flights of stairs, and never has any chest discomfort. She denies any cardiac history. She reports no problems with anesthesia. She reports no family history or personal history of bleeding disorder. Review of Systems General: Reports: 10 or more systems reviewed and unremarkable except in HPI and below Const: Denies: fever(s) or chills GI: Reports: abdominal pain, nausea and vomiting; Denies: hematemesis, hematochezia or melena Medications/Allergies Home Medications Medication Instructions Recorded Confirmed Last Taken Type cholecalciferol (vitamin D3) 350 350 mcg PO DAILY 10/01/20 08/24/22 12/05/21 History mcg (14,000 unit) capsule anastrozole 1 mg tablet 1 mg PO QDAY #90 tabs 02/18/22 08/24/22 Unknown Rx amitriptyline 50 mg tablet 50 mg PO BEDTIME #90 tabs 08/20/22 08/24/22 Unknown Rx propranolol 40 mg tablet See Rx Instructions .Route 08/20/22 08/24/22 Unknown Rx .COMPLEX #90 tabs Allergies Allergy/AdvReac Type Severity Reaction Status Date / Time naproxen [From Aleve] Allergy anaphylaxis Verified 08/24/22 13:09 PFSH Acute PFSH: Medical History (Updated 10/05/22 @ 07:10 by Collin Woodall MD) Breast cancer, left breast Chronic migraine Diverticulitis Surgical History H/O bilateral salpingectomy History of appendectomy (1981) Appendectomy, adhesion lysis, and D&C History of bilateral mastectomy (07/20/19) Left modified radical mastectomy and prophylactic right simple mastectomy History of open reduction and internal fixation (ORIF) procedure right ankle History of tubal ligation (1983) Tubal ligation and D&C Hx of reduction of closed fracture right wrist Status post colonoscopy (12/05/21) diverticulosis Family History Other Cancer Diabetes Hyperlipidemia Hypertension Denies family history of CAD (coronary artery disease) Clotting disorder Dementia Psychiatric illness Chronic kidney disease (CKD) Suicide Anesthesia complication Bleeding disorder Lung disease Stroke Social History Smoking and tobacco status: never smoked Alcohol intake: never Vitals/I&O/Wt Last Vital Signs Temp 97.9 F 10/05/22 04:29 Pulse 90 10/05/22 06:10 Resp 18 10/05/22 05:45 BP 141/79 10/05/22 06:10 Pulse Ox 94 10/05/22 06:10 O2 Del Method 10/05/22 06:10 10/04/22 10/04/22 10/05/22 14:59 22:59 06:59 Intake Total 50 / 50 Balance 50 / 50 Weight last 48 hrs Weight 72.575 kg Physical Exam Narrative: General exam is a conversive white female, reporting abdominal pain HEENT: Atraumatic normocephalic. Oropharynx clear. Neck is supple no lymphadenopathy thyromegaly Cardiovascular regular rate and rhythm, no murmur Lungs clear Abdomen tender. This seems to be more global. Diminished bowel sounds deferred Extremities no cyanosis clubbing or edema, cap refill brisk Skin no rash Neuro no focal deficits Data 10/05/22 04:35 10/05/22 04:35 Other Labs: LFTs are normal, alk phos slightly elevated 201 Albumin 3.9 Calcium 8.9 Urinalysis 25-40 reds, 5-10 whites, 1+ leukocyte esterase and negative nitrates Gallbladder ultrasound demonstrated multiple gallstones, mild gallbladder wall thickening Abdomen pelvis CT demonstrated free air, diverticulitis, gallstones. I visualized this as well and concur A&P Assessment and plan (1) Perforated diverticulum: Patient presents with abdominal discomfort Free air is noted on CT scan, consistent with perforated diverticulum with diverticulitis Zosyn initiated in the emergency department. We will continue. CBC, BMP daily for now Obtain blood cultures Surgery consultation has been obtained. She is heading directly to the operating room N.p.o. Fluids (2) Diverticulitis: See above, Zosyn (3) Acute kidney injury: Patient has acute kidney injury, likely secondary to dehydration from acute diverticulitis with perforation Resuscitation with 2 L of saline has been ordered in the emergency department. Continue saline at at least 100 cc an hour following surgery Close follow-up of renal function with BMP in the morning (4) Cholelithiasis: Cholelithiasis also noted on gallbladder ultrasound as well as CAT scan. This is unlikely to be causing any significant pain currently (5) Chronic migraine: We will resume her home medication when she is able to take p.o. Plan History of breast cancer Multiple other medical problems as outlined in past medical history Full code currently SCDs for DVT prophylaxis. She is going to surgery acutely. Following surgery she should be assessed to start pharmacologic DVT prophylaxis with heparin(chosen secondary to acute kidney injury) Attestations Medical Necessity Statement*: Will need greater than 2 midnight stay for evaluation and treatment of perforated viscus, acute kidney injury, diverticulitis Diagnoses Perforated diverticulum K57.80 Diverticulitis K57.92 Acute kidney injury N17.9 Cholelithiasis K80.20 Chronic migraine Time Spent (min) 36
--- NOTE | 2022-10-05 07:08 | P.ANESASSM_ITS ---
Pre-Anesthetic Assessment Height/Weight: Height 1.63 m Weight 72.575 kg Temp Pulse Resp BP Pulse Ox O2 Del Method 97.9 F 90 18 141/79 94 10/05/22 04:29 10/05/22 06:10 10/05/22 05:45 10/05/22 06:10 10/05/22 06:10 10/05/22 06:10 Preop Diagnosis: diagnostic Operation Date: 10/05/22 15:30 Proposed Procedures p Exploratory Laparotomy(Not Applicable) - Thai Giang DO s Colostomy(Not Applicable) - Thai Giang DO Familial anesthetic complications: None Was Beta Acosta taken within 24 hours: Yes Was Clonidine taken within 24 hours: N/A Last intake: > 8hrs Social No alcohol and No tobacco Exam alert, oriented x 3, clear to auscultation bilaterally and regular rate & rhythm Airway Mallampati: Class II Dentition: false [facility] Gastroesophageal Reflux Disease Musc/skel hx breast cancer, still has port Anesthetic Plan ASA status: 3E Anesthesia: General Risk of > 500 ml blood loss (7ml/kg in children): No Medications/Allergies Home Medications Medication Instructions Recorded Confirmed Last Taken Type cholecalciferol (vitamin D3) 350 350 mcg PO DAILY 10/01/20 08/24/22 10/04/22 History mcg (14,000 unit) capsule anastrozole 1 mg tablet 1 mg PO QDAY #90 tabs 02/18/22 08/24/22 10/04/22 Rx amitriptyline 50 mg tablet 50 mg PO BEDTIME #90 tabs 08/20/22 10/05/22 10/03/22 Rx propranolol 40 mg tablet See Rx Instructions .Route 08/20/22 08/24/22 10/04/22 Rx .COMPLEX #90 tabs Allergies Allergy/AdvReac Type Severity Reaction Status Date / Time naproxen [From Aleve] Allergy anaphylaxis Verified 08/24/22 13:09 [facility] Anesthesia Medical History Breast cancer, left breast Chronic migraine Diverticulitis Surgical History H/O bilateral salpingectomy History of appendectomy (1981) Appendectomy, adhesion lysis, and D&C History of bilateral mastectomy (07/20/19) Left modified radical mastectomy and prophylactic right simple mastectomy History of open reduction and internal fixation (ORIF) procedure right ankle History of tubal ligation (1983) Tubal ligation and D&C Hx of reduction of closed fracture right wrist Status post colonoscopy (12/05/21) diverticulosis Family History Other Cancer Diabetes Hyperlipidemia Hypertension Denies family history of CAD (coronary artery disease) Clotting disorder Dementia Psychiatric illness Chronic kidney disease (CKD) Suicide Anesthesia complication Bleeding disorder Lung disease Stroke Social History Smoking and tobacco status: never smoked Alcohol intake: never Data Anesthesia 10/05/22 04:35 10/05/22 04:35 Short CBC 10/05/22 Range/Units 04:35 WBC 13.5 H (4.0-10.0) 10^3/uL Hgb 12.0 (11.5-15.3) g/dL Hct 37.6 (37.0-47.0) % MCV 93.1 (81-99) fl Plt Count 277 (130-400) 10^3/cmm Neut % (Auto) 64.6 % Neut # (Auto) 8.69 H (1.8-7.7) 10^3/uL BMP 10/05/22 04:35 Sodium 136 Potassium 3.5 Chloride 97 L Carbon Dioxide 21 L BUN 25 H Creatinine 2.4 H Glucose 101 Calcium 8.9 Liver Function 10/05/22 Range/Units 04:35 Total Bilirubin 0.3 (0.15-1.2) mg/dL AST 16 (0-32) U/L ALT 18 (0-33) U/L Alkaline Phosphatase 201 H (35-105) U/L Albumin 3.9 (3.5-5.2) g/dL Urine 10/05/22 Range/Units 05:30 Urine Color Yellow (Yellow) Urine Appearance Hazy A (CLEAR) Urine pH 5 (5-7) Ur Specific [place] 1.020 (1.005-1.030) Urine Protein 1+ H (Negative) Urine Glucose (UA) Norm (Normal) Urine Ketones Negative (Negative) Urine Nitrate Negative (Negative) Urine Bilirubin 1+ H (Negative) Ur Leukocyte Esterase 1+ H (Negative) Urine RBC 25-40 H (0-2) /hpf Urine WBC 5-10 H (0-5) /hpf Cardiac Studies: Echocardiogram Limited Views 07/23/20
--- NOTE | 2022-10-05 10:06 | P.OP_ITS ---
Operative Report Date of procedure: October 05, 2022 Pre-op diagnosis: Preop Diagnosis perforated sigmoid diverticulitis Post-op diagnosis: same Procedure done: Exploratory laparotomy Sigmoidectomy End colostomy formation Specimens removed/disposition: Sigmoid colon Surgeon: Dr. Thai Giang DO Anesthesia: General Estimated blood loss (mL): 250 Complications: None apparent Brief History: This is a very pleasant 61-year-old female who presents to the hospital with a bdominal pain. Work-up identified perforated sigmoid diverticulitis with intra- abdominal free air. Exploratory laparotomy with sigmoidectomy and end colostomy formation was indicated. The risk and benefits were explained and documented. Procedure: Patient was wheeled in the OR and placed on the OR table in the supine position. The abdomen was inspected prepped and draped in usual sterile fashion. General endotracheal intubation was achieved by the department anesthesia. Timeout was performed. All present were in agreement. A 10 blade scalpel was used to make a midline laparotomy incision from just superior to the umbilicus down to the pubis. Electrocautery was then used to dissect down through the subcutaneous tissue and the fascia. The peritoneum was opened bluntly. This was extended cephalad and caudad with electrocautery. The sigmoid colon was identified and firm with a small area of perforation. There was only a small amount of contamination in the abdomen. A small window was made in the mesentery where the sigmoid colon meets the rectum. A contour stapler with a blue load was used to transect the sigmoid from the rectum. The Enseal was then used to transect the mesentery up through the sigmoid colon. The PJ stapler with a blue 100 load was used to transect the proximal sigmoid. Specimen was passed off. The left white line of Toldt was taken down bluntly and sharply. Additional mesentery was ligated with the Enseal to create length for colostomy. The abdomen was then rinsed with 2 L of warm saline and suctioned. A 19 Upper Sorbian Jose drain was placed into the pelvis and left lower quadrant coming out of the right lower quadrant. The drain was sewn in place using 3-0 nylon in interrupted fashion. A proper site for colostomy was located and a lower sioux of skin and subcutaneous fat were excised using electrocautery. The anterior rectus sheath was then incised in a cruciate fashion. The rectus muscle was then bluntly. The posterior rectus sheath was ligated linearly. 2 finger breaths were used to dilate the incisions. The descending colon was then brought up through the future colostomy site. Attention was then brought to closing the abdomen. Two #1 PDS's in a running fashion were used to close the fascia. Skin was closed with riddhi. The colostomy was then matured in the typical fashion. Colostomy was pink and viable at the end of the procedure. An ostomy appliance and sterile dressings were applied. Patient tolerated procedure well.
--- NOTE | 2022-10-05 10:42 | PC.NURSE ---
Arrived from PACU, dressing to midline abdomen clean dry and intact, patient AO x4, reported pain at tolerable level at this time
[2022-10-05] MEDS: sodium chloride 0.9% 1,000 ML 125 ML IV ×2 (11:09→19:34)
[2022-10-05] MEDS: heparin 5,000 unit/mL INJ 1 mL 5000 UNIT SUBCUT ×2 (11:09→18:26)
[2022-10-05] MEDS: cetylpyridinium Lozenge 1 EACH MUCOUS MEM (11:09)
[2022-10-05] MEDS: HYDROmorphone 1 mg/mL INJ 1 mL IVP ×4 (11:46→21:48)
--- NOTE | 2022-10-05 12:07 | PC.CHAP ---
Pastoral Care Encounter/Spiritual Assessment Type of Contact [] Declined cellar worker visit [] Patient/Family/Request visit [] Outpatient visit [] Follow-up visit [] Physician referral [] Code/Alert [x] Routine visit [] Staff referral [] Actively dying [] Patient sleeping [x] Family support [] [] Out of room [] Palliative care [] [] Receiving care in room [] Pre-surgical visit [] Trauma [] Long length of stay [] ICU visit [] Other: Relational/Emotional Strength [] Patient feels connected with others/family/visitors/staff [] Distress [] Loneliness/isolation [] Abandonment Spirituality of Patient [] Person of Sarika [] Attends Latter-Day of their Sarika [] Believes in Prayer [] Reads Bible or Latter Day materials [] There are Spiritual issues to be addressed Docket Specialist Interventions [x] Prayer [] Active listening [] Non-anxious presence [] Spiritual/emotional support [] Crisis/trauma care [] Spiritual counseling [] Bereavement support [] Provided bereavement packet [] Provided Bible/devotional materials [] Provided toy/stuffed animal, coloring book to patient or family member [] Provided Communion [] Anointing/Menno [] Salvation [x] Completed spiritual assessment [] Other: Impact on Illness or Injury [] Angry [] Fearful [] Anxious [] Often cries [] Exhaustion [] Unable to work [] Unable to attend mosque [] Unable to walk/stand [] Unable to read [] Unable to drive [] Unable to eat/drink [] Unable to sleep [] Unable to be with family [] Patient intubated [] Other: Summary Time spent with patient
--- NOTE | 2022-10-05 14:23 | ANE.PACU2 ---
Inpatient post-anesthesia follow up: Airway intact: Yes Vital signs: Temperature 97.1 F Pulse Rate 84 Respiratory Rate 14 Blood Pressure 132/79 Pulse Oximetry 98 Oxygen Delivery Me thod Room Air Oxygen Flow Rate 2 Fraction of Inspir ed Oxygen Hydration adequate: Yes Nausea and vomiting: No Pain level: 1 Mental status: Baseline
[2022-10-05] MEDS: amitriptyline 25 mg Tablet 50 MG PO (21:47)
[2022-10-06] VITALS (22 sets, daily range): BP systolic 115–161; BP diastolic 71–95; PULSE 74–111; RESP 10–28; TEMP 36.7–37.3; O2SAT 82–100
[2022-10-06] MEDS: heparin 5,000 unit/mL INJ 1 mL 5000 UNIT SUBCUT ×3 (01:55→17:53)
[2022-10-06] MEDS: sodium chloride 0.9% 1,000 ML 125 ML IV ×2 (01:56→11:06)
[2022-10-06] MEDS: HYDROmorphone 1 mg/mL INJ 1 mL IVP ×3 (02:02→12:20)
[2022-10-06] MEDS: pantoprazole 40 mg SDV IVP (06:14)
[2022-10-06] MEDS: piperacillin-tazobactam 3.375 GM in sodium chloride 0.9% (plus) 50 ML IV ×3 (06:14→21:00)
[2022-10-06 06:39] LABS: Basophils % 0.1 %; Hematocrit 28.4 % (37.0-47.0); Hemoglobin 8.8 g/dL (11.5-15.3); Lymphocytes # 1.4 10^3/uL (0.8-4.8); Lymphocytes % 15.8 %; Mean Corpuscular Hemoglobin 29.7 pg (28.0-34.0); Mean Corpuscular Volume 95.9 fl (81-99); Mean Platelet Volume 11.3 fL (7.4-10.4); Monocytes # 0.8 10^3/uL (0.2-0.9); Monocytes % 9.4 %; Neutrophils # 6.68 10^3/uL (1.8-7.7); Neutrophils % 74.4 %; Nucleated Red Blood Cells % 0 %; Platelet Count 268 10^3/cmm (130-400); Red Blood Count 2.96 10^6/uL (4.1-5.3); Red Cell Distribution Width 14.3 % (12.1-15.1)
[2022-10-06 06:53] LABS: Alanine Aminotransferase 14 U/L (0-33); Albumin Level 2.9 g/dL (3.5-5.2); Alkaline Phosphatase 149 U/L (35-105); Anion Gap 17.9 (5-19); Aspartate Amino Transferase 17 U/L (0-32); Blood Urea Nitrogen 23 mg/dL (8-23); Calcium 8.3 mg/dL (8.5-10.5); Carbon Dioxide 17 mmol/L (22-29); Chloride 110 mmol/L (98-107); Globulin 3.6 g/dL (1.3-4.6); Glucose 111 mg/dL (65-115); Osmolality Calculated 296 mOsm/kg (285-295); Potassium 3.9 mmol/L (3.5-5.1); Sodium 141 mmol/L (136-145); Total Bilirubin 0.3 mg/dL (0.15-1.2); Total Protein 6.5 g/dL (6.6-8.7)
[2022-10-06 06:56] LABS: Magnesium 1.7 mg/dL (1.7-2.3); Phosphorus 2.5 mg/dL (2.5-4.5)
--- NOTE | 2022-10-06 07:25 | P.PN_ITS ---
Subjective Subjective: Bertha is resting comfortably upon reexamination this morning. She is awake and states she was already seen by Dr. Giang. She is status post exploratory laparotomy with sigmoidectomy and end colostomy formation yesterday afternoon. Patient reportedly tolerated this procedure well and she h as been without complication since. She is not complaining of any nausea or vomiting at this time and has been hydrating adequately. She is slightly tachycardic and tachypneic on monitor, but otherwise in no acute distress. She is also afebrile at this time. Her hemoglobin this morning is 8.8 following surgery. Her creatinine is 1.0, down from 2.4 yesterday. All other questions and concerns are addressed at this time. Vitals/I&O/Wt Last Vital Signs Temp 99.1 F 10/06/22 00:00 Pulse 96 10/06/22 05:00 Resp 13 10/06/22 05:00 BP 135/71 10/06/22 05:00 Pulse Ox 96 10/06/22 05:00 O2 Del Method 10/05/22 10:44 O2 Flow Rate 2 10/05/22 10:00 10/05/22 10/06/22 10/06/22 22:59 06:59 14:59 Intake Total 1050 / 48072 845.833 / 99962.833 Output Total 750 / 1150 Balance 300 / 53171 845.833 / 46762.833 Weight last 48 hrs Weight 72.575 kg Physical Exam Narrative: General exam is a conversive white female, reporting abdominal pain Cardiovascular slightly tachycardic with regular rhythm, no murmur Lungs clear Abdomen colostomy bag present. Colostomy appears pink and viable. Bowel sounds hypoactive Roberts noted Extremities no cyanosis clubbing or edema, cap refill brisk Skin no rash Urinary Catheter Management: Roberts: Cath Placed During This Visit: yes Reason for Continuing Indwelling Catheter: Accurate Measurement of Urinary Output in Critically Ill Patients Urinary Catheter Date of Insertion: 10/05/22 Urinary Catheter Time of Insertion: 07:30 Data 10/06/22 06:03 10/06/22 06:03 A&P Assessment and plan (1) Perforated diverticulum: Patient is postoperative day #1 status post exploratory laparotomy, sigmoidectomy, colostomy formation Surgery consultation appreciated Patient remains n.p.o. Overall she is significantly fluid positive, and renal function has improved. Reduce IV fluids to 100 cc an hour Continue Zosyn CBC, BMP, magnesium level in the morning (2) Diverticulitis: Resected during surgery (3) Acute kidney injury: Patient has acute kidney injury, likely secondary to dehydration from acute diverticulitis with perforation She has received adequate fluid resuscitation Creatinine is markedly improved Reduce fluids, recheck BMP in the morning (4) Cholelithiasis: Cholelithiasis also noted on gallbladder ultrasound as well as CAT scan. This is unlikely to be causing any significant pain currently (5) Chronic migraine: Home medication will be resumed Plan History of breast cancer. Continue home medication Multiple other medical problems as outlined in past medical history Full code currently SCDs and heparin for DVT prophylaxis Attestations Medical Necessity Statement*: Requires continued hospitalization for diverticulitis, status post surgical intervention and colostomy Diagnoses Perforated diverticulum K57.80 Diverticulitis K57.92 Acute kidney injury N17.9 Cholelithiasis K80.20 Chronic migraine Time Spent (min) 26
[2022-10-06] MEDS: anastrozole 1 mg Tablet PO (08:13)
[2022-10-06] MEDS: propranolol 40 mg Tablet PO (08:13)
--- NOTE | 2022-10-06 11:34 | PM.PN ---
Subjective Subjective: Patient seen and examined. Pain well controlled. Denies any nausea or vomiting. Vitals/I&O/Wt Last Vital Signs Temp 97.9 F 10/07/22 08:00 Pulse 100 10/07/22 08:00 Resp 18 10/07/22 08:00 BP 115/68 10/07/22 08:00 Pulse Ox 100 10/07/22 08:00 O2 Del Method 10/07/22 08:00 O2 Flow Rate 2 10/05/22 10:00 10/06/22 10/07/22 10/07/22 22:59 06:59 14:59 Intake Total 1050 / 2100 870 / 2970 180 / 180 Output Total 1090 / 1090 350 / 1440 Balance -40 / 1010 520 / 1530 180 / 180 Physical Exam Narrative: General: No acute distress, awake alert and oriented x3 Abdomen: Soft, nondistended, appropriately tender to palpation Dressings clean dry and intact Ostomy pink and patent without production yet Drain serosanguineous Urinary Catheter Management: Roberts: Cath Placed During This Visit: yes Reason for Continuing Indwelling Catheter: Accurate Measurement of Urinary Output in Critically Ill Patients Urinary Catheter Date of Insertion: 10/05/22 Urinary Catheter Time of Insertion: 07:30 Data 10/07/22 05:44 10/07/22 05:44 Micro: Microbiology 10/07/22 05:44 Blood Culture - Preliminary Blood SPECIMEN COLLECTED 10/07/22 05:44 Blood Culture - Preliminary Blood SPECIMEN COLLECTED 10/05/22 05:30 Urine Culture - Preliminary Urine,Clean Catch A&P Assessment and plan (1) Diverticulitis of large intestine with complication: Plan Postop day #1 status post Escobedo's procedure IV antibiotics IV fluids Incentive spirometer DC Roberts Ambulate Attestations Medical Necessity Statement*: Patient requires multiple more nights in the hospital for recovery after Escobedo's procedure for perforated diverticulitis Coding Level of Care Code Acute Code for [facility] Diagnoses Diverticulitis of large intestine with complication K57.32
[2022-10-06] MEDS: ondansetron 2 mg/ML SDV 2 mL 4 MG IVP (12:20)
[2022-10-06] MEDS: HYDROcodone-acetaminophen 5-325 mg Tablet 1 TAB PO (18:13)
[2022-10-06] MEDS: phenol oral Spray 177 mL 3 SPRAY MUCOUS MEM (20:46)
[2022-10-06] MEDS: sodium chloride 0.9% 1,000 ML 100 ML IV (20:46)
[2022-10-06] MEDS: amitriptyline 25 mg Tablet 50 MG PO (20:46)
[2022-10-07] VITALS: BP 124/73; PULSE 82; RESP 17; TEMP 36.8; O2SAT 98
[2022-10-07] MEDS: HYDROcodone-acetaminophen 5-325 mg Tablet 1 TAB PO ×5 (00:03→20:49)
[2022-10-07] MEDS: heparin 5,000 unit/mL INJ 1 mL 5000 UNIT SUBCUT ×3 (00:42→20:49)
[2022-10-07 04:00] VITALS: BP 121/69; PULSE 98; RESP 18; TEMP 37.1; O2SAT 95
[2022-10-07] MEDS: piperacillin-tazobactam 3.375 GM in sodium chloride 0.9% (plus) 50 ML IV ×3 (05:44→20:50)
[2022-10-07 06:16] LABS: Basophils % 0.2 %; Eosinophils # 0.1 10^3/uL (0.0-0.8); Eosinophils % 1.1 %; Hematocrit 25.7 % (37.0-47.0); Lymphocytes # 2.7 10^3/uL (0.8-4.8); Lymphocytes % 31.7 %; Mean Corpuscular HGB Conc 31.1 g/dL (30.0-36.0); Mean Corpuscular Hemoglobin 29.6 pg (28.0-34.0); Mean Corpuscular Volume 95.2 fl (81-99); Mean Platelet Volume 10.8 fL (7.4-10.4); Monocytes # 0.7 10^3/uL (0.2-0.9); Monocytes % 7.8 %; Neutrophils # 4.97 10^3/uL (1.8-7.7); Neutrophils % 58.5 %; Nucleated Red Blood Cells % 0 %; Platelet Count 264 10^3/cmm (130-400); Red Cell Distribution Width 14.5 % (12.1-15.1); White Blood Count 8.5 10^3/uL (4.0-10.0)
[2022-10-07] MEDS: pantoprazole 40 mg SDV IVP (06:26)
[2022-10-07 06:36] LABS: Alanine Aminotransferase 14 U/L (0-33); Albumin Level 2.7 g/dL (3.5-5.2); Alkaline Phosphatase 119 U/L (35-105); Anion Gap 15.4 (5-19); Aspartate Amino Transferase 16 U/L (0-32); Blood Urea Nitrogen 16 mg/dL (8-23); Calcium 7.9 mg/dL (8.5-10.5); Carbon Dioxide 20 mmol/L (22-29); Chloride 107 mmol/L (98-107); Creatinine Clr Calc Pharmacy 62.4704; Globulin 3.1 g/dL (1.3-4.6); Glomerular Filtration Rate 63.2 mL/min (90-130); Glucose 76 mg/dL (65-115); Magnesium 1.5 mg/dL (1.7-2.3); Osmolality Calculated 288 mOsm/kg (285-295); Potassium 3.4 mmol/L (3.5-5.1); Sodium 139 mmol/L (136-145); Total Bilirubin 0.2 mg/dL (0.15-1.2); Total Protein 5.8 g/dL (6.6-8.7)
[2022-10-07 08:00] VITALS: BP 115/68; PULSE 100; RESP 18; TEMP 36.6; O2SAT 100
[2022-10-07 08:27] LABS: Slide Review Slide Review Perform
[2022-10-07] MEDS: sodium chloride 0.9% 1,000 ML 100 ML IV (08:32)
[2022-10-07] MEDS: magnesium sulfate premix 2 GM/50 ML PIGGYBACK IV (08:32)
[2022-10-07] MEDS: anastrozole 1 mg Tablet PO (08:33)
[2022-10-07] MEDS: propranolol 40 mg Tablet PO (08:33)
[2022-10-07] MEDS: potassium chloride ER 20 mEq Tablet 40 MEQ PO (08:33)
--- NOTE | 2022-10-07 10:29 | P.PN_ITS ---
Subjective Subjective: Bertha reports she is doing okay. Hydrocodone is adequate for pain. She is eager to get up and around. Medications: Reviewed: Yes Vitals/I&O/Wt Last Vital Signs Temp 97.9 F 10/07/22 08:00 Pulse 100 10/07/22 08:00 Resp 18 10/07/22 08:00 BP 115/68 10/07/22 08:00 Pulse Ox 100 10/07/22 08:00 O2 Del Method 10/07/22 08:00 O2 Flow Rate 2 10/05/22 10:00 10/06/22 10/07/22 10/07/22 22:59 06:59 14:59 Intake Total 1050 / 2100 870 / 2970 230 / 230 Output Total 1090 / 1090 350 / 1440 400 / 400 Balance -40 / 1010 520 / 1530 -170 / -170 Physical Exam Narrative: General exam no distress Cardiovascular slightly tachycardic with regular rhythm, no murmur Lungs clear Abdomen colostomy bag present. Colostomy appears pink and viable. Bowel sounds hypoactive Roberts noted Extremities no cyanosis clubbing or edema, cap refill brisk Skin no rash Urinary Catheter Management: Roberts: Cath Placed During This Visit: yes, but has since been removed by the nurse Reason for Continuing Indwelling Catheter: Decision to DC Catheter Urinary Catheter Date of Insertion: 10/05/22 Urinary Catheter Time of Insertion: 07:30 Date Urinary Catheter Removed: 10/07/22 Time Urinary Catheter Discontinued: 09:45 Data 10/07/22 05:44 10/07/22 05:44 Micro: Microbiology 10/05/22 05:30 Urine Culture - Final Urine,Clean Catch 10/07/22 05:44 Blood Culture - Preliminary Blood SPECIMEN COLLECTED 10/07/22 05:44 Blood Culture - Preliminary Blood SPECIMEN COLLECTED A&P Assessment and plan (1) Perforated diverticulum: Patient is postoperative day #2 status post exploratory laparotomy, s igmoidectomy, colostomy formation Surgery consultation appreciated Patient remains n.p.o. Reduce fluids further Continue Zosyn CBC, BMP, magnesium level in the morning (2) Diverticulitis: Resected during surgery (3) Acute kidney injury: Patient has acute kidney injury, likely secondary to dehydration from acute diverticulitis with perforation Kidney function is now back to normal (4) Cholelithiasis: Cholelithiasis also noted on gallbladder ultrasound as well as CAT scan. This is unlikely to be causing any significant pain currently (5) Chronic migraine: Home medication will be resumed Plan Acute postoperative blood loss anemia. Hemoglobin 8. Recheck hemoglobin tomorrow. No obvious signs of bleeding. Mild hypokalemia, supplemented recheck BMP tomorrow History of breast cancer. Continue home medication Multiple other medical problems as outlined in past medical history Full code currently SCDs and heparin for DVT prophylaxis Attestations Medical Necessity Statement*: Needs continued hospitalization for close monitoring, to correct electrolytes, follow-up CBC, and await return of bowel function. Diagnoses Perforated diverticulum K57.80 Diverticulitis K57.92 Acute kidney injury N17.9 Cholelithiasis K80.20 Chronic migraine Time Spent (min) 25
[2022-10-07 12:00] VITALS: BP 109/71; PULSE 72; RESP 17; TEMP 37.1; O2SAT 90
--- NOTE | 2022-10-07 14:27 | PM.PN ---
Subjective Subjective: Patient seen and examined. Pain controlled. There is flatus in the ostomy bag Vitals/I&O/Wt Last Vital Signs Temp 98.5 F 10/08/22 03:42 Pulse 101 H 10/08/22 03:42 Resp 18 10/08/22 03:42 BP 155/87 10/08/22 03:42 Pulse Ox 96 10/08/22 03:42 O2 Del Method 10/08/22 03:42 O2 Flow Rate 2 10/05/22 10:00 10/07/22 10/07/22 10/08/22 14:59 22:59 06:59 Intake Total 485 / 485 1600 / 2085 212.5 / 2297.5 Output Total 625 / 625 135 / 760 285 / 1045 Balance -140 / -140 1465 / 1325 -72.5 / 1252.5 Physical Exam Narrative: General: No acute distress, awake alert and oriented x3 Abdomen: Soft, nondistended, appropriately tender to palpation Dressings clean dry and intact Ostomy pink and patent with flatus in the bag Drain serosanguineous Urinary Catheter Management: Roberts: Cath Placed During This Visit: yes, but has since been removed by the nurse Reason for Continuing Indwelling Catheter: Decision to DC Catheter Urinary Catheter Date of Insertion: 10/05/22 Urinary Catheter Time of Insertion: 07:30 Date Urinary Catheter Removed: 10/07/22 Time Urinary Catheter Discontinued: 09:45 Data 10/08/22 05:15 10/08/22 05:15 Micro: Microbiology 10/07/22 05:44 Blood Culture - Preliminary Blood NEGATIVE TO DATE 10/07/22 05:44 Blood Culture - Preliminary Blood NEGATIVE TO DATE 10/05/22 05:30 Urine Culture - Final Urine,Clean Catch A&P Assessment and plan (1) Diverticulitis of large intestine with complication: Plan Postop day #2 status post Escobedo's procedure IV antibiotics IV fluids Incentive spirometer Removed NGT Clear liquid diet Likely advance to regular diet discharge home tomorrow Ambulate Attestations Medical Necessity Statement*: Per primary Coding Level of Care Code Acute Code for [facility] Diagnoses Diverticulitis of large intestine with complication K57.32
--- NOTE | 2022-10-07 14:31 | PC.NURSE ---
NG tube removed by Dr. Giang. Pt started on clear liquid diet.
[2022-10-07 16:00] VITALS: BP 130/76; PULSE 79; RESP 18; TEMP 37.3; O2SAT 95
[2022-10-07 20:00] VITALS: BP 116/73; PULSE 85; RESP 16; TEMP 37.1; O2SAT 95
[2022-10-07] MEDS: amitriptyline 25 mg Tablet 50 MG PO (20:48)
[2022-10-07] MEDS: sodium chloride 0.9% 1,000 ML 75 ML IV (23:14)
[2022-10-08] VITALS: BP 110/67; PULSE 90; TEMP 36.7; O2SAT 97
[2022-10-08] MEDS: HYDROcodone-acetaminophen 5-325 mg Tablet 1 TAB PO ×3 (03:41→16:24)
[2022-10-08 03:42] VITALS: BP 155/87; PULSE 101; RESP 18; TEMP 36.9; O2SAT 96
[2022-10-08] MEDS: piperacillin-tazobactam 3.375 GM in sodium chloride 0.9% (plus) 50 ML IV ×3 (05:19→21:59)
[2022-10-08 05:31] LABS: Hematocrit 26.9 % (37.0-47.0); Hemoglobin 8.6 g/dL (11.5-15.3); Mean Corpuscular Hemoglobin 30.1 pg (28.0-34.0); Mean Corpuscular Volume 94.1 fl (81-99); Mean Platelet Volume 10.7 fL (7.4-10.4); Platelet Count 271 10^3/cmm (130-400); Red Blood Count 2.86 10^6/uL (4.1-5.3); Red Cell Distribution Width 14.2 % (12.1-15.1); White Blood Count 7.8 10^3/uL (4.0-10.0)
[2022-10-08 05:50] LABS: Slide Review Slide Review Perform
[2022-10-08 05:55] LABS: Anion Gap 15.6 (5-19); Blood Urea Nitrogen 9 mg/dL (8-23); Calcium 7.9 mg/dL (8.5-10.5); Carbon Dioxide 23 mmol/L (22-29); Chloride 102 mmol/L (98-107); Creatinine Clr Calc Pharmacy 80.3191; Glomerular Filtration Rate 84.5 mL/min (90-130); Glucose 106 mg/dL (65-115); Magnesium 1.7 mg/dL (1.7-2.3); Osmolality Calculated 283 mOsm/kg (285-295); Potassium 3.6 mmol/L (3.5-5.1); Sodium 137 mmol/L (136-145)
[2022-10-08 06:04] LABS: Absolute Eosinophils 0.2 10^3/cmm (0.0-0.7); Absolute Segmented Neutrophil 4.5 10/cmm (1.6-7.1); Eosinophils 3 %; Lymphocytes 15 %; Monocytes Absolute 0.6 10^3/cmm (0.1-0.6); Segmented Neutrophils 58 %; Total Cells Counted 100 (0-100)
[2022-10-08 06:05] LABS: Absolute Neutrophil 4.5 10^3/cmm (1.4-6.5); Lymphocytes Absolute 2.4 10^3/cmm (1.2-3.4); Platelet Estimate Normal (Normal)
[2022-10-08 07:47] VITALS: BP 132/77; PULSE 70; RESP 17; TEMP 36.8; O2SAT 95
[2022-10-08] MEDS: pantoprazole 40 mg SDV IVP (08:05)
[2022-10-08] MEDS: heparin 5,000 unit/mL INJ 1 mL 5000 UNIT SUBCUT ×2 (08:05→20:38)
[2022-10-08] MEDS: anastrozole 1 mg Tablet PO (08:05)
[2022-10-08] MEDS: propranolol 40 mg Tablet PO (08:05)
[2022-10-08 11:41] VITALS: BP 137/77; PULSE 77; TEMP 36.8; O2SAT 95
[2022-10-08] MEDS: sodium chloride 0.9% 1,000 ML 75 ML IV (11:51)
--- NOTE | 2022-10-08 13:14 | P.PN_ITS ---
Subjective Subjective: Feels okay. Pain is under control. No stool in ostomy yet. She has been passing gas Medications: Reviewed: Yes Vitals/I&O/Wt Last Vital Signs Temp 98.3 F 10/08/22 11:41 Pulse 77 10/08/22 11:41 Resp 17 10/08/22 07:47 BP 137/77 10/08/22 11:41 Pulse Ox 95 10/08/22 11:41 O2 Del Method 10/08/22 03:42 O2 Flow Rate 2 10/05/22 10:00 10/07/22 10/08/22 10/08/22 22:59 06:59 14:59 Intake Total 1600 / 2085 212.5 / 2297.5 996.25 / 996.25 Output Total 135 / 760 285 / 1045 290 / 290 Balance 1465 / 1325 -72.5 / 1252.5 706.25 / 706.25 Physical Exam Narrative: General exam no distress Cardiovascular regular rate and rhythm without murmur Lungs clear Abdomen colostomy bag present. Colostomy appears pink and viable. Bowel sounds hypoactive Roberts noted Extremities no cyanosis clubbing or edema, cap refill brisk Skin no rash Urinary Catheter Management: Roberts: Cath Placed During This Visit: yes, but has since been removed by the nurse Reason for Continuing Indwelling Catheter: Decision to DC Catheter Urinary Catheter Date of Insertion: 10/05/22 Urinary Catheter Time of Insertion: 07:30 Date Urinary Catheter Removed: 10/07/22 Time Urinary Catheter Discontinued: 09:45 Data 10/08/22 05:15 10/08/22 05:15 Micro: Microbiology 10/07/22 05:44 Blood Culture - Preliminary Blood NEGATIVE TO DATE 10/07/22 05:44 Blood Culture - Preliminary Blood NEGATIVE TO DATE 10/05/22 05:30 Urine Culture - Final Urine,Clean Catch A&P Assessment and plan (1) Perforated diverticulum: Patient is postoperative day #3 status post exploratory laparotomy, sigmoidectomy, colostomy formation Surgery consultation appreciated Now on a clear liquid diet Continue Zosyn Passing gas but no stool yet in ostomy Laboratory reviewed Continue fluids CBC, BMP, magnesium level in the morning (2) Diverticulitis: Resected during surgery (3) Acute kidney injury: Patient has acute kidney injury, likely secondary to dehydration from acute di verticulitis with perforation Kidney function is now back to normal (4) Cholelithiasis: Cholelithiasis also noted on gallbladder ultrasound as well as CAT scan. This is unlikely to be causing any significant pain currently (5) Chronic migraine: Home medication will be resumed Plan Acute postoperative blood loss anemia. Hemoglobin increased slightly since yesterday. Recheck tomorrow Mild hypokalemia, corrected History of breast cancer. Continue home medication Multiple other medical problems as outlined in past medical history Full code currently SCDs and heparin for DVT prophylaxis Attestations Medical Necessity Statement*: Needs continued hospital stay, awaiting return of bowel function Diagnoses Perforated diverticulum K57.80 Diverticulitis K57.92 Acute kidney injury N17.9 Cholelithiasis K80.20 Chronic migraine Time Spent (min) 30
[2022-10-08 15:42] VITALS: BP 127/74; PULSE 68; RESP 16; TEMP 36.8; O2SAT 93
--- NOTE | 2022-10-08 18:06 | P.PN_ITS ---
Subjective Subjective: Feels okay. Pain is under control. No stool in ostomy yet. She has been passing flatus Medications: Reviewed: Yes Vitals/I&O/Wt Last Vital Signs Temp 98.3 F 10/08/22 15:42 Pulse 68 10/08/22 15:42 Resp 16 10/08/22 15:42 BP 127/74 10/08/22 15:42 Pulse Ox 93 10/08/22 15:42 O2 Del Method 10/08/22 03:42 O2 Flow Rate 2 10/05/22 10:00 10/08/22 10/08/22 10/08/22 06:59 14:59 22:59 Intake Total 212.5 / 2297.5 996.25 / 996.25 Output Total 285 / 1045 590 / 590 390 / 980 Balance -72.5 / 1252.5 406.25 / 406.25 -390 / 16.25 Physical Exam 2 Narrative: General: No acute distress, awake alert and oriented x3 Abdomen: Soft, nondistended, appropriately tender to palpation Dressings clean dry and intact Ostomy pink and patent with flatus in the bag Drain serosanguineous Urinary Catheter Management: Roberts: Cath Placed During This Visit: yes, but has since been removed by the nurse Reason for Continuing Indwelling Catheter: Decision to DC Catheter Urinary Catheter Date of Insertion: 10/05/22 Urinary Catheter Time of Insertion: 07:30 Date Urinary Catheter Removed: 10/07/22 Time Urinary Catheter Discontinued: 09:45 Data 10/08/22 05:15 10/08/22 05:15 Micro: Microbiology 10/07/22 05:44 Blood Culture - Preliminary Blood NEGATIVE TO DATE 10/07/22 05:44 Blood Culture - Preliminary Blood NEGATIVE TO DATE A&P Assessment and plan (1) Diverticulitis of large intestine with complication: Plan Postop day #3 status post Escobedo's procedure IV antibiotics IV fluids Incentive spirometer Removed NGT Full liquid diet Likely advance to regular diet discharge home tomorrow Ambulate Attestations Medical Necessity Statement*: Per primary Coding Level of Care Code Acute Code for [facility] Diagnoses Diverticulitis of large intestine with complication K57.32
--- NOTE | 2022-10-08 18:45 | PC.NURSE ---
ELIZABETH HAS DONE VERY WELL TODAY. ACTIVE BOWEL SOUNDS. AMBULATING THE HALLS. TOLERATING CLEAR LIQUID DIET. 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 PAC ACCESSED. AQUILES DRAIN HAS HAD 280ML OF SANGUINOUS OUTPUT. PASSING GAS BUT NO STOOL OUTPUT AT THIS TIME. OSTOMY IS PINK AND MOIST. CURRENTLY RESTING IN BED AT THIS TIME.
[2022-10-08 20:00] VITALS: BP 125/75; PULSE 77; RESP 14; TEMP 37.2; O2SAT 96
[2022-10-08] MEDS: amitriptyline 25 mg Tablet 50 MG PO (20:36)
[2022-10-09] VITALS: BP 129/75; PULSE 74; RESP 15; TEMP 36.7; O2SAT 97
[2022-10-09] MEDS: HYDROcodone-acetaminophen 5-325 mg Tablet 1 TAB PO ×3 (00:19→22:19)
[2022-10-09 04:00] VITALS: BP 147/80; PULSE 85; RESP 15; TEMP 36.9; O2SAT 96
[2022-10-09] MEDS: piperacillin-tazobactam 3.375 GM in sodium chloride 0.9% (plus) 50 ML IV ×3 (05:18→22:23)
[2022-10-09 05:47] LABS: Basophils % 0.3 %; Eosinophils # 0.4 10^3/uL (0.0-0.8); Eosinophils % 5.2 %; Hematocrit 27.9 % (37.0-47.0); Lymphocytes # 2.4 10^3/uL (0.8-4.8); Mean Corpuscular HGB Conc 32.3 g/dL (30.0-36.0); Mean Platelet Volume 10.8 fL (7.4-10.4); Monocytes # 0.6 10^3/uL (0.2-0.9); Monocytes % 8.7 %; Neutrophils # 3.53 10^3/uL (1.8-7.7); Neutrophils % 49.6 %; Nucleated Red Blood Cells % 0 %; Platelet Count 323 10^3/cmm (130-400); White Blood Count 7.1 10^3/uL (4.0-10.0)
[2022-10-09 06:13] LABS: Anion Gap 11.2 (5-19); Blood Urea Nitrogen 5 mg/dL (8-23); Calcium 8.2 mg/dL (8.5-10.5); Carbon Dioxide 26 mmol/L (22-29); Chloride 101 mmol/L (98-107); Glucose 111 mg/dL (65-115); Osmolality Calculated 278 mOsm/kg (285-295); Potassium 3.2 mmol/L (3.5-5.1); Sodium 135 mmol/L (136-145)
[2022-10-09] MEDS: potassium chloride ER 20 mEq Tablet 40 MEQ PO ×2 (08:24→12:58)
--- NOTE | 2022-10-09 09:29 | PM.PN ---
Subjective Subjective: Bertha reports she is doing okay. She has not had stool in her ostomy yet. Feels a little bloated. Not nauseated. No significant pain. Medications: Reviewed: Yes Vitals/I&O/Wt Last Vital Signs Temp 98.4 F 10/09/22 04:00 Pulse 85 10/09/22 04:00 Resp 15 10/09/22 04:00 BP 147/80 10/09/22 04:00 Pulse Ox 96 10/09/22 04:00 O2 Del Method 10/09/22 04:00 O2 Flow Rate 2 10/05/22 10:00 10/08/22 10/09/22 10/09/22 22:59 06:59 14:59 Intake Total 410 / 1577.50 410 / 1987.50 Output Total 780 / 1370 980 / 2350 150 / 150 Balance -370 / 207.50 -570 / -362.50 -150 / -150 Physical Exam Narrative: General exam no distress Cardiovascular regular rate and rhythm without murmur Lungs clear Abdomen colostomy bag present. Colostomy appears pink and viable. Bowel sounds hypoactive Roberts noted Extremities no cyanosis clubbing or edema, cap refill brisk Skin no rash Urinary Catheter Management: Roberts: Cath Placed During This Visit: yes, but has since been removed by the nurse Reason for Continuing Indwelling Catheter: Decision to DC Catheter Urinary Catheter Date of Insertion: 10/05/22 Urinary Catheter Time of Insertion: 07:30 Date Urinary Catheter Removed: 10/07/22 Time Urinary Catheter Discontinued: 09:45 Data 10/09/22 05:20 10/09/22 05:20 Micro: Microbiology 10/07/22 05:44 Blood Culture - Preliminary Blood NEGATIVE TO DATE 10/07/22 05:44 Blood Culture - Preliminary Blood NEGATIVE TO DATE A&P Assessment and plan (1) Perforated diverticulum: Patient is postoperative day #4 status post exploratory laparotomy, sigmoidectomy, colostomy formation Surgery consultation appreciated Diet has been advanced to full liquids Continue Zosyn Passing gas but no stool yet in ostomy Laboratory reviewed. Supplement potassium Fluids are discontinued CBC, BMP, magnesium level in the morning (2) Diverticulitis: Resected during surgery (3) Acute kidney injury: Patient has acute kidney injury, likely secondary to dehydration from acute diverticulitis with perforation Kidney function is now back to normal (4) Cholelithiasis: Cholelithiasis also noted on gallbladder ultrasound as well as CAT scan. This is unlikely to be causing any significant pain currently (5) Chronic migraine: Home medication will be resumed Plan Acute postoperative blood loss anemia. Hemoglobin improving Mild hypokalemia, supplement today with 80 mill equivalents History of breast cancer. Continue home medication Multiple other medical problems as outlined in past medical history Full code currently SCDs and heparin for DVT prophylaxis Attestations Medical Necessity Statement*: Needs continued hospitalization for IV antibiotics secondary to perforated viscus, diverticulitis, as well as awaiting return of bowel function. Diagnoses Perforated diverticulum K57.80 Diverticulitis K57.92 Acute kidney injury N17.9 Cholelithiasis K80.20 Chronic migraine
[2022-10-09] MEDS: pantoprazole 40 mg SDV IVP (09:53)
[2022-10-09] MEDS: heparin 5,000 unit/mL INJ 1 mL 5000 UNIT SUBCUT ×2 (10:01→22:22)
[2022-10-09] MEDS: propranolol 40 mg Tablet PO (10:03)
[2022-10-09] MEDS: anastrozole 1 mg Tablet PO (10:31)
[2022-10-09 11:56] VITALS: BP 127/82; PULSE 60; RESP 20; TEMP 36.8; O2SAT 96
--- NOTE | 2022-10-09 14:18 | PM.PN ---
Subjective Subjective: Feels okay. Pain is under control. No stool in ostomy yet. She has been passing flatus Medications: Reviewed: Yes Vitals/I&O/Wt Last Vital Signs Temp 98.2 F 10/09/22 11:56 Pulse 60 10/09/22 11:56 Resp 20 H 10/09/22 11:56 BP 127/82 10/09/22 11:56 Pulse Ox 96 10/09/22 11:56 O2 Del Method 10/09/22 11:56 O2 Flow Rate 2 10/05/22 10:00 10/08/22 10/09/22 10/09/22 22:59 06:59 14:59 Intake Total 410 / 1577.50 410 / 1987.50 530 / 530 Output Total 780 / 1370 980 / 2350 150 / 150 Balance -370 / 207.50 -570 / -362.50 380 / 380 Physical Exam Narrative: General: No acute distress, awake alert and oriented x3 Abdomen: Soft, nondistended, appropriately tender to palpation Dressings clean dry and intact Ostomy pink and patent with flatus in the bag Drain serosanguineous Urinary Catheter Management: Roberts: Cath Placed During This Visit: yes, but has since been removed by the nurse Reason for Continuing Indwelling Catheter: Decision to DC Catheter Urinary Catheter Date of Insertion: 10/05/22 Urinary Catheter Time of Insertion: 07:30 Date Urinary Catheter Removed: 10/07/22 Time Urinary Catheter Discontinued: 09:45 Data 10/09/22 05:20 10/09/22 05:20 A&P Assessment and plan (1) Diverticulitis of large intestine with complication: Plan Postop day #4 status post Escobedo's procedure IV antibiotics IV fluids Incentive spirometer Milk of Mag x1 Full liquid diet Surgically clear for advance to regular diet and discharge when passing stool Ambulate Attestations Medical Necessity Statement*: per primary Coding Level of Care Code Acute Code for [facility] Diagnoses Diverticulitis of large intestine with complication K57.32
[2022-10-09] MEDS: magnesium hydroxide 30 mL UDC PO (14:37)
[2022-10-09 15:56] VITALS: BP 142/85; PULSE 69; TEMP 36.9; O2SAT 97
[2022-10-09] MEDS: ondansetron 2 mg/ML SDV 2 mL 4 MG IVP ×2 (15:58→22:20)
[2022-10-09 20:00] VITALS: BP 118/75; PULSE 81; RESP 16; TEMP 37.1; O2SAT 95
[2022-10-09] MEDS: amitriptyline 25 mg Tablet 50 MG PO (22:20)
[2022-10-10] VITALS: BP 120/72; PULSE 85; RESP 15; TEMP 36.9; O2SAT 96
[2022-10-10 04:00] VITALS: BP 114/73; PULSE 77; RESP 16; TEMP 36.7; O2SAT 95
[2022-10-10] MEDS: piperacillin-tazobactam 3.375 GM in sodium chloride 0.9% (plus) 50 ML IV (05:31)
[2022-10-10 06:06] LABS: Basophils % 0.3 %; Eosinophils # 0.4 10^3/uL (0.0-0.8); Eosinophils % 4.7 %; Hematocrit 29.2 % (37.0-47.0); Hemoglobin 9.3 g/dL (11.5-15.3); Lymphocytes # 2.9 10^3/uL (0.8-4.8); Lymphocytes % 36.5 %; Mean Corpuscular HGB Conc 31.8 g/dL (30.0-36.0); Mean Corpuscular Hemoglobin 30.3 pg (28.0-34.0); Mean Corpuscular Volume 95.1 fl (81-99); Mean Platelet Volume 10.6 fL (7.4-10.4); Monocytes # 0.7 10^3/uL (0.2-0.9); Monocytes % 9.4 %; Neutrophils # 3.66 10^3/uL (1.8-7.7); Neutrophils % 46.6 %; Nucleated Red Blood Cells % 0 %; Platelet Count 366 10^3/cmm (130-400); Red Blood Count 3.07 10^6/uL (4.1-5.3); Red Cell Distribution Width 14.4 % (12.1-15.1); White Blood Count 7.9 10^3/uL (4.0-10.0)
[2022-10-10 06:25] LABS: Anion Gap 10.2 (5-19); Blood Urea Nitrogen 5 mg/dL (8-23); Calcium 8.6 mg/dL (8.5-10.5); Carbon Dioxide 30 mmol/L (22-29); Chloride 99 mmol/L (98-107); Creatinine Clr Calc Pharmacy 80.3191; Glomerular Filtration Rate 84.5 mL/min (90-130); Glucose 102 mg/dL (65-115); Osmolality Calculated 277 mOsm/kg (285-295); Potassium 4.2 mmol/L (3.5-5.1); Sodium 135 mmol/L (136-145)
[2022-10-10 08:00] VITALS: BP 124/78; PULSE 93; RESP 17; TEMP 36.7; O2SAT 97
[2022-10-10] MEDS: HYDROcodone-acetaminophen 5-325 mg Tablet 1 TAB PO (08:14)
[2022-10-10] MEDS: anastrozole 1 mg Tablet PO (08:15)
[2022-10-10] MEDS: propranolol 40 mg Tablet PO (08:15)
[2022-10-10] MEDS: heparin 5,000 unit/mL INJ 1 mL 5000 UNIT SUBCUT (08:15)
[2022-10-10 12:00] VITALS: BP 112/73; PULSE 67; RESP 16; TEMP 36.9; O2SAT 95
--- NOTE | 2022-10-10 12:26 | P.DS_ITS ---
Discharge Providers Date of Admission: 10/05/22 10:40 Date of Discharge: October 10, 2022 Attending Provider at Admission: Thai Giang DO Attending Provider at Discharge: Hector Murray MD Primary Care Provider: Rory Rico MD Diagnoses at Discharge Discharge Diagnosis (1) Diverticulitis of large intestine with complication: Status: Acute Reason for Visit Reason for Visit: Pain on Rt Side Hospital Course Hospital Course Bertha Briceno is a 61 year old female with past history of breast cancer who presented to the hospital with 4 to 5 days of abdominal pain, intermittent vomiting.? She still had an occasional stool.? She has had pain in her abdomen mainly in the right side, that has been unremitting but significantly worse prior to her presentation to the ER.? No fevers, blood in stool, black or tarry stool, hematemesis.? In the emergency department she was found to have diverticulitis, with perforation.? She is being prepped for surgery. Patient reports no problems with surgery in the past.? She normally can walk a fair amount of distance, up several flights of stairs, and never has any chest discomfort.? She denies any cardiac history.? She reports no problems with anesthesia.? She reports no family history or personal history of bleeding disorder. This is a 61-year-old female was admitted to [facility] for perforated diverticulum status post exploratory laparotomy, sigmoidectomy, colostomy formation, received broad-spectrum antibiotic therapy, general surgery aiding management. Overall patient clinically improved, blood cultures negative, remains afebrile, the morning of 10/10/2022 patient had stool in col ostomy bag, clinically improving, discharged home with 10 remaining days of Augmentin with follow-up with general surgery as outpatient. She had LUIS ENRIQUE during hospitalization improved with IV hydration, kidney function back to normal Did have acute postoperative blood loss anemia, hemoglobin discharge 9.3 Had hypokalemia during hospitalization, improved with replacement therapy Advised to continue to be mobile, monitor for signs of hypercoagulability, if so go to emergency room Physical Exam Const: COMMON NORMALS: no acute distress and patient oriented x3 Resp: COMMON NORMALS: normal respiratory effort, No retractions, No use of ac cessory muscles and clear to auscultation bilaterally AUSCULTATION: clear to auscultation bilaterally Cardio: COMMON NORMALS: regular rate, regular rhythm, S1 normal heart sound present and S2 normal heart sound present RATE: regular rate RHYTHM: regular rhythm HEART SOUNDS: S1 normal heart sound present and S2 normal heart sound present GI: COMMON NORMALS: Normal to inspection, nondistended, normoactive bowel sounds present and non-tender OTHER: Colostomy site looks fleshy, pink, with stool in colostomy bag Extremity: COMMON NORMALS: no pedal edema Neuro: COMMON NORMALS: patient oriented x3 Psych: COMMON NORMALS: mental status grossly normal Urinary Catheter Management: Roberts: Cath Placed During This Visit: yes, but has since been removed by the nurse Reason for Continuing Indwelling Catheter: Decision to DC Catheter Urinary Catheter Date of Insertion: 10/05/22 Urinary Catheter Time of Insertion: 07:30 Date Urinary Catheter Removed: 10/07/22 Time Urinary Catheter Discontinued: 09:45 Discharge Data Studies Completed and Pending Completed Studies During Hospitalization Category Date Time Status CT abdomen pelvis wo con [id number] Stat Cat Scan 10/05/22 05:14 Completed Pathology: Surgical [PTH] Routine Pth 10/05/22 09:04 Completed US gall bladder [id number] Stat Ultrasound 10/05/22 04:26 Completed Pending at discharge Category Date Time Status Blood Culture Stat Lab 10/07/22 05:44 Results Radiology Impressions Gallbladder Ultrasound 10/05/22 04:26 IMPRESSION: Multiple gallstones and mild gallbladder wall thickening could represent mild gallstone cholecystitis. However, there is a negative sonographic Ford sign elicited. Abdomen/Pelvis CT 10/05/22 05:14 IMPRESSION: 1. There is free intra-abdominal air present. The source of the free air is likely a perforated diverticulum. Diverticula are present on the descending and sigmoid colon. There is bowel wall thickening and inflammatory changes seen adjacent to the sigmoid colon and some intermediate attenuation fluid is seen within the pelvis adjacent to the sigmoid colon, findings compatible with diverticulitis. 2. There is some bowel wall thickening seen within the adjacent cecum likely representing reactive typhlitis. 3. There are 2 nonobstructing left renal calculi, the largest measuring 2.5 mm. 4. There are multiple gallstones present. ADDENDUM: 10/05/22 0602 CRITICAL RESULT: THIS REPORT CONTAINS FINDINGS THAT MAY BE CRITICAL TO PATIENT CARE. The findings were communicated with Dr. Fowler at 6:00 AM [employer]GER on 10/05/2022. The findings were acknowledged and understood. Laboratory Results WBC 7.9 10^3/uL (4.0-10.0) 10/10/22 05:30 RBC 3.07 10^6/uL (4.1-5.3) L 10/10/22 05:30 Hgb 9.3 g/dL (11.5-15.3) L 10/10/22 05:30 Hct 29.2 % (37.0-47.0) L 10/10/22 05:30 MCV 95.1 fl (81-99) 10/10/22 05:30 MCH 30.3 pg (28.0-34.0) 10/10/22 05:30 MCHC 31.8 g/dL (30.0-36.0) 10/10/22 05:30 RDW 14.4 % (12.1-15.1) 10/10/22 05:30 Plt Count 366 10^3/cmm (130-400) 10/10/22 05:30 MPV 10.6 fL (7.4-10.4) H 10/10/22 05:30 Neut % (Auto) 46.6 % 10/10/22 05:30 Lymph % (Auto) 36.5 % 10/10/22 05:30 [place] % (Auto) 9.4 % 10/10/22 05:30 Eos % (Auto) 4.7 % 10/10/22 05:30 Baso % (Auto) 0.3 % 10/10/22 05:30 Neut # (Auto) 3.66 10^3/uL (1.8-7.7) 10/10/22 05:30 Lymph # (Auto) 2.9 10^3/uL (0.8-4.8) 10/10/22 05:30 [place] # (Auto) 0.7 10^3/uL (0.2-0.9) 10/10/22 05:30 Eos # (Auto) 0.4 10^3/uL (0.0-0.8) 10/10/22 05:30 Baso # (Auto) 0.0 10^3/uL (0.0-0.1) 10/10/22 05:30 Nucleated RBC % (auto) 0 % 10/10/22 05:30 Total Counted 100 (0-100) 10/08/22 05:15 Atypical Lymphs % 16.0 % (0-5) H 10/08/22 05:15 Absolute Neutrophils 4.5 10^3/cmm (1.4-6.5) 10/08/22 05:15 Segmented Neutrophils 58 % 10/08/22 05:15 Abs Segm Neuts (Man) 4.5 10/cmm (1.6-7.1) 10/08/22 05:15 Band Neutrophils 0.0 % 10/08/22 05:15 Abs Band Neuts (Man) 0.0 10^3/cmm (0.0-1.2) 10/08/22 05:15 Absolute Lymphocytes 2.4 10^3/cmm (1.2-3.4) 10/08/22 05:15 Lymphocytes (Manual) 15 % 10/08/22 05:15 Monocytes (Manual) 8.0 % 10/08/22 05:15 Absolute Monocytes 0.6 10^3/cmm (0.1-0.6) 10/08/22 05:15 Eosinophils (Manual) 3 % 10/08/22 05:15 Absolute Eosinophils 0.2 10^3/cmm (0.0-0.7) 10/08/22 05:15 Basophils (Manual) 0.0 % 10/08/22 05:15 Absolute Basophils 0.0 10^3/cmm (0.0-0.2) 10/08/22 05:15 Nucleated RBCs # 0.0 /100WBC 10/10/22 05:30 Platelet Estimate Normal (Normal) 10/08/22 05:15 Sodium 135 mmol/L (136-145) L 10/10/22 05:30 Potassium 4.2 mmol/L (3.5-5.1) 10/10/22 05:30 Chloride 99 mmol/L (98-107) 10/10/22 05:30 Carbon Dioxide 30 mmol/L (22-29) H 10/10/22 05:30 Anion Gap 10.2 (5-19) 10/10/22 05:30 BUN 5 mg/dL (8-23) L 10/10/22 05:30 Creatinine 0.7 mg/dL (0.5-0.9) 10/10/22 05:30 GFR Calculation 84.5 mL/min (90-130) L 10/10/22 05:30 Glucose 102 mg/dL (65-115) 10/10/22 05:30 Calculated Osmolality 277 mOsm/kg (285-295) L 10/10/22 05:30 Calcium 8.6 mg/dL (8.5-10.5) 10/10/22 05:30 Phosphorus 2.5 mg/dL (2.5-4.5) 10/06/22 06:03 Magnesium 1.7 mg/dL (1.7-2.3) 10/08/22 05:15 Total Bilirubin 0.2 mg/dL (0.15-1.2) 10/07/22 05:44 AST 16 U/L (0-32) 10/07/22 05:44 ALT 14 U/L (0-33) 10/07/22 05:44 Alkaline Phosphatase 119 U/L (35-105) H 10/07/22 05:44 Total Protein 5.8 g/dL (6.6-8.7) L 10/07/22 05:44 Albumin 2.7 g/dL (3.5-5.2) L 10/07/22 05:44 Globulin 3.1 g/dL (1.3-4.6) 10/07/22 05:44 Lipase 26 U/L (13-60) 10/05/22 04:35 Urine Color Yellow (Yellow) 10/05/22 05:30 Urine Appearance Hazy (CLEAR) A 10/05/22 05:30 Urine pH 5 (5-7) 10/05/22 05:30 Ur Specific Penn 1.020 (1.005-1.030) 10/05/22 05:30 Urine Protein 1+ (Negative) H 10/05/22 05:30 Urine Glucose (UA) Norm (Normal) 10/05/22 05:30 Urine Ketones Negative (Negative) 10/05/22 05:30 Urine Blood 3+ (Negative) H 10/05/22 05:30 Urine Nitrate Negative (Negative) 10/05/22 05:30 Urine Bilirubin 1+ (Negative) H 10/05/22 05:30 Urine Urobilinogen Neg mg/dL (Negative) 10/05/22 05:30 Ur Leukocyte Esterase 1+ (Negative) H 10/05/22 05:30 Urine RBC 25-40 /hpf (0-2) H 10/05/22 05:30 Urine WBC 5-10 /hpf (0-5) H 10/05/22 05:30 Ur Squamous Epith Cells 0-4 /hpf (0-5) H 10/05/22 05:30 Amorphous Sediment 2+ /hpf 10/05/22 05:30 Urine Bacteria 1+ /hpf (NONE) H 10/05/22 05:30 Hyaline Casts 0-4 /lpf H 10/05/22 05:30 Coarse Granular Casts 5-10 /lpf H 10/05/22 05:30 Blood Type A Positive 10/05/22 08:17 Rho(D) Type Positive 10/05/22 08:17 Antibody Screen Negative 10/05/22 08:17 Vitals Last Vital Signs Temp 98.0 F 10/10/22 08:00 Pulse 93 10/10/22 08:00 Resp 17 10/10/22 08:00 BP 124/78 10/10/22 08:00 Pulse Ox 97 10/10/22 08:00 O2 Del Method 10/10/22 08:00 O2 Flow Rate 2 10/05/22 10:00 Discharge Plan Discharge Patient Disposition: Home Condition: Stable Prescriptions: New hydrocodone-acetaminophen 5-325 mg Tablet 1 tab PO Q4H PRN (Reason: Moderate Pain) 7 Days Qty: 42 0RF amoxicillin-pot clavulanate 875-125 mg tablet 1 tab PO BID 10 Days Qty: 20 0RF docusate sodium [Colace] 100 mg capsule 100 mg PO BID 30 Days Qty: 60 0RF Continued cholecalciferol (vitamin D3) 350 mcg (14,000 unit) capsule 350 mcg PO DAILY amitriptyline 50 mg tablet 50 mg PO BEDTIME Qty: 90 11RF propranolol 40 mg tablet See Rx Instructions .ROUTE .COMPLEX Qty: 90 3RF Dose Instruction: TAKE 1 TABLET BY MOUTH EVERY DAY Rx Instructions: TAKE 1 TABLET BY MOUTH EVERY DAY anastrozole 1 mg tablet 1 mg PO QDAY Qty: 90 3RF Iron (ferrous sulfate) 325 mg (65 mg iron) Tablet 325 mg PO DAILY Discharge Orders: Discharge Order (Routine); Ordered 10/10/22 Ordered By: Hector Murray Referrals: Giang,Thai, DO [Physician] - 4-7 days Rory Rico MD [Primary Care Provider] - Discharge Diet: Advance as tolerated Discharge Activity: Resume usual activity Patient Instructions: Colostomy Care (DC), Colectomy (DC), Opioid Safety Activity Restrictions/Additional Instructions: - Please use pain medication sparingly, do not drive or operate machinery or drink while taking medication -Take antibiotics as prescribed -Please follow-up with primary care next week -Please see Dr. Giang next week Discharge Attestations Time Spent in Discharge Care*: greater than 30 min Quality Metrics Clinical Quality Measures [ No reported AMI, CVA or VTE this stay] Coding Level of Care Code 34921 Total time (in minutes) for Discharge: 40 Diagnoses Diverticulitis of large intestine with complication K57.32
--- NOTE | 2022-10-10 12:52 | P.PN_ITS ---
Subjective Subjective: Status post left sigmoid resection with end colostomy and Escobedo's pouch. The patient is doing well. Patient is afebrile. Patient is tolerating a regular diet. The patient had no nausea or vomiting. The patient has good ostomy function. Medications: Reviewed: Yes Vitals/I&O/Wt Last Vital Signs Temp 98.0 F 10/10/22 08:00 Pulse 93 10/10/22 08:00 Resp 17 10/10/22 08:00 BP 124/78 10/10/22 08:00 Pulse Ox 97 10/10/22 08:00 O2 Del Method 10/10/22 08:00 O2 Flow Rate 2 10/05/22 10:00 10/09/22 10/10/22 10/10/22 22:59 06:59 14:59 Intake Total 50 / 580 50 / 630 120 / 120 Output Total 1170 / 1420 365 / 1785 Balance -1120 / -840 -315 / -1155 120 / 120 Physical Exam Narrative: Generally: No acute distress Lungs: Clear to auscultation Heart: Regular rate and rhythm Abdomen: Soft, nontender without masses. Patient has positive bowel sounds. The patient's ostomy is viable. Extremities: There is no evidence of edema, clubbing or cyanosis Urinary Catheter Management: Roberts: Cath Placed During This Visit: yes, but has since been removed by the nurse Reason for Continuing Indwelling Catheter: Decision to DC Catheter Urinary Catheter Date of Insertion: 10/05/22 Urinary Catheter Time of Insertion: 07:30 Date Urinary Catheter Removed: 10/07/22 Time Urinary Catheter Discontinued: 09:45 Data 10/10/22 05:30 10/10/22 05:30 A&P Assessment and plan (1) Perforated diverticulum: This patient is doing well. I believe the patient can be discharged home at this time. The patient can follow-up with Dr. Giang in 5 to 10 days. Attestations Medical Necessity Statement*: Discharge home today Coding Level of Care Code Acute Code for [facility] Diagnoses Perforated diverticulum K57.80
[2022-10-10] MEDS: pantoprazole 40 mg SDV IVP (13:37)
== END 2022-10-10 14:55 | disposition home or self-care (01) | DRG 330 ==
LOC: ER 06:54 → OR 07:01 → ICU 10:41 → MEDSURG 10-06 20:25
PROVIDERS: Internal Medicine; Admitting Provider Surgery; Emergency Provider Emergency Medicine; PCP Family Medicine; Visit Provider Family Medicine
PROC: 0DTN4ZZ Resection of Sigmoid Colon, Percutaneous Endoscopic Approach (ICD-10-PCS; CPT 49000; principal; 2022-10-05 15:00)
PROC: 0DTN4ZZ Resection of Sigmoid Colon, Percutaneous Endoscopic Approach (ICD-10-PCS; CPT 44320; 2022-10-05 15:00)
DX: K57.20 Diverticulitis of large intestine with perforation and abscess without bleeding (principal); D62 Acute posthemorrhagic anemia; N17.9 Acute kidney failure, unspecified; C50.912 Malignant neoplasm of unspecified site of left female breast; E87.6 Hypokalemia; Z79.811 Long term (current) use of aromatase inhibitors; Z90.13 Acquired absence of bilateral breasts and nipples; E86.0 Dehydration; K80.20 Calculus of gallbladder without cholecystitis without obstruction; G43.709 Chronic migraine without aura, not intractable, without status migrainosus
CPT/HCPCS: 12345; 36415; 36591; 51702; 74176; 76705; 80048; 80053; 81001; 83690; 83735; 84100; 85007; 85025; 86850; 86900; 87040; 87086; 88309; 96372; 96374; 99285; C9113; J0131; J1100; J1170; J1200; J1644; J2250; J2370; J2405; J2543; J2704; J2710; J3010; J3475; J3490; J7030; J8999; P9045

== ENCOUNTER → 2022-10-19 15:39 | Outpatient (BNVA) | payer OTHER, SELFPAY | PROVIDERS: PCP Family Medicine; Visit Provider Family Medicine | DX: K57.92 Diverticulitis of intestine, part unspecified, without perforation or abscess without bleeding (principal) | CPT/HCPCS: 80053; 85025 ==

== ENCOUNTER 2023-03-16 11:21 | Oncology outpatient (recurring) (ONCR) | payer OTHER, SELFPAY ==
--- OUTSIDE RECORDS SUMMARY | 2023-03-16 11:22 | XMS_ITS | Continuity of Care Document ---
not to Disclose Author Name Unknown Organization [facility] Address [address] [place] [address]- Care Team Providers Care Rn Quality Name Role Phone Rory Rico MD Primary Care Physician [phone] Encounter [employer] Number [id number] Date(s): 02/11/23 - 02/11/23 [facility] [address] [place] [address]- [phone] Encounter Diagnosis Large bowel perforation(Discharge Diagnosis) - 02/11/23 S/P colostomy(Discharge Diagnosis) - 02/11/23 Discharge Disposition: .Discharge to Home (Routine) Attending Physician: Dale Mendoza MD Admitting Physician: Dale Mendoza MD Allergies, Adverse Reactions, Alerts Substance Reaction Severity Status Naprosyn Collapse Severe Active Medications amitriptyline 50 mg oral tablet 50 mg = 1 tab, By mouth, at bedtime, # 30 tab, Refill(s) 0 Start Date: 11/16/22 Status: Ordered anastrozole 1 mg oral tablet 1 mg = 1 tab, By mouth, Daily, # 30 tab, Refill(s) 0 Start Date: 11/16/22 Status: Ordered Colace 100 mg oral capsule 100 mg = 1 cap, By mouth, BID, PRN for constipation, # 20 cap, Refill(s) 0 Start Date: 11/16/22 Status: Ordered Problem List Condition Confirmation Course Effective Dates Status H ealth Status Informant Diverticulitis Confirmed Active S/P colostomy Confirmed Active History of breast cancer Confirmed Active S/P exploratory laparotomy Confirmed Active Migraines Confirmed Active Large bowel perforation Confirmed Active Procedures Procedure Date Related Diagnosis Body Site Status COLONOSCOPY STOMA DX INCLUDI NG COLLJ SPEC SPX 02/11/23 Completed SIGMOIDOSCOPY FLX DX W/COLLJ SPEC BR/WA IF PFRMD 02/11/23 Completed Vital Signs Most recent to oldest [Reference Range]: 1 2 Blood Pressure 120/64mmHg (02/11/23 10:32 AM) 112/75mmHg (02/11/23 10:16 AM) Blood Pressure 104/57 (02/11/23 10:05 AM) Height (inches) (Clinical) 62 in (02/11/23 10:15 AM) 62 in (02/11/23 8:42 AM) Weight (kg) (Clinical) 70.1 kg (02/11/23 8:42 AM) BMI (Clinical) 0 kg/m2 (02/11/23 10:15 AM) 28.2 kg/m2 (02/11/23 8:42 AM) Scale Type Bed (02/11/23 8:42 AM) Social History Social History Type Response Smoking Status Never smoker; Smokel ess tobacco use: Never; Has the patient smoked in the last 365 days, even once? No entered on: 11/16/22 Sex Female Surgical operation note * Dale Mendoza MD: PERFORM, SIGN, VERIFY Event Display: Operative Report Authored Date: Patient: NAZ MONTELONGO Age: 62 years Sex: Choose not to Disclose : 1960 Associated Diagnoses: None Author: Dale Mendoza MD Postoperative Information Preoperative Diagnosis: S/P colostomy - [id number] Z93.3, Large bowel perforation - [id number] K63.1. Postoperative Diagnosis: S/P colostomy - [id number]-TY Z93.3, Large bowel perforation - [id number] K63.1. Procedure: Flexible sigmoidoscopy limited Colonoscopy through colostomy to transverse colon. Performed by: John. Mendoza MD Anesthetic Used: 4 mg Versed 100 mcg Fentanyl 22 minutes supervised sedation time. withdrawal time not applicable. Complications: No apparent immediate complications. Specimens Removed: none. Estimated Blood Loss: none. Description of Techniques: History of Present Illness: Patient is a pleasant 62-year-old lady who underwent emergent Marlee procedure including end-colostomy with Dr. Giang I believe in September. She was referred to begin discussing possible colostomy reversal. She requires preoperative endoscopy, primarily to assess the rectosigmoid stump. She did have reportedly an unremarkable colonoscopy last fall. Description of the Procedure: After patient brought to the endoscopy suite and informed consent signed including discussion of risks including bleeding, post-procedure discomfort, need for further procedure and bowel perforation;patient was placed in the left lateral decubitus position. Satisfactory monitoring continued and safety precautions followed. Appropriate time-out was performed and IV sedation was administered in divided doses to obtain satisfactory patient comfort under supervision. External exam performed. Digital exam performed. Flexible endoscope introduced transanally and advanced to the mid sigmoid colon. Scope slowly withdrawn with careful examination of the mucosal detail. Scope retroflexed. Insufflation removed and scope was withdrawn. Patient then turned in the supineposition. Colostomy appliance removed. Digital exam of ostomy performed. Flexible endoscope introduced trans-colostomy and advanced to the transverse colon. Slow withdrawal of the scope performed with careful examination of the mucosal detail. Insufflation removed and scope was withdrawn. There were no immediate apparent complications. The patient tolerated the procedure well and was taken to recoery in satisfactory condition. Findings and interventions as described below.. Implants/Grafts: none. Final Count Verification: not applicable . Findings: 1) No polyps 2) No tumors 3) No inflammatory changes 4) rectosigmoid stump at least 20-25 cm long, mild diversion proctitis 5) tight angulation of what seems to be the splenic flexure, able to pass into the transverse colon. attempts to straighten scope kept resulting in recoil of the scope back into the descending colon.Attempt to brace the abdomen/colon to allow passage of scope did not help. Aborted remainder of procedure. Interventions: None Followup Recommendations: Healthy rectosigmoid stump. Though would be ideal to see entire colon, she had an unremarkable routine colonoscopy less than 1 year ago. The angle of the colostomy and splenic flexure made safe passage of the scope not possible. I do not think she needs additional testing such as barium enema (through colostomy) pre-operatively. I am confident that her colon is healthy enough for elective colostomy reversal with anterior resection (of retained sigmoid) to minimize diverticulitis recurrence risk Recommend office visit at her convenience to discuss further. Will recommend colonoscopy 1 year post-reversal operation.. Electronically signed by:Dale Mendoza MD 02/11/23 10:07 Patient Care team information Care Team Personnel Name: Rory Rico MD Position: 2 Restricted Providers Member Role: Primary Care Physician Address: Address: [address] [place] [address]- Care Team Related Persons Name: LACY MONTELONGO
--- OUTSIDE RECORDS SUMMARY | 2023-03-16 11:22 | XMS_ITS | Continuity of Care Document ---
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 Name Role Phone Jacky CR, Rory Espinoza Primary Care Physician Encounter 11/16/22 - 11/17/22 [facility] [address] [place] [address]- [place] Encounter Diagnosis Diverticulitis(Discharge Diagnosis) - 11/16/22 Large bowel perforation(Discharge Diagnosis) - 11/16/22 S/P exploratory laparotomy(Discharge Diagnosis) - 11/16/22 S/P colostomy(Discharge Diagnosis) - 11/16/22 History of breast cancer(Discharge Diagnosis) - 11/16/22 Migraines(Discharge Diagnosis) - 11/16/22 Encounter for screening for other disorder(Discharge Diagnosis) - 11/16/22 Attending Physician: Deepali Mendoza MD Allergies, Adverse Reactions, Alerts Substance Reaction Severity Status Naprosyn Collapse Severe Active Assessment and Plan Future Appointments Appointment Date:02/11/2023 10:00:00 AM Scheduled Provider: Location:[facility] Endoscopy Appointment Type:Endoscopy Medications amitriptyline 50 mg oral tablet 50 [...] Confirmed Active Large bowel perforation Confirmed Active Vital Signs Most recent to oldest [Reference Range]: 1 Height (inches) (Clinical) 62 in (11/16/22 3:00 PM) Weight (kg) (Clinical) 73.14 kg (11/16/22 3:00 PM) BMI (Clinical) 29.4 kg/m2 (11/16/22 3:00 PM) Social History Social History Type Response Smoking Status Never smoker; Smokel ess tobacco use: Never; Has the patient smoked in the last 365 days, even once? No entered on: 11/16/22 Sex Female Colon and rectal surgery Note * Austin ZAMORANO, Sofia Baker: PERFORM Event Display: Colorectal Surgery Office/Clinic Note Authored Date: [id number] Chief Complaint Coolostomy Reversal General Information Information Given By: Patient (11/16/22 15:00:00) Nurse Intake Nursing Intake?? General Information?? Pain Information?? Physicians and Specialties: DEEPALI MENDOZA MD, CRS (11/16/22) Pain Present: No actual or suspected pain (11/16/22) Information Given By: Patient (11/16/22) ?? History of Present Illness Patient is??a very??pleasant??62-year-old lady??who underwent??Marlee's procedure??with end colostomy??on October 05 of this??year with ??Thai Giang??for perforated diverticulitis.?? Patient states??that??she began having??right??upper quadrant??pain??that continue to worsen which prompted??ED evaluation.?? CT scan??was obtained??and showed??perforation??of the sigmoid colon with free air.?? Patient was urgently??taken??to the operating room.?? She presents today??to discuss possible??colostomy??closure.?? She has been feeling well.?? Colostomy is working??well??without issues.?? Surgical incision??has healed well. Patient has a history??of breast??cancer.?? She underwent??chemo and radiation??in 2019.?? This is been stable since??that time.?? She does take propranolol??for migraine prevention.?? She denies a history??of cardiopulmonary issues.?? She has never seen??a flare maker or swine extension field specialist.?? No worrisome family history??of colon??pathologies, or??ovarian??cancers however??her mother??did??have uterine cancer.?? Last colonoscopy??was??in November of 2021??with expected??diverticula however no polyps??were??seen or??taken. Review of Systems General Statement:All other ROS negative or not pertinent General Denies:Chills,Fatigue,Fever Cardiovascular Denies:Chest pain,Palpitations Respiratory Denies:Cough,Wheezing GI Denies:Abdominal pain,Constipation,Diarrhea,Nausea,Stools, black/bloody,Vomiting Heme/Lymph Denies:Other: Hx of Blood Clots Physical Exam Vitals & Measurements HT:??62??in?? WT:??73.14??kg?? WT:??160.9??lb?? BMI:??29.4?? Gen: Patient alert, oriented and appropriate, no acute distress HEENT: normocephalic, anicteric, PERRLA, OP without masses Neck: Trachea midline, no palpable adenopathy Chest: Breath sounds equal and nonlabored bilaterally, no retractions, no audible wheeze CV: Regular rate and rhythm without audible murmur Abdomen: Soft, nontender, nondistended; well-healed midline incision, viable colostomy with output noted Rectal exam:?? Not performed Extremities: no cyanosis or edema, feet warm Musculoskeletal: normal strength, no deformity Skin: no pigmented lesions or rash, appropriate skin turgor, no bruising Lymph: no palpable adenopathy Neuro: cranial nerves 2-12 intact without focal or lateralizing deficits Assessment/Plan 1.??Diverticulitis(Diverticulitis of intestine, part unspecified, without perforation or abscess without bleeding: K57.92) Patient is just??now 2 months out??of??exploratory laparotomy with Marlee's ?? Hospital??records reviewed. ?? Surgical intervention??at??this??time is not recommended. ?? Recommend??flexible sigmoidoscopy??and colonoscopy via colostomy??in late January ?? Depending on??scope results, patient??may be a candidate??for elective??colostomy reversal. ?? Plan to see back??to discuss surgical??intervention??after colonoscopy. ?? She understands and agrees with this plan. Ordered: Office Consult Level 2 [id number] Return to Clinic, Pending test results ?? 2.??Large bowel perforation(Perforation of intestine (nontraumatic): K63.1) Ordered: Office Consult Level 2 [id number] Return to Clinic, Pending test results ?? 3.??S/P exploratory laparotomy(Other specified postprocedural states: Z98.890) Ordered: Office Consult Level 2 [id number] Return to Clinic, Pending test results ?? 4.??S/P colostomy(Colostomy status: Z93.3) Ordered: Office Consult Level 2 [id number] Return to Clinic, Pending test results ?? Problem List/Past Medical History Diverticulitis: ?? S/P colostomy: ?? History of breast cancer: ?? S/P exploratory laparotomy: ?? Migraines: ?? Large bowel perforation: ?? Medications Home Medications (3) Active amitriptyline 50 mg oral tablet??50 mg = 1 tab,Start_date: 11/16/22,Refills: 0, By mouth, at bedtime anastrozole 1 mg oral tablet??1 mg = 1 tab,Start_date: 11/16/22,Refills: 0, By mouth, Daily Colace 100 mg oral capsule??100 mg = 1 cap,Start_date: 11/16/22,Refills: 0, PRN, By mouth, BID Medication reconciliation completed on this patient today Allergies Naprosyn??(Collapse) Social History Tobacco Smoking Status: Never smoker. Smokeless tobacco use: Never. Has the patient smoked in the last 365 days, even once? No. Family History No GI malignancies No colorectal polyps No inflammatory bowel disease No easy bleeding or??clotting disorders Electronically signed by:Sofia Valadez 11/16/22 15:54 Electronically cosigned by: Kelly CR, Deepali Johnston Patient Care team information Care Team Personnel Name: Rory Rico MD Position: 2 Restricted Providers Member Role: Primary Care Physician Address: Address: [address] [place] [address]- Care Team Related Persons Name: Lucius Briceno
[2023-03-16 13:30] LABS: Basophils # 0.1 10^3/uL (0.0-0.1); Basophils % 0.7 %; Eosinophils # 0.2 10^3/uL (0.0-0.8); Eosinophils % 2.4 %; Hematocrit 35.9 % (37.0-47.0); Lymphocytes # 2.1 10^3/uL (0.8-4.8); Lymphocytes % 28.1 %; Mean Corpuscular HGB Conc 30.6 g/dL (30.0-36.0); Mean Corpuscular Hemoglobin 27.2 pg (28.0-34.0); Mean Corpuscular Volume 88.6 fl (81-99); Mean Platelet Volume 10.9 fL (7.4-10.4); Monocytes # 0.6 10^3/uL (0.2-0.9); Monocytes % 7.5 %; Neutrophils # 4.65 10^3/uL (1.8-7.7); Neutrophils % 60.9 %; Nucleated Red Blood Cells % 0 %; Platelet Count 323 10^3/cmm (130-400); Red Blood Count 4.05 10^6/uL (4.1-5.3); Red Cell Distribution Width 16.1 % (12.1-15.1); White Blood Count 7.6 10^3/uL (4.0-10.0)
[2023-03-16 13:45] LABS: Alanine Aminotransferase 14 U/L (0-33); Alkaline Phosphatase 179 U/L (35-105); Anion Gap 13.3 (5-19); Aspartate Amino Transferase 19 U/L (0-32); Blood Urea Nitrogen 13 mg/dL (8-23); Calcium 9.4 mg/dL (8.5-10.5); Carbon Dioxide 27 mmol/L (22-29); Chloride 104 mmol/L (98-107); Globulin 3.4 g/dL (1.3-4.6); Glomerular Filtration Rate 55.8 mL/min (90-130); Glucose 111 mg/dL (65-115); Osmolality Calculated 291 mOsm/kg (285-295); Potassium 4.3 mmol/L (3.5-5.1); Sodium 140 mmol/L (136-145); Total Bilirubin 0.2 mg/dL (0.15-1.2); Total Protein 7.4 g/dL (6.6-8.7)
[2023-03-16 13:47] LABS: Creatinine Clr Calc Pharmacy 53.1794
== END 2023-04-15 23:59 | disposition home or self-care (01) ==
PROVIDERS: Nurse Practitioner Family; PCP Family Medicine; Visit Provider Nurse Practitioner Family
DX: C50.412 Malignant neoplasm of upper-outer quadrant of left female breast (principal)
CPT/HCPCS: 36591; 80053; 85025; J1642

== ENCOUNTER 2023-04-24 20:51 | Emergency (ER) | payer OTHER, SELFPAY ==
[2023-04-24 20:54] VITALS: BP 111/61; PULSE 130; RESP 20; TEMP 38.5; O2SAT 98; BMI 28.7
[2023-04-24 21:01] VITALS: BP 147/76; PULSE 128; O2SAT 97
--- NOTE | 2023-04-24 21:52 | CTR_ITS ---
PROCEDURE INFORMATION: Exam: CT Abdomen And Pelvis With Contrast Exam date and time: 04/24/2023 10:32 PM Age: 62 years old Clinical indication: Prior surgery; Surgery date: <1 month; Surgery type: Colostomy reversal 04/13/2023. Bilat mastectomy. Appy. Bilat salpingectomy. Tubal. Patient HX: General weakness with fever. History of breast cancer. ; Additional info: Fever, weakness post op TECHNIQUE: Imaging protocol: Computed tomography of the abdomen and pelvis with contrast. Radiation optimization: All CT scans at this facility use at least one of these dose optimization techniques: automated exposure control; mA and/or kV adjustment per patient size (includes targeted exams where dose is matched to clinical indication); or iterative reconstruction. Contrast material: OMNI 350; Contrast volume: 100 ml; Contrast route: INTRAVENOUS (IV); REPORTING DATA: Count of CT and Cardiac NM exams in prior 12 months: This patient has received [address] and 0 known cardiac nuclear medicine studies in the 12 months prior to the current study. COMPARISON: CT abdomen pelvis wo con [id number] 10/05/2022 5:21 AM RADIATION DOSE METRICS: Total DLP (mGy-cm): 544.2 FINDINGS: Liver: Hypodensity in the right liver lobe is too small to characterize but is most likely a cyst. No suspicious nodule. Gallbladder and bile ducts: Mild gallbladder wall thickening. Multiple stones in the gallbladder lumen. Mild dilatation of the intrahepatic and central extrahepatic bile ducts. The common bile duct is normal in diameter. Pancreas: Normal. No ductal dilation. Spleen: Normal. No splenomegaly. Adrenal glands: Normal. No mass. Kidneys and ureters: 3 mm and 2 mm left renal calculi. No ureteral calculus or hydronephrosis. The right kidney is normal. Hypodensity in the left kidney is too small to characterize but is most likely a cyst. No follow-up imaging is recommended. Stomach and bowel: Partial resection of the distal colon. Redundant cecum which extends into the pelvis. There are a few loops of fluid-filled small bowel in the lower abdomen which measure up to 2.3 cm in diameter. No transition point or obstruction identified. Presumed prior colostomy site in the lower left abdominal wall with stranding and small gas bubbles. No drainable fluid collection. Appendix: The appendix is not visualized. No secondary signs of appendicitis. Intraperitoneal space: 3.4 cm focal region of encapsulated fat with adjacent fat stranding in the mid left mesentery. Abscess with enhancing rind in the lower left peritoneal cavity measuring 6.7 x 6.4 x 11.5 cm, with extension into the left paracolic gutter. Vasculature: Unremarkable. No abdominal aortic aneurysm. Lymph nodes: Unremarkable. No enlarged lymph nodes. Urinary bladder: Unremarkable as visualized. Reproductive: Unremarkable as visualized. Bones/joints: Degenerative changes of the spine. No fracture. Soft tissues: Anterior laparotomy scar. 2.7 x 3.2 x 3.8 cm fluid collection with gas bubble in the inferior incision. CT/CT abdomen pelvis w con* [id number] IMPRESSION: 1. 11.5 cm abscess in the lower left peritoneal cavity with extension into the paracolic gutter. 2. 3.8 cm fluid collection with gas in the lower laparotomy incision is suspicious for an abscess. 3. Mild gallbladder wall thickening with gallstones and dilatation of the bile ducts. This could represent acute cholecystitis. Follow-up with MRCP is recommended. 4. 3.4 cm focus of probable fat necrosis in the left mesentery. This is not directly adjacent to the colon but epiploic appendagitis could have a similar appearance. 5. Postsurgical changes consistent with recent colostomy takedown. Gas bubbles and stranding in the prior colostomy site could be normal postsurgical change. Soft tissue infection is not excluded. COMMENTS: Consistent with the [employer]'s Incidental Findings Committee white paper (J Am Melinda Radiol 2018): Any incidental renal lesion less than 1 cm or classified as too small to characterize, or any incidental cystic renal lesion characterized as simple-appearing, is likely benign. No follow-up imaging is recommended for these lesions per consensus recommendations based on imaging criteria.
--- NOTE | 2023-04-24 21:52 | XRR_ITS ---
PROCEDURE INFORMATION: Exam: XR Chest Exam date and time: 04/24/2023 10:20 PM Age: 62 years old Clinical indication: Prior surgery; Surgery date: 6+ months; Surgery type: Chest port. Bilat mastectomy; Patient HX: Fever with general weakness. ; Additional info: Fever weakness TECHNIQUE: Imaging protocol: Radiologic exam of the chest. Views: 1 view. COMPARISON: CT chest abdpel w/*[id number] 04/11/2021 1:53 PM FINDINGS: Tubes, catheters and devices: Right subclavian Mamjrj-P-Scje with tip in the distal SVC. Lungs: Calcified granuloma in the left upper lobe. The lungs otherwise are clear. Pleural spaces: Unremarkable. No pleural effusion. No pneumothorax. Heart/Mediastinum: Unremarkable. No cardiomegaly. Bones/joints: Thoracic curvature and degenerative changes. No fracture. XR/XR chest 1V portable [id number] IMPRESSION: No acute findings.
--- NOTE | 2023-04-24 21:54 | W.ED.FEVER ---
HPI - Fever General: Chief Complaint: Fever Stated Complaint: weakness, fever Time Seen by Provider: 04/24/23 21:14 History of Present Illness: 62-year-old female presenting with fever and generalized weakness. She had a reversal of a colostomy on 04/13. She did well postoperatively and was released a week ago. However, she has continued to run fevers since that time. Fever as high as 102 at home. She saw her doctor on Wednesday, who did not seem concerned. She denies significant belly pain. She notes that she has had no problems with bowel movements. No vomiting. No real increased shortness of breath or cough. She was catheterized during her stay. Associated symptoms: Reports chills, headache(s) (on and off) and nausea; Deny abdominal pain, chest pain or vomiting Review of Systems Const: Reports: fever(s) and chills Eyes: Denies: change in vision ENMT: Denies: throat pain Card: Denies: chest pain or palpitations Resp: Denies: dyspnea, productive cough or non-productive cough GI: Reports: nausea; Denies: abdominal pain, vomiting or hematemesis : Denies: difficulty voiding Skin/Breast: Denies: rash or sores Neuro: Reports: headache(s) (on and off) PFS ED PFSH: Medical History Breast cancer, left breast Chronic migraine Diverticulitis Surgical History H/O bilateral salpingectomy History of appendectomy (1981) Appendectomy, adhesion lysis, and D&C History of bilateral mastectomy (07/20/19) Left modified radical mastectomy and prophylactic right simple mastectomy History of colostomy History of open reduction and internal fixation (ORIF) procedure right ankle History of tubal ligation (1983) Tubal ligation and D&C Hx of reduction of closed fracture right wrist Status post colonoscopy (12/05/21) diverticulosis Family History Other Cancer Diabetes Hyperlipidemia Hypertension Denies family history of CAD (coronary artery disease) Clotting disorder Dementia Psychiatric illness Chronic kidney disease (CKD) Suicide Anesthesia complication Bleeding disorder Lung disease Stroke Social History (Reviewed 04/24/23 @ 22:01 by TONY Back Smoking and tobacco status: never smoked Alcohol intake: never Substance/Drug Use: never Physical Exam Const: GENERAL APPEARANCE: cooperative, ill appearing and frail appearing HENMT: COMMON NORMALS: normocephalic, atraumatic and Normal external nose present HEAD & SCALP: normocephalic and atraumatic FACE & SINUS: normal facial exam and face symmetric NOSE: Normal external nose present Eye: COMMON NORMALS: Equal, round and reactive pupils present and EOMs intact bilaterally PUPIL: Yes Equal, round and reactive pupils present Neck/C-Spine: GENERAL: Yes trachea midline Chest: CHEST: Yes Symmetrical chest wall rise Resp: COMMON NORMALS: normal respiratory effort, No retractions, No use of accessory muscles and clear to auscultation bilaterally AUSCULTATION: clear to auscultation bilaterally Cardio: COMMON NORMALS: regular rate and regular rhythm RATE: regular rate RHYTHM: regular rhythm GI: COMMON NORMALS: Normal to inspection, nondistended, normoactive bowel sounds present OTHER: Abdominal incisions are clean without drainage. They are well approximated. No overt tenderness or distention. Extremity: COMMON NORMALS: no pedal edema Neuro: KEVIN COMA SCALE: document GCS findings [place] coma scale eye opening: Spontaneous Kevin coma scale verbal response: Orientated [place] coma scale motor response: Obey commands Kevin coma scale total score: 15 SENSORY EXAM: Yes extremities (intact) Psych: COMMON NORMALS: speech normal SPEECH: Yes normal speech Skin: COMMON NORMALS: no rashes or lesions noted GENERAL SKIN EXAM: no rashes or lesions noted Course Vital Signs: Vital signs: Vital Signs Temperature 101.3 F H 04/24/23 20:54 Pulse Rate 130 H 04/24/23 20:54 Respiratory Rate 20 H 04/24/23 20:54 Blood Pressure 111/61 04/24/23 20:54 Pulse Oximetry 98 04/24/23 20:54 Oxygen Delivery Me thod Room Air 04/24/23 20:54 MDM - Fever Medical Decision Making Patient's vitals have been stable. Heart rate has decreased to 90-100 with control of temperature. She has received an IV fluid bolus. Her white blood cell count is 23. Her hemoglobin is 8.5. Her CRP is 192. Lactic acid is only 1.3. CT scan shows an 11.5 cm abscess in the left lower peritoneal cavity and a 3.8 cm fluid collection with gas in the left lower laparotomy incision. She has received IV Zosyn. We have contacted [facility] where she had her surgery, and colorectal surgery has accepted the patient. She will go by ground to [facility] this morning. Lab Data 04/24/23 21:50 04/24/23 21:50 Radiology Impressions Abdomen/Pelvis CT 04/24/23 21:52 IMPRESSION: 1. 11.5 cm abscess in the lower left peritoneal cavity with extension into the paracolic gutter. 2. 3.8 cm fluid collection with gas in the lower laparotomy incision is suspicious for an abscess. 3. Mild gallbladder wall thickening with gallstones and dilatation of the bile ducts. This could represent acute cholecystitis. Follow-up with MRCP is recommended. 4. 3.4 cm focus of probable fat necrosis in the left mesentery. This is not directly adjacent to the colon but epiploic appendagitis could have a similar appearance. 5. Postsurgical changes consistent with recent colostomy takedown. Gas bubbles and stranding in the prior colostomy site could be normal postsurgical change. Soft tissue infection is not excluded. COMMENTS: Consistent with the [employer]'s Incidental Findings Committee white paper (J Am Melinda Radiol 2018): Any incidental renal lesion less than 1 cm or classified as too small to characterize, or any incidental cystic renal lesion characterized as simple-appearing, is likely benign. No follow-up imaging is recommended for these lesions per consensus recommendations based on imaging criteria. Chest X-Ray 04/24/23 21:52 IMPRESSION: No acute findings. Laboratory Results WBC 22.72 10^3/uL (3.29-11.43) H 04/24/23 21:50 RBC 3.13 10^6/uL (3.85-5.65) L 04/24/23 21:50 Hgb 8.50 g/dL (11.27-16.99) L 04/24/23 21:50 Hct 27.7 % (36-47) L 04/24/23 21:50 MCV 88.5 fl (85-98) 04/24/23 21:50 MCH 27.2 pg (27-33) 04/24/23 21:50 MCHC 30.7 g/dL (30-55) 04/24/23 21:50 RDW 16.6 % (12.1-15.1) H 04/24/23 21:50 Plt Count 806 10^3/cmm (157-399) H 04/24/23 21:50 MPV 10.1 fL (7.4-10.4) 04/24/23 21:50 Neut % (Auto) 80.6 % 04/24/23 21:50 Lymph % (Auto) 9.9 % 04/24/23 21:50 [place] % (Auto) 8.6 % 04/24/23 21:50 Eos % (Auto) 0.1 % 04/24/23 21:50 Baso % (Auto) 0.2 % 04/24/23 21:50 Neut # (Auto) 18.32 10^3/uL (1.8-7.7) H 04/24/23 21:50 Lymph # (Auto) 2.2 10^3/uL (0.8-4.8) 04/24/23 21:50 [place] # (Auto) 2.0 10^3/uL (0.2-0.9) H 04/24/23 21:50 Eos # (Auto) 0.0 10^3/uL (0.0-0.8) 04/24/23 21:50 Baso # (Auto) 0.1 10^3/uL (0.0-0.1) 04/24/23 21:50 Nucleated RBC % (auto) 0 % 04/24/23 21:50 Nucleated RBCs # 0.0 /100WBC 04/24/23 21:50 Sodium 130 mmol/L (136-145) L 04/24/23 21:50 Potassium 3.4 mmol/L (3.5-5.1) L 04/24/23 21:50 Chloride 93 mmol/L (98-107) L 04/24/23 21:50 Carbon Dioxide 23 mmol/L (22-29) 04/24/23 21:50 Anion Gap 17.4 (5-19) 04/24/23 21:50 BUN 12 mg/dL (8-23) 04/24/23 21:50 Creatinine 0.9 mg/dL (0.5-0.9) 04/24/23 21:50 GFR Calculation 63.0 mL/min (90-130) L 04/24/23 21:50 Glucose 152 mg/dL (65-115) H 04/24/23 21:50 Calculated Osmolality 273 mOsm/kg (285-295) L 04/24/23 21:50 Lactic Acid 1.3 mmol/L (0.5-2.2) 04/24/23 21:50 Calcium 9.1 mg/dL (8.5-10.5) 04/24/23 21:50 Total Bilirubin 0.6 mg/dL (0.15-1.2) 04/24/23 21:50 AST 16 U/L (0-32) 04/24/23 21:50 ALT 12 U/L (0-33) 04/24/23 21:50 Alkaline Phosphatase 250 U/L (35-105) H 04/24/23 21:50 C-Reactive Protein 192.7 mg/L (0.0-4.9) H 04/24/23 21:50 Total Protein 7.9 g/dL (6.6-8.7) 04/24/23 21:50 Albumin 3.5 g/dL (3.5-5.2) 04/24/23 21:50 Globulin 4.4 g/dL (1.3-4.6) 04/24/23 21:50 Lipase 62 U/L (13-60) H 04/24/23 21:50 Procalcitonin 0.25 ng/mL (0-0.5) 04/24/23 21:50 Urine Color Yellow (Yellow) 04/25/23 00:24 Urine Appearance Clear (CLEAR) 04/25/23 00:24 Urine pH 8 (5-7) H 04/25/23 00:24 Ur Specific [place] 1.005 (1.005-1.030) 04/25/23 00:24 Urine Protein 1+ (Negative) H 04/25/23 00:24 Urine Glucose (UA) Norm (Normal) 04/25/23 00:24 Urine Ketones Negative (Negative) 04/25/23 00:24 Urine Blood 3+ (Negative) H 04/25/23 00:24 Urine Nitrate Negative (Negative) 04/25/23 00:24 Urine Bilirubin Neg (Negative) 04/25/23 00:24 Urine Urobilinogen 1 mg/dL (Negative) H 04/25/23 00:24 Ur Leukocyte Esterase Trace (Negative) H 04/25/23 00:24 Urine RBC 5-10 /hpf (0-2) H 04/25/23 00:24 Urine WBC 0-4 /hpf (0-5) H 04/25/23 00:24 Ur Squamous Epith Cells 0-4 /hpf (0-5) H 04/25/23 00:24 Amorphous Sediment Not Reportable 04/25/23 00:24 Urine Bacteria None /hpf (NONE) 04/25/23 00:24 SARS-CoV-2 Ag (Rapid) negative (Negative) 04/24/23 22:23 Discharge Plan Discharge Patient Disposition: Xfer Short-Term Hosp Clinical Impression: Intraperitoneal abscess Condition: Fair Prescriptions: No Action cholecalciferol (vitamin D3) 350 mcg (14,000 unit) capsule 350 mcg PO DAILY amitriptyline 50 mg tablet 50 mg PO BEDTIME Qty: 90 11RF propranolol 40 mg tablet See Rx Instructions .ROUTE .COMPLEX Qty: 90 3RF Dose Instruction: TAKE 1 TABLET BY MOUTH EVERY DAY Rx Instructions: TAKE 1 TABLET BY MOUTH EVERY DAY anastrozole 1 mg tablet See Rx Instructions .ROUTE .COMPLEX Qty: 90 2RF Dose Instruction: TAKE 1 TABLET BY MOUTH EVERY DAY Rx Instructions: TAKE 1 TABLET BY MOUTH EVERY DAY Iron (ferrous sulfate) 325 mg (65 mg iron) Tablet 325 mg PO DAILY Referrals: Rory Rico MD [Primary Care Provider] - Coding Level of Care Code ED Client Relationship Executive for Layo Hebert
[2023-04-24 22:00] VITALS: BP 112/80; PULSE 117; RESP 20; O2SAT 98
[2023-04-24] MEDS: sodium chloride 0.9% 1,000 ML 999 ML IV (22:00)
[2023-04-24 22:08] LABS: Basophils # 0.1 10^3/uL (0.0-0.1); Basophils % 0.2 %; Eosinophils % 0.1 %; Hematocrit 27.7 % (36-47); Lymphocytes # 2.2 10^3/uL (0.8-4.8); Lymphocytes % 9.9 %; Mean Corpuscular HGB Conc 30.7 g/dL (30-55); Mean Corpuscular Hemoglobin 27.2 pg (27-33); Mean Corpuscular Volume 88.5 fl (85-98); Mean Platelet Volume 10.1 fL (7.4-10.4); Monocytes % 8.6 %; Neutrophils # 18.32 10^3/uL (1.8-7.7); Neutrophils % 80.6 %; Nucleated Red Blood Cells % 0 %; Platelet Count 806 10^3/cmm (157-399); Red Blood Count 3.13 10^6/uL (3.85-5.65); Red Cell Distribution Width 16.6 % (12.1-15.1); White Blood Count 22.72 10^3/uL (3.29-11.43)
[2023-04-24 22:25] LABS: Alanine Aminotransferase 12 U/L (0-33); Albumin Level 3.5 g/dL (3.5-5.2); Alkaline Phosphatase 250 U/L (35-105); Anion Gap 17.4 (5-19); Aspartate Amino Transferase 16 U/L (0-32); Blood Urea Nitrogen 12 mg/dL (8-23); C Reactive Protein 192.7 mg/L (0.0-4.9); Calcium 9.1 mg/dL (8.5-10.5); Carbon Dioxide 23 mmol/L (22-29); Chloride 93 mmol/L (98-107); Creatinine Clr Calc Pharmacy 58.3649; Globulin 4.4 g/dL (1.3-4.6); Glucose 152 mg/dL (65-115); Lipase 62 U/L (13-60); Osmolality Calculated 273 mOsm/kg (285-295); Potassium 3.4 mmol/L (3.5-5.1); Sodium 130 mmol/L (136-145); Total Bilirubin 0.6 mg/dL (0.15-1.2); Total Protein 7.9 g/dL (6.6-8.7)
[2023-04-24 22:26] LABS: Lactic Sepsis W/Reflex 1.3 mmol/L (0.5-2.2)
[2023-04-24 22:32] LABS: Procalcitonin 0.25 ng/mL (0-0.5)
[2023-04-24] MEDS: iohexol 350 mg/mL 500 mL Btl (per mL) IV (22:34)
[2023-04-24 22:46] LABS: SARS Covid-2 Antigen negative (Negative)
[2023-04-24] MEDS: acetaminophen 325 mg Tablet 650 MG PO (23:46)
[2023-04-24] MEDS: piperacillin-tazobactam 4.5 GM in sodium chloride 0.9% (plus) 50 ML IV (23:46)
[2023-04-25 00:56] LABS: Add Urine Culture? No; Add Urine Microscopic? YES; Bilirubin Urine Neg (Negative); Blood Urine 3+ (Negative); Glucose Urine UA Norm (Normal); Ketones Urine Negative (Negative); Leukocyte Esterase Urine Trace (Negative); Nitrate Urine Negative (Negative); Protein Urine 1+ (Negative); Specific Gravity, Urine 1.005 (1.005-1.030); Squamous Epithelial Cell Urine 0-4 /hpf (0-5); Urine Appearance Clear (CLEAR); Urine Color Yellow (Yellow); Urobilinogen Urine 1 mg/dL (Negative); WBC Urine 0-4 /hpf (0-5); pH Urine 8 (5-7)
[2023-04-25 01:01] VITALS: BP 122/70; PULSE 107; RESP 19; O2SAT 96
[2023-04-25 02:01] VITALS: BP 125/72; PULSE 104; RESP 19; O2SAT 97
[2023-04-25] MEDS: ondansetron 2 mg/ML SDV 2 mL 4 MG IVP (02:55)
[2023-04-25 03:30] VITALS: BP 115/71; PULSE 100; RESP 18; O2SAT 98
== END 2023-04-25 04:43 | disposition short-term general hospital (02) ==
PROVIDERS: Emergency Provider Emergency Medicine; PCP Family Medicine
DX: T81.43XA Infection following a procedure, organ and space surgical site, initial encounter (principal); K65.1 Peritoneal abscess; Y83.8 Other surgical procedures as the cause of abnormal reaction of the patient, or of later complication, without mention of misadventure at the time of the procedure
CPT/HCPCS: 71045; 74177; 80053; 81001; 83605; 83690; 84145; 85025; 86140; 87040; 87426; 96365; 96375; 99285; J2405; J2543; J7030; Q9967

== ENCOUNTER → 2023-07-22 15:46 | Outpatient (BNVA) | payer OTHER, SELFPAY | PROVIDERS: PCP Family Medicine; Visit Provider Family Medicine | DX: K81.9 Cholecystitis, unspecified (principal) | CPT/HCPCS: 80053; 85025 ==

== ENCOUNTER → 2023-07-23 09:34 | Outpatient (BNVA) | payer OTHER, SELFPAY | PROVIDERS: PCP Family Medicine; Visit Provider Family Medicine | DX: K81.9 Cholecystitis, unspecified (principal) | CPT/HCPCS: 80053; 85025 ==

== ENCOUNTER → 2023-12-08 12:49 | Outpatient (BNVA) | payer OTHER, SELFPAY | PROVIDERS: PCP Family Medicine; Visit Provider Family Medicine | DX: Z85.3 Personal history of malignant neoplasm of breast (principal); Z00.00 Encounter for general adult medical examination without abnormal findings | CPT/HCPCS: 80053; 80061; 82306; 85025 ==

== ENCOUNTER 2023-12-16 12:38 | Outpatient (CLI) | payer OTHER, SELFPAY ==
--- NOTE | 2023-12-16 13:00 | XR_ITS ---
WS: [id number] SCREENING DEXA SCAN [place] CLINICAL INFORMATION: osteopenia COMPARISON: 2020 FINDINGS: The L1-L4 bone mineral density measures 1.102 g/cm2. This corresponds to a T score score of -0.7 and Z score of 0.7. Left femoral neck bone mineral density measures 0.872 g/cm2. This corresponds to a T score of -1.1 an d Z score of -0.1. Right femoral neck bone mineral density measures 0.800 g/cm2. This corresponds to a T score -1.6of an d Z score of -0.6. Mean femoral neck bone mineral density measures 0.836 g/cm2. This corresponds to a T score of -1.4 an d Z score of -0.4. XR/XR DEXA axial skeleton* [id number] IMPRESSION: Normal bone mineralization lumbar spine. Osteopenia femoral necks. Patient's FRAX calculated 10 year probability for major osteoporotic fracture i s 27.3% and osteoporotic hip fracture is 1.8%. Bone mineral density lumbar spine decreased -0.7% Bone mineral density femoral necks decreased -3.7%
== END 2023-12-16 12:39 | disposition home or self-care (01) ==
LOC: RAD 12:38
PROVIDERS: PCP Family Medicine; Visit Provider Family Medicine
DX: Z13.820 Encounter for screening for osteoporosis (principal); Z00.00 Encounter for general adult medical examination without abnormal findings; Z85.3 Personal history of malignant neoplasm of breast; M85.862 Other specified disorders of bone density and structure, left lower leg; M85.861 Other specified disorders of bone density and structure, right lower leg
CPT/HCPCS: 77080

== ENCOUNTER → 2025-03-12 15:16 | Outpatient (BNVA) | payer OTHER, SELFPAY | PROVIDERS: PCP Family Medicine; Visit Provider Family Medicine | DX: Z00.00 Encounter for general adult medical examination without abnormal findings (principal) | CPT/HCPCS: 80053; 80061; 83036; 85025; 86140 ==

== ENCOUNTER 2025-03-27 11:54 | Outpatient (CLI) | payer OTHER, SELFPAY ==
--- NOTE | 2025-03-27 12:00 | CT_ITS ---
WS: [id number] CT chest wo con [id number] HISTORY: dyspnea, history of breast cancer. TECHNIQUE: Axial imaging performed through the thorax. Coronal and sagittal reformats are submitted. All CT scans at [facility] use at least one of these dose optimization techniques: automated exposure control; mA and/or kV adjustment per patient size (includes targeted exams where dose is matched to clinical indication); or iterative reconstruction. CONTRAST: None DLP: 294.16 mGy.cm COMPARISON: 04/11/2021 Lungs and central airway: LEFT apical fibrosis and volume loss. Similar to the prior study. No pulmonary mass or nodule. No pneumonia. No endobronchial lesions. Pleura: Mild pleural thickening at the LEFT apex associated with the parenchymal scarring. Heart and pericardium: Normal size heart with no pericardial effusion. Mediastinum and liane: No mediastinum or hilar adenopathy. Vessels: Mild atherosclerosis aorta. Normal size pulmonary artery. Chest wall and lower neck: RIGHT subclavian Mediport. Prior bilateral mastectomies. Upper abdomen: Pneumobilia. Prior cholecystectomy. Nonobstructing calcifications upper pole of each kidney. Visualized pancreas is normal. Osseous structures: RIGHT scoliosis thoracic spine. CT/CT chest wo con [id number] IMPRESSION: 1. Stable LEFT apical pulmonary fibrosis with pleural thickening. 2. No pulmonary mass or nodule. No pneumonia. 3. No mediastinal or hilar adenopathy. 4. Prior bilateral mastectomies. 5. Prior cholecystectomy with pneumobilia. 6. RIGHT thoracic spine scoliosis.
== END 2025-03-27 11:55 | disposition home or self-care (01) ==
LOC: RAD 11:57
PROVIDERS: PCP Family Medicine; Visit Provider Family Medicine
DX: R06.00 Dyspnea, unspecified (principal); Z85.3 Personal history of malignant neoplasm of breast; J84.10 Pulmonary fibrosis, unspecified; Z90.49 Acquired absence of other specified parts of digestive tract; Z91.013 Allergy to seafood; M41.34 Thoracogenic scoliosis, thoracic region
CPT/HCPCS: 71250